=== PATIENT | female | born 1975 | race Caucasian/White ===

== ENCOUNTER 2024-02-11 11:56 | Outpatient (OUT) | payer BC, SELFPAY ==
[2024-02-11 12:14] LABS: Basophils Absolute Auto 0.1 10^3/uL (0.0-0.1); Basophils Percent Auto 0.4 % (0.2-2.0); Eosinophils Absolute Auto 0.3 10^3/uL (0.0-0.7); Eosinophils Percent Auto 1.5 % (0.9-7.0); Hematocrit 42.4 % (36.0-48.0); Hemoglobin 13.4 g/dL (12.0-16.0); Immature Granulocytes Abs Auto 0.19 10^3/uL (0.00-0.03); Lymphocytes Absolute Auto 1.8 10^3/uL (1.2-3.8); Lymphocytes Percent Auto 9.1 % (20.5-60.0); Mean Corpuscular HGB Conc 31.6 g/dL (29.9-35.2); Mean Corpuscular Volume 88.5 fL (81.0-99.0); Mean Platelet Volume 9.9 fL (9.5-13.5); Monocytes Absolute Auto 0.7 10^3/uL (0.3-0.8); Monocytes Percent Auto 3.6 % (1.7-12.0); Neutrophils Absolute Auto 16.3 10^3/uL (1.4-6.5); Neutrophils Percent Auto 84.4 % (43.0-75.0); Platelet Count 356 10^3/uL (150-450); Red Blood Count 4.79 10^6/uL (4.20-5.40); Red Cell Distribution Width 13.4 % (11.0-15.0); White Blood Count 19.3 10^3/uL (4.0-11.0)
[2024-02-11 12:17] LABS: Bilirubin Urine NEGATIVE (NEGATIVE); Blood Urine NEGATIVE (NEGATIVE); Clarity Urine SL CLOUDY (CLEAR); Color Urine YELLOW (YELLOW); Glucose Urine UA NEGATIVE (NEGATIVE); Ketones Urine TRACE mg/dL (NEGATIVE); Leukocyte Esterase Urine NEGATIVE (NEGATIVE); Nitrite Urine NEGATIVE (NEGATIVE); Protein Urine TRACE mg/dL (NEG/TRACE); Specific Gravity Urine >=1.030 (1.005-1.025); pH Urine 5.5 (5.0-9.0)
[2024-02-11 12:21] LABS: Urine Microscopic Indicated NO
[2024-02-11 12:30] LABS: Alanine Aminotransferase 45 U/L (14-59); Albumin Level 3.6 g/dL (3.4-5.0); Alkaline Phosphatase 109 U/L (46-116); Amylase 41 U/L (25-115); Anion Gap 15.3; Aspartate Amino Transferase 18 U/L (15-37); BUN Creatinine Ratio 15.1; Bilirubin Total 0.5 mg/dL (0.2-1.0); Calcium 9.1 mg/dL (8.5-10.1); Chloride 102 mmol/L (98-107); Estimated GFR (African America >60 (>=60); Estimated GFR (Non-African Ame 56 (>=60); Globulin 3.7 g/dL; Glucose 113 mg/dL (74-106); Potassium 4.3 mmol/L (3.5-5.1); Sodium 140 mmol/L (136-145); Total Protein 7.3 g/dL (6.4-8.2)
== END 2024-02-11 11:57 | disposition home or self-care (01) ==
LOC: LAB 12:01
PROVIDERS: PCP Nurse Practitioner; Visit Provider Nurse Practitioner
DX: R11.2 Nausea with vomiting, unspecified (principal)
CPT/HCPCS: 36415; 80053; 81003; 82150; 83690; 85025

== ENCOUNTER 2024-02-11 15:45 | Observation (INO) | payer BC, SELFPAY ==
[2024-02-11] VITALS (16 sets, daily range): BP systolic 93–127; BP diastolic 53–76; PULSE 85–101; TEMP 36.2–36.8; O2SAT 91–96; BMI 37.2; BMI 37.8
--- NOTE | 2024-02-11 15:58 | CT_ITS ---
The [address] [address] Patient Name: JEREMIAS HANLEY MRN: [id number] date: 1975 Sex: F Assigned Patient Location: ER Current Patient Location: ER Accession/Order Number: [id number] Exam Date: 02/11/2024 16:43 Report Date: 02/11/2024 18:05 At the request of: GERRY SULLIVAN Procedure: CT abdomen pelvis w con EXAM: CT abdomen pelvis w con HISTORY: abdominal pain, n/v/d. COMPARISON: None. TECHNIQUE: CT abdomen pelvis with IV contrast 100 mL Omnipaque 300. Axial scans with multiplanar reformatted images. Individualized dose reduction used for this exam. FINDINGS: Lower chest: No acute process. ABDOMEN: Normal-appearing liver, adrenal glands, pancreas spleen. Fluid-filled gallbladder is prominent without calcified stone or surrounding inflammation. No biliary dilatation. No ascites or free fluid. No adenopathy. Normal size aorta Distended cecum, ascending colon and mostly transverse colon with increased gas and fluid. Several areas of diminished caliber distal transverse colon. Colon beyond this is not distended contains moderate to large amount of stool. Question whether there is obstruction in the distal transverse colon. Stomach and duodenum are prominent with fluid. Remainder small bowel without significant distention to the terminal ileum. Pelvis: No mass or adenopathy or free fluid. Previous hysterectomy. Fluid-filled bladder. MUSCULOSKELETAL: No suspicious bone lesion. CT/CT abdomen pelvis w con IMPRESSION: 1. Distended air-filled cecum, ascending, transverse colon to distal portion where there appear to be transition to smaller caliber colon to the rectum. Moderate to areas of diminished caliber noted could be obstructing lesion or lesions. Consider colonoscopy. 2. Other incidental findings. No other significant pathology. Electronically authenticated by: JAIRO CUEVA Date: 02/11/2024 18:05
--- NOTE | 2024-02-11 15:59 | ECG_ITS ---
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
--- NOTE | 2024-02-11 16:01 | ED.GENADUL1 ---
HPI HPI - General Adult General Chief complaint: Abdominal Pain Stated complaint: NAUSEA Time Seen by Provider: 02/11/24 15:50 Source: patient Mode of arrival: walk-in Limitations: no limitations History of Present Illness HPI narrative: 48-year-old female presents to the ER with concerns of abdominal pain, nausea vomiting and diarrhea. Patient states she had an episode last week with similar symptoms that resolved within 24 to 48 hours, was feeling better. Today she awoke with again nausea vomiting and diarrhea. She reports multiple episodes of vomiting and diarrhea. She denies any chest pain or shortness of breath, no notable fever. She had outpatient labs done by her family doctor and was noted to have leukocytosis and symptoms of dehydration. Referred to the ER for further evaluation. Patient notes she has generalized abdominal pain that localizes in the mid to epigastric region, history of IBS with previous colonoscopy and remote diverticulosis. Patient appears uncomfortable with nausea and emesis basin. She denies any recent medication changes is a type II diabetic with metformin use. Mother is present at bedside and patient's PCP called advising of her coming to be seen. Has had previous appendectomy and hysterectomy but still has her gallbladder. Outpatient labs done today at noon at our facility. Location: Reports abdomen Radiation: Denies non-radiation Severity: moderate Quality: Reports aching Pain Consistency: Reports constant Relieving factors: Reports none Treatments prior to arrival: Reports none Related Data Home Medications ?Medication ?Instructions ?Recorded ?Confirmed amlodipine 2.5 mg tablet 2.5 mg PO BID 02/11/24 02/11/24 atorvastatin 80 mg tablet 80 mg PO BEDTIME 02/11/24 02/11/24 cyclobenzaprine 10 mg tablet 10 mg PO TID PRN muscle spasm 02/11/24 02/11/24 famotidine 40 mg tablet 40 mg PO BEDTIME 02/11/24 02/11/24 ferrous sulfate 325 mg (65 mg 325 mg PO BID 02/11/24 02/11/24 iron) tablet (FeroSul) gabapentin 100 mg capsule 100 mg PO BID 02/11/24 02/11/24 hydroxyzine pamoate 50 mg capsule 50 mg PO TID PRN anxiety 02/11/24 02/11/24 lisinopril 5 mg tablet 5 mg PO BID 02/11/24 02/11/24 metoprolol tartrate 25 mg tablet 25 mg PO BID 02/11/24 02/11/24 omeprazole 20 mg capsule,delayed 20 mg PO BID 02/11/24 02/11/24 release pramipexole 0.5 mg tablet 0.5 mg PO BEDTIME 02/11/24 02/11/24 venlafaxine 150 mg 150 mg PO DAILY 02/11/24 02/11/24 capsule,extended release 24 hr Allergies Allergy/AdvReac Type Severity Reaction Status Date / Time No Known Drug Allergies Allergy Verified 02/11/24 15:54 Opioid HPI Opioid Management Most Recent Opioid Data: Last Pain Scale 5 02/11/24 19:06 Last ED Pain Assessment 02/11/24 19:06 Last MAR Pain Assessment 02/11/24 17:15 Review of Systems ROS Constitutional Denies: fever or chills Eyes Denies: change in vision Ears, nose, mouth, and throat Denies: throat pain, neck pain or throat swelling Cardiovascular Denies: chest pain, palpitations or edema Respiratory Denies: shortness of breath, cough or wheezing Gastrointestinal Reports: abdominal pain, nausea and vomiting Genitourinary Denies: painful urination or urinary frequency Musculoskeletal Denies: back pain or neck pain Integumentary/Breast Denies: rash Neurological Denies: headache Psychiatric Denies: anxiety or mood swings Endocrine Denies: excessive urination Hematologic/Lymphatic Denies: easy bruising Allergic/Immunologic Denies: hives PFSH [facility] Medical History History of heart attack ?I25.2 - Old myocardial infarction (ICD-10) Surgical History History of heart artery stent ?Z95.5 - Presence of coronary angioplasty implant and graft (ICD-10) History of appendectomy ?Z90.49 - Acquired absence of other specified parts of digestive tract (ICD-10) History of hysterectomy ?Z90.710 - Acquired absence of both cervix and uterus (ICD-10) Exam Narrative Exam Narrative: Nurses notes and vital signs reviewed and patient is not hypoxic. General: The patient appears ill, but nontoxic. And in no apparent distress. Patient is resting comfortably on cart. Skin: Warm, dry, no pallor noted. Head: Normocephalic, atraumatic Neck: Supple, trachea mid-line, no tenderness, no lymphadenopathy Eye: Pupils are equal, round and reactive to light, EOMI Ears, Nose, Mouth, and Throat: External exam unremarkable. Cardiovascular: Regular Rate and Rhythm Respiratory: Patient is in no distress, no accessory muscle use, lungs are clear to auscultation, no wheezing, rales or rhonchi. Chest Wall: no tenderness Back: non-tender, no CVA tenderness Musculoskeletal: normal ROM, no tenderness, no swelling GI: Normal bowel sounds, tenderness to palpation epigastric, no masses appreciated. No rebound, guarding, or rigidity noted. Neurological: A&O x4 Psychiatric: Cooperative Constitutional Vital Signs, click to edit/add: Last Vital Signs Temp 98 F 02/11/24 19:05 Pulse 85 02/11/24 19:05 Resp 16 02/11/24 19:05 BP 93/53 02/11/24 19:05 Pulse Ox 95 02/11/24 19:05 O2 Del Method Room Air 02/11/24 17:22 Course Vital Signs Vital signs: Vital Signs Temperature 98.3 F 02/11/24 15:54 Pulse Rate 100 H 02/11/24 15:54 Respiratory Rate 20 02/11/24 15:54 Blood Pressure 127/76 02/11/24 15:54 Pulse Oximetry 96 02/11/24 15:54 Oxygen Delivery Method Room Air 02/11/24 15:54 Temperature 98 F 02/11/24 19:05 Pulse Rate 85 02/11/24 19:05 Respiratory Rate 16 02/11/24 19:05 Blood Pressure 93/53 02/11/24 19:05 Pulse Oximetry 95 02/11/24 19:05 Oxygen Delivery Method Room Air 02/11/24 17:22 Medical Decision Making MDM Narrative Medical decision making narrative: Patient presents with recurrent bouts of nausea vomiting diarrhea and abdominal pain. Tenderness noted on exam, no rebound or guarding. Patient appears uncomfortable, will be given IV Zofran, Toradol 15 mg and Levsin along with Pepcid. CT of the abdomen and pelvis will be performed with mutual discussion with patient at bedside regarding tenderness and symptoms. Elevated white blood cell count. She denies any known ill exposures products in the previous 2 months or bad foods. Patient reevaluated, still complaining of mild nausea, abdominal pain unchanged. Patient be given 4 mg IV morphine, 2 mg IV Valium. Repeat 4 mg IV Zofran. Patient reevaluated at 6:20 PM. She reports nausea is much improved, pain is better down to a 4 and very tolerable with recent medication. We discussed her CT findings. Patient reports prior colonoscopy the but that it has been over 5 years, Dr. Gorman in [place]. Patient reports doing Cologuard through her PCP with negative results. We discussed her symptoms last week and again recurring this week with potential ileus or bowel obstruction. Recommend period of observation to see if she can trial p.o. fluids. Pending general surgery consultation. Case discussed with Dr. Enrique, need for admission for Inpatient evaluation of , Nausea/ vomiting/ diarrhea, possible large bowel obstruction. Case discussed with Hospital ( [facility]) for admission- medical management. Patient had bedside consultation by Dr. Enrique, recommended NG tube placement, p.o. contrast via NG tube, rectal contrast for repeat CT of the abdomen and pelvis to help localize obstruction. Patient given Phenergan 25 mg IM for nausea after NG tube placement, confirmed with gastric contents and 1 view chest x-ray prior to administration of contrast. Patient had extended wait in the ER to accommodate CT before transport upstairs for admission for continuity of care, rather than bring the patient back down from the floor for imaging purposes. SHARED APC VISIT, PHYSICIAN ATTESTATION: [id number] I performed a substantive part of the MDM during the patient?s E/M visit. I personally evaluated and examined the patient. I personally made or approved the documented management plan and acknowledge its risk of complications. My (EKG/X-Ray/US/CT) interpretation . Management/test interpretation discussed with . Lab Data Lab results reviewed: Yes I reviewed the patient's lab results Lab results narrative: Urinalysis noted for trace ketones, patient's white blood cell count was elevated 19.3 with slight shift neut 84.4, plt 356, slight elevation of creatinine 1.06 bun 16, Liver enzymes wnl along with amylase/ lipase. labs are in hospital record for review. Imaging Data CT scan - abdomen: Radiologist's impression: ITS Impressions Abdomen/Pelvis CT 02/11/24 15:58 IMPRESSION: 1. Distended air-filled cecum, ascending, transverse colon to distal portion where there appear to be transition to smaller caliber colon to the rectum. Moderate to areas of diminished caliber noted could be obstructing lesion or lesions. Consider colonoscopy. 2. Other incidental findings. No other significant pathology. Electronically authenticated by: JAIRO CUEVA Date: 02/11/2024 18:05 ECG Data Attestation: I personally reviewed and interpreted this ECG as follows: Interpretation: EKG interpretation: Emergency Department physician interpretation, normal sinus rhythm 95, no ectopy, no ST segment elevation, normal axis. Discharge Plan Discharge Chief Complaint: Abdominal Pain Clinical Impression: Nausea vomiting and diarrhea, Bowel obstruction Patient Disposition: Admitted as Observation Time of Disposition Decision: 19:21 Condition: Good
[2024-02-11] MEDS: KETOROLAC TROMETHAMINE 30 MG/ML VIAL 15 MG IVP ×2 (16:30→23:05)
[2024-02-11] MEDS: HYOSCYAMINE SULFATE 0.125 MG TAB.SUBL SL (16:30)
[2024-02-11] MEDS: FAMOTIDINE/PF 20 MG/2 ML VIAL IV (16:30)
[2024-02-11] MEDS: ONDANSETRON PF 4 MG/2 ML VIAL IV ×3 (16:30→23:05)
[2024-02-11] MEDS: 0.9 % SODIUM CHLORIDE 1,000 ML 999 ML IV (16:31)
[2024-02-11] MEDS: DIAZEPAM 10 MG/2 ML SYRINGE 2 MG IV (17:15)
[2024-02-11] MEDS: MORPHINE SULFATE 4 MG/ML VIAL IV (17:15)
--- NOTE | 2024-02-11 19:46 | CT_ITS ---
The [address] [address] Patient Name: JEREMIAS HANLEY MRN: [id number] date: 1975 Sex: F Assigned Patient Location: Current Patient Location: Accession/Order Number: [id number] Exam Date: 02/11/2024 21:25 Report Date: 02/11/2024 23:00 At the request of: CHRISTINE ROBERSON Procedure: CT abdomen pelvis wo con EXAM: CT abdomen pelvis wo con HISTORY: r/o large bowel obstruction;please give oral contr COMPARISON: CT abdomen pelvis, 02/11/2024. TECHNIQUE: Oral and rectal contrast enhanced CT imaging the abdomen and pelvis was performed with sagittal and coronal reconstructions. Dose reduction techniques were achieved by using automated exposure control and/or adjustment of mA and/or kV according to patient size and/or use of iterative reconstruction technique. FINDINGS: CT ABDOMEN: There is dependent atelectasis in the posterior lower lobes with additional streaky bibasilar atelectasis. The imaged heart is unremarkable. The liver, gallbladder, pancreas, spleen, adrenal glands, kidneys, aorta, and IVC have a grossly unremarkable nonenhanced appearance. An NG tube is in good position with its tip in the distal gastric body. The stomach and small bowel appear unremarkable. CT PELVIS: There is no colonic obstruction. There is moderate stool in the proximal half of the colon. The colon is otherwise unremarkable. The appendix, uterus and ovaries are not seen and may have been removed.. The pelvic small bowel loops and urinary bladder are unremarkable. No inflammatory fat stranding, free fluid, loculated fluid or free air is seen in the abdomen or pelvis. No acute osseous abnormality or suspicious bony lesion is seen. CT/CT abdomen pelvis wo con IMPRESSION: 1. Moderate intrinsic stool limits evaluation of the colon. Potential underlying lesions could be better evaluated with colonoscopy. There is no colonic obstruction. The transition point described on the prior exam is not seen following rectal contrast administration. 2. No acute findings in the abdomen or pelvis. Electronically authenticated by: JAIRO HEWITT Date: 02/11/2024 23:00
--- NOTE | 2024-02-11 19:49 | PM.GSCN ---
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 Patient states she has been having pain in the abdomen for about 10 days that has been coming and going. Her last normal bowel movement was yesterday. She rates the pain as an 6 out of 10 currently but had medication about 3-1/2 hours ago. She has had 7-8 episodes of nausea and vomiting today. She has had leukocytosis on outpatient lab work which showed a white blood count of 19,000. She denies any melena or hematochezia or unusual weight loss. She denies any family history of colon cancer or inflammatory bowel disease. She has a history of endometriosis. She has had a prior bilateral oophorectomy and hysterectomy and appendectomy She had a CT scan of the abdomen and pelvis showing distended cecum and transverse colon with transition distal transverse colon. This was done without oral contrast. She has had intermittent constipation over the last year for which she gives herself enemas every 2 weeks. Her last colonoscopy was performed [address] Gormna in [place]. She has a history of having had an PR in 2019 and another 1. She has [address] Ekg Manager is in [facility]. She tells me that she takes a baby aspirin daily but it is not listed on her medication list. She is diabetic. Type II. Her daughter Fabi is at the bedside. The [address] [address] [address] Scan Report Signed Patient: JEREMIAS HANLEY MR#: [id number] : 1975 Acct:[id number] Age/Sex: 48 / F ADM Date: 02/11/24 Loc: ER Attending Dr: Ordering Physician: Gerry Vieyra Date of Service: 02/11/24 Procedure(s): CT abdomen pelvis w con Accession Number(s): [id number] cc: Lis Telles NP~ The [address] [address] Patient Name: JEREMIAS HANLEY MRN: [facility]:[id number] date: 1975 Sex: F Assigned Patient Location: ER Current Patient Location: ER Accession/Order Number: [id number] Exam Date: 02/11/2024 16:43 Report Date: 02/11/2024 18:05 At the request of: GERRY VIEYRA Procedure: CT abdomen pelvis w con EXAM: CT abdomen pelvis w con HISTORY: abdominal pain, n/v/d. COMPARISON: None. TECHNIQUE: CT abdomen pelvis with IV contrast 100 mL Omnipaque 300. Axial scans with multiplanar reformatted images. Individualized dose reduction used for this exam. FINDINGS: Lower chest: No acute process. ABDOMEN: Normal-appearing liver, adrenal glands, pancreas spleen. Fluid-filled gallbladder is prominent without calcified stone or surrounding inflammation. No biliary dilatation. No ascites or free fluid. No adenopathy. Normal size aorta Distended cecum, ascending colon and mostly transverse colon with increased gas and fluid. Several areas of diminished caliber distal transverse colon. Colon beyond this is not distended contains moderate to large amount of stool. Question whether there is obstruction in the distal transverse colon. Stomach and duodenum are prominent with fluid. Remainder small bowel without significant distention to the terminal ileum. Pelvis: No mass or adenopathy or free fluid. Previous hysterectomy. Fluid-filled bladder. MUSCULOSKELETAL: No suspicious bone lesion. CT/CT abdomen pelvis w con IMPRESSION: 1. Distended air-filled cecum, ascending, transverse colon to distal portion where there appear to be transition to smaller caliber colon to the rectum. Moderate to areas of diminished caliber noted could be obstructing lesion or lesions. Consider colonoscopy. 2. Other incidental findings. No other significant pathology. Electronically authenticated by: ROBERT PIKE Date: 02/11/2024 18:05 Dictated By: Robert Pike M.D. Signed By: 02/11/241806 DD/ 04 TD/TT: Machine Deicer Element Winder: Review of Systems ROS Gastrointestinal Reports: abdominal pain, nausea, vomiting and diarrhea PFSH PFS Medical History History of heart attack ?I25.2 - Old myocardial infarction (ICD-10) Surgical History History of heart artery stent ?Z95.5 - Presence of coronary angioplasty implant and graft (ICD-10) History of appendectomy ?Z90.49 - Acquired absence of other specified parts of digestive tract (ICD-10) History of hysterectomy ?Z90.710 - Acquired absence of both cervix and uterus (ICD-10) Meds Home Medications and Allergies Home Medications ?Medication ?Instructions ?Recorded ?Confirmed ?Type amlodipine 2.5 mg tablet 2.5 mg PO BID 02/11/24 02/11/24 History atorvastatin 80 mg tablet 80 mg PO BEDTIME 02/11/24 02/11/24 History cyclobenzaprine 10 mg tablet 10 mg PO TID PRN muscle spasm 02/11/24 02/11/24 History famotidine 40 mg tablet 40 mg PO BEDTIME 02/11/24 02/11/24 History ferrous sulfate 325 mg (65 mg 325 mg PO BID 02/11/24 02/11/24 History iron) tablet (FeroSul) gabapentin 100 mg capsule 100 mg PO BID 02/11/24 02/11/24 History hydroxyzine pamoate 50 mg capsule 50 mg PO TID PRN anxiety 02/11/24 02/11/24 History lisinopril 5 mg tablet 5 mg PO BID 02/11/24 02/11/24 History metoprolol tartrate 25 mg tablet 25 mg PO BID 02/11/24 02/11/24 History omeprazole 20 mg capsule,delayed 20 mg PO BID 02/11/24 02/11/24 History release pramipexole 0.5 mg tablet 0.5 mg PO BEDTIME 02/11/24 02/11/24 History venlafaxine 150 mg 150 mg PO DAILY 02/11/24 02/11/24 History capsule,extended release 24 hr Allergies Allergy/AdvReac Type Severity Reaction Status Date / Time No Known Drug Allergies Allergy Verified 02/11/24 15:54 Exam Constitutional Vital Signs, click to edit/add: Last Vital Signs Temp 98 F 02/11/24 19:05 Pulse 85 02/11/24 19:05 Resp 16 02/11/24 19:05 BP 93/53 02/11/24 19:05 Pulse Ox 95 02/11/24 19:05 O2 Del Method Room Air 02/11/24 17:22 Documenting provider has reviewed patient's vital signs: yes Common normals: oriented x3, healthy appearing, alert and well nourished General appearance: cooperative and well developed Nutritional appearance: obese Orientation/consciousness: Yes awake, Yes oriented to person, Yes oriented to place and Yes oriented to time HENMT Common normals: normocephalic Nose: external nose normal and nares normal Eye Common normals: PERRL, EOMs intact bilaterally, conjunctivae normal and no scleral icterus Respiratory Common normals: normal respiratory effort and clear to auscultation bilaterally Cardio Common normals: regular rate, regular rhythm, no gallops and no murmurs GI Auscultation: hypoactive bowel sounds Palpation: soft (Obese slightly distended) and tender Percussion: tympanic to percussion Extremity Common normals: normal to inspection and full ROM Neuro Common normals: oriented x3, CN's II-XII intact bilaterally, moves all extremities and no focal motor deficits Cranial nerves: CN normal except as noted Results Labs Labs: All other labs normal. Imaging Abdomen CT scan report/results: report reviewed and image reviewed Assessment and Plan Assessment and Plan (1) Abnormal CT scan, gastrointestinal tract: (2) Abdominal pain: Qualifiers: Abdominal location: generalized Qualified Code(s): R10.84 - Generalized abdominal pain (3) Diabetes mellitus type 2, noninsulin dependent: (4) History of heart artery stent: (5) History of appendectomy: (6) History of hysterectomy: (7) Bowel obstruction: Qualifiers: Intestinal obstruction extent: unspecified extent Intestinal obstruction type: other intestinal obstruction Qualified Code(s): K56.699 - Other intestinal obstruction unspecified as to partial versus complete obstruction (8) Nausea vomiting and diarrhea: Plan 1. Discussed with patient the possibility of a large bowel obstruction requiring temporary colostomy and major surgery 2. Would recommend placement of nasogastric tube to low intermittent suction 3. Would repeat CT scan with rectal contrast
--- NOTE | 2024-02-11 19:52 | XR_ITS ---
The [address] [address] Patient Name: JEREMIAS HANLEY MRN: [id number] date: 1975 Sex: F Assigned Patient Location: ER Current Patient Location: ED.[facility] Accession/Order Number: [id number] Exam Date: 02/11/2024 20:00 Report Date: 02/11/2024 20:44 At the request of: GERRY SULLIVAN Procedure: XR chest 1V EXAM: XR chest 1V at 1956 hours HISTORY: NG tube placement COMPARISON: 02/18/2023 TECHNIQUE: AP upright portable chest x-ray FINDINGS: There has been interval insertion of an NG tube which courses into the stomach and out of the [id number]. The sideholes are significantly distal to the gastroesophageal junction. The heart remains mildly enlarged without overt cardiac decompensation. No acute infiltrate, effusion or pneumothorax is identified. The osseous structures are grossly intact. XR/XR chest 1V IMPRESSION: Satisfactory placement of the NG tube. The heart remains enlarged without overt cardiac decompensation. A focal infiltrate is not identified. Electronically authenticated by: LEILA KEARNS Date: 02/11/2024 20:44
[2024-02-11] MEDS: PROMETHAZINE HCL 25 MG/ML VIAL IM (20:04)
[2024-02-11] MEDS: DEXTROSE 5 %-0.45 % SOD CHLORD 1,000 ML 100 ML IV (23:05)
[2024-02-12 04:00] VITALS: BP 90/56; TEMP 36.8; O2SAT 2
--- NOTE | 2024-02-12 05:38 | PM.GSPN ---
Progress Note: A&P Assessment and Plan (1) Abnormal CT scan, gastrointestinal tract: (2) Abdominal pain: Qualifiers: Abdominal location: generalized Qualified Code(s): R10.84 - Generalized abdominal pain (3) Diabetes mellitus type 2, noninsulin dependent: (4) History of heart artery stent: (5) History of appendectomy: (6) History of hysterectomy: (7) Bowel obstruction: Qualifiers: Intestinal obstruction type: other intestinal obstruction Intestinal obstruction extent: unspecified extent Qualified Code(s): K56.699 - Other intestinal obstruction unspecified as to partial versus complete obstruction (8) Nausea vomiting and diarrhea: Plan D/c ng tube and try clears Pt. will OP colonoscopy within next few weeks;pending labs No more nausea emesis since admission Subjective Subjective Patient reports: no new complaints, feels better, still having pain and no flatus Interval history: Repeat CT scan with oral and rectal contrast shows no signs of colonic obstruction. Minimal output per NG tube. Still having 5/10 pain but not medicated since prior to midnight.No flatus or bm. Exam Constitutional Vital Signs, click to edit/add: Last Vital Signs Temp 98.3 F 02/12/24 04:00 Pulse 91 H 02/11/24 22:45 Resp 18 02/12/24 04:00 BP 90/56 02/12/24 04:00 Pulse Ox 2 L 02/12/24 04:00 O2 Del Method Nasal Cannula 02/12/24 04:00 Documenting provider has reviewed patient's vital signs: yes Common normals: no apparent distress, oriented x3, alert and well nourished GI Common normals: Normal to inspection, nondistended, normoactive bowel sounds present, soft to palpation and non-tender Date and Time Date and Time of Service Date of service: 02/12/24 Time: 05:39
[2024-02-12] MEDS: DEXTROSE 5 %-0.45 % SOD CHLORD 1,000 ML 100 ML IV (06:23)
[2024-02-12 07:00] LABS: Basophils Percent Auto 0.1 % (0.2-2.0); Eosinophils Absolute Auto 0.4 10^3/uL (0.0-0.7); Eosinophils Percent Auto 3.6 % (0.9-7.0); Hematocrit 36.1 % (36.0-48.0); Hemoglobin 11.1 g/dL (12.0-16.0); Immature Granulocytes Abs Auto 0.03 10^3/uL (0.00-0.03); Immature Granulocytes Pct Auto 0.3 % (0.0-0.5); Lymphocytes Absolute Auto 1.2 10^3/uL (1.2-3.8); Lymphocytes Percent Auto 12.3 % (20.5-60.0); Mean Corpuscular HGB Conc 30.7 g/dL (29.9-35.2); Mean Corpuscular Hemoglobin 27.4 pg (26.7-34.0); Mean Corpuscular Volume 89.1 fL (81.0-99.0); Mean Platelet Volume 10.3 fL (9.5-13.5); Monocytes Absolute Auto 0.4 10^3/uL (0.3-0.8); Monocytes Percent Auto 3.7 % (1.7-12.0); Platelet Count 240 10^3/uL (150-450); Red Blood Count 4.05 10^6/uL (4.20-5.40); Red Cell Distribution Width 13.4 % (11.0-15.0)
[2024-02-12 07:11] LABS: Alanine Aminotransferase 27 U/L (14-59); Albumin Globulin Ratio 0.9; Albumin Level 2.6 g/dL (3.4-5.0); Alkaline Phosphatase 84 U/L (46-116); Anion Gap 12.8; Aspartate Amino Transferase 13 U/L (15-37); BUN Creatinine Ratio 15.9; Bilirubin Total 0.5 mg/dL (0.2-1.0); Calcium 7.8 mg/dL (8.5-10.1); Carbon Dioxide 26.8 mmol/L (21.0-32.0); Chloride 105 mmol/L (98-107); Estimated GFR (African America >60 (>=60); Estimated GFR (Non-African Ame >60 (>=60); Globulin 2.9 g/dL; Glucose 102 mg/dL (74-106); Potassium 3.6 mmol/L (3.5-5.1); Sodium 141 mmol/L (136-145); Total Protein 5.5 g/dL (6.4-8.2)
[2024-02-12 07:53] VITALS: BP 107/68; PULSE 86; TEMP 36.9; O2SAT 92
--- NOTE | 2024-02-12 08:48 | P.DS_ITS ---
DS: Providers Provider Date of admission: 02/11/24 21:59 Primary care physician: Lis Telles NP Consults: 02/11/24 19:24 Consult to General Surgeon Routine Consulting Provider: Souleymane Enrique Reason for consultation: possible large bowel obstruction/ ilieus/ Has provider been notified: Yes 02/12/24 07:00 Consult to General Surgeon Routine Consulting Provider: Souleymane Enrique Reason for consultation: Bowel obstruction Has provider been notified: Yes DS: Diagnosis Discharge Diagnosis (1) Abnormal CT scan, gastrointestinal tract: (2) Abdominal pain: Qualifiers: Abdominal location: generalized Qualified Code(s): R10.84 - Generalized abdominal pain (3) Diabetes mellitus type 2, noninsulin dependent: (4) History of heart artery stent: (5) History of appendectomy: (6) History of hysterectomy: (7) Bowel obstruction: Qualifiers: Intestinal obstruction extent: unspecified extent Intestinal ob struction type: other intestinal obstruction Qualified Code(s): K56.699 - Other intestinal obstruction unspecified as to partial versus complete obstruction (8) Nausea vomiting and diarrhea: DS: Summary Hospital Course Hospital Course: Patient was seen and evaluated in the emergency room with recurrent nausea vomiting and diarrhea, CT scan without contrast suggested possible large bowel obstruction, consultation with surgery recommended placing an NG tube, giving IV, oral, rectal contrast, NG tube was placed, CT scan not consistent with large bowel obstruction, NG tube overnight had minimal output, white blood cell count on admission was resolved to normal this morning. With minimal output patient was given clear liquids which she so far has tolerated. If she tolerates lunch she will be discharged home in improving condition. Medications see list. Follow-up with her PCP and general surgery within the next week. Status at Discharge Overall status at discharge: patient is back to baseline Time Spent with Patient Time attestation: Total time spent providing and/or coordinating discharge services: Time spent: greater than 30 minutes Exam Constitutional Vital Signs, click to edit/add: Last Vital Signs Temp 98.4 F 02/12/24 07:53 Pulse 86 02/12/24 07:53 Resp 18 02/12/24 07:53 BP 107/68 02/12/24 07:53 Pulse Ox 92 L 02/12/24 07:53 O2 Del Method Room Air 02/12/24 07:53 Documenting provider has reviewed patient's vital signs: yes Common normals: no apparent distress Chest Common normals: inspection of chest normal and palpation of chest normal Respiratory Common normals: normal respiratory effort and no retractions Cardio Common normals: regular rate, regular rhythm and no murmurs GI Common normals: Normal to inspection, nondistended, normoactive bowel sounds present, soft to palpation and non-tender DS: Data Data Completed and Pending Labs on day of discharge: Labs from last 24 hours 02/12/24 06:39 WBC 10.0 RBC 4.05 L Hgb 11.1 L Hct 36.1 MCV 89.1 MCH 27.4 MCHC 30.7 RDW 13.4 Plt Count 240 MPV 10.3 Neut % (Auto) 80.0 H Lymph % (Auto) 12.3 L [place] % (Auto) 3.7 Eos % (Auto) 3.6 Baso % (Auto) 0.1 L Neut # (Auto) 8.0 H Lymph # (Auto) 1.2 [place] # (Auto) 0.4 Eos # (Auto) 0.4 Baso # (Auto) 0.0 Abs Immat Gran (auto) 0.03 Imm/Tot Granulo (auto) 0.3 Sodium 141 Potassium 3.6 Chloride 105 Carbon Dioxide 26.8 Anion Gap 12.8 BUN 13.0 Creatinine 0.82 Est GFR ( Amer) >60 Est GFR (Non-Af Amer) >60 BUN/Creatinine Ratio 15.9 Glucose 102 Calcium 7.8 L Total Bilirubin 0.5 AST 13 L ALT 27 Alkaline Phosphatase 84 Total Protein 5.5 L Albumin 2.6 L Globulin 2.9 Albumin/Globulin Ratio 0.9 Discharge Plan Discharge Disposition: Home, Self-Care Condition: Good Discharge Medications: New ondansetron 4 mg tablet,disintegrating 4 mg PO Q6H PRN (Reason: nausea and vomiting) Qty: 20 0RF Continued amlodipine 2.5 mg tablet 2.5 mg PO BID atorvastatin 80 mg tablet 80 mg PO BEDTIME cyclobenzaprine 10 mg tablet 10 mg PO TID PRN (Reason: muscle spasm) famotidine 40 mg tablet 40 mg PO BEDTIME ferrous sulfate [FeroSul] 325 mg (65 mg iron) tablet 325 mg PO BID gabapentin 100 mg capsule 100 mg PO BID hydroxyzine pamoate 50 mg capsule 50 mg PO TID PRN (Reason: anxiety) lisinopril 5 mg tablet 5 mg PO BID metoprolol tartrate 25 mg tablet 25 mg PO BID omeprazole 20 mg capsule,delayed release(DR/EC) 20 mg PO BID pramipexole 0.5 mg tablet 0.5 mg PO BEDTIME venlafaxine 150 mg capsule,extended release 24hr 150 mg PO DAILY No Action metformin 500 mg tablet 500 mg PO BIDWM Print Language: [place] Forms: Portal Instructions
--- NOTE | 2024-02-12 08:48 | P.HP_ITS ---
HPI H&P: HPI History of Present Illness Chief complaint: NAUSEA Bowel Obstruction Narrative: Patient was seen and evaluated in the emergency room with a recurrence of acute nausea, vomiting, diarrhea, she had this 4 days prior that resolved, unable to resolve at home with home medications. Saw her PCP who recommended getting some blood work done blood work consistent with dehydration and was referred to the emergency room. In the emergency room, CT scan done showed possible large bowel obstruction. Consultation with general surgery, recommended NG tube being placed in giving patient IV, oral and rectal contrast and repeating the CT scan. Patient admitted to observation When I saw patient up on the medical surgical floor, she was resting comfortably in bed, denied any current nausea vomiting or abdominal pain. Reviewed notes from general surgery, minimal output from NG tube overnight, CT scan not consistent with bowel obstruction Opioid HPI Opioid Management Most Recent Pain and Opioid Data: Last Pain Scale 2 02/12/24 09:00 Last Pain Assessment 02/12/24 09:00 Last ED Pain Assessment 02/11/24 19:06 Last MAR Pain Assessment 02/12/24 00:45 Last ORT Total Score 0 02/11/24 22:10 Last ORT Risk Category Low Risk 02/11/24 22:10 Review of Systems ROS Status of ROS 10 or more systems reviewed and unremark able except as noted in history and below Constitutional Denies: fever or chills PFSH PFSH Medical History (Updated 02/11/24 @ 22:26 by Jeanie Baig RN) Fibromyalgia ?M79.7 - Fibromyalgia (ICD-10) History of heart attack ?I25.2 - Old myocardial infarction (ICD-10) Surgical History History of heart artery stent ?Z95.5 - Presence of coronary angioplasty implant and graft (ICD-10) History of appendectomy ?Z90.49 - Acquired absence of other specified parts of digestive tract (ICD- 10) History of hysterectomy ?Z90.710 - Acquired absence of both cervix and uterus (ICD-10) Family History (Updated 02/11/24 @ 22:27 by Jeanie Baig RN) Other CAD (coronary artery disease) Family history of myocardial infarction Social History (Updated 02/11/24 @ 22:32 by Jeanie Baig RN) Within the past year, how often did you have a drink containing alcohol: never Within the past year, how often did you have six or more drinks on one occasion: never Score interpretation: A score less than 3 is consistent with normal alcohol consumption. Smoking status: Former smoker Do you use any of these nicotine containing products: vaping products Nicotine containing products detail: Uses vape at night before going to bed. Nicotine Vape. Non-prescribed substance use: denies use Known occupational exposures/hazards: No Highest level of school completed/degree received: some college, no degree Are you now , , , , never or living with a partner: In a typical week, how many times do you talk on the telephone with family, friends, or neighbors: twice per week How often do you get together with friends or relatives: 3 or more times per week How often do you attend alevism or scientologist services: never Do you belong to any clubs or organizations such as alevism groups unions, [employer] or athletic groups, or school groups: no Total score: 1 Score interpretation: A score of less than or equal to 1 indicates the most socially isolated. Little interest or pleasure in doing things: not at all Feeling down, depressed, or hopeless: not at all Feel stressed/tense/nervous/anxious/difficulty sleeping: not at all Due to disability, difficulty making decisions: No Do you think of yourself as: straight/heterosexual Gender Identity: female Meds Home Medications and Allergies Home Medications ?Medication ?Instructions ?Recorded ?Confirmed ?Type amlodipine 2.5 mg tablet 2.5 mg PO BID 02/11/24 02/11/24 History atorvastatin 80 mg tablet 80 mg PO BEDTIME 02/11/24 02/11/24 History cyclobenzaprine 10 mg tablet 10 mg PO TID PRN muscle spasm 02/11/24 02/11/24 History famotidine 40 mg tablet 40 mg PO BEDTIME 02/11/24 02/11/24 History ferrous sulfate 325 mg (65 mg 325 mg PO BID 02/11/24 02/11/24 History iron) tablet (FeroSul) gabapentin 100 mg capsule 100 mg PO BID 02/11/24 02/11/24 History hydroxyzine pamoate 50 mg capsule 50 mg PO TID PRN anxiety 02/11/24 02/11/24 History lisinopril 5 mg tablet 5 mg PO BID 02/11/24 02/11/24 History metoprolol tartrate 25 mg tablet 25 mg PO BID 02/11/24 02/11/24 History omeprazole 20 mg capsule,delayed 20 mg PO BID 02/11/24 02/11/24 History release pramipexole 0.5 mg tablet 0.5 mg PO BEDTIME 02/11/24 02/11/24 History venlafaxine 150 mg 150 mg PO DAILY 02/11/24 02/11/24 History capsule,extended release 24 hr metformin 500 mg tablet 500 mg PO BIDWM 02/12/24 02/12/24 History ondansetron 4 mg disintegrating 4 mg PO Q6H PRN nausea and 02/12/24 Rx tablet vomiting #20 tabs Allergies Allergy/AdvReac Type Severity Reaction Status Date / Time No Known Drug Allergies Allergy Verified 02/11/24 15:54 Exam Constitutional Vital Signs, click to edit/add: Last Vital Signs Temp 98.4 F 02/12/24 07:53 Pulse 86 02/12/24 07:53 Resp 18 02/12/24 07:53 BP 107/68 02/12/24 07:53 Pulse Ox 92 L 02/12/24 07:53 O2 Del Method Room Air 02/12/24 07:53 Documenting provider has reviewed patient's vital signs: yes Common normals: no apparent distress Chest Common normals: inspection of chest normal and palpation of chest normal Respiratory Common normals: normal respiratory effort and no retractions Cardio Common normals: regular rate, regular rhythm and no murmurs GI Common normals: Normal to inspection, nondistended, normoactive bowel sounds present, soft to palpation and non-tender Results Labs Labs: Short CBC 02/12/24 Range/Units 06:39 WBC 10.0 (4.0-11.0) 10^3/uL Hgb 11.1 L (12.0-16.0) g/dL Hct 36.1 (36.0-48.0) % Plt Count 240 (150-450) 10^3/uL BMP 02/12/24 06:39 Sodium 141 Potassium 3.6 Chloride 105 Carbon Dioxide 26.8 BUN 13.0 Creatinine 0.82 Glucose 102 Calcium 7.8 L Liver Function 02/12/24 Range/Units 06:39 Total Bilirubin 0.5 (0.2-1.0) mg/dL AST 13 L (15-37) U/L ALT 27 (14-59) U/L Alkaline Phosphatase 84 (46-116) U/L Albumin 2.6 L (3.4-5.0) g/dL Assessment and Plan Assessment and Plan (1) Abnormal CT scan, gastrointestinal tract: (2) Abdominal pain: Qualifiers: Abdominal location: generalized Qualified Code(s): R10.84 - Generalized abdominal pain (3) Diabetes mellitus type 2, noninsulin dependent: (4) History of heart artery stent: (5) History of appendectomy: (6) History of hysterectomy: (7) Bowel obstruction: Qualifiers: Intestinal obstruction extent: unspecified extent Intestinal obstruction type: other intestinal obstruction Qualified Code(s): K56.699 - Other intestinal obstruction unspecified as to partial versus complete obstruction (8) Nausea vomiting and diarrhea: Plan Admission findings: Sinus tachycardia, leukocytosis urinalysis consistent with dehydration due to nausea vomiting and diarrhea, possible bowel obstruction that is resolved on repeat CT scan. Reviewed notes from general surgery. If she tolerates clear liquids can remove NG tube and advance diet. If she tolerates that she can be discharged home later today. Follow-up with general surgery for colonoscopy. Hypertension by history-maintain medication once able to take oral medications Hypercholesterolemia-Home medications will hold for now NIDDM with diabetic neuropathy-continue with medications once able to take orals Depression-continue with home medications Restless leg syndrome-continue with home medications Coronary artery disease status post stent placement-no active symptoms Admission status: Patient felt to have possible large bowel obstruction, repeat CT scan with contrast did not confirm, so far patient tolerating clear liquids, if diet can be advanced and she tolerates that she can be discharged home in improving condition. Medications see list. Follow-up with PCP within the next week. Follow-up with surgery within the next week. More than 50% chance to be discharged later today so maintain observation status
[2024-02-12 10:49] LABS: Glucometer 97 mg/dL (74-106)
[2024-02-12] MEDS: GABAPENTIN 100 MG CAPSULE PO (14:17)
[2024-02-12] MEDS: VENLAFAXINE HCL ER 150 MG CAPSULE PO (14:17)
[2024-02-12] MEDS: OMEPRAZOLE 20 MG CAPSULE.DR PO (14:17)
[2024-02-12 14:20] VITALS: BP 113/73; PULSE 93; TEMP 36.8; O2SAT 93
[2024-02-13 07:13] LABS: CEA 3.2 ng/mL (0.0-4.7)
--- NOTE | 2024-02-14 13:43 | CM.DCFOLLOWU ---
1st attempt 02/14/24
--- NOTE | 2024-02-15 13:32 | CM.DCFOLLOWU ---
Person spoke with:patient How are you feeling? well How is your pain? none Did you understand your discharge instructions? yes Do you have any questions about your discharge instructions? no Were you given any prescriptions at discharge? yes Were you able to get your prescriptions filled? yes Do you understand how to take your medications as ordered? yes Do you have any questions about your follow up appointment and do you plan to keep your follow up appointment? no questions, works in [facility] office so was able to get follow up completed Is there anything else that you would like to discuss? no Questions/Comments/Concerns/Other: none
== END 2024-02-12 15:11 | disposition home or self-care (01) ==
LOC: ER 20:30 → MS 22:48
PROVIDERS: Registered Nurse; Surgery; Admitting Provider Family Medicine; Emergency Provider Emergency Medicine; PCP Nurse Practitioner; Visit Provider Family Medicine
DX: R10.84 Generalized abdominal pain (principal); R11.2 Nausea with vomiting, unspecified; R19.7 Diarrhea, unspecified; F17.290 Nicotine dependence, other tobacco product, uncomplicated; R93.5 Abnormal findings on diagnostic imaging of other abdominal regions, including retroperitoneum; R00.0 Tachycardia, unspecified; E86.0 Dehydration; I10 Essential (primary) hypertension; E78.00 Pure hypercholesterolemia, unspecified; E11.40 Type 2 diabetes mellitus with diabetic neuropathy, unspecified; F32.A Depression, unspecified; G25.81 Restless legs syndrome; I25.10 Atherosclerotic heart disease of native coronary artery without angina pectoris; D72.829 Elevated white blood cell count, unspecified; E66.9 Obesity, unspecified; Z68.37 Body mass index [BMI] 37.0-37.9, adult; Z90.722 Acquired absence of ovaries, bilateral; Z90.710 Acquired absence of both cervix and uterus; Z90.49 Acquired absence of other specified parts of digestive tract; I25.2 Old myocardial infarction; Z95.5 Presence of coronary angioplasty implant and graft; Z79.82 Long term (current) use of aspirin
CPT/HCPCS: 36415; 71045; 74176; 74177; 80053; 81003; 82150; 82378; 82948; 83690; 85025; 93005; 96361; 96372; 96374; 96375; 96376; 99285; G0378; J1885; J2250; J2270; J2405; J3360; Q9963; Q9967

== ENCOUNTER 2024-02-21 11:14 | Outpatient (OUT) | payer BC, SELFPAY | END 2024-02-21 11:15 | disposition home or self-care (01) | LOC: PST 11:15 | PROVIDERS: PCP Nurse Practitioner; Visit Provider Surgery | DX: Z01.818 Encounter for other preprocedural examination (principal); R10.84 Generalized abdominal pain ==

== ENCOUNTER 2024-02-22 07:59 | Day surgery (SDC) | payer BC, SELFPAY ==
[2024-02-22 08:05] VITALS: BP 90/56; PULSE 80; TEMP 36.3; O2SAT 97; BMI 36.3
--- OUTSIDE RECORDS SUMMARY | 2024-02-22 08:07 | XMS_ITS | CCD ---
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 Name Role Phone GERRY GUERRA Referring Unavailable CLINGERRY HUITRON Primary Care Unavailable ClinGerry huitron Primary Care Provider ClinGerry huitron Primary Care Provider Clingman GRINDER CHIPPER - MARINE STEAM FITTER HELPERGerry Primary Care Prov ider Unavailable Primary Care Provider Unavailabl e System, Provider Not In Primary Care Provider Un available DELVIN MIRELES Attending Unavailable DELVIN MIRELES Admitting Unavailable SYSTEM, PROVIDER NOT IN Primary Care Unavaila ble GERRY GUERRA Primary Care Unavailable CAROL BRYAN Consulting Unavaila STEFFEN Cardona Attending Unavailable ELIESER BLACK Admitting Unavailable BARBARA MAGAÑA Consulting Unavailable ADONIS MENJIVAR Referring Unavailable GERRY GUERRA Primary Care Unavailable Vishal Ashraf DO Primary Care Provider Vishal Ashraf DO Primary Care Provider JEFFERY Bermudez Primary Care Provider DO [facility] Attending Provider Vishal Ashraf DO Primary Care Provider [phone] NONE, XXXX Primary Care Physician Unavailab Vishal Yeh DO Primary Care Provider [phone] Vishal Ashraf DO Primary Care Provider VISHAL ASHRAF Primary Care Unavailable MICHAEL YODER Attending Unavailable VISHAL ASHRAF Primary Care Unavailable LAURIE CADENA Attending Unavailable DENICE GRACE Attending Unavailab le VIGDENICE BAR Admitting Unavailab le SYSTEM, PROVIDER NOT IN Primary Care UnavailJIM Ortiz Primary Care Physician [phone] VISHAL ASHRAF Attending UnavailVISHAL Razo Admitting UnavailFozia Toussaint Attending Unavailable Florentin Clement Attending Unavailable Florentin Clement Attending Unavailable DENICE GRACE Admitting Unavailable VENTURAESDENICE LUGO Attending Unavailable Orzech, Dayanara X Attending Unavailable Orzech Dayanara X Admitting Unavailable AICHHOLJosie SADIQ Attending Unavailable AICHHOLJosie SADIQ Attending Unavailable BARBI GOOD Attending Unavailable SHAIKH GIORDANO Referring Unavailable Allergies Allergy Classification Reported Allergen(s) Allergy Type Date of Onset Reaction(s) Facility pregabalin (7 sources) pregabalin; Translations: [PREGABALIN] Drug Allergy 1 Other (See Comments) [facility] (20 sources) pregabalin; Translations: [pregabalin] Drug Allergy 1 Other (See Comments), Chest pain (finding) [place], [place] (1 source) pregabalin; Translations: [Lyrica] Drug Allergy [facility] Repository Medications Current Medications Medication Drug Class(es) Dates Sig (Normalized) Sig (Original) Acetaminophen (4 sources) Start: 06-27-2021 acetaminophen (TYLENOL) tablet 650 mg Start: 01-06-2021 acetaminophen (TYLENOL) tablet 650 mg Start: 06-24-2020 take 2 tablets by mo [facility] three times daily as needed for pain acetaminophen (TYLENOL) 500 MG tablet Take 2 tablets by mouth 3 times daily as needed for Pain 30 tablet 0 06/24/2020 Active amLODIPine 2.5 mg oral tablet (18 sources) Dihydropyridine Calcium Channel Juan Start: 05-25-2022 amLODIPine 2.5 mg Tab Refills(s) 0 Start Date: 08/28/22 Status: Ordered Start: 01-02-2022 take 1 tablet by allison twice daily amLODIPine (NORVASC) 2.5 MG tablet Take 1 tablet by mouth 2 times daily 30 tablet 3 01/02/2022 Active Start: 09-01-2021 take 1 tablet by allison th twice daily amLODIPine (NORVASC) 2.5 MG tablet Take 1 tablet by mouth 2 times daily 30 tablet 3 09/01/2021 Active Start: 07-03-2021 End: 07-04-2021 take 1 tablet by mouth twice daily amLODIPine (NORVASC) 2.5 MG tablet Take 1 tablet by mouth 2 times daily 30 tablet 3 07/04/2021 Active Start: 07-01-2021 amLODIPine (NO RVASC) tablet 2.5 mg amoxicillin 500 mg oral capsule (5 sources) Penicillin-class Antibacterial Start: 08-28-2022 take 1 capsule by mouth every twelve hours amoxicillin 500 mg Cap 500 mg = 1 cap(s), Oral, q12hr, # 20 cap(s), Refills(s) 0, Pharmacy: [id number], 160, cm, 08/28/22 11:54:00 EST, Height/Length Dosing, 98, kg, 08/28/22 11:54:00 EST, Weight Dosing Start Date: 08/28/22 Status: Ordered amoxicillin 875 mg / clavulanate 125 mg oral tablet (2 sources) Penicillin-class Antibacterial Start: 02-18-2023 End: 02-25-2023 take 1 tablet by mouth twice daily amoxicillin-clavul anate (AUGMENTIN) 875-125 MG per tablet Take 1 tablet by mouth 2 times daily for 7 days 14 tablet 0 02/18/2023 02/25/2023 Active Start: 01-07-2021 End: 01-14-2021 take 1 tablet by mouth twice daily amoxicillin-clavulanate (AUGMENTIN) 875-125 MG per tablet Take 1 tablet by mouth 2 times daily for 7 days 14 tablet 0 01/07/2021 01/14/2021 Active aspirin 81 mg chewable tablet (15 sources) Platelet Aggregation Inhibitor, Nonsteroidal Anti-inflammatory Drug Start: 10-02-2022 aspirin chewable tablet 324 mg Start: 06-28-2021 take 1 tablet by allison th once daily aspirin 81 MG EC tablet Take 1 tablet by mouth daily 30 tablet 3 07/03/2021 Active Start: 06-26-2021 aspirin chewab le tablet 324 mg atorvastatin 80 mg oral tablet (19 sources) HMG-CoA Reductase Inhibitor Start: 06-03-2022 atorvastatin 80 mg T ab Refills(s) 0 Start Date: 08/28/22 Status: Ordered Start: 10-28-2021 take 1 tablet by allison th once daily atorvastatin (LIPITOR) 80 MG tablet Take 1 tablet by mouth nightly 30 tablet 3 10/28/2021 Active Start: 06-27-2021 End: 07-04-2021 take 1 tablet by mouth once daily atorvastatin (LIPITOR) 80 MG tablet Take 1 tablet by mouth nightly 30 tablet 3 07/04/2021 Active benzonatate 100 mg oral capsule (1 source) Non-narcotic Antitussive Start: 10-05-2019 End: 10-12-2019 take 1 capsule by mouth three times daily as needed for cough, then take 3 capsules by mouth every twenty-four hours as needed for cough benzonatate (TESSALON PERLES) 100 MG capsule Indications: Influenza A Take 1 capsule by mouth 3 times daily as needed for Cough (Swallow whole. No more than 3 doses in 24 hrs.) 21 capsule 0 10/05/2019 10/12/2019 Active busPIRone hydrochloride 15 mg oral tablet (4 sources) Start: 03-27-2020 take 1 tablet by mouth four times daily as needed for anxiety busPIRone (BUSPAR) 15 MG tablet Take 15 mg by mouth 4 times daily as needed (anxiety) 360 tablet 1 03/27/2020 Active Start: 10-02-2019 busPIRone (BUS PAR) 15 MG tablet TAKE 1 TABLET 4 TIMES DAILY 360 tablet 0 10/02/2019 Active Start: 02-09-2019 busPIRone (BUS PAR) 15 MG tablet TAKE 1 TABLET FOUR TIMES A DAY 360 tablet 1 02/09/2019 Active clopidogrel 75 mg oral tablet (7 sources) [id number] Platelet Inhibitor Start: 08-19-2021 take 1 tablet by mouth once daily clopidogrel (PLAVIX) 75 MG tablet Take 1 tablet by mouth daily 30 tablet 11 08/19/2021 Active Compression Stockings MISC (1 source) Start: 03-10-2019 Compression Stockings MISC Indications: Venous insufficiency of both lower extremities , Bilateral leg edema by Does not apply route Knee high compression stockings B/L with 30 mm compression. Please measure for accurate fit. 1 each 0 03/10/2019 Active cyclobenzaprine hydrochloride 10 mg oral tablet (20 sources) Muscle Relaxant Start: 12-28-2022 cyclobenzaprine (FLEXERIL) 10 MG tablet Indications: Low back pain, unspecified back pain laterality, unspecified chronicity, unspecified whether sciatica present TAKE 1 TABLET TWICE A DAY NEEDED FOR MUSCLE SPASM 60 tablet 5 12/28/2022 Active Start: 08-28-2022 take 1 tablet by allison three times daily as needed for muscle spasms cyclobenzaprine 10 mg Tab 10 mg = 1 tab(s), Oral, TID, PRN for spasm, # 30 tab(s), Refills(s) 0 Start Date: 08/28/22 Status: Ordered Start: 06-03-2022 cyclobenzaprin e (FLEXERIL) 10 MG tablet Indications: Low back pain, unspecified back pain laterality, unspecified chronicity, unspecified whether sciatica present TAKE 1 TABLET TWICE A DAY NEEDED FOR MUSCLE SPASM 60 tablet 5 06/03/2022 Active Start: 12-19-2021 cyclobenzaprin e (FLEXERIL) 10 mg tablet TAKE 1 TABLET TWICE A DAY NEEDED FOR MUSCLE SPASM 60 tablet 5 12/19/2021 Active Start: 06-27-2021 cyclobenzaprin e (FLEXERIL) tablet 10 mg Start: 05-08-2021 cyclobenzaprin e (FLEXERIL) 10 MG tablet TAKE 1 TABLET TWICE A DAY NEEDED FOR MUSCLE SPASM 60 tablet 5 05/08/2021 Active Start: 10-24-2020 cyclobenzaprin e (FLEXERIL) 10 MG tablet TAKE 1 TABLET TWICE A DAY NEEDED FOR MUSCLE SPASM 60 tablet 5 10/24/2020 Active Start: 03-27-2020 cyclobenzaprin e (FLEXERIL) 10 MG tablet TAKE 1 TABLET TWICE A DAY NEEDED FOR MUSCLE SPASM 180 tablet 1 03/27/2020 Active Start: 10-02-2019 cyclobenzaprin e (FLEXERIL) 10 MG tablet TAKE 1 TABLET TWICE A DAY NEEDED FOR MUSCLE SPASM 180 tablet 0 10/02/2019 Active Start: 02-09-2019 take 1 tablet by allison twice daily as needed for muscle spasms cyclobenzaprine (FLEXERIL) 10 MG tablet Take 1 tablet by mouth 2 times daily as needed for Muscle spasms 180 tablet 1 02/09/2019 Active take 1 tablet by allison three times daily as needed for muscle spasms cyclobenzaprine (FLEXERIL) 10 MG tablet Take 10 mg by mouth 3 (three) times a day as needed for muscle spasms . 0 Active 1 ml dexamethasone phosphate 4 mg/ml injection (3 sources) Corticosteroid Start: 01-05-2021 End: 01-05-2021 4 mg, Intravenous, EVERY 6 HOURS, First dose on Wed01/06/21 at 0245 Start: 01-05-2021 End: 01-05-2021 dexamethasone (PF) (DECADRON ) injection 6 mg Elastic Bandages & Supports (MEDICAL COMPRESSION STOCKINGS) MISC (1 source) Start: 03-09-2019 End: 04-08-2019 Elastic Bandages & Supports (MEDICAL COMPRESSION STOCKINGS) MISC 1 each by Does not apply route daily as needed (Bilateral leg edema) 1 each 0 03/09/2019 04/08/2019 Active famotidine 40 mg oral tablet (14 sources) Histamine-2 Receptor Antagonist Start: 06-03-2022 famotidine 40 mg Tab Refills(s) 0 Start Date: 08/28/22 Status: Ordered Start: 09-19-2021 take 1 tablet by allison th at bedtime famotidine (PEPCID) 40 MG tablet TAKE 1 TABLET BY MOUTH AT BEDTIME 0 09/19/2021 Active Start: 02-21-2021 take 1 tablet by allison th once daily at bedtime famotidine (PEPCID) 40 MG tablet One po qhs . 30 tablet 11 02/21/2021 Active Start: 01-05-2021 End: 01-05-2021 20 mg, Intravenous, 2 TIMES DAILY, First dose on Wed01/06/21 at 0245 Administer over 2 minutes. FeroSul 325 mg oral tablet (5 sources) Start: 08-28-2022 FeroSul 325 mg oral tablet Refills(s) 0 Start Date: 08/28/22 Status: Ordered ferrous sulfate 325 mg oral tablet (14 sources) Start: 12-28-2022 take 1 tablet by mouth twice daily at mealtime ferrous sulfate (IRON 325) 325 (65 Fe) MG tablet Indications: Coronary artery disease involving [place] coronary artery of [place] heart without angina pectoris Take 1 tablet by mouth 2 times daily (with meals) 180 tablet 1 12/28/2022 Active Start: 06-03-2022 take 1 tablet by allison th twice daily at mealtime ferrous sulfate (IRON 325) 325 (65 Fe) MG tablet Indications: Coronary artery disease involving [place] coronary artery of [place] heart without angina pectoris Take 1 tablet by mouth 2 times daily (with meals) 180 tablet 1 06/03/2022 Active Start: 10-28-2021 take 1 tablet by allison th twice daily at mealtime ferrous sulfate (IRON 325) 325 (65 Fe) MG tablet Take 1 tablet by mouth 2 times daily (with meals) 60 tablet 3 10/28/2021 Active Start: 07-04-2021 ferrous sulfat e (IRON 325) tablet 325 mg Start: 07-03-2021 End: 07-04-2021 take 1 tablet by mouth twice daily at mealtime ferrous sulfate (IRON 325) 325 (65 Fe) MG tablet Take 1 tablet by mouth 2 times daily (with meals) 60 tablet 3 07/04/2021 Active Start: 06-29-2021 ferrous sulfat e (IRON 325) tablet 325 mg gabapentin 100 mg oral capsule (20 sources) Anti-epileptic Agent Start: 06-03-2022 End: 07-03-2023 gabapentin 100 mg Cap Refills(s) 0 Start Date: 08/28/22 Status: Ordered Start: 10-16-2021 End: 01-14-2022 gabapentin (NEURONTIN) 100 M G capsule Take 1 capsule by mouth 3 times daily for 90 days. Intended supply: 30 days 90 capsule 2 10/16/2021 Active Start: 04-28-2021 End: 07-27-2021 gabapentin (NEURONTIN) 100 M G capsule Take 1 capsule by mouth 3 times daily for 90 days. Intended supply: 30 days 90 capsule 2 04/28/2021 Active Start: 10-24-2020 End: 01-22-2021 gabapentin (NEURONTIN) 100 M G capsule Take 1 capsule by mouth 3 times daily for 90 days. Intended supply: 30 days 90 capsule 2 10/24/2020 01/22/2021 Active take 1 capsule by [facility] every eight hours gabapentin (NEURONTIN) 300 MG capsule Take 300 mg by mouth every 8 (eight) hours . 0 Active glucagon (rdna) 1 mg injection (1 source) Antihypoglycemic Agent Start: 06-27-2021 glucago n (rDNA) injection 1 mg 150 ml glucose 50 mg/ml injection (3 sources) Start: 06-27-2021 dextrose 50 % IV solution Start: 06-27-2021 dextrose 5 % s olution Start: 06-27-2021 glucose (GLUTO SE) 40 % oral gel 15 g 250 ml heparin sodium, porcine 100 unt/ml injection (4 sources) Unfractionated Heparin, Anti-coagulant Start: 06-27-2021 heparin 25,000 units in dextrose 5% 250 mL (premix) infusion Start: 06-27-2021 heparin (porci ne) injection 2,000 Units Start: 06-27-2021 End: 06-27-2021 heparin (porcine) injection 4,000 Units hydrOXYzine pamoate 50 mg oral capsule (19 sources) Antihistamine Start: 07-15-2022 hydrOXYzine pa moate 50 mg Cap Refills(s) 0 Start Date: 08/28/22 Status: Ordered Start: 12-19-2021 take 1 capsule by mo uth three times daily as needed for anxiety hydrOXYzine (VISTARIL) 50 MG capsule Take 1 capsule by mouth 3 times daily as needed for Anxiety 90 capsule 1 12/19/2021 Active Start: 09-19-2021 take 1 capsule by mo uth three times daily as needed for anxiety hydrOXYzine (VISTARIL) 50 MG capsule Take 1 capsule by mouth 3 times daily as needed for Anxiety 90 capsule 1 09/19/2021 Active Start: 08-09-2021 take 1 capsule by mo uth three times daily as needed for anxiety hydrOXYzine (VISTARIL) 50 MG capsule Take 1 capsule by mouth 3 times daily as needed for Anxiety 0 08/09/2021 Active Start: 07-03-2021 hydrOXYzine (V ISTARIL) injection 25 mg Start: 06-29-2021 hydrOXYzine (V ISTARIL) capsule 25 mg Start: 01-06-2021 take 50 mg by mouth three times daily as needed for anxiety 50 mg, Oral, 3 TIMES DAILY PRN, Anxiety, Starting on 01/06/21 at 0216 Start: 10-24-2020 End: 01-22-2021 take 1 capsule by mouth three times daily as needed for anxiety hydrOXYzine (VISTARIL) 50 MG capsule Take 1 capsule by mouth 3 times daily as needed for Anxiety 90 capsule 2 10/24/2020 01/22/2021 Active hypromellose 0.003 mg/mg ophthalmic gel (2 sources) artificial tears,hypromellose, 0.3 % Gel Apply to eye . 0 Active insulin lispro 100 unt/ml injectable solution (2 sources) Insulin Analog Start: 06-27-2021 insulin lispro (HUMALOG) injection vial 0-3 Units lisinopril 5 mg oral tablet (20 sources) Angiotensin Converting Enzyme Inhibitor Start: 06-03-2022 lisinopril 5 mg Tab Refills(s) 0 Start Date: 08/28/22 Status: Ordered Start: 10-28-2021 take 1 tablet by allison th twice daily lisinopril (PRINIVIL;ZESTRIL) 5 MG tablet Take 1 tablet by mouth 2 times daily 60 tablet 3 10/28/2021 Active Start: 07-03-2021 End: 07-04-2021 take 1 tablet by mouth twice daily lisinopril (PRINIVIL;ZESTRIL) 5 MG tablet Take 1 tablet by mouth 2 times daily 60 tablet 3 07/04/2021 Active Start: 06-27-2021 End: 06-30-2021 lisinopril (PRINIVIL;ZESTRIL ) tablet 5 mg 100 ml magnesium sulfate 10 mg/ml injection (1 source) Start: 01-06-2021 take 1000 mg intravenously every hour as needed 1,000 mg, Intravenous, at 100 mL/hr, Adm inister over 1 Hours, PRN, Other, Per IV Magnesium Replacement Protocol, Starting on Wed01/06/21 at 0216 Mg Lab Replacement Action 1.4- 1.6 1 gram IVPB x 2 doses &nb sp; (2 gram Total) 1.0-1.3 1 gram IVPB x 4 doses &nb sp; (4 gram Total) <1.0 CALL PHYSICIAN and &n bsp; 1 gram IVPB x 4 doses (4 gram Total) Infuse at 1 gram/hr Repeat Mag level next AM Protocol not for use in Patients with CrCl<30ml/min metFORMIN hydrochlor arturo 500 mg oral tablet (15 sources) B i g u a n i d e Start: 06-03-2022 metformin 500 mg Tab Refills (s) 0 Start Date: 08/28/22 Status: Ordered Start: 12-26-2021 take 1 tablet by allison th twice daily at mealtime metFORMIN (GLUCOPHAGE) 500 MG tablet Take 1 tablet by mouth 2 times daily (with meals) 60 tablet 5 12/26/2021 Active Start: 07-04-2021 take 1 tablet by allison th twice daily at mealtime metFORMIN (GLUCOPHAGE) 500 MG tablet Take 1 tablet by mouth 2 times daily (with meals) 60 tablet 5 07/04/2021 Active metoprolol tartrate 25 mg oral tablet (19 sources) beta-Adrenergic Juan Start: 06-03-2022 Lopres sor 25 mg oral tablet Refills(s) 0 Start Date: 08/28/22 Status: Ordered Start: 10-28-2021 take 1 tablet by [facility] twice daily metoprolol tartrate (LOPRESSOR) 25 MG tablet Take 1 tablet by mouth 2 times daily 60 tablet 3 10/28/2021 Active Start: 06-27-2021 End: 07-04-2021 take 1 tablet by mouth twice daily metoprolol tartrate (LOPRESSOR) 25 MG tablet Take 1 tablet by mouth 2 times daily 60 tablet 3 07/04/2021 Active 1 ml morphine sulfate 2 mg/ml cartridge (2 sources) Opioid Agonist Start: 07-02-2021 morphine (PF) injection 2 mg Start: 06-26-2021 End: 06-26-2021 morphine sulfate (PF) inject ion 2 mg nitroglycerin 0.4 mg sublingual tablet (16 sources) Nitrate Vasodilator Start: 07-04-2021 nitroGLYCE RIN (NITROSTAT) 0.4 MG SL tablet up to max of 3 total doses. If no relief after 1 dose, call 911. 25 tablet 3 07/04/2021 Active Start: 07-02-2021 nitroGLYCERIN 50 mg in dextrose 5% 250 mL infusion Start: 07-01-2021 nitroglycerin (NITRO-BID) 2 % ointment 1 inch Start: 06-27-2021 End: 06-30-2021 nitroGLYCERIN 50 mg in dextr ose 5% 250 mL infusion Start: 06-27-2021 End: 06-27-2021 0.5 inch, Topical, EVERY 6 H OURS SCHEDULED (4 times per day), First dose on Wed06/27/21 at 0645 Start: 06-26-2021 nitroGLYCERIN (NITROSTAT) SL tablet 0.4 mg omeprazole 20 mg delayed release oral capsule (20 sources) Proton Pump Inhibitor Start: 06-03-2022 omeprazo le 20 mg Cap-DR Refills(s) 0 Start Date: 08/28/22 Status: Ordered Start: 12-10-2021 take 1 capsule by [facility] twice daily omeprazole (PRILOSEC) 20 MG delayed release capsule Take 1 capsule by mouth 2 times daily 60 capsule 5 12/10/2021 Active Start: 05-08-2021 take 1 capsule by [facility] twice daily omeprazole (PRILOSEC) 20 MG delayed release capsule Take 1 capsule by mouth 2 times daily 60 capsule 5 05/08/2021 Active Start: 10-24-2020 take 1 capsule by [facility] twice daily omeprazole (PRILOSEC) 20 MG delayed release capsule Take 1 capsule by mouth 2 times daily 60 capsule 5 10/24/2020 Active Start: 03-27-2020 take 1 capsule by mo [facility] twice daily omeprazole (PRILOSEC) 20 MG delayed release capsule Take 1 capsule by mouth 2 times daily 180 capsule 1 03/27/2020 Active Start: 10-02-2019 omeprazole (MT ILOSEC) 20 MG delayed release capsule TAKE 1 CAPSULE TWICE DAILY 60 capsule 0 10/02/2019 Active Start: 02-09-2019 omeprazole (MT ILOSEC) 20 MG delayed release capsule TAKE 1 CAPSULE TWICE A DAY 180 capsule 1 02/09/2019 Active ondansetron (ZOFRAN-ODT) disintegrating tablet 4 mg (2 sources) Start: 06-27-2021 ondansetron (Z OFRAN-ODT) disintegrating tablet 4 mg Start: 01-06-2021 ondansetron (Z OFRAN-ODT) disintegrating tablet 4 mg oseltamivir 75 mg oral capsule (1 source) Neuraminidase Inhibitor Start: 10-05-2019 End: 10-10-2019 take 1 capsule by mouth twice daily oseltamivir (TAMIFLU) 75 MG capsule Indications: Influenza A Take 1 capsule by mouth 2 times daily for 5 days 10 capsule 0 10/05/2019 10/10/2019 Active pantoprazole 40 mg delayed release oral tablet (3 sources) Proton Pump Inhibitor Start: 07-04-2021 pantoprazole (PROTONIX) tablet 40 mg Start: 06-27-2021 take 40 mg by mouth twice daily before mealtime 40 mg, Oral, 2 TIMES DAILY BEFORE MEALS, First dose on Wed06/27/21 at 0700 Do not crush or break. Substituted for Omeprazole (PRILOSEC). Start: 01-06-2021 take 40 mg by mouth twice daily before mealtime 40 mg, Oral, 2 TIMES DAILY BEFORE MEALS, First dose on Wed01/06/21 at 0700 Do not crush or break. Substituted for Omeprazole (PRILOSEC). polyethylene glycol 3350 [id number] mg powder for oral solution (2 sources) Osmotic Laxative Start: 06-27-2021 17 g, Oral, D AILY PRN, Constipation, Starting on 06/27/21 at 0628 First line therapy for constipation Start: 01-06-2021 17 g, Oral, DA CHINO PRN, Constipation, Starting on Wed01/06/21 at 0216 First line therapy for constipation pramipexole dihydrochloride 0.125 mg oral tablet (7 sources) Nonergot Dopamine Agonist Start: 07-28-2022 pramipexole 0.125 mg Tab Refills(s) 0 Start Date: 08/28/22 Status: Ordered predniSONE 20 mg oral tablet (3 sources) Start: 01-07-2021 End: 01-12-2021 take 2 tablets by mouth once daily predniSONE (DELTASONE) 20 MG tablet Take 2 tablets by mouth daily for 5 days 10 tablet 0 01/07/2021 01/12/2021 Active Start: 06-24-2020 End: 06-29-2020 take 2 tablets by mouth once daily predniSONE (DELTASONE) 20 MG tablet Take 2 tablets by mouth daily for 5 days 10 tablet 0 06/24/2020 06/29/2020 Active rOPINIRole 4 mg oral tablet (20 sources) Nonergot Dopamine Agonist Start: 08-28-2022 ropinirole 4 mg oral tablet Refills(s) 0 Start Date: 08/28/22 Status: Ordered Start: 11-17-2021 take 1 tablet by allison th once daily, then take 1 tablet by mouth once daily rOPINIRole (REQUIP) 4 MG tablet Take 1 tablet by mouth nightly TAKE 1 TABLET NIGHTLY. NEEDAPPOINTMENT BEFORE CAN GET ADDITIONAL REFILLS 30 tablet 5 11/17/2021 Active Start: 06-27-2021 rOPINIRole (RE QUIP) tablet 4 mg Start: 05-08-2021 take 1 tablet by allison th once daily, then take 1 tablet by mouth once daily rOPINIRole (REQUIP) 4 MG tablet Take 1 tablet by mouth nightly TAKE 1 TABLET NIGHTLY. NEEDAPPOINTMENT BEFORE CAN GET ADDITIONAL REFILLS 30 tablet 5 05/08/2021 Active Start: 01-06-2021 take 4 mg by mouth once daily 4 mg, Oral, NIGHTLY, First dose on Wed01/06/21 at 2100 Start: 10-24-2020 take 1 tablet by allison th once daily, then take 1 tablet by mouth once daily rOPINIRole (REQUIP) 4 MG tablet Take 1 tablet by mouth nightly TAKE 1 TABLET NIGHTLY. NEEDAPPOINTMENT BEFORE CAN GET ADDITIONAL REFILLS 30 tablet 5 10/24/2020 Active Start: 03-27-2020 rOPINIRole (RE QUIP) 4 MG tablet TAKE 1 TABLET NIGHTLY. NEEDAPPOINTMENT BEFORE CAN GET ADDITIONAL REFILLS 90 tablet 1 03/27/2020 Active Start: 10-02-2019 rOPINIRole (RE QUIP) 4 MG tablet TAKE 1 TABLET NIGHTLY. NEEDAPPOINTMENT BEFORE CAN GET ADDITIONAL REFILLS 30 tablet 0 10/02/2019 Active Start: 02-09-2019 rOPINIRole (RE QUIP) 4 MG tablet TAKE 1 TABLET NIGHTLY 90 tablet 1 02/09/2019 Active take 1 tablet by allison th once daily rOPINIRole (REQUIP) 0.25 MG tablet Take 0.25 mg by mouth nightly . 0 Active Semaglutide, 1 MG/DOSE, 4 MG/3ML SOPN (1 source) Start: 02-17-2023 Semaglutide, 1 MG/DOSE, 4 MG/3ML SOPN Inject 1 mg into the skin once a week 9 mL 1 02/17/2023 Active Semaglutide,0.25 or 0.5MG/DOS, 2 MG/3ML SOPN (1 source) Start: 02-12-2023 End: 08-11-2023 Semaglutide,0.25 or 0.5MG/DOS, 2 MG/3ML SOPN Inject 2 mg into the skin once a week 12 mL 1 02/12/2023 08/11/2023 Active Simethicone (2 sources) Simethicone (GAS -X PO) Take by mouth as needed 0 Active ticagrelor 90 mg oral tablet (9 sources) Start: 07-02-2021 End: 07-04-2021 take 1 tablet by mouth twice daily ticagrelor (BRILINTA) 90 MG TABS tablet Take 1 tablet by mouth 2 times daily 60 tablet 2 07/04/2021 Active traMADol hydrochloride 50 mg oral tablet (2 sources) Opioid Agonist Start: 06-29-2021 traMADol (ULTRAM) tablet 50 mg 24 hr venlafaxine 150 mg extended release oral capsule (20 sources) Serotonin and Norepinephrine Reuptake Inhibitor Start: 05-18-2022 venlafaxine 150 mg Cap-ER Refills(s) 0 Start Date: 08/28/22 Status: Ordered Start: 11-10-2021 take 1 capsule by [facility] once daily, then take 1 capsule by mouth once daily venlafaxine (EFFEXOR XR) 150 MG extended release capsule Take 1 capsule by mouth daily TAKE 1 CAPSULE DAILY 30 capsule 5 11/10/2021 Active Start: 07-04-2021 venlafaxine (E FFEXOR XR) extended release capsule 150 mg Start: 06-27-2021 take 150 mg by mouth once clemencia y 150 mg, Oral, DAILY, First dose on Wed06/27/21 at 0900 Do not crush or break. Start: 05-08-2021 take 1 capsule by [facility] once daily, then take 1 capsule by mouth once daily venlafaxine (EFFEXOR XR) 150 MG extended release capsule Take 1 capsule by mouth daily TAKE 1 CAPSULE DAILY 30 capsule 5 05/08/2021 Active Start: 02-09-2019 take 1 capsule by [facility] once daily, then take 1 capsule by mouth once daily venlafaxine (EFFEXOR XR) 150 MG extended release capsule Take 1 capsule by mouth daily TAKE 1 CAPSULE DAILY 30 capsule 5 10/24/2020 Active Completed/Discontinued Medications Medication Drug Class(es) Dates Sig (Normalized) Sig (Original) acetaminophen 325 mg / HYDROcodone bitartrate 5 mg oral tablet (1 source) Opioid Agonist Start: 06-26-2021 End: 06-26-2021 HYDROcodone-acetam inophen (NORCO) 5-325 MG per tablet 1 tablet Start: 06-26-2021 End: 06-26-2021 HYDROcodone-acetaminophen (N ORCO) 5-325 MG per tablet 1 tablet ampicillin-sulbactam (UNASYN) 1500 mg IVPB minibag (1 source) Start: 01-06-2021 1,500 mg, Intravenous, EVERY 6 HOURS, First dose on Wed01/06/21 at 0245, Until Discontinued ampicillin-sulbactam (UNASYN) 3,000 mg in sodium chloride 0.9 % 100 mL IVPB (mini-bag) (1 source) Start: 02-18-2023 End: 02-18-2023 ampicillin-sulbact am (UNASYN) 3,000 mg in sodium chloride 0.9 % 100 mL IVPB (mini-bag) ampicillin-sulbactam (UNASYN) 3000 mg ivpb minibag (1 source) Start: 01-05-2021 End: 01-05-2021 ampicillin-sulbact am (UNASYN) 3000 mg ivpb minibag 1 ml diphenhydrAMINE hydrochloride 50 mg/ml cartridge (1 source) Histamine-1 Receptor Antagonist Start: 01-05-2021 End: 01-05-2021 diphenhydrAMINE (BENADRYL) injection 50 mg 0.4 ml enoxaparin sodium 100 mg/ml prefilled syringe (2 sources) Low Molecular Weight Heparin Start: 06-27-2021 End: 06-27-2021 inject 40 mg by subcutaneous injection once daily 40 mg, SubCUTAneous, DAILY, First dose on Wed06/27/21 at 0900 Start: 01-06-2021 enoxaparin (LO VENOX) injection 30 mg 1 ml EPINEPHrine 1 mg/ml injection (1 source) alpha-Adrenergic Agonist, beta-Adrenergic Agonist, Catecholamine Start: 01-05-2021 End: 01-05-2021 EPINEPHrine 1 MG/ML injection 0.3 mg Start: 01-05-2021 End: 01-05-2021 EPINEPHrine 1 MG/ML injectio n 0.3 mg famotidine (PEPCID) 20 mg in sodium chloride (PF) 0.9 % 10 mL injection (1 source) Start: 02-18-2023 End: 02-18-2023 famotidine (PEPCID) 20 mg in sodium chloride (PF) 0.9 % 10 mL injection furosemide 20 mg oral tablet (5 sources) Loop Diuretic Start: 06-30-2021 End: 06-30-2021 furosemide (LASIX) tablet 20 mg Start: 12-17-2016 take 1 tablet by allison th once daily furosemide (LASIX) 40 MG tablet Take 1 tablet by mouth daily 30 tablet 2 12/17/2016 Active iopamidol (ISOVUE-370) 76 % injection 75 mL (1 source) Start: 01-05-2021 End: 01-05-2021 iopamidol (ISOVUE-370) 76 % injection 75 mL 24 hr isosorbide mononitrate 30 mg extended release oral tablet (1 source) Nitrate Vasodilator Start: 06-30-2021 End: 07-01-2021 isosorbide mononitrate (IMDUR) extended release tablet 30 mg 1 ml ketorolac tromethamine 15 mg/ml cartridge (2 sources) Nonsteroidal Anti-inflammatory Drug, Cyclooxygenase Inhibitor Start: 02-18-2023 End: 02-18-2023 ketorolac (TORADOL) injection 15 mg Start: 06-27-2021 End: 06-27-2021 ketorolac (TORADOL) injectio n 30 mg lidocaine hydrochloride 20 mg/ml mucous membrane topical solution (2 sources) Antiarrhythmic, Amide Local Anesthetic Start: 01-05-2021 End: 01-05-2021 lidocaine viscous hcl (XYLOCAINE) 2 % solution 15 mL Start: 01-05-2021 End: 01-05-2021 lidocaine viscous hcl (XYLOC ALEXANDER) 2 % solution potassium chloride 10 meq extended release oral tablet (2 sources) Start: 06-27-2021 End: 06-27-2021 potassium chloride (KLOR-CON ) extended release tablet 20 mEq Start: 01-06-2021 potassium chlo ride (KLOR-CON M) extended release tablet 40 mEq racepinephrine 22.5 mg/ml inhalation solution (1 source) Start: 01-05-2021 End: 01-05-2021 racepinephrine HCl (VAPONEFPRIN) 2.25 % nebulizer solution NEBU 11.25 mg 50 ml sodium chloride 9 mg/m l injection (11 sources) Start: 02-18-2023 End: 02-18-2023 sodium chloride 0.9 % bolus 1,000 mL Start: 07-03-2021 sodium chlorid e flush 0.9 % injection 5-40 mL Start: 06-27-2021 0.9 % sodium c hloride infusion Start: 06-27-2021 take 1 dose intraven ously twice daily 5-40 mL, IntraVENous, EVERY 12 HOURS SCHEDULED (2 times per day), First dose on Wed06/27/21 at 0900 For Line Patency: Peripheral IV = 5 mL; Midline or Central Line = 10 mL/lumen. If following IV push medication, administer flush at same rate as the IV push. Flush volume is determined by type of infusion therapy being given. For non-viscous solutions use: Peripheral IV = 5 mL Midline or Central Line = 10 mL/lumen For viscous solutions (i.e. blood components, parenteral nutrition, contrast media, or after obtaining blood sample) use: Peripheral IV = 10 mL Midline or Central Line = 20 mL/lumen Start: 06-27-2021 take 5-40 mL intrave nously once as needed 5-40 mL, IntraVENous, PRN, Line Care, After every IV line use, Starting on Wed06/27/21 at 0628 For Line Patency: Peripheral IV = 5 mL; Midline or Central Line = 10 mL/lumen. If following IV push medication, administer flush at same rate as the IV push. Flush volume is determined by type of infusion therapy being given. For non-viscous solutions use: Peripheral IV = 5 mL Midline or Central Line = 10 mL/lumen For viscous solutions (i.e. blood components, parenteral nutrition, contrast media, or after obtaining blood sample) use: Peripheral IV = 10 mL Midline or Central Line = 20 mL/lumen Start: 06-27-2021 take 25 mL intraveno usly every hour as needed 25 mL, IntraVENous, at 100 mL/hr, PRN, If patient receiving piggyback infusions without ordered maintenance IV fluids or with frequent/long duration piggyback infusions, Starting on Wed06/27/21 at 0628 Administer at the same rate as the piggyback being infused. Start: 01-06-2021 take 1 dose intraven ously twice daily 5-40 mL, Intravenous, EVERY 12 HOURS SCHEDULED (2 times per day), First dose on Wed01/06/21 at 0900 For Line Patency: Peripheral IV = 5 mL; Midline or Central Line = 10 mL/lumen. If following IV push medication, administer flush at same rate as the IV push. Flush volume is determined by type of infusion therapy being given. For non-viscous solutions use: Peripheral IV = 5 mL Midline or Central Line = 10 mL/lumen For viscous solutions (i.e. blood components, parenteral nutrition, contrast media, or after obtaining blood sample) use: Peripheral IV = 10 mL Midline or Central Line = 20 mL/lumen Start: 01-06-2021 Intravenous, a t 75 mL/hr, CONTINUOUS, Starting on Wed01/06/21 at 0245 Start: 01-06-2021 take 10 mL intraveno usly once as needed 10 mL, Intravenous, PRN, Line Care, After every IV line use, Starting on Wed01/06/21 at 0216 Start: 01-06-2021 take 25 mL intraveno usly every hour as needed 25 mL, Intravenous, at 100 mL/hr, PRN, If patient receiving piggyback infusions without ordered maintenance IV fluids or with frequent/long duration piggyback infusions, Starting on Wed01/06/21 at 0216 Administer at the same rate as the piggyback being infused. 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 Cardiac dysrhythmias (2 sources) Tachycardia; Translations: [Tachycardia, unspecified] Onset: 3 Episodic Coronary atherosclerosis and other heart disease (20 sources) Acute coronary syndrome; Translations: [Acute ischemic heart disease, unspecified] Onset: 1 06-27-2021 Chronic Coronary atherosclerosis and other heart disease (2 sources) Patient post percutaneous transluminal coronary angioplasty; Translations: [Coronary angioplasty status] Episodic Deficiency and other anemia (2 sources) Anemia; Translations: [Anemia, unspecified] Episodic Esophageal disorders (20 sources) Gastroesophageal reflux disease without esophagitis; Translations: [Gastro-esophageal reflux disease without esophagitis] Onset: 1 02-09-2019 Chronic Headache; including migraine (20 sources) Migraine; Translations: [Migraine, unspecified, not intractable, without status migrainosus] Onset: 3 02-17-2013 Chronic Malaise and fatigue (1 source) Fatigue; Translations: [Other fatigue] Episodic Mood disorders (20 sources) Depressive disorder; Translations: [Major depressive disorder, single episode, unspecified] Onset: 3 02-17-2013 Chronic Nonspecific chest pain (16 sources) Chest pain; Translations: [Chest pain, unspecified] Onset: 1 Episodic Nutritional deficiencies (2 sources) Vitamin D deficiency; Translations: [Vitamin D deficiency, unspecified] Chronic Other circulatory disease (3 sources) Feeling of lump in throat; Translations: [Other specified symptoms and signs involving the circulatory and respiratory systems] Episodic Other connective tissue disease (20 sources) Fibromyalgia; Translations: [Fibromyalgia] Onset: 1 05-21-2011 Episodic Other gastrointestinal disorders (20 sources) Irritable bowel syndrome; Translations: [Irritable bowel syndrome without diarrhea] Onset: 7 08-19-2016 Chronic Other hereditary and degenerative nervous system conditions (20 sources) Restless legs; Translations: [Restless legs syndrome] Onset: 1 05-21-2011 Chronic Other infections; including parasitic (5 sources) Lyme disease 08-28-2022 Episodic Other injuries and conditions due to external causes (1 source) Angioedema; Translations: [Angioneurotic edema, initial encounter] Episodic Other lower respiratory disease (2 sources) Snoring; Translations: [Snoring] Episodic Other lower respiratory disease (2 sources) Dyspnea; Translations: [Shortness of breath] Episodic Other nutritional; endocrine; and metabolic disorders (5 sources) Obesity; Translations: [Obesity, unspecified] Onset: 4 07-18-2014 Chronic Other nutritional; endocrine; and metabolic disorders (4 sources) Morbid obesity; Translations: [Morbid (severe) obesity due to excess calories] Onset: 4 Chronic Other nutritional; endocrine; and metabolic disorders (11 sources) Body mass index 40+ - severely obese; Translations: [Morbid (severe) obesity due to excess calories] Onset: 4 01-07-2021 Chronic Other nutritional; endocrine; and metabolic disorders (1 source) Obese class II; Translations: [Body mass index (BMI) 38.0-38.9, adult] Onset: 3 Chronic Other upper respiratory disease (2 sources) Chronic laryngitis; Translations: [Chronic laryngitis] Chronic Other upper respiratory disease (1 source) Pharyngeal swelling; Translations: [Other diseases of pharynx] Episodic Other upper respiratory infections (4 sources) Sore throat symptom; Translations: [Streptococcal sore throat] Onset: 3 Episodic Residual codes; unclassified (20 sources) Insomnia; Translations: [Insomnia, unspecified] Onset: 3 02-17-2013 Episodic Residual codes; unclassified (15 sources) Tobacco use and exposure - finding; Translations: [Tobacco use] Episodic Residual codes; unclassified (1 source) Intolerant of heat; Translations: [Other general symptoms and signs] Episodic Residual codes; unclassified (2 sources) Tobacco user; Translations: [Tobacco use] Episodic Residual codes; unclassified (1 source) Problem situation; Translations: [Other problems related to lifestyle] Onset: 3 Episodic Residual codes; unclassified (1 source) Pain, unspecified; Translations: [Pain, unspecified] Onset: 4 Episodic Past or Other Problems Problem Classification Problem Date Documented Date Episodic/Chronic Diseases of mouth; excluding dental (20 sources) Edema of uvula; Translations: [Other lesions of oral mucosa] Onset: 01-06-2021 Resolved: 01-07-2021 Episodic Intestinal obstruction without hernia (19 sources) Partial obstruction of small bowel; Translations: [Partial intestinal obstruction, unspecified as to cause] Onset: 08-08-2013 Resolved: 06-24-2020 06-24-2020 Episodic Osteoarthritis (19 sources) Arthritis; Translations: [Unspecified osteoarthritis, unspecified site] Onset: 08-19-2016 Resolved: 06-24-2020 08-19-2016 Chronic Other diseases of veins and lymphatics (1 source) Peripheral venous insufficiency; Translations: [Venous (peripheral) insufficiency] Episodic Residual codes; unclassified (19 sources) Amnesia; Translations: [Other amnesia] Onset: 08-05-2015 08-05-2015 Episodic Residual codes; unclassified (20 sources) Edema of lower extremity; Translations: [Localized edema] Onset: 02-09-2019 Resolved: 06-24-2020 02-09-2019 Episodic Residual codes; unclassified (11 sources) History of cardiac catheterization; Translations: [Other specified postprocedural states] Onset: 07-03-2021 Episodic Spondylosis; intervertebral disc disorders; other back problems (20 sources) Backache; Translations: [Chronic low back pain] Onset: 09-05-2010 08-19-2016 Episodic Results Test Name Value Interpretation Reference Range Facility BUNOrdered By: SYSTEM SYSTEM on 05-25-2023 Urea nitrogen [Mass/Vol] 14 mg/dL Normal 5-21 [facility] Comment on above: Performed By: #### 1 [id number], [id number], [id number] #### [facility] [address] [place] [address] CreatinineOrdered By: SYSTEM SYSTEM on 05-25-2023 Creatinine [Mass/Vol] 0.8 mg/dL Normal 0.5-1.3 [facility] Comment on above: Performed By: #### 1 [id number], [id number], [id number] #### [facility] [address] [place] [address] Nurse Consultation Noteon Nurse Consultation Note Reason for Visit Lab draw Assessment/Plan Abnormal kidney function (N28.9: Disorder of kidney and ureter, unspecified) Medications amLODIPine 2.5 mg Tab amoxicillin 500 mg Cap, 500 mg= 1 cap(s), Oral, q12hr atorvastatin 80 mg Tab cyclobenzaprine 10 mg Tab, 10 mg= 1 tab(s), Oral, TID, PRN famotidine 40 mg Tab FeroSul 325 mg oral tablet gabapentin 100 mg Cap hydrOXYzine pamoate 50 mg Cap lisinopril 5 mg Tab Lopressor 25 mg oral tablet metformin 500 mg Tab omeprazole 20 mg Cap-DR pramipexole 0.125 mg Tab ropinirole 4 mg oral tablet venlafaxine 150 mg Cap-ER Allergies Lyrica (Chest pain) Immunizations Vaccine Date Status SARSCoV2 mRNA(tozinamer-zachery -sucros) vac 02/19/2022 Recorded SARSCoV2 mRNA(tozinamer-zachery -sucros) vac 01/29/2022 Recorded diphtheria/pertussi s, acel/tetanus adult 08/25/2013 Recorded hepatitis B adult vaccine 08/05/2010 Recorded hepatitis B adult vaccine 03/04/2010 Recorded hepatitis B adult vaccine 01/28/2010 Recorded Normal [facility] Physician Orderon 05-25-2023 Physician Order [id number] [id number] Normal [facility] eGFROrdered By: SYSTEM SYSTE M on 05-25-2023 GFR/1.73 sq M.predicted among non-blacks MDRD (S/P/Bld) [Vol rate/Area] 92 mL/min/1.73 m2 Normal >=59 [facility] [place] [facility] Comment on above: Interpretive Data: C hronic kidney disease could be indicated at eGFR's of less than 60 mL/min/1.73m2. Kidney failure is indicated at less than 15 mL/min/1.73m2. Order Comment: Order added by Discern Expert. Result Comment: Senior Treasury Analyst cony kidney disease could be indicated at eGFR's of less than 60 mL/min/1.73m2. Kidney failure is indicated at less than 15 mL/min/1.73m2. Performed By: #### 1 [id number], [id number], [id number] #### [facility] [address] [place] [address] LEFT HEART CATHon 05-21-2023 LEFT HEART CATH This is a summary report. The complete report is available in the patient's medical record. If you cannot access the medical record, please contact the sending organization for a detailed fax or copy. Impression: LAD: Patent stent with 40% disease beyond the stent. Cx: Mild plaque disease in the OM RCA: Large and dominant with mild plaque disease. LV: Normal LV function with EF 60% Recommendations: Medical therapy with cardiac rehab. Coronary Findings Diagnostic Dominance: Right Left Main: The vessel is large and is angiographically normal. Left Anterior Descending: The LAD is a large vessel with a patent stent in mid portion. Just beyond the stent there is a 40% lesion. The LAD wraps around the apex. Previously placed Prox LAD to Mid LAD stent of unknown type is widely patent. Mid LAD lesion is 40% stenosed. Left Circumflex: The Cx has a large OM branch. There is mild plaque disease in the Cx. Right Coronary Artery: The RCA is very large and dominant with a PDA and PVB. There is mild plaque disease in the RCA. Intervention No interventions have been documented. Left Ventricle Ejection Fraction: 60%%. Normal Auto Diffon 05-10-2023 Basophils/100 WBC (Bld) 0.7 % Normal 0.0-2.0 [facility] Comment on above: Order Comment: Order Added by Discern Expert. Performed By: #### 2 [id number], [id number], [id number], 6998600, 4291903, 2559582, 46984764, 2312786 #### [facility] [address] [place] [address] Basophils/Leukocytes Auto (Bld) [Pure # fraction] 0.1 E9/L Normal 0.0-0.2 [facility] Comment on above: Order Comment: Order Added by Discern Expert. Performed By: #### 2 289319, 30003160, [id number], 7439465, 9468862, 6442691, 20159447, 2104964 #### [facility] [address] [place] [address] Eosinophils/100 WBC (Bld) 5.2 % Normal 0.0-8.0 [facility] Comment on above: Order Comment: Order Added by Discern Expert. Performed By: #### 2 015367, 82728548, [id number], 2840466, 0918195, 2946984, 63800707, 1424233 #### [facility] [address] [place] [address] Eosinophils/Leukocytes Auto (Bld) [Pure # fraction] 0.5 E9/L Normal 0.0-0.5 [facility] Comment on above: Order Comment: Order Added by Discern Expert. Performed By: #### 2 404297, 52496775, 237781661, 3612086, 6318316, 3652707, 08353971, 3721712 #### [facility] [address] [place] [address] Lymphocytes/100 WBC (Bld) 34.5 % Normal 14.0-50.0 [facility] Comment on above: Order Comment: Order Added by Discern Expert. Performed By: #### 2 519695, 09899227, 289329080, 1990903, 9486506, 0546908, 93355132, 4725115 #### [facility] [address] [place] [address] Lymphocytes/Leukocytes Auto (Bld) [Pure # fraction] 3.3 E9/L Normal 1.0-4.0 [facility] Comment on above: Order Comment: Order Added by Discern Expert. Performed By: #### 2 244456, 82130805, 190811895, 0565050, 7718226, 9387145, 60262264, 9664406 #### [facility] [address] [place] [address] Monocytes/100 WBC (Bld) 4.6 % Normal 4.0-14.0 [facility] Comment on above: Order Comment: Order Added by Discern Expert. Performed By: #### 2 035007, 15970920, 481641652, 1513970, 9315635, 3016650, 69085201, 8530862 #### [facility] [address] [place] [address] Monocytes/Leukocytes Auto (Bld) [Pure # fraction] 0.4 E9/L Normal 0.2-1.0 [facility] Comment on above: Order Comment: Order Added by Discern Expert. Performed By: #### 2 239308, 88715131, 275482673, 7460041, 8503191, 9637410, 03407315, 1048166 #### [facility] [address] [place] [address] Neutrophils/100 WBC (Bld) 55.0 % Normal 36.0-75.0 [facility] Comment on above: Order Comment: Order Added by Discern Expert. Performed By: #### 2 890024, 98359952, 937411974, 4618165, 2268491, 8727990, 21598532, 4932747 #### [facility] [address] [place] [address] Neutrophils/Leukocytes Auto (Bld) [Pure # fraction] 5.2 E9/L Normal 2.0-7.5 [facility] Comment on above: Order Comment: Order Added by Discern Expert. Performed By: #### 2 696599, 44590367, 056977231, 0930127, 9548329, 4462215, 94857617, 1109965 #### [facility] [address] [place] [address] CBC w/ Auto Diffon 3 Erythrocyte distribution width (RBC) [Ratio] 16.1 % High 10.9-14.2 [facility] Comment on above: Performed By: #### 2 996924, 81003311, 157893370, 4545476, 4942208, 4893149, 66064478, 0141177 #### [facility] [address] [place] [address] Hematocrit (Bld) [Volume fraction] 39.4 % Normal 34.0-46.0 [facility] Comment on above: Performed By: #### 2 970097, 63534299, 161059296, 9091972, 8170195, 2146248, 11662129, 5087120 #### [facility] [address] [place] [address] Hemoglobin (Bld) [Mass/Vol] 12.5 g/dL Normal 12.0-16.0 [facility] Comment on above: Performed By: #### 2 714713, 93768044, 146167428, 8190913, 9804817, 0045465, 02151882, 7624028 #### [facility] [address] [place] [address] MCH (RBC) [Entitic mass] 26.4 pg Low 27.0-34.0 [facility] Comment on above: Performed By: #### 2 525812, 04155972, 632394723, 8404347, 6425927, 0969989, 54514670, 2309685 #### [facility] [address] [place] [address] MCHC (RBC) [Mass/Vol] 31.8 g/dL Normal 31.4-36.0 [facility] Comment on above: Performed By: #### 2 946172, 60745050, 788385440, 0044614, 4420604, 6239628, 04934614, 7983946 #### [facility] [address] [place] [address] MCV (RBC) [Entitic vol] 83.1 fL Normal 80.0-100.0 [facility] Comment on above: Performed By: #### 2 642920, 08213009, 055205848, 7819359, 5061880, 2844587, 87513077, 2314178 #### [facility] [address] [place] [address] Platelet mean volume (Bld) [Entitic vol] 9.8 fL Normal 6.4-10.8 [facility] Comment on above: Performed By: #### 2 435221, 97984331, 311987296, 1488204, 2444952, 9508472, 24847931, 1387541 #### [facility] [address] [place] [address] Platelets (Bld) [#/Vol] 328.0 E9/L Normal 150.0-500.0 [facility] Comment on above: Performed By: #### 2 784958, 36219733, 557943043, 9674552, 6116865, 7939480, 02542664, 2390311 #### [facility] [address] [place] [address] RBC (Bld) [#/Vol] 4.8 E12/L Normal 4.3-5.9 [facility] Comment on above: Performed By: #### 2 649112, 26540387, 452303874, 5778761, 6900153, 2763169, 99660089, 2055191 #### [facility] [address] [place] [address] WBC corrected for nucl RBC Auto (Bld) [#/Vol] 9.5 E9/L Normal 4.0-11.0 [facility] Comment on above: Performed By: #### 2 540890, 80941447, 227381117, 2362461, 5040208, 1611031, 31971995, 0587636 #### [facility] [address] [place] [address] CHEMISTRYOrdered By: SYSTEM SYSTEM on 05-10-2023 25-hydroxyvitamin D3 [Mass/Vol] 28.8 ng/mL Low 30.0 - 100.0 ng/mL [facility] Comment on above: Interpretive Data: Vitamin D deficiency has been defined as a level of serum 25-OH vitamin D less than 20 ng/mL (1,2) by the [place] [employer] and an Endocrine Society practice guideline. The Endocrine Society further defined vitamin D insufficiency as a level between 21 and 29 ng/mL (2). 1. IOM ([place] of [employer]). 2010. Dietary reference intakes for calcium and D. [place]: The National Academies Press. 2. Mike MF, Veronica NC, Xin ALVES, et al. Evaluation, treatment, and prevention of vitamin D deficiency: an Endocrine Society clinical practice guideline. JCEM. 2010; 96 (7):1911-30. Albumin [Mass/Vol] 3.8 g/dL Normal 3.3 - 5.0 gm/dL [facility] Albumin/Globulin [Mass ratio] 1.2 {ratio} Normal 1.1 - 2.2 [facility] ALP [Catalytic activity/Vol] 100 [iU]/d High 21 - 98 Int._Unit/L [facility] ALT No additional P-5'-P [Catalytic activity/Vol] 30 [iU]/d Normal 6 - 46 Int._Unit/L [facility] Anion gap [Moles/Vol] 7 mmol/L Normal 6 - 16 mEq/L [facility] AST [Catalytic activity/Vol] 20 [iU]/d Normal 5 - 43 Int._Unit/L [facility] Bilirubin [Mass/Vol] 0.5 mg/dL Normal 0.0 - 1 .1 mg/dL [facility] Calcium [Mass/Vol] 9.4 mg/dL Normal 8.9 - 11. 1 mg/dL [facility] Chloride [Moles/Vol] 109 mmol/L Normal 101 - 1 11 mmol/L [facility] Cholesterol [Mass/Vol] 78 mg/dL Low 120 - 200 mg/dL [facility] Cholesterol in HDL [Mass/Vol] 34 mg/dL Invalid Interpretation Code [facility] Comment on above: Interpretive Data: H DL > or equal to 60 mg/dL: Low cardiovascular risk HDL < 40 mg/dL : High cardiovascular risk Cholesterol in LDL [Mass/Vol] 35 mg/dL Normal <=129mg/dL [facility] Cholesterol in VLDL [Mass/Vol] 14 mg/dL Normal 7 - 40 mg/dL [facility] CO2 [Moles/Vol] 25 mmol/L Normal 21 - 31 mmol/L [facility] Creatinine [Mass/Vol] 0.9 mg/dL Normal 0.5 - 1.3 mg/dL [facility] GFR/1.73 sq M.predicted among non-blacks MDRD (S/P/Bld) [Vol rate/Area] 80 mL/min/1.73 m2 Normal >=59mL/min/1. 73 m2 [facility] [place] [facility] Comment on above: Interpretive Data: C hronic kidney disease could be indicated at eGFR's of less than 60 mL/min/1.73m2. Kidney failure is indicated at less than 15 mL/min/1.73m2. Globulin (S) [Mass/Vol] 3.3 g/dL Normal 1.4 - 4.0 gm/dL [facility] Glucose [Mass/Vol] 73 mg/dL Normal 55 - 199 mg/dL [facility] Comment on above: Interpretive Data: I f this glucose result represents a fasting glucose, interpretation should refer to the following reference range: 55-99 mg/dL Magnesium [Mass/Vol] 1.8 mg/dL Normal 1.3 - 2 .4 mg/dL [facility] Potassium [Moles/Vol] 4.2 mmol/L Normal 3.5 - 5.3 mmol/L [facility] Protein [Mass/Vol] 7.1 g/dL Normal 6.0 - 7.8 gm/dL [facility] Sodium [Moles/Vol] 137 mmol/L Normal 135 - 145 mmol/L [facility] Triglyceride [Mass/Vol] 72 mg/dL Normal <=149mg/dL [facility] TSH Qn 1.32 m[IU]/L Normal 0.34 - 5.60 mcIU/mL [facility] Urea nitrogen [Mass/Vol] 11 mg/dL Normal 5 - 21 mg/dL [facility] Urea nitrogen/Creatinine [Mass ratio] 12 mg/mg Normal 10 - [facility] CMPon 05-10-2023 Albumin [Mass/Vol] 3.8 g/dL Normal 3.3-5.0 [facility] Comment on above: Performed By: #### 2 883765, 35259375, 318954176, 6928942, 9933362, 9606551, 98414022, 5457202 #### [facility] [address] [place] [address] Albumin/Globulin (S) [Mass conc ratio] 1.2 Normal 1.1-2.2 [facility] Comment on above: Performed By: #### 2 524292, 11810423, 057830617, 9021448, 0567946, 5269321, 40033696, 5975636 #### [facility] [address] [place] [address] ALP [Catalytic activity/Vol] 100 Int._Unit/L High 21-98 [facility] Comment on above: Performed By: #### 2 916432, 17671059, 772637694, 1401660, 0170175, 1113482, 70077547, 6934049 #### [facility] [address] [place] [address] ALT No additional P-5'-P [Catalytic activity/Vol] 30 Int._Unit/L Normal 6-46 [facility] Comment on above: Performed By: #### 2 140173, 90670363, 208402685, 4830573, 5175510, 5518056, 26394013, 8299819 #### [facility] [address] [place] [address] Anion gap [Moles/Vol] 7 mmol/L Normal 6-16 [facility] Comment on above: Performed By: #### 2 543568, 30867179, 237275144, 7034524, 4139177, 6910293, 89291309, 1471300 #### [facility] [address] [place] [address] AST [Catalytic activity/Vol] 20 Int._Unit/L Normal 5-43 [facility] Comment on above: Performed By: #### 2 543863, 72652884, 845151158, 2273117, 4082499, 2556382, 16470251, 1668070 #### [facility] [address] [place] [address] Bilirubin [Mass/Vol] 0.5 mg/dL Normal 0.0-1.1 [facility] Comment on above: Performed By: #### 2 803095, 81358915, 591805790, 8748630, 3191003, 7769747, 83293029, 9357846 #### [facility] [address] [place] [address] Calcium [Mass/Vol] 9.4 mg/dL Normal 8.9-11.1 [facility] Comment on above: Performed By: #### 2 734409, 74548240, 343320740, 4703617, 8732811, 0999912, 36324273, 1906314 #### [facility] [address] [place] [address] Chloride [Moles/Vol] 109 mmol/L Normal 101-111 [facility] Comment on above: Performed By: #### 2 762041, 73552744, 763187712, 8049991, 1596011, 1281203, 70466299, 6320043 #### [facility] [address] [place] [address] CO2 [Moles/Vol] 25 mmol/L Normal 21-31 [facility] Comment on above: Performed By: #### 2 731174, 74174643, 849417773, 0677849, 5670764, 4908968, 30848396, 5823075 #### [facility] [address] [place] [address] Creatinine [Mass/Vol] 0.9 mg/dL Normal 0.5-1.3 [facility] Comment on above: Performed By: #### 2 513292, 13591679, 338807335, 2558381, 8072618, 1971061, 23843247, 8956208 #### [facility] [address] [place] [address] Globulin (S) [Mass/Vol] 3.3 g/dL Normal 1.4-4.0 [facility] Comment on above: Performed By: #### 2 943313, 85139043, 825484607, 9330570, 4465348, 8980658, 87178333, 7944049 #### [facility] [address] [place] [address] Glucose [Mass/Vol] 73 mg/dL Normal 55-199 [facility] Comment on above: Result Comment: If t his glucose result represents a fasting glucose, interpretation should refer to the following reference range: 55-99 mg/dL Performed By: #### 2 156117, 20993672, 012050272, 2372687, 9035318, 4645502, 97758170, 5521316 #### [facility] [address] [place] [address] Potassium [Moles/Vol] 4.2 mmol/L Normal 3.5-5.3 [facility] Comment on above: Performed By: #### 2 980998, 15547123, 469486338, 4255868, 0285398, 5877217, 10893750, 2457541 #### [facility] [address] [place] [address] Protein [Mass/Vol] 7.1 g/dL Normal 6.0-7.8 [facility] Comment on above: Performed By: #### 2 639371, 25105773, 320594055, 3833014, 8992527, 9769193, 06509136, 5240870 #### [facility] [address] [place] [address] Sodium [Moles/Vol] 137 mmol/L Normal 135-145 [facility] Comment on above: Performed By: #### 2 959847, 21570781, 713392564, 2777073, 7618890, 2708192, 12116966, 9473843 #### [facility] [address] [place] [address] Urea nitrogen [Mass/Vol] 11 mg/dL Normal 5-21 [facility] Comment on above: Performed By: #### 2 434892, 94556931, 806122268, 0363835, 0598474, 5035015, 69619866, 1829920 #### [facility] [address] [place] [address] Urea nitrogen/Creatinine [Mass ratio] 12 No Units Normal 10-20 [facility] Comment on above: Performed By: #### 2 073879, 56210860, 942222155, 6459044, 7374571, 1986013, 14873392, 9824798 #### [facility] [address] [place] [address] HEMATOLOGYOrdered By: SYSTEM SYSTEM on 05-10-2023 Basophils/100 WBC (Bld) 0.7 % Normal 0.0 - 2.0 % [facility]eAutoSS Basophils/Leukocytes Auto (Bld) [Pure # fraction] 0.1 E9/L Normal 0.0 - 0.2 E9/L [facility] Eosinophils/100 WBC (Bld) 5.2 % Normal 0.0 - 8.0 % [facility]Auto[facility] Eosinophils/Leukocytes Auto (Bld) [Pure # fraction] 0.5 E9/L Normal 0.0 - 0.5 E9/L [facility] Lymphocytes/100 WBC (Bld) 34.5 % Normal 14.0 - 50.0 % [facility] Lymphocytes/Leukocytes Auto (Bld) [Pure # fraction] 3.3 E9/L Normal 1.0 - 4.0 E9/L [facility] Monocytes/100 WBC (Bld) 4.6 % Normal 4.0 - 14.0 % [facility]eAuto[facility] Monocytes/Leukocytes Auto (Bld) [Pure # fraction] 0.4 E9/L Normal 0.2 - 1.0 E9/L [facility] Neutrophils/100 WBC (Bld) 55.0 % Normal 36.0 - 75.0 % [facility] Neutrophils/Leukocytes Auto (Bld) [Pure # fraction] 5.2 E9/L Normal 2.0 - 7.5 E9/L [facility] HEMATOLOGYOrdered By: Nini Martínez on 05-10-2023 Erythrocyte distribution width (RBC) [Ratio] 16.1 % High 10.9 - 14.2 % [facility] Hematocrit (Bld) [Volume fraction] 39.4 % Normal 34.0 - 46.0 % [facility] Hemoglobin (Bld) [Mass/Vol] 12.5 g/dL Normal 12.0 - 16.0 gm/dL [facility] MCH (RBC) [Entitic mass] 26.4 pg Low 27.0 - 34.0 pg [facility] MCHC (RBC) [Mass/Vol] 31.8 g/dL Normal 31.4 - 36.0 gm/dL [facility] MCV (RBC) [Entitic vol] 83.1 fL Normal 80.0 - 100.0 fL [facility] Platelet mean volume (Bld) [Entitic vol] 9.8 fL Normal 6.4 - 10.8 fL [facility] Platelets (Bld) [#/Vol] 328.0 E9/L Normal 150. 0 - 500.0 E9/L [facility] RBC (Bld) [#/Vol] 4.8 E12/L Normal 4.3 - 5.9 E12/L [facility] WBC corrected for nucl RBC Auto (Bld) [#/Vol] 9.5 E9/L Normal 4.0 - 11.0 E9/L [facility] Lipid Panelon 05-10-2023 Cholesterol [Mass/Vol] 78 mg/dL Low 120-200 [facility] Comment on above: Performed By: #### 2 357869, 73734592, 994611369, 3573807, 2432577, 5100445, 13938966, 0178007 #### [facility] [address] [place] [address] Cholesterol in HDL [Mass/Vol] 34 mg/dL Invalid Interpretation Code [facility] Comment on above: Result Comment: HDL > or equal to 60 mg/dL: Low cardiovascular risk HDL < 40 mg/dL : High cardiovascular risk Performed By: #### 2 552886, 79492522, 681721895, 5239580, 1119039, 1852130, 62613944, 4702655 #### [facility] [address] [place] [address] Cholesterol in LDL [Mass/Vol] 35 mg/dL Normal <=129 [facility] Comment on above: Performed By: #### 2 168909, 40362321, 957269664, 6342609, 4242654, 6191522, 84543129, 6604337 #### [facility] [address] [place] [address] Cholesterol in VLDL [Mass/Vol] 14 mg/dL Normal 7-40 [facility] Comment on above: Performed By: #### 2 063367, 27728101, 700083156, 7334347, 8105548, 0674583, 55989973, 7572907 #### [facility] [address] [place] [address] Triglyceride [Mass/Vol] 72 mg/dL Normal <=149 [facility] Comment on above: Performed By: #### 2 898219, 17653760, 960316657, 9683542, 4391905, 4031127, 86014435, 9146066 #### [facility] [address] [place] [address] Magnesiumon 05-10-2023 Magnesium [Mass/Vol] 1.8 mg/dL Normal 1.3-2.4 [facility] Comment on above: Performed By: #### 2 788741, 59135649, 821231745, 9317099, 8134550, 0801208, 57094972, 0777159 #### [facility] [address] [place] [address] Physician Orderon 05-10-2023 Physician Order [id number] Normal [facility] TSH With T4fr Reflexon 05-10 TSH Qn 1.32 m[IU]/L Normal 0.34-5.60 [facility] Comment on above: Performed By: #### 2 228351, 67564862, 868117094, 4376624, 7067398, 9737544, 36925754, 3709001 #### [facility] [address] [place] [address] Vitamin D 25 Hydroxyon 05-10 25-hydroxyvitamin D3 [Mass/Vol] 28.8 ng/mL Low 30.0-100.0 [facility] Comment on above: Result Comment: Vit gentile D deficiency has been defined as a level of serum 25-OH vitamin D less than 20 ng/mL (1,2) by the [place] of [employer] and an Endocrine Society practice guideline. The Endocrine Society further defined vitamin D insufficiency as a level between 21 and 29 ng/mL (2). 1. IOM ([place] of Medicine). 2010. Dietary reference intakes for calcium and D. [place]: The National Academies Press. 2. Mike MF, Veronica NC, Xin ALVES, et al. Evaluation, treatment, and prevention of vitamin D deficiency: an Endocrine Society clinical practice guideline. JCEM. 2010; 96 (7):1911-30. Performed By: #### 2 624894, 30661748, 498991848, 9937425, 1514792, 4540913, 84326156, 8548865 ####[facility] [id number] [place] [address] eGFRon 05-10-2023 GFR/1.73 sq M.predicted among non-blacks MDRD (S/P/Bld) [Vol rate/Area] 80 mL/min/1.73 m2 Normal >=59 [facility] Comment on above: Order Comment: Order added by Discern Expert. Result Comment: Senior Treasury Analyst cony kidney disease could be indicated at eGFR's of less than 60 mL/min/1.73m2. Kidney failure is indicated at less than 15 mL/min/1.73m2. Performed By: #### 2 298730, 27160180, 267087850, 8503335, 3911605, 1444034, 56579431, 8645247 #### [facility] [address] [place] [address] CBC with Auto Differentialon 02-18-2023 Basophils (Bld) [#/Vol] 0.00 10*3/uL [facility] Basophils/100 WBC (Bld) 0 % 0 - 2 % [facility] Differential Type YES [facility] Eosinophils (Bld) [#/Vol] 0.10 10*3/uL [facility] Eosinophils/100 WBC (Bld) 1 % 0 - 5 % [facility] Erythrocyte distribution width (RBC) [Ratio] 15.6 % High 12.1 - 15.2 % [facility] Hematocrit (Bld) [Volume fraction] 39.9 % 36 - 46 % [facility] Hemoglobin (Bld) [Mass/Vol] 13.1 g/dL 12.0 - 16.0 g/dL [facility] Interpretation and review of laboratory results Abnormal [facility] Lymphocytes/100 WBC (Bld) 9 % Low 15 - 40 % [facility] Lymphocytes/100 WBC (Bld) 1.40 % [facility] MCH (RBC) [Entitic mass] 27.3 pg 26 - 34 pg [facility] M[facility]C (RBC) [Mass/Vol] 32.9 g/dL 31 - 37 g/dL B [facility] MCV (RBC) [Entitic vol] 82.9 fL 80 - 100 fL [facility] Monocytes/100 WBC (Bld) 4 % 4 - 8 % B ON [facility] Monocytes/100 WBC (Bld) 0.60 % B ON [facility] Neutrophils/100 WBC (Bld) 86 % High 47 - 75 % [facility] Platelets (Bld) [#/Vol] 335 10*3/uL [facility] RBC (Bld) [#/Vol] 4.82 10*6/uL 4.0 - 5.2 m/uL [facility] Segmented neutrophils/100 WBC (Bld) 12.90 % High [facility] WBC other (Bld) [#/Vol] 15.0 High B ON [facility] CBC with Diffon 02-18-2023 Abs. Basophil 0.00 k/uL Normal 0.0-0.2 [facility] Comment on above: Performed By: #### D JADEN, PT, CDP, CP, DIFE, TROPI, HCG #### [facility] [address] [place] [address] Concrete Hopper Operator: John Paul Pantoja MD Abs.Neutrophil (Seg) 12.90 k/uL High 2.5-7.0 [facility] Comment on above: Performed By: #### D JADEN, PT, CDP, CP, DIFE, TROPI, HCG #### [facility] [address] [place] [address] Concrete Hopper Operator: John Paul Pantoja MD Auto Diff Performed YES Normal [facility] Comment on above: Performed By: #### D JADEN, PT, CDP, CP, DIFE, TROPI, HCG #### [facility] [address] [place] [address] Concrete Hopper Operator: John Paul Pantoja MD Basophils/100 WBC (Bld) 0 % Normal 0-2 [facility] Comment on above: Performed By: #### D JADEN, PT, CDP, CP, DIFE, TROPI, HCG #### [facility] [address] [place] [address] Concrete Hopper Operator: John Paul Pantoja MD Eosinophils (Bld) [#/Vol] 0.10 10*3/uL Normal 0.0-0.4 [facility] Comment on above: Performed By: #### D JADEN, PT, CDP, CP, DIFE, TROPI, HCG #### [facility] [address] [place] [address] Concrete Hopper Operator: John Paul Pantoja MD Eosinophils/100 WBC (Bld) 1 % Normal 0-5 [facility] Comment on above: Performed By: #### D JADEN, PT, CDP, CP, DIFE, TROPI, HCG #### [facility] [address] [place] [address] Concrete Hopper Operator: John Paul Pantoja MD Erythrocyte distribution width (RBC) [Ratio] 15.6 % High 12.1-15.2 [facility] Comment on above: Performed By: #### D JADEN, PT, CDP, CP, DIFE, TROPI, HCG #### [facility] [address] [place] [address] Concrete Hopper Operator: John Paul Pantoja MD Hematocrit (Bld) [Volume fraction] 39.9 % Normal 36-46 [facility] Comment on above: Performed By: #### D JADEN, PT, CDP, CP, DIFE, TROPI, HCG #### [facility] [address] [place] [id number] Concrete Hopper Operator: John Paul Pantoja MD Hemoglobin (Bld) [Mass/Vol] 13.1 g/dL Normal 12.0-16.0 [facility] Comment on above: Performed By: #### D JADEN, PT, CDP, CP, DIFE, TROPI, HCG #### [facility] [address] [place] [address] Concrete Hopper Operator: John Paul Pantoja MD Lymphocytes (Bld) [#/Vol] 1.40 10*3/uL Normal 1.0-4.8 [facility] Comment on above: Performed By: #### D JADEN, PT, CDP, CP, DIFE, TROPI, HCG #### [facility] [address] [place] [address] Concrete Hopper Operator: John Paul Pantoja MD Lymphocytes/100 WBC (Bld) 9 % Low 15-40 [facility] Comment on above: Performed By: #### D JADEN, PT, CDP, CP, DIFE, TROPI, HCG #### [facility] [address] [place] [address] Concrete Hopper Operator: John Paul Pantoja MD MCH (RBC) [Entitic mass] 27.3 pg Normal 26-34 [facility] Comment on above: Performed By: #### D JADEN, PT, CDP, CP, DIFE, TROPI, HCG #### [facility] [address] [place] [address] Concrete Hopper Operator: John Paul Pantoja MD MCHC (RBC) [Mass/Vol] 32.9 g/dL Normal 31-37 [facility] Comment on above: Performed By: #### D JADEN, PT, CDP, CP, DIFE, TROPI, HCG #### [facility] [address] [place] [address] Concrete Hopper Operator: John Paul Pantoja MD MCV (RBC) [Entitic vol] 82.9 fL Normal 80-100 [facility] Comment on above: Performed By: #### D JADEN, PT, CDP, CP, DIFE, TROPI, HCG #### [facility] [address] [place] [address] Concrete Hopper Operator: John Paul Pantoja MD Monocytes (Bld) [#/Vol] 0.60 10*3/uL Normal 0.0-1.0 [facility] Comment on above: Performed By: #### D JADEN, PT, CDP, CP, DIFE, TROPI, HCG #### [facility] [address] [place] [address] (328) Concrete Hopper Operator: John Paul Pantoja MD Monocytes/100 WBC (Bld) 4 % Normal 4-8 [facility] Comment on above: Performed By: #### D JADEN, PT, CDP, CP, DIFE, TROPI, HCG #### [facility] [address] [place] [address] (170) Concrete Hopper Operator: John Paul Pantoja MD Neutrophil (Seg) 86 % High 47-75 [facility] Comment on above: Performed By: #### D JADEN, PT, CDP, CP, DIFE, TROPI, HCG #### [facility] [address] [place] [address] ([phone]) Concrete Hopper Operator: John Paul Pantoja MD Platelets (Bld) [#/Vol] 335 10*3/uL Normal 140-450 [facility] Comment on above: Performed By: #### D JADEN, PT, CDP, CP, DIFE, TROPI, HCG #### [facility] [address] [place] [address] (463) Concrete Hopper Operator: John Paul Pantoja MD RBC (Bld) [#/Vol] 4.82 10*6/uL Normal 4.0-5.2 [facility] Comment on above: Performed By: #### D JADEN, PT, CDP, CP, DIFE, TROPI, HCG #### [facility] [address] [place] [address] (222) Concrete Hopper Operator: John Paul Pantoja MD WBC (Bld) [#/Vol] 15.0 10*3/uL High 3.5-11.0 [facility] Comment on above: Performed By: #### D JADEN, PT, CDP, CP, DIFE, TROPI, HCG #### [facility] [address] [place] [address] (587) Concrete Hopper Operator: John Paul Pantoja MD CMPon 02-18-2023 Albumin [Mass/Vol] 4.2 g/dL 3.5 - 5.2 g/dL [facility] ALP [Catalytic activity/Vol] 125 U/L High 35 - 104 U/L [facility] ALT [Catalytic activity/Vol] 25 U/L 5 - 33 U/L [facility] Anion gap [Moles/Vol] 14 mmol/L 9 - 17 mmol/L [facility] AST [Catalytic activity/Vol] 13 U/L NINF - 32 U/L [facility] Bilirubin [Mass/Vol] 0.3 mg/dL 0.3 - 1 .2 mg/dL [facility] Calcium [Mass/Vol] 10.0 mg/dL 8.6 - 10. 4 mg/dL [facility] Chloride [Moles/Vol] 98 mmol/L 98 - 10 7 mmol/L [facility] CO2 [Moles/Vol] 25 mmol/L 20 - 31 mmol/L [facility] Creatinine [Mass/Vol] 0.8 mg/dL 0.5 - 0.9 mg/dL [facility] GFR/1.73 sq M.predicted MDRD (S/P/Bld) [Vol rate/Area] - PINF [facility] Comment on above: These results are not intended for use in patients <18 years of age. eGFR results are calculated without a race factor using the 2020 CKD-EPI equation. Careful clinical correlation is recommended, particularly when comparing to results calculated using previous equations. The CKD-EPI equation is less accurate in patients with extremes of muscle mass, extra-renal metabolism of creatine, excessive creatine ingestion, or following therapy that affects renal tubular secretion. Glucose [Mass/Vol] 127 mg/dL High 70 - 99 mg/dL [facility] Interpretation and review of laboratory results Abnormal [facility] Potassium [Moles/Vol] 4.2 mmol/L 3.7 - 5.3 mmol/L [facility] Protein [Mass/Vol] 7.6 g/dL 6.4 - 8.3 g/dL [facility] Sodium [Moles/Vol] 137 mmol/L 135 - 144 mmol/L [facility] Urea nitrogen [Mass/Vol] 15 mg/dL 6 - 20 mg/dL [facility] Urea nitrogen/Creatinine [Mass ratio] 19 mg/mg 9 - 20 [facility] COVID-19, Rapidon 02-18-2023 SARS-CoV-2 (COVID-19) RdRp gene LACHELLE+probe Ql (Resp) Not detected Not Detected [facility] Comment on above: Rapid NAAT: The specimen is NEGATIVE for SARS-CoV-2, the novel coronavirus associated with COVID-19. The ID NOW COVID-19 assay is designed to detect the virus that causes COVID-19 in patients with signs and symptoms of infection who are suspected of COVID-19. An individual without symptoms of COVID-19 and who is not shedding SARS-CoV-2 virus would expect to have a negative (not detected) result in this assay. Negative results should be treated as presumptive and, if inconsistent with clinical signs and symptoms or necessary for patient management, should be tested with an alternative molecular assay. Negative results do not preclude SARS-CoV-2 infection and should not be used as the sole basis for patient management decisions. Fact sheet for Healthcare Providers: https://www.fda.gov/media/450372/download Fact sheet for Patients: https://www.fda.gov/media/681892/download Methodology: Isothermal Nucleic Acid Amplification Specimen Description .NASOPHARYNGEAL SWAB [facility] Comp Metabolic Profon 2022 Albumin [Mass/Vol] 4.2 g/dL Normal 3.5-5.2 [facility] Comment on above: Performed By: #### D JADEN, PT, CDP, CP, DIFE, TROPI, HCG #### [facility] [address] [place] [address] Concrete Hopper Operator: John Paul Pantoja MD Alkaline Phos 125 U/L High 35-104 [facility] Comment on above: Performed By: #### D JADEN, PT, CDP, CP, DIFE, TROPI, HCG #### [facility] [address] [place] [address] Concrete Hopper Operator: John Paul Pantoja MD ALT [Catalytic activity/Vol] 25 U/L Normal 5-33 [facility] Comment on above: Performed By: #### D JADEN, PT, CDP, CP, DIFE, TROPI, HCG #### [facility] [address] [place], [place] [id number] Concrete Hopper Operator: John Paul Pantoja MD Anion gap [Moles/Vol] 14 mmol/L Normal 9-17 [facility] Comment on above: Performed By: #### D JADEN, PT, CDP, CP, DIFE, TROPI, HCG #### [facility] [address] [place], [place] [id number] Concrete Hopper Operator: John Paul Pantoja MD AST [Catalytic activity/Vol] 13 U/L Normal <32 [facility] Comment on above: Performed By: #### D JADEN, PT, CDP, CP, DIFE, TROPI, HCG #### [facility] [address] [place] [address] Concrete Hopper Operator: John Paul Pantoja MD Bilirubin [Mass/Vol] 0.3 mg/dL Normal 0.3-1.2 [facility] Comment on above: Performed By: #### D JADEN, PT, CDP, CP, DIFE, TROPI, HCG #### [facility] [address] [place] [id number] Concrete Hopper Operator: John Paul Pantoja MD BUN/CRE Ratio 19 Normal 9-20 [facility] Comment on above: Performed By: #### D JADEN, PT, CDP, CP, DIFE, TROPI, HCG #### [facility] [address] [place], [place] [id number] Concrete Hopper Operator: John Paul Pantoja MD Calcium [Mass/Vol] 10.0 mg/dL Normal 8.6-10.4 [facility] Comment on above: Performed By: #### D JADEN, PT, CDP, CP, DIFE, TROPI, HCG #### [facility] [address] [place] [address] Concrete Hopper Operator: John Paul Pantoja MD Chloride [Moles/Vol] 98 mmol/L Normal 98-107 [facility] Comment on above: Performed By: #### D JADEN, PT, CDP, CP, DIFE, TROPI, HCG #### [facility] [address] [place] [address] Concrete Hopper Operator: John Paul Pantoja MD CO2 [Moles/Vol] 25 mmol/L Normal 20-31 [facility] Comment on above: Performed By: #### D JADEN, PT, CDP, CP, DIFE, TROPI, HCG #### [facility] [address] [place] [address] Concrete Hopper Operator: John Paul Pantoja MD Creatinine [Mass/Vol] 0.8 mg/dL Normal 0.5-0.9 [facility] Comment on above: Performed By: #### D JADEN, PT, CDP, CP, DIFE, TROPI, HCG #### [facility] [address] [place] [address] Concrete Hopper Operator: John Paul Pantoja MD GFR/1.73 sq M.predicted among non-blacks MDRD (S/P/Bld) [Vol rate/Area] mL/min/{1.73_m2} Normal >60 [facility] Comment on above: Result Comment: These results are not intended for use in patients <18 years of age. eGFR results are calculated without a race factor using the 2020 CKD-EPI equation. Careful clinical correlation is recommended, particularly when comparing to results calculated using previous equations. The CKD-EPI equation is less accurate in patients with extremes of muscle mass, extra-renal metabolism of creatine, excessive creatine ingestion, or following therapy that affects renal tubular secretion. Performed By: #### D JADEN, PT, CDP, CP, DIFE, TROPI, HCG #### [facility] [address] [place] [address] Concrete Hopper Operator: John Paul Pantoja MD Glucose [Mass/Vol] 127 mg/dL High 70-99 [facility] Comment on above: Performed By: #### D JADEN, PT, CDP, CP, DIFE, TROPI, HCG #### [facility] [address] [place] [phone] Concrete Hopper Operator: John Paul Pantoja MD Potassium [Moles/Vol] 4.2 mmol/L Normal 3.7-5.3 [facility] Comment on above: Performed By: #### D JADEN, PT, CDP, CP, DIFE, TROPI, HCG #### [facility] [address] [place] [phone] Concrete Hopper Operator: John Paul Pantoja MD Protein [Mass/Vol] 7.6 g/dL Normal 6.4-8.3 [facility] Comment on above: Performed By: #### D JADEN, PT, CDP, CP, DIFE, TROPI, HCG #### [facility] [address] [place] [address] Concrete Hopper Operator: John Paul Pantoja MD Sodium [Moles/Vol] 137 mmol/L Normal 135-144 [facility] Comment on above: Performed By: #### D JADEN, PT, CDP, CP, DIFE, TROPI, HCG #### [facility] [address] [place] [phone] Concrete Hopper Operator: John Paul Pantoja MD Urea nitrogen [Mass/Vol] 15 mg/dL Normal 6-20 [facility] Comment on above: Performed By: #### D JADEN, PT, CDP, CP, DIFE, TROPI, HCG #### [facility] [address] [place] [phone] Concrete Hopper Operator: John Paul Pantoja MD D-Dimer Teston 02-18-2023 D-Dimer Test 0.40 ug/mL FEU Normal 0.00-0.59 [facility] Comment on above: Result Comment: When combined with a low clinical probability, a D dimer value of <0.50 ug/mL FEU is considered negative for DVT and PE (negative predictive value of 98%, sensitivity of 97%). If this test is not being used to help rule out DVT and PE, then the following reference range should be utilized: 0.00 - 0.59 ug/mL FEU. The D-Dimer assay is intended for use as an aid in the diagnosis of venous thromboembolism (DVT and PE) and the results should be interpreted in conjunction with the patient's medical history, clinical presentation, and other findings. Elevated levels of D-dimer activity can be seen in any state of coagulation activation and is not recommended in patients with therapeutic dose anticoagulant therapy for >24 hours, fibrinolytic therapy within the previous 7 days, trauma or surgery within the previous 4 weeks, disseminated malignancies, aortic aneurysm, sepsis, severe infections, pneumonia, severe skin infections, liver cirrhosis, advanced age, coronary disease, diabetes, and . A very low percentage of patients with DVT may yield D-dimer results below the cutoff of 0.5 ug/mL FEU. This is known to be more prevalent in patients with distal DVT. Performed By: #### D JADEN, PT, CDP, CP, DIFE, TROPI, HCG #### [facility] [address] [place] [address] Concrete Hopper Operator: John Paul Pantoja MD D-Dimer, Quantitativeon Fibrin D-dimer FEU (PPP) [Mass/Vol] 0.40 [facility] Comment on above: When combined with a low clinical probability, a D dimer value of <0.50 ug/mL FEU is considered negative for DVT and PE (negative predictive value of 98%, sensitivity of 97%). If this test is not being used to help rule out DVT and PE, then the following reference range should be utilized: 0.00 - 0.59 ug/mL FEU. The D-Dimer assay is intended for use as an aid in the diagnosis of venous thromboembolism (DVT and PE) and the results should be interpreted in conjunction with the patient's medical history, clinical presentation, and other findings. Elevated levels of D-dimer activity can be seen in any state of coagulation activation and is not recommended in patients with therapeutic dose anticoagulant therapy for >24 hours, fibrinolytic therapy within the previous 7 days, trauma or surgery within the previous 4 weeks, disseminated malignancies, aortic aneurysm, sepsis, severe infections, pneumonia, severe skin infections, liver cirrhosis, advanced age, coronary disease, diabetes, and . A very low percentage of patients with DVT may yield D-dimer results below the cutoff of 0.5 ug/mL FEU. This is known to be more prevalent in patients with distal DVT. [facility] Diff Methodon 02-18-[address] Normal [facility] Comment on above: Performed By: #### D JADEN, PT, CDP, CP, DIFE, TROPI, HCG #### [facility] [address] [place] [address] Concrete Hopper Operator: John Paul Pantoja MD HCG Qualitative, Serumon HCG ( test) Ql Negative NEGATIVE B ON [facility] Comment on above: Specimens with hCG l evels near the threshold of the test (25 mIU/mL) may give a negative or indeterminate result. In such cases, another test should be performed with a new specimen in 48-72 hours. If early is suspected clinically in this setting, correlation with quantitative serum b-hCG level is suggested. [employer] has confirmed the use of plasma for this test. This has not been cleared or approved by the U.S. Food and Drug Administration. The FDA has determined that such clearance is not necessary. [facility] HCG Screen, Bloodon 02-19-20 23 HCG Screen, Blood Negative Normal NEG [facility] Comment on above: Result Comment: Spec imens with hCG levels near the threshold of the test (25 mIU/mL) may give a negative or indeterminate result. In such cases, another test should be performed with a new specimen in 48-72 hours. If early is suspected clinically in this setting, correlation with quantitative serum b-hCG level is suggested. [employer] has confirmed the use of plasma for this test. This has not been cleared or approved by the U.S. Food and Drug Administration. The FDA has determined that such clearance is not necessary. Performed By: #### D JADEN, PT, CDP, CP, DIFE, TROPI, HCG #### [facility] [address] [place] [address] Concrete Hopper Operator: John Paul Pantoja MD PTon 02-18-2023 INR Coag (PPP) [Relative time] 1.0 {INR} Normal [facility] Comment on above: Result Comment: Therapeutic Range: Moderate Anticoagulant Intensity: INR = 2.0-3.0 High Anticoagulant Intensity: INR = 2.5-3.5 Performed By: #### D JADEN, PT, CDP, CP, DIFE, TROPI, HCG #### [facility] [address] [place] [phone] Concrete Hopper Operator: John Paul Pantoja MD PT Coag (PPP) [Time] 13.7 s Normal 11.5-14.2 [facility] Comment on above: Performed By: #### D JADEN, PT, CDP, CP, DIFE, TROPI, HCG #### [facility] [address] [place] [phone] Concrete Hopper Operator: John Paul Pantoja MD Protime-INRon 02-18-2023 INR Coag (PPP) [Relative time] 1.0 {INR} [facility] Comment on above: Therapeutic Range: Moderate Anticoagulant Intensity: INR = 2.0-3.0 High Anticoagulant Intensity: INR = 2.5-3.5 PT Coag (PPP) [Time] 13.7 s [facility] Rapid Strep Screenon 023 Interpretation and review of laboratory results Abnormal [facility] S. pyogenes Ag Ql (Throat) Positive Abnormal NEGATIVE [facility] Comment on above: for Group A Streptoc occi Specimen source Nom (Unsp spec) .THROAT SWAB [facility] [id number] 02-18-2023 SARS-CoV-2 (COVID-19) RNA LACHELLE+probe Ql (Unsp spec) Not detected Normal [facility] Comment on above: Result Comment: Rapid NAAT: The specimen is NEGATIVE for SARS-CoV-2, the novel coronavirus associated with COVID-19. The ID NOW COVID-19 assay is designed to detect the virus that causes COVID-19 in patients with signs and symptoms of infection who are suspected of COVID-19. An individual without symptoms of COVID-19 and who is not shedding SARS-CoV-2 virus would expect to have a negative (not detected) result in this assay. Negative results should be treated as presumptive and, if inconsistent with clinical signs and symptoms or necessary for patient management, should be tested with an alternative molecular assay. Negative results do not preclude SARS-CoV-2 infection and should not be used as the sole basis for patient management decisions. Fact sheet for Healthcare Providers: https://www.fda.gov/media/086150/download Fact sheet for Patients: https://www.fda.gov/media/583726/download Methodology: Isothermal Nucleic Acid Amplification Performed By: #### D JADEN, PT, CDP, CP, DIFE, TROPI, HCG #### [facility] [address] [place], [place] [phone] Concrete Hopper Operator: John Paul Pantoja MD Strep Group A, Rapidon 02-18 Strep Gr A Direct Ag Positive Abnormal NEG [facility] Comment on above: Result Comment: for Group A Streptococci Performed By: #### D JADEN, PT, CDP, CP, DIFE, TROPI, HCG #### [facility] [address] [place], [place] [phone] Concrete Hopper Operator: John Paul Pantoja MD Source .THROAT SWAB Normal [facility] Comment on above: Performed By: #### D JADEN, PT, CDP, CP, DIFE, TROPI, HCG #### [facility] [address] [place], [place] [phone] Concrete Hopper Operator: John Paul Pantoja MD Troponinon 02-18-2023 Troponin, High Sens <6 Normal 0-14 [facility] Comment on above: Result Comment: High Sensitivity Troponin values cannot be compared with other Troponin methodologies. Performed By: #### D JADEN, PT, CDP, CP, DIFE, TROPI, HCG #### [facility] [address] [place], [place] [phone] Concrete Hopper Operator: John Paul Pantoja MD Troponin, High Sens <6 Normal 0-14 [facility] Comment on above: Result Comment: High Sensitivity Troponin values cannot be compared with other Troponin methodologies. Performed By: #### D JADEN, PT, CDP, CP, DIFE, TROPI, HCG #### [facility] [address] [place] [address] Concrete Hopper Operator: John Paul Pantoja MD Troponin I.cardiac High sensitivity method [Mass/Vol] ng/L 0 - 14 ng/L [facility] Comment on above: High Sensitivity Tro ponin values cannot be compared with other Troponin methodologies. [facility] Troponin I.cardiac High sensitivity method [Mass/Vol] ng/L 0 - 14 ng/L [facility] Comment on above: High Sensitivity Tro ponin values cannot be compared with other Troponin methodologies. [facility] XR CHEST PORTABLEon 02-19-20 XR CHEST PORTABLE EXAM: XR CHEST PORTABLE HISTORY: cp COMPARISON: 10/02/2022 chest IMPRESSION: FINDINGS/IMPRESSION : 1. Minimal plate atelectasis at the right lung base, insignificant. 2. Mild cardiomegaly, stable. Interpreted by: Juancho Everett Jr., MD Signed by: Juancho Everett Jr., MD 02/18/[address] [facility] FINDINGS/IMPRESSION : 1. Minimal plate atelectasis at the right lung base, insignificant. 2. Mild cardiomegaly, stable. [facility] RIS CONSOLIDATED EXAM: XR CHEST PORTABLE HISTORY: cp COMPARISON: 10/02/2022 chest [facility] RIS CONSOLIDATED Juancho Everett Jr., MD - 02/18/2023 EXAM: XR CHEST PORTABLE HISTORY: cp COMPARISON: 10/02/2022 chest IMPRESSION: FINDINGS/IMPRESSION : 1. Minimal plate atelectasis at the right lung base, insignificant. 2. Mild cardiomegaly, stable. [facility] Radiology Study observation (narrative) [facility] XR CHEST PORTABLEOrdered By: Juancho Everett on 02-18-2023 [facility] Work Phone: Coding Summary.on 11-13-2022 Coding Summary. CD:[id number] bWw+PGhlYWQ+GR8UAUN kL33xtXCphP7aV1ALFH lOSywgQVBQTElOSyIgb aUxWF5hlKOuAAPo IC8+WH5vABIxFhxohRI cs1S3oNL6Z97ldh9sPP roeAD5WKKhDgVpkurep 6wamTv8BIjhCrdlKwCb KBYhoO18UTF4cN97Yb6 6zIEglWIfv1zdyId0Qj KiRPLcXVT2fAdjGVjgk 0RdAPFpJ38vyGMqv7T1 IGNvbGxhcHNlOyBlbXB 1sN3qCAjyjeydb9sfpj lrBdr8ks10oOOip8I5c YB8W7IgvdA5FFSanZDy ArjtwRWBoX4hjkunb5m gufzhZrLkBUTpXNu4KF e5OSLwiPmkFjPhXK92K PH9LOAfemXwU9WuSJQe eOcaPqU0e9B0Rb3GS1I HMghwG4RLCEFLGHhktB Q+IB65pt78Z2GjEbvyO sg3DRNaJUQ5wWZ4cW0h UGTpIBvzy0Z0uGD4U9O wujBhpa9ib9abYVCzNO ooM57hrYZgp0G3YJOmu PD8LCTnoOzeRySueV69 Oyc+KPTurDpcc2LpDbr te7mmk7ggyWz7QejvRL WeomSnoApfOFD0t6OlO n9tEZJpcJZ2eIP9jU8h NtSrQcO4CRqgM290GnT boYBpWphxM55uZ4TauU A+KEItUao5DNNhxGutE V4eD3UoZJGfzufatNNc mEczGQ2gPDBhsldtENY cmW2sZMWbQ6l8JbIoQd X7GZduA9GyYIEjnwbpA a08yB6lAfOvCqD0DRww B0ZivfM5JDKwrLPzTMf nRMU2P12ln7Z6LCQcHA PyBLI1tAS1xX1tfOgsz jogbGVmdDsgdmVydGlj KFxySPhbL259UZGzwDp nPkNvZGluZyBEYXRlOi AgMDQvMjgvMjAyMzwvd GQ+WZSrWOD5wUdvJUAk jSFrYCeuJh6pxTbhkQk cIL5cDSMxyoeaZSBzaV 9vLIQpjHVfkNxoIW5dD NShxzcwx272UqNjNJT1 IACbzGZmO5TneO7cHbP fOZRkINUcO2CrqCXhNS byE140JRkvFtV6FENpg pLcY7UcWSKosFvuXqS0 y4O7Ba2En0BdufwcM5L oeQGbDqUxNufnFEj9I6 RkPjwvdHI+ZS13PESoU U95NCk2LPC7bGdvZAvy XIIwE3JzoI4cFcAmUCX kZGRkOyc+PHRhYmxlIH dpZHRoPScxMDAlJyBzd NuuLK7cDf9nQGTgJCCo pSepzJLmFuYer9ysYTS hHVjcTA2gxJceC9WelG J9YLLkl1i7Yd12M30rX 3JvdXA+GRGkvPW4iWI3 vH2uBjMmAxL9YBjyC60 1YcZgyUKcKuenq1osl8 gdmWp2FhW4ORWsfzWqx GxsGCM6c8UoFd90W03n IHdpZHRoPSIxNSUiIHZ fcFyegg2yoQ5iWl8+PG NswVL2sQR5lW1oVxGuK vP9FYtsY286CjXitORb Hgzfs9njh4uqcUs9ZwY aWKEvmnPklHgbPVR3p6 FxPj59J1GteEvtb1KxH ad5jw89bKLab0T9kDK8 D4AwQJZcuzrjuUWpjYn mAA0qLVDyybolFESfvZ 5zVFWyD9p2YjKpPeC2O XrzP3HcvaB4VKWguCKo OHNfpNQThV1sgnuzy0o kyckzRnSrNAVeVAg0FZ u8DQTetIekCvCnVHB4R nR3RMZ3nTYgzN5ecDaj pzcizU3vVdh+MAG6tOH hnEKWQY2rLatiwEZ+PH WfWGD0cBpeRPcjGXYbm Q2aNGOtP5s5ByOwVtE9 ERbgN1RjuyO8VEKvrOD vXZDuoGVYmB0xltsqr0 ftbnreSzSbSRFbLPy7K Zr7OFGosKxsMpFaUET9 BfV6OCE7cSQerH6kvWv xwhxffT0sSli+QmlydG pwQCZ0CAe3G7RxSfz4K QEdcTivDP6wkBYjVDrn Jh4cqKpjwOnnVS7nAYY ixzebm556GvOuq4joWB AwrKDqYKgoDIC8A35jz 7B9BPGhFEOiZDP2sBC6 jH3czSpsykijyJPksEw gdmVydGljYWwtYWxpZ2 63HZQpiEqnDwWtCRb5L 9CsBwl6ENOidUndKI5u sASjYXzxWo6xmOxezYt mHX2dXKWjjjpll557Ul Fzg9sjUZFchUFmYDlhI XE5S30hi9W5CLHuDWNa WSK7cTG6sR9ayOfrahw gbGVmdDsgdmVydGljYW jcQQxcY648BGSiwMlbM yRzkEg2H0DgXwl3XPOw wBgjQQ8ruMItGVvpGi0 feBwxyLqpIJ3xOZJebz rbn219SqLcy5wmHZUoe DSjGEqgRDR9X25qe7O9 HWAyARVmTBX5rLB9cI4 hbGlnbjogbGVmdDsgdm FsuYnqSXjkYFebV870F HRvcDsnPlBhdGllbnQg UAumBSf7K1NcNxgmvXI +KU72BKRcVQ47rEMtqZ Mqm0ecbAt2JgOcRTFwT FJ2oKiyELqze6DbMBEf T59kqWPxd2Q4ZPYoyXh whADbBnYcsLB6gI9jNU lsyoush9cenaklIwrph 5qobe65cV04X64eJTni ZHRoPSIzMCUiIHZhbGl cui4keM1dZh5+PGNvbC Z3tNO6wY4lAVCjEkV4M GqhN549RmSglXMrEank g0vzr3pkmCr8YuF0KQN pwsCsqYtaPWE4o6HyOb 43R11bKFjlQAQdOABkT MOhPJIboCjvuk6swW6w Ii8+TMPpwCQ5vMB9wJ6 yUjFtAfD5NIfoP005Nl HakCUyGsodF74nS8Xpf XA+UOYfUlm5BJTzvSao EC9tgVIxPUshCb4wUUL 8YhDfIlNhNKbgF0HpQI DlugltgnrzfPQ8ICSdK XXdyF31Hd5orCucBZHo xNXIjB0gskjgy4ihvwj nJvLyGASpQFr8XDo7GY DqcUxrPaPhMTT6TxH6S XD6tNZvzR6tiHfifrix mR6nY1DlHYIzcuiyTd3 4eT6xYpKiOiP4JDsaYh c+KYpSIR9QKKULPbbQI CwEHH01TX70bGVjz6Y5 vHA5X5CyBJMoznrprjm aqAP0GUBeBVHysB45hS BkNIqlRe4cs2N9t676L DBwEIAnhF83Tt4lsSfp WRVcgCBPbA7doxkeu2e zduerWhOfPBLxHFo1OZ b9XJMtaBpkIzBnLDO5O nF4VHC1aUKarR5wsRem farpoL4kYcp+MDIvMDU dPXt2QnuiuCO+PHRkIH V4iNhzMQicMQFlyJ8qM NDoI4f3JdZvLhX7IUya P6GoRZAsmgzcIp31tQ1 gEfDeRmK7MJukN1Ondj O8SXHulEQlMYdqMYP8B 87ea2Q1IWUnPLWfGKN1 wTS3tQ2gwVwiwgurdRZ mdDsgdmVydGljYWwtYW bmT759BWKyvJtdDzB6X NoeFLUuTD57LX77oQVw c7V4rOP5D3EwZZZbwqh bfrptmYJ7OVTxMMZxbU 44qQMbIMlpDq3yn2I0a 822NZTuMJVolK29Zl1w eGehZSCvzAKLgM0bgpq kk0ghomzsNkEsQAHsNX l1JFn1VQXezJkfSrPmN BO7IsL1WWP3fGSieO5v nEqbebqcdL4oMiv+RmV oGRvaTA56MA94bGFos4 T9hBW0I0EmGZJcubknv ixoaOA2NLHuUSAsbR65 zLWqYElzKf7ir6X3g87 6DCDoSIYgxU62Fm9sqZ wlYONjjDHJyN1coxego 8ocfoiqDzEhRUTnGGf8 JCu4CTRjmZqgWvDnJHA 3BcB0LYL1kNAqoO1lsJ nexlmyeZ6wThp+TGFiI GVbm1Fln7RhCL43XL10 F5VyIziveQKkhXV+PHR hYmxlIHdpZHRoPScxMD NiMgMlpZcvCM3lSb0bI GVyLWNvbGxhcHNlOiBj u1aeDDMnVEukOY6taIo cE5MqbNI3QSAac1z7Tm 54E44iT7BllLT+PGNvb JW5dYS3hI5iHgDsVuF7 UBikR617GfXuwPGrEnr st0fmd1ykcRz7DpSsJG OywyZiiJdtAQO9a6UjF f62E91sDXfzAMAbUIOj BWAgZTCokKgaah2jyH2 wIi8+PWSpzHJ4dXK0iR 6hFgPhRkA3WGxhA680G zPoyBShSoloG50aA2Iw dXA+OHQgRgl4DOZgwOg kRT0ufRIjPIqiWl2xMC X7EmZjHdRpFJzmO4YmQ YLnxqtsfkjbtEO2FLNz YFPqgZ82Gn1osWdlLw7 fEPGrMQL1XIOibHYzM5 MpgM6cGgSaZIXsCSEoY 1CjyWGxNLoyE823YOjs KpM8AOBvrnCwY7PpKQM afWygEhV7z2Z1Kw9TkN jkzXYiAE1rXyRcCPc7Z 8ZeJbp0THMrvPugQS4z aYZwIDpjFg5cmSudpOp nXG7qFHBfyqrov681Rc Jey6vaTMTukEQrCBtrP JS2H52ps3W2SCCsWZAl UYN6vCJ5jN5gnJcgukc gbGVmdDsgdmVydGljYW vqYAwsK761NYOqyDllB oIUUbh7Z7HzSpo6JFDb oNkgEE3jiVItTWswYg9 dbZgwrQncZZ6cIHTuze ehp562TxZln8ifDCZgr JCaLEhbJUN1M95ub3V0 VPSfOOBwONQ1sNY8gZ6 hbGlnbjogbGVmdDsgdm YsiViiGNkqORlhY776O IFezYmxZb6OZkg0X6Qx Jqt1UKXevLldFT9ekVR wOKtaWx6stSemmOnvDH 4eZCSyyhnnk844LfNts 6thJJLmyIKjFBftDJK0 V63gn4P3DANaKGEmDPU 5jDT0mL3nbOltftosiK VmdDsgdmVydGljYWwtY RorK020QYJymEmuCeYv eWVyOjwvdGQ+MB11yq9 6F1FlZrkzLxh7VCRvMV A2wZY9gM0vRNZbKHuub 2I9fLS9C0MdnlKgiw2m f2uzWDQu (more content not included)... Normal [facility] C Urineon 11-12-2022 Bacteria identified Cx Nom (U) Microbiology PROCEDURE: Urine Culture [R1] SOURCE: U CleanCatch BODY SITE: COLLECTED DATE/TIME: 11/10/2022 09:07 EDT RECEIVED DATE/TIME: 11/10/2022 13:54 EDT START DATE/TIME: 11/10/2022 13:54 EDT FREE TEXT SOURCE: [employer] GRINDER CHIPPER, PRODUCT EXPERT-C, [employer]zech GRINDER CHIPPER, PRODUCT EXPERT-C, [employer] X [employer] X FINAL REPORTS Final Report [] Verified Date/Time: 11/12/2022 08:38 EDT 1,000 cfu/ml Mixed skin contaminants Performing Locations R1: This test was performed at: [facility], [address] [place] [address], [id number] , , Normal [facility] Comment on above: Performed By: #### [id number] ####[facility] [address] [place] [address] Chlam/GC/Trich,NAAon 023 C. trachomatis rRNA LACHELLE+probe Ql (Unsp spec) Negative Invalid Interpretation Code Negative [facility] Comment on above: Performed By: #### 1 [id number] #### [facility] [address] [place] [address] N. gonorrhoeae rRNA LACHELLE+probe Ql (Unsp spec) Negative Invalid Interpretation Code Negative [facility] Comment on above: Performed By: #### 1 [id number] #### [facility] [address] [place] [address] T. vaginalis rRNA LACHELLE+probe Ql (Unsp spec) Negative Invalid Interpretation Code Negative [facility] Comment on above: Result Comment: Perf ormed at: =G [facility] [address] AARON Trejo [id number] MD Areli Kline Performed By: #### 1 [id number] #### [facility] [address] [place] [address] Basic Metab w/rfx MGon 10-02 Anion gap [Moles/Vol] 14 mmol/L Normal -17 [facility] Comment on above: Performed By: #### D JADEN, PT, CDP, CP, DIFE, TROPI, HCG #### [facility] [address] [place] [address] Concrete Hopper Operator: John Paul Pantoja MD BUN/CRE Ratio 10 Normal 9-20 [facility] Comment on above: Performed By: #### D JADEN, PT, CDP, CP, DIFE, TROPI, HCG #### [facility] [address] [place], [place] [id number] Concrete Hopper Operator: John Paul Pantoja MD Calcium [Mass/Vol] 9.2 mg/dL Normal 8.6-10.4 [facility] Comment on above: Performed By: #### D JADEN, PT, CDP, CP, DIFE, TROPI, HCG #### [facility] [address] [place] [address] Concrete Hopper Operator: John Paul Pantoja MD Chloride [Moles/Vol] 102 mmol/L Normal 98-107 [facility] Comment on above: Performed By: #### D JADEN, PT, CDP, CP, DIFE, TROPI, HCG #### [facility] [address] [place] [address] Concrete Hopper Operator: John Paul Pantoja MD CO2 [Moles/Vol] 24 mmol/L Normal 20-31 [facility] Comment on above: Performed By: #### D JADEN, PT, CDP, CP, DIFE, TROPI, HCG #### [facility] [address] [place] [address] [employer] Operator: John Paul Pantoja MD Creatinine [Mass/Vol] 0.96 mg/dL High 0.50-0.90 [facility] Comment on above: Performed By: #### D JADEN, PT, CDP, CP, DIFE, TROPI, HCG #### [facility] [address] [place] [address] [employer] Operator: John Paul Pantoja MD GFR/1.73 sq M.predicted among non-blacks MDRD (S/P/Bld) [Vol rate/Area] mL/min/{1.73_m2} Normal >60 [facility] Comment on above: Result Comment: These results are not intended for use in patients <18 years of age. eGFR results are calculated without a race factor using the 2020 CKD-EPI equation. Careful clinical correlation is recommended, particularly when comparing to results calculated using previous equations. The CKD-EPI equation is less accurate in patients with extremes of muscle mass, extra-renal metabolism of creatine, excessive creatine ingestion, or following therapy that affects renal tubular secretion. Performed By: #### D JADEN, PT, CDP, CP, DIFE, TROPI, HCG #### [facility] [address] [place] [address] [employer] Operator: John Paul Pantoja MD Glucose [Mass/Vol] 143 mg/dL High 70-99 [facility] Comment on above: Performed By: #### D JADEN, PT, CDP, CP, DIFE, TROPI, HCG #### [facility] [address] [place] [address] [employer] Operator: John Paul Pantoja MD Potassium [Moles/Vol] 3.9 mmol/L Normal 3.7-5.3 [facility] Comment on above: Performed By: #### D JADEN, PT, CDP, CP, DIFE, TROPI, HCG #### [facility] [address] [place] [address] [employer] Operator: John Paul Pantoja MD Sodium [Moles/Vol] 140 mmol/L Normal 135-144 [facility] Comment on above: Performed By: #### D JADEN, PT, CDP, CP, DIFE, TROPI, HCG #### [facility] [address] [place] [address] Con[employer] Hopper Operator: John Paul Pantoja MD Urea nitrogen [Mass/Vol] 10 mg/dL Normal 6-20 [facility] Comment on above: Performed By: #### D JADEN, PT, CDP, CP, DIFE, TROPI, HCG #### [facility] [address] [place] [address] [employer] Operator: John Paul Pantoja MD Basic Metabolic Panel w/ Ref lauren to [facility] 10-02-2022 Anion gap [Moles/Vol] 14 mmol/L 9 - 17 mmol/L [facility] Calcium [Mass/Vol] 9.2 mg/dL 8.6 - 10. 4 mg/dL [facility] Chloride [Moles/Vol] 102 mmol/L 98 - 10 7 mmol/L [facility] CO2 [Moles/Vol] 24 mmol/L 20 - 31 mmol/L [facility] Creatinine [Mass/Vol] 0.96 mg/dL High 0.50 - 0.90 mg/dL [facility] GFR/1.73 sq M.predicted MDRD (S/P/Bld) [Vol rate/Area] - PINF [facility] Comment on above: These results are not intended for use in patients <18 years of age. eGFR results are calculated without a race factor using the 2020 CKD-EPI equation. Careful clinical correlation is recommended, particularly when comparing to results calculated using previous equations. The CKD-EPI equation is less accurate in patients with extremes of muscle mass, extra-renal metabolism of creatine, excessive creatine ingestion, or following therapy that affects renal tubular secretion. Glucose [Mass/Vol] 143 mg/dL High 70 - 99 mg/dL [facility] Interpretation and review of laboratory results Abnormal [facility] Potassium [Moles/Vol] 3.9 mmol/L 3.7 - 5.3 mmol/L [facility] Sodium [Moles/Vol] 140 mmol/L 135 - 144 mmol/L [facility] Urea nitrogen [Mass/Vol] 10 mg/dL 6 - 20 mg/dL [facility] Urea nitrogen/Creatinine (Bld) [Mass ratio] 10 9 - 20 [facility] CBC with Auto Differentialon 10-02-2022 Absolute [facility] # 0.20 [facility] Absolute Lymph # 3.20 [facility] Absolute [place] # 0.50 [facility] Basophils (Bld) [#/Vol] 0.00 10*3/uL [facility] Basophils/100 WBC (Bld) 0 % 0 - 2 % B ON [facility] Differential Type YES [facility] Eosinophils/100 WBC (Bld) 2 % 0 - 5 % [facility] Hematocrit (Bld) [Volume fraction] 39.7 % 36 - 46 % [facility] Hemoglobin (Bld) [Mass/Vol] 13.1 g/dL 12.0 - 16.0 g/dL [facility] Interpretation and review of laboratory results Abnormal [facility] Lymphocytes/100 WBC (Bld) 31 % 15 - 40 % [facility] MCH (RBC) [Entitic mass] 26.9 pg 26 - 34 pg [facility] MCHC (RBC) [Mass/Vol] 33.0 g/dL 31 - 37 g/dL B ON [facility] MCV (RBC) [Entitic vol] 81.4 fL 80 - 100 fL [facility] Monocytes/100 WBC (Bld) 5 % 4 - 8 % B ON [facility] Platelet distribution width (Bld) [Ratio] 15.7 % High 12.1 - 15.2 % [facility] Platelets (Bld) [#/Vol] 339 10*3/uL [facility] RBC (Bld) [#/Vol] 4.87 10*6/uL 4.0 - 5.2 m/uL [facility] Segmented neutrophils/100 WBC (Bld) 62 % 47 - 75 % [facility] Segs Absolute 6.30 [facility] WBC (Bld) [#/Vol] 10.2 10*3/uL [facility] CBC with Diffon 10-02-2022 Abs. Basophil 0.00 k/uL Normal 0.0-0.2 [facility] Comment on above: Performed By: #### C DP, DIME, BMPX, TROPI #### [facility] [address] [place] [address] Concrete Hopper Operator: John Paul Pantoja MD Abs.Neutrophil (Seg) 6.30 k/uL Normal 2.5-7.0 [facility] Comment on above: Performed By: #### C DP, DIME, BMPX, TROPI #### [facility] [address] [place] [address] Concrete Hopper Operator: John Paul Pantoja MD Auto Diff Performed YES Normal [facility] Comment on above: Performed By: #### C DP, DIME, BMPX, TROPI #### [facility] [address] [place] [address] Concrete Hopper Operator: John Palu Pantoja MD Basophils/100 WBC (Bld) 0 % Normal 0-2 [facility] Comment on above: Performed By: #### C DP, DIME, BMPX, TROPI #### [facility] [address] [place] [address] Concrete Hopper Operator: John Paul Pantoja MD Eosinophils (Bld) [#/Vol] 0.20 10*3/uL Normal 0.0-0.4 [facility] Comment on above: Performed By: #### C DP, DIME, BMPX, TROPI #### [facility] [address] [place] [address] Concrete Hopper Operator: John Paul Pantoja MD Eosinophils/100 WBC (Bld) 2 % Normal 0-5 [facility] Comment on above: Performed By: #### C DP, DIME, BMPX, TROPI #### [facility] [address] [place] [address] Concrete Hopper Operator: John Paul Pantoja MD Erythrocyte distribution width (RBC) [Ratio] 15.7 % High 12.1-15.2 [facility] Comment on above: Performed By: #### C DP, DIME, BMPX, TROPI #### [facility] [address] [place] [phone] Concrete Hopper Operator: John Paul Pantoja MD Hematocrit (Bld) [Volume fraction] 39.7 % Normal 36-46 [facility] Comment on above: Performed By: #### C DP, DIME, BMPX, TROPI #### [facility] [address] [place] [phone] Concrete Hopper Operator: John Paul Pantoja MD Hemoglobin (Bld) [Mass/Vol] 13.1 g/dL Normal 12.0-16.0 [facility] Comment on above: Performed By: #### C DP, DIME, BMPX, TROPI #### [facility] [address] [place] [address] Concrete Hopper Operator: John Paul Pantoja MD Lymphocytes (Bld) [#/Vol] 3.20 10*3/uL Normal 1.0-4.8 [facility] Comment on above: Performed By: #### C DP, DIME, BMPX, TROPI #### [facility] [address] [place] [phone] Concrete Hopper Operator: John Paul Pantoja MD Lymphocytes/100 WBC (Bld) 31 % Normal 15-40 [facility] Comment on above: Performed By: #### C DP, DIME, BMPX, TROPI #### [facility] [address] [place] [address] Concrete Hopper Operator: John Paul Pantoja MD MCH (RBC) [Entitic mass] 26.9 pg Normal 26-34 [facility] Comment on above: Performed By: #### C DP, DIME, BMPX, TROPI #### [facility] [address] [place] [address] Concrete Hopper Operator: John Paul Pantoja MD MCHC (RBC) [Mass/Vol] 33.0 g/dL Normal 31-37 [facility] Comment on above: Performed By: #### C DP, DIME, BMPX, TROPI #### [facility] [address] [place] [phone] Concrete Hopper Operator: John Paul Pantoja MD MCV (RBC) [Entitic vol] 81.4 fL Normal 80-100 [facility] Comment on above: Performed By: #### C DP, DIME, BMPX, TROPI #### [facility] [address] [place] [address] Concrete Hopper Operator: John Paul Pantoja MD Monocytes (Bld) [#/Vol] 0.50 10*3/uL Normal 0.0-1.0 [facility] Comment on above: Performed By: #### C DP, DIME, BMPX, TROPI #### [facility] [address] [place] [address] Concrete Hopper Operator: John Paul Pantoja MD Monocytes/100 WBC (Bld) 5 % Normal 4-8 [facility] Comment on above: Performed By: #### C DP, DIME, BMPX, TROPI #### [facility] [address] [place] [address] Concrete Hopper Operator: John Paul Pantoja MD Neutrophil (Seg) 62 % Normal 47-75 [facility] Comment on above: Performed By: #### C DP, DIME, BMPX, TROPI #### [facility] [address] [place] [address] Concrete Hopper Operator: John Paul Pantoja MD Platelets (Bld) [#/Vol] 339 10*3/uL Normal 140-450 [facility] Comment on above: Performed By: #### C DP, DIME, BMPX, TROPI #### [facility] [address] [place] [address] Concrete Hopper Operator: John Paul Pantoja MD RBC (Bld) [#/Vol] 4.87 10*6/uL Normal 4.0-5.2 [facility] Comment on above: Performed By: #### C DP, DIME, BMPX, TROPI #### [facility] [address] [place] [address] [phone] Concrete Hopper Operator: John Paul Pantoja MD WBC (Bld) [#/Vol] 10.2 10*3/uL Normal 3.5-11.0 [facility] Comment on above: Performed By: #### C DP, DIME, BMPX, TROPI #### [facility] [address] [place] [address] Concrete Hopper Operator: John Paul Pantoja MD D-Dimer Teston 10-02-2022 D-Dimer Test <0.27 Normal 0.00-0.59 [facility] Comment on above: Result Comment: When combined with a low clinical probability, a D dimer value of <0.50 mg/L FEU is considered negative for DVT and PE (negative predictive value of 98%, sensitivity of 97%). If this test is not being used to help rule out DVT and PE, then the following reference range should be utilized: 0.00 - 0.59 mg/L FEU. The D-Dimer assay is intended for use as an aid in the diagnosis of venous thromboembolism (DVT and PE) and the results should be interpreted in conjunction with the patient's medical history, clinical presentation, and other findings. Elevated levels of D-dimer activity can be seen in any state of coagulation activation and is not recommended in patients with therapeutic dose anticoagulant therapy for >24 hours, fibrinolytic therapy within the previous 7 days, trauma or surgery within the previous 4 weeks, disseminated malignancies, aortic aneurysm, sepsis, severe infections, pneumonia, severe skin infections, liver cirrhosis, advanced age, coronary disease, diabetes, and . A very low percentage of patients with DVT may yield D-dimer results below the cutoff of 0.5 mg/L FEU. This is known to be more prevalent in patients with distal DVT. Performed By: #### D JADEN, PT, CDP, CP, DIFE, TROPI, HCG #### [facility] [address] [place] [address] Concrete Hopper Operator: John Paul Pantoja MD D-Dimer, Quantitativeon 09-16 Fibrin D-dimer FEU IA (Bld) [Mass/Vol] [facility] Comment on above: When combined with a low clinical probability, a D dimer value of <0.50 mg/L FEU is considered negative for DVT and PE (negative predictive value of 98%, sensitivity of 97%). If this test is not being used to help rule out DVT and PE, then the following reference range should be utilized: 0.00 - 0.59 mg/L FEU. The D-Dimer assay is intended for use as an aid in the diagnosis of venous thromboembolism (DVT and PE) and the results should be interpreted in conjunction with the patient's medical history, clinical presentation, and other findings. Elevated levels of D-dimer activity can be seen in any state of coagulation activation and is not recommended in patients with therapeutic dose anticoagulant therapy for >24 hours, fibrinolytic therapy within the previous 7 days, trauma or surgery within the previous 4 weeks, disseminated malignancies, aortic aneurysm, sepsis, severe infections, pneumonia, severe skin infections, liver cirrhosis, advanced age, coronary disease, diabetes, and . A very low percentage of patients with DVT may yield D-dimer results below the cutoff of 0.5 mg/L FEU. This is known to be more prevalent in patients with distal DVT. [facility] Troponinon 10-02-2022 Troponin, High Sens <6 Normal 0-14 [facility] Comment on above: Result Comment: High Sensitivity Troponin values cannot be compared with other Troponin methodologies. Performed By: #### D JADEN, PT, CDP, CP, DIFE, TROPI, HCG #### [facility] [address] [place] [address] Concrete Hopper Operator: John Paul Pantoja MD Troponin, High Sens <6 Normal 0-14 [facility] Comment on above: Result Comment: High Sensitivity Troponin values cannot be compared with other Troponin methodologies. Performed By: #### D JADEN, PT, CDP, CP, DIFE, TROPI, HCG #### [facility] [address] [place] [address] Concrete Hopper Operator: John Paul Pantoja MD Troponin I.cardiac DL <= 0.01 ng/mL [Mass/Vol] ng/L 0 - 14 ng/L [facility] Comment on above: High Sensitivity Tro ponin values cannot be compared with other Troponin methodologies. [facility] Troponin I.cardiac DL <= 0.01 ng/mL [Mass/Vol] ng/L 0 - 14 ng/L [facility] Comment on above: High Sensitivity Tro ponin values cannot be compared with other Troponin methodologies. [facility] XR CHEST PORTABLEon 10-03-19 XR CHEST PORTABLE EXAM: XR CHEST PORTABLE HISTORY: Reason for exam:->Chest pain COMPARISON: 07/02/2021 chest IMPRESSION: FINDINGS/IMPRESSION : 1. Slight cardiomegaly unchanged. 2. Lungs are clear. Interpreted by: Juancho Everett Jr., MD Signed by: Juancho Everett Jr., MD 10/02/[address] [facility] FINDINGS/IMPRESSION : 1. Slight cardiomegaly unchanged. 2. Lungs are clear. [facility] RIS CONSOLIDATED EXAM: XR CHEST PORTABLE HISTORY: Reason for exam:->Chest pain COMPARISON: 07/02/2021 chest [facility] RIS CONSOLIDATED Juancho Everett Jr., MD - 10/02/2022 EXAM: XR CHEST PORTABLE HISTORY: Reason for exam:->Chest pain COMPARISON: 07/02/2021 chest IMPRESSION: FINDINGS/IMPRESSION : 1. Slight cardiomegaly unchanged. 2. Lungs are clear. [facility] Work Phone: Radiology Study observation (narrative) [facility] Work Phone: XR CHEST PORTABLEOrdered By: Juancho Everett on 10-02-2022 [facility] Work Phone: Family Medicine Office/Clini c Noteon 08-28-2022 Family Medicine Office/Clinic Note Chief Complaint [employer] sore throat HPI Staff Pt 47 yo female presents with strep patient present for sore throat, onset sinus congestion- yes cough- no ear pain- echoey fever/chills-no body aches- yes nausea/ vomiting- nausea-stomach pain allergies- yes medication taken- no History of Present Illness I have reviewed and verified the staff HPI to be accurate for this encounter. Patient presents in office for concern of sore throat 2 days. Also has had nasal congestion, rhinorrhea, soreness in neck. Denies cough. Has had nausea. Denies vomiting, or diarrhea. Denies fever. + Chills. Denies ear pain. Complains of body aches. Has been using dayquil, last dose yesterday. Review of Systems PHQ Score Initial Depression Screen Score: 0 Physical Exam Vitals & Measurements T: 36.7 ?C(Oral) HR: 80(Peripheral) BP: 126/78 SpO2: 95% HT: 63 in HT: 160 cm WT: 98 kg WT: 215.6 lb BMI: 38.28 General: Obese, pleasant adult female in no acute distress Ears: No deformity or lesion of external ear. Canals and TM appear normal bilaterally. TM?s intact, not inflamed, with normal light reflex. Hearing grossly normal to conversational speech Nose: moderate nasal mucosa inflammation and edema, no active drainage Mouth: Moderate pharyngeal erythema, 1+ tonsils. Small amount or exudate to right tonsil Neck: Palpable anterior cervical nodes bilaterally Lungs: clear to auscultation throughout, no wheezing, no rales. No respiratory distress Cardio: regular rate and rhythm, no murmur Mental Status: Alert and oriented x3. Normal mood and affect Assessment/Plan 1. Strep pharyngitis (J02.0: Streptococcal pharyngitis) Rapid strep +. Will treat with amoxil. Finish course. Fluids/rest, PRN tylenol/ibuprofen for pain and/or fever. May use salt water gargles, otc throat sprays and lozenges for pain. Change toothbrush and pillowcases after 48 hours on ATB. Advised significantly less contagious after 24 hours on ATB. Follow up with PCP if not improving over next 4-5 days with antibiotic or fevers continuing. Patient and/or parent verbalized understanding of treatment plan 2. BMI 38.0-38.9,adult (Z68.38: Body mass index [BMI] 38.0-38.9, adult) The standard range for ages 18 and older is >=18.5 and < 25 kg/m2. Your BMI today was above this range, this falls in the overweight to obese category and there are medical benefits to weight loss. We can offer counselling, referral, and/or medical support in addressing this problem. Your BMI and weight management will be followed at subsequent visits. Ordered: Body Mass Index (BMI) documented 3008F 3. Engages in vaping (Z72.89: Other problems related to lifestyle) The group home effects of vaping are not completely known yet. However it increased you risk for pulmonary complications. Nicotine use increases risk for cardiovascular and pulmonary disease. If you are interested in quitting we can provide information on some of our local [facility] PCP's for tx. Ordered: Current smokeless tobacco user 1035F Sore throat (J02.9: Acute pharyngitis, unspecified) Ordered: Rapid Strep POC [id number] Orders: amoxicillin, 500 mg = 1 cap(s), Oral, q12hr, # 20 cap(s), Refills(s) 0, Pharmacy: [id number], 160, cm, 08/28/22 11:54:00 EST, Height/Length Dosing, 98, kg, 08/28/22 11:54:00 EST, Weight Dosing Follow-up No qualifying data available Patient Education Electronic Cigarette Information Strep Throat, Adult, [id number] BMI for Adults Problem List/Past Medical History Ongoing Anxiety Bartonellosis Coronary artery disease Depression Fibromyalgia GERD (gastroesophageal reflux disease) IBS (irritable bowel syndrome) Insomnia Lyme disease Migraines Restless leg syndrome Historical No qualifying data Procedure/Surgical History Appendectomy, Colonoscopy, Coronary stent patent, Dilation and esophageal intubation, EGD (esophagogastroduod enoscopy) gastric outlet reduction, Hysterectomy. Medications amLODIPine 2.5 mg Tab amoxicillin 500 mg Cap, 500 mg= 1 cap(s), Oral, q12hr atorvastatin 80 mg Tab cyclobenzaprine 10 mg Tab, 10 mg= 1 tab(s), Oral, TID, PRN famotidine 40 mg Tab FeroSul 325 mg oral tablet gabapentin 100 mg Cap hydrOXYzine pamoate 50 mg Cap lisinopril 5 mg Tab Lopressor 25 mg oral tablet metformin 500 mg Tab omeprazole 20 mg Cap-DR pramipexole 0.125 mg Tab ropinirole 4 mg oral tablet venlafaxine 150 mg Cap-ER Allergies Lyrica (Chest pain) Social History Tobacco Current vaping or e-cigarette use Smokeless Tobacco Use:. Vaping, Yes, 08/28/2022 Immunizations Vaccine Date Status SARSCoV2 mRNA(tozinamer-zachery -sucros) vac 02/19/2022 Recorded SARSCoV2 mRNA(tozinamer-zachery -sucros) vac 01/29/2022 Recorded diphtheria/pertussi s, acel/tetanus adult 08/25/2013 Recorded hepatitis B adult vaccine 08/05/2010 Recorded hepatitis B adult vaccine 03/04/2010 Recorded hepatitis B adult vaccine 01/28/2010 Recorded Lab Results Ambulatory Point (more content not included)... Normal [facility] Comment on above: Result Comment: Elec tronically Signed By: Fozia BOOGIE CNP\.freda\Date and Time Signed: 08/28/22 15:19 EST Patient Educationon 08-28-19 23 Patient Education Infectious Disease Strep Throat, Adult Strep throat is an infection of the throat. It is caused by germs (bacteria). Strep throat is common during the cold months of the year. It mostly affects children who are 5?15 years old. However, people of all ages can get it at any time of the year. When strep throat affects the tonsils, it is called tonsillitis. When it affects the back of the throat, it is called pharyngitis. This infection spreads from person to person through coughing, sneezing, or having close contact. What are the causes? This condition is caused by the Streptococcus pyogenes germ. What increases the risk? You are more likely to develop this condition if: ? You care for young children. Children are more likely to get strep throat and may spread it to others. ? You go to crowded places. Germs can spread easily in such places. ? You kiss or touch someone who has strep throat. What are the signs or symptoms? Symptoms of this condition include: ? Fever or chills. ? Redness, swelling, or pain in the tonsils or throat. ? Pain or trouble when swallowing. ? White or yellow spots on the tonsils or throat. ? Tender glands in the neck and under the jaw. ? Bad breath. ? Red rash all over the body. This is rare. How is this treated? This condition may be treated with: ? Medicines that kill germs (antibiotics). ? Medicines that treat pain or fever. These include: ? Ibuprofen or acetaminophen. ? Aspirin, only for patients who are over the age of 18. ? Throat lozenges. ? Throat sprays. Follow these instructions at home: Medicines ? Take ctnv-jiq-fmjremm and prescription medicines only as told by your doctor. ? Take your antibiotic medicine as told by your doctor. Do not stop taking the antibiotic even if you start to feel better. Eating and drinking ? If you have trouble swallowing, eat soft foods until your throat feels better. ? Drink enough fluid to keep your pee (urine) pale yellow. ? To help with pain, you may have: ? Warm fluids, such as soup and tea. ? Cold fluids, such as frozen desserts or popsicles. General instructions ? Rinse your mouth (gargle) with a salt-water mixture 3?4 times a day or as needed. To make a salt-water mixture, dissolve ??1 tsp (3?6 g) of salt in 1 cup (237 mL) of warm water. ? Rest as much as you can. ? Stay home from work or school until you have been taking antibiotics for 24 hours. ? Avoid smoking or being around people who smoke. ? Keep all follow-up visits as told by your doctor. This is important. How is this prevented? ? Do not share food, drinking cups, or personal items. They can cause the germs to spread. ? Wash your hands well with soap and water. Make sure that all people in your house wash their hands well. ? Have family members tested if they have a fever or a sore throat. They may need an antibiotic if they have strep throat. Contact a doctor if: ? You have swelling in your neck that keeps getting bigger. ? You get a rash, cough, or earache. ? You cough up a thick fluid that is green, yellow-brown, or bloody. ? You have pain that does not get better with medicine. ? Your symptoms get worse instead of getting better. ? You have a fever. Get help right away if: ? You vomit. ? You have a very bad headache. ? Your neck hurts or feels stiff. ? You have chest pain or are short of breath. ? You have drooling, very bad throat pain, or changes in your voice. ? Your neck is swollen, or the skin gets red and tender. ? Your mouth is dry, or you are peeing less than normal. ? You keep feeling more tired or have trouble waking up. ? Your joints are red or painful. Summary ? Strep throat is an infection of the throat. It is caused by germs (bacteria). ? This infection can spread from person to person through coughing, sneezing, or having close contact. ? Take your medicines, including antibiotics, as told by your doctor. Do not stop taking the antibiotic even if you start to feel better. ? To prevent the spread of germs, wash your hands well with soap and water. Have others do the same. Do not share food, drinking cups, or personal items. ? Get help right away if you have a bad headache, chest pain, shortness of breath, a stiff or painful neck, or you vomit. This information is not intended to replace advice given to you by your health care provider. Make sure you discuss any questions you have with your health care provider. Document Released: 12/21/2008 Document Revised: 09/22/2019 Document Reviewed: 09/22/2019 [employer] Patient Education ? 2019 [employer]. Nutrition BMI for Adults Body mass index (BMI) is a number that is calculated from a person's weight and height. BMI may help to estimate how much of a person's weight is composed of fat. BMI can help identify those who may be (more content not included)... Normal [facility] CBC Auto Differentialon 08-0 Absolute Eos # 0.30 [facility] Absolute Lymph # 3.20 [facility] Absolute [place] # 0.70 [facility] Basophils (Bld) [#/Vol] 0.10 10*3/uL [facility] Basophils/100 WBC (Bld) 1 % 0 - 2 % B ON [facility] Differential Type YES [facility] Eosinophils/100 WBC (Bld) 2 % 0 - 5 % [facility] Hematocrit (Bld) [Volume fraction] 41.1 % 36 - 46 % [facility] Hemoglobin (Bld) [Mass/Vol] 13.3 g/dL 12 - 16 g/dL [facility] Interpretation and review of laboratory results Abnormal [facility] Lymphocytes/100 WBC (Bld) 22 % 15 - 40 % [facility] MCH (RBC) [Entitic mass] 25.4 pg Low 26 - 34 pg [facility] MCHC (RBC) [Mass/Vol] 32.3 g/dL 31 - 37 g/dL [facility] MCV (RBC) [Entitic vol] 78.6 fL Low 80 - 100 fL [facility] Monocytes/100 WBC (Bld) 5 % 4 - 8 % [facility] Platelet distribution width (Bld) [Ratio] 17.8 % High 12.1 - 15.2 % [facility] [facility]ITAL Platelets (Bld) [#/Vol] 351 10*3/uL [facility] RBC (Bld) [#/Vol] 5.23 10*6/uL High 4 - 5.2 m/uL [facility] Segmented neutrophils/100 WBC (Bld) 70 % 47 - 75 % [facility] Segs Absolute 10.30 High [facility] WBC (Bld) [#/Vol] 14.4 10*3/uL High [facility] Comprehensive Metabolic Pane angelo 02-16-2022 Albumin [Mass/Vol] 4.1 g/dL 3.5 - 5.2 g/dL [facility] ALP (Bld) [Catalytic activity/Vol] 124 U/L High 35 - 104 U/L [facility] ALT [Catalytic activity/Vol] 29 U/L 5 - 33 U/L [facility] Anion gap [Moles/Vol] 15 mmol/L 9 - 17 mmol/L [facility] AST [Catalytic activity/Vol] 15 U/L NINF - 32 U/L [facility] Bilirubin [Mass/Vol] 0.30 mg/dL 0.3 - 1 .2 mg/dL [facility] Calcium [Mass/Vol] 9.8 mg/dL 8.6 - 10. 4 mg/dL [facility] Chloride [Moles/Vol] 103 mmol/L 98 - 10 7 mmol/L [facility] CO2 [Moles/Vol] 21 mmol/L 20 - 31 mmol/L [facility] Creatinine [Mass/Vol] 0.87 mg/dL 0.5 - 0.9 mg/dL [facility] Free PSA/Total PSA [Mass fraction] 7.0 g/dL 6.4 - 8.3 g/dL [facility] GFR >60 60 - PI NF mL/min [facility] GFR Non- >60 60 - PINF mL/min [facility] GFR/1.73 sq M.predicted MDRD (S/P/Bld) [Vol rate/Area] [facility] Comment on above: Average GFR for 40-4 9 years old: 99 mL/min/1.73sq m Chronic Kidney Disease: <60 mL/min/1.73sq m Kidney failure: <15 mL/min/1.73sq m eGFR calculated using average adult body mass. Additional eGFR calculator available at: http://www.Blue Box/multiple_crcl_2012.htm Glucose [Mass/Vol] 142 mg/dL High 70 - 99 mg/dL [facility] Interpretation and review of laboratory results Abnormal [facility] Potassium [Moles/Vol] 4.4 mmol/L 3.7 - 5.3 mmol/L [facility] Sodium [Moles/Vol] 139 mmol/L 135 - 144 mmol/L [facility] Urea nitrogen (BldV) [Mass/Vol] 14 mg/dL 6 - 20 mg/dL [facility] Urea nitrogen/Creatinine (Bld) [Mass ratio] 16 9 - 20 [facility] Lipid Panelon 02-16-2022 Cholesterol [Mass/Vol] 91 mg/dL NINF - 200 mg/dL [facility] Comment on above: Cholesterol Guidelines: <200 Desirable 200-240 Borderline >240 Undesirable Cholesterol in HDL [Mass/Vol] 28 mg/dL Low 40 - PINF mg/dL [facility] [employer] Comment on above: HDL Guidelines: <40 Undesirable 40-59 Borderline >59 Desirable Cholesterol in LDL [Mass/Vol] 41 mg/dL 0 - 130 mg/dL [facility] [employer] Comment on above: LDL Guidelines: <100 Desirable 100-129 Near to/above Desirable 130-159 Borderline >159 Undesirable Direct (measured) LDL and calculated LDL are not interchangeable tests. Cholesterol.total/Kyra sterol in HDL [Mass ratio] 3.3 {ratio} NINF - 5 [facility] [employer] Interpretation and review of laboratory results Abnormal [facility] Triglyceride [Mass/Vol] 110 mg/dL NINF - 150 mg/dL [facility] [employer] Comment on above: Triglyceride Guidelines: <150 Desirable 150-199 Borderline 200-499 High >499 Very high Based on AHA Guidelines for fasting triglyceride, April 2012. [facility] Magnesiumon 02-16-2022 Magnesium [Mass/Vol] 1.8 mg/dL 1.6 - 2 .6 mg/dL [facility] No Panel Informationon 02-16 [facility] Patient Fasting?on 2 Patient Fasting? YES [facility] TSH with Reflexon 02-16-2022 TSH Qn 1.73 m[IU]/L [facility] Vitamin D 25 Hydroxyon 02-16 Vit D, 25-Hydroxy 33.1 ng/mL 29.9 - PIN F ng/mL [facility] Comment on above: Reference Range: Vitamin D status Range Deficiency <20 ng/mL Mild Deficiency 20-30 ng/mL Sufficiency 30-100 ng/mL Toxicity >100 ng/mL [facility] Body fluid albumin measureme nt (mass/volume)Ordered By: Bc Otero on 01-27-2022 Albumin (Body fld) [Mass/Vol] 3.6 g/dL 3.2-5.5 [facility] Cholesterol [Mass/volume] in Serum or PlasmaOrdered By: Bc Otero on 07-12-2022 Cholesterol [Mass/Vol] 91 mg/dL 140-200 [facility] Comment on above: Chol less than 200 m g/dl low risk Chol 201-239 mg/dl borderline risk Chol 240 mg/dl and greater high risk Cholesterol in LDL Calc [Mas s/Vol]Ordered By: Bc Otero on 01-27-2022 Cholesterol in LDL [Mass/Vol] 43 mg/dL 0-100 [facility] Comment on above: LDL ATP III CLASSIFI CATION LDL less than 100 mg/dL Optimal LDL 100-129 mg/dL Near or above optimal LDL 130-159 mg/dL Borderline high LDL 160-189 mg/dL High LDL greater than 189 mg/dL Very high Cholesterol in VLDL Calc [Ma ss/Vol]Ordered By: Bc Otero on 01-27-2022 Cholesterol in VLDL [Mass/Vol] 17 mg/dL [facility] Comprehensive Metabolic Empo n 01-27-2022 Albumin [Mass/Vol] 3.6 g/dL Normal 3.2-5.5 [facility] Comment on above: Performed By: #### E BS CMP, EBS LIPID #### [facility] [address] [place] [address] [place] Albumin/Globulin [Mass ratio] 1.2 {ratio} Normal [facility] Comment on above: Performed By: #### E BS CMP, EBS LIPID #### [facility] [address] [place] [id number] [place] ALP [Catalytic activity/Vol] 95 U/L High 32-92 [facility] Comment on above: Performed By: #### E BS CMP, EBS LIPID #### [facility] [address] [place] [address] [place] ALT [Catalytic activity/Vol] 26 U/L Normal 10-60 [facility] Comment on above: Performed By: #### E BS CMP, EBS LIPID #### [facility] [address] [place] [id number] [place] AST [Catalytic activity/Vol] 17 U/L Normal 10-42 [facility] Comment on above: Performed By: #### E BS CMP, EBS LIPID #### [facility] [address] [place] [id number] [place] Bilirubin [Mass/Vol] 0.2 mg/dL Low 0.3-1.[address] [facility] Comment on above: Performed By: #### E BS CMP, EBS LIPID #### [facility] [address] Calcium [Mass/Vol] 10.3 mg/dL High 8.2-10.2 [facility] Comment on above: Performed By: #### E BS CMP, EBS LIPID #### [facility] [address] Chloride [Moles/Vol] 100 mmol/L Normal 95-[address] [facility] Comment on above: Performed By: #### E BS CMP, EBS LIPID #### [facility] [address] [place] [address] CO2 [Moles/Vol] 26.1 mmol/L Normal 22.0-30.0 [facility] Comment on above: Performed By: #### E BS CMP, EBS LIPID #### [address] Creatinine [Mass/Vol] 0.82 mg/dL Normal 0.44-1.03 [facility] Comment on above: Performed By: #### E BS CMP, EBS LIPID #### [address] Estimated GFR ( Nicole > 60 [facility] Comment on above: Result Comment: GFR estimated reference range: According to KDOQI guidelines, <60 ml/min/1.73m2 is sufficient to diagnose a patient with chronic kidney disease. Performed By: #### E BS CMP, EBS LIPID #### [facility] [address] [place] [address] Estimated GFR (Non- Am > 60 Normal [facility] Comment on above: Performed By: #### E BS CMP, EBS LIPID #### [address] Globulin (S) [Mass/Vol] 2.9 g/dL Normal [facility] Comment on above: Performed By: #### E BS CMP, EBS LIPID #### [facility] [address] [place] [phone] [place] Glucose [Mass/Vol] 96 mg/dL Normal 70-100 [facility] Comment on above: Performed By: #### E BS CMP, EBS LIPID #### [facility] [address] [place] [phone] [place] Potassium [Moles/Vol] 4.5 mmol/L Normal 3.5-5.1 [facility] Comment on above: Performed By: #### E BS CMP, EBS LIPID #### [facility] [address] [place] [phone] [place] Protein [Mass/Vol] 6.5 g/dL Normal 6.1-7.9 [facility] Comment on above: Performed By: #### E BS CMP, EBS LIPID #### [facility] [address] [place] [address] [place] Sodium [Moles/Vol] 138 mmol/L Normal 136-146 [facility] Comment on above: Performed By: #### E BS CMP, EBS LIPID #### [facility] [address] [place] [phone] [place] Urea nitrogen [Mass/Vol] 12 mg/dL Normal 9-23 [facility] Comment on above: Performed By: #### E BS CMP, EBS LIPID #### [facility] [address] [place] [phone] [place] Creatinine and Glomerular fi ltration rate.predicted panel (S/P/Bld)Ordered By: Bc Otero on 01-27-2022 Creatinine [Mass/Vol] 0.82 mg/dL 0.44-1.03 [facility] Estimated glomerular filtrat ion rate (GFR) non- AmericanOrdered By: Bc Otero on 01-27-2022 GFR/1.73 sq M.predicted among non-blacks MDRD (S/P/Bld) [Vol rate/Area] > 60 mL/Min [facility] Globulin Calc (S) [Mass/Vol] Ordered By: Bc Otero on 01-27-2022 Globulin (S) [Mass/Vol] 2.9 g/dL F [facility] - Chemistry and C hemistry - challengeOrdered By: Bc Otero on 01-27-2022 Glucose [Mass/Vol] 96 mg/dL 70-100 [facility] Lipid Profileon 01-27-2022 Cholesterol [Mass/Vol] 91 mg/dL Low 140-200 [facility] Comment on above: Result Comment: Chol less than 200 mg/dl low risk Chol 201-239 mg/dl borderline risk Chol 240 mg/dl and greater high risk Performed By: #### E BS CMP, EBS LIPID #### [facility] [address] Cholesterol in HDL [Mass/Vol] 31 mg/dL Low 35-85 [facility] Comment on above: Result Comment: HDL CHOL ATP-III CLASSIFICATION Cardiovascular Risk HDL > or equal to 60 mg/dL LOW HDL < 40 mg/dL HIGH Performed By: #### E BS CMP, EBS LIPID #### [facility] [address] Cholesterol.total/Kyra sterol in HDL [Mass ratio] 2.9 {ratio} Normal <5.0 [facility] Comment on above: Result Comment: PERF ORMED BY: [place] [address] PATHOLOGIST PRINT DESIGNER ANDREW WHITE M.D. Performed By: #### E BS CMP, EBS LIPID #### [facility] [address] LDL Cholesterol,Calculated 43 mg/dL Normal 0-100 [facility] Comment on above: Result Comment: LDL ATP III CLASSIFICATION LDL less than 100 mg/dL Optimal LDL 100-129 mg/dL Near or above optimal LDL 130-159 mg/dL Borderline high LDL 160-189 mg/dL High LDL greater than 189 mg/dL Very high Performed By: #### E BS CMP, EBS LIPID #### [facility] [address] [place] [address] [place] Triglyceride w/Reflex 87 mg/dL Normal 35-149 [facility] Comment on above: Result Comment: TRIG ATP III CLASSIFICATION TRIG less than 150 mg/dL Normal TRIG 150-199 mg/dL Borderline high TRIG 200-500 mg/dL High TRIG greater than 500 mg/dL Very high Standard traceable to the Center for Disease Conrtrol and Prevention (CDC) test method. Performed By: #### E BS CMP, EBS LIPID #### [facility] [address] [place] [phone] [place] VLDL CHOLESTEROL 17 mg/dL Normal [facility] Comment on above: Performed By: #### E BS CMP, EBS LIPID #### [facility] [address] [place] [phone] [place] No Panel InformationOrdered By: Bc Otero on 01-27-2022 Estimated GFR () > 60 mL/Min [facility] Comment on above: GFR estimated refere nce range: According to KDOQI guidelines, <60 ml/min/1.73m2 is sufficient to diagnose a patient with chronic kidney disease. Pharmacy Creatinine Clearance (Chem N/A [facility] Triglycerides Reflex 87 mg/dL 35-[address] [facility] Comment on above: TRIG ATP III CLASSIF ICATION TRIG less than 150 mg/dL Normal TRIG 150-199 mg/dL Borderline high TRIG 200-500 mg/dL High TRIG greater than 500 mg/dL Very high Standard traceable to the Center for Disease Conrtrol and Prevention (CDC) test method. Protein [Mass/volume] in Ser um or PlasmaOrdered By: Bc Otero on 01-27-2022 Protein [Mass/Vol] 6.5 g/dL 6.1-7.9 [facility] Serum or plasma alanine gentile otransferase measurement without P-5'-P (enzymatic activiOrdered By: Bc Otero on 01-27-2022 ALT No additional P-5'-P [Catalytic activity/Vol] 26 U/L 10-60 [facility] Serum or plasma albumin/glob ulin mass ratioOrdered By: Bc Otero on 01-27-2022 Albumin/Globulin [Mass ratio] 1.2 {ratio} [facility] Serum or plasma alkaline fantasma sphatase measurement (enzymatic activity/volume)Ordered By: Bc Otero on 01-27-2022 ALP [Catalytic activity/Vol] 95 U/L 32-92 [facility] Serum or plasma aspartate am inotransferase measurement (enzymatic activity/volume)Ordered By: Bc Otero on 01-27-2022 AST [Catalytic activity/Vol] 17 U/L 10-42 [facility] Serum or plasma calcium niels urement (mass/volume)Ordered By: Bc Otero on 01-27-2022 Calcium [Mass/Vol] 10.3 mg/dL 8.2-10.2 [facility] Serum or plasma chloride thaddeus surement (moles/volume)Ordered By: Bc Otero on 01-27-2022 Chloride [Moles/Vol] 100 mmol/L 95-[address] [facility] Serum or plasma high density lipoprotein (HDL) cholesterol measurementOrdered By: Bc Otero on 01-27-2022 Cholesterol in HDL [Mass/Vol] 31 mg/dL 35-85 [facility] Comment on above: HDL CHOL ATP-III CLA SSIFICATION Cardiovascular Risk HDL > or equal to 60 mg/dL LOW HDL < 40 mg/dL HIGH Serum or plasma potassium me asurement (moles/volume)Ordered By: Bc Otero on 01-27-2022 Potassium [Moles/Vol] 4.5 mmol/L 3.5-5.1 [facility] Serum or plasma sodium measu rement (moles/volume)Ordered By: Bc Otero on 01-27-2022 Sodium [Moles/Vol] 138 mmol/L 136-146 [facility] Serum or plasma total biliru bin measurement (mass/volume)Ordered By: Bc Otero on 01-27-2022 Bilirubin [Mass/Vol] 0.2 mg/dL 0.3-1.[address] [facility] Serum or plasma total carbon dioxide measurement (moles/volume)Ordered By: Bc Otero on 01-27-2022 CO2 [Moles/Vol] 26.1 mmol/L 22.0-30.0 [facility] Serum or plasma total choles terol/high density lipoprotein (HDL) cholesterol mass ratOrdered By: Bc Otero on 01-27-2022 Cholesterol.total/Kyra sterol in HDL [Mass ratio] 2.9 {ratio} [facility] Serum or plasma urea nitroge n measurement (mass/volume)Ordered By: Bc Otero on 01-27-2022 Urea nitrogen [Mass/Vol] 12 mg/dL 9- [facility] CBC auto differentialon 06-18 Absolute Eos # 0.40 [facility] Absolute Immature Granulocyte NOT REPORTED [facility] Absolute Lymph # 2.10 [facility] He alth Absolute [place] [facility] Basophils (Bld) [#/Vol] 0.00 10*3/uL [facility] Basophils/100 WBC (Bld) 0 % 0 - 2 % [facility] Yi De Differential Type NOT REPORTED [facility] Eosinophils/100 WBC (Bld) 3 % 0 - 5 % [facility] Hematocrit (Bld) [Volume fraction] 30.3 % Low 36 - 46 % [facility] Hemoglobin.gastrointest inal spec 1 Ql (Stl) 9.3 g/dL Low 12.0 - 16.0 g/dL [facility] Immature Granulocytes NOT REPORTED 0 % [facility] Interpretation and review of laboratory results Abnormal [facility] Lymphocytes/100 WBC (Bld) 18 % 15 - 40 % [facility] MCH (RBC) [Entitic mass] 21.2 pg Low 26 - 34 pg [facility] MCHC (RBC) [Mass/Vol] 30.8 g/dL Low 31 - 37 g/dL [facility] MCV (RBC) [Entitic vol] 68.8 fL Low 80 - 100 fL [facility] Monocytes/100 WBC (Bld) 4 % 4 - 8 % [facility] Yi De Morphology Venkat (Bld) [Interp] MODERATE MICROCYTOSIS [facility] Morphology Venkat (Bld) [Interp] MODERATE ANISOCYTOSIS [facility] NRBC Automated NOT REPORTED per 100 WBC [facility] Platelet distribution width (Bld) [Ratio] 19.8 % High 12.1 - 15.2 % [facility] Plate[facility] Estimate NOT REPORTED [facility] Platelet mean volume (Bld) [Entitic vol] NOT REPORTED 6.0 - 12.0 fL [facility] Platelets (Bld) [#/Vol] 374 10*3/uL [facility] RBC (Bld) [#/Vol] 4.40 10*6/uL 4.0 - 5.2 m/uL [facility] RBC (Bld) [#/Vol] NOT REPORTED [facility] Segmented neutrophils/100 WBC (Bld) 75 % 47 - 75 % [facility] Yi De Segs Absolute 8.80 [facility] WBC (Bld) [#/Vol] 11.9 10*3/uL High [facility] WBC (Bld) [#/Vol] NOT REPORTED [facility] Comprehensive Metabolic Pane l w/ Reflex to MGon 07-04-2021 Albumin [Mass/Vol] 3.6 g/dL 3.5 - 5.2 g/dL [facility] Albumin/Globulin Ratio NOT REPORTED [facility] ALP (Bld) [Catalytic activity/Vol] 93 U/L 35 - 104 U/L [facility] ALT [Catalytic activity/Vol] 23 U/L 5 - 33 U/L [facility] Anion gap [Moles/Vol] 11 mmol/L 9 - 17 mmol/L [facility] AST [Catalytic activity/Vol] 16 U/L <32 [facility] Bilirubin [Mass/Vol] 0.20 mg/dL Low 0.30 - 1.20 mg/dL [facility] Calcium [Mass/Vol] 9.2 mg/dL 8.6 - 10. 4 mg/dL [facility] Chloride [Moles/Vol] 105 mmol/L 98 - 10 7 mmol/L [facility] CO2 [Moles/Vol] 27 mmol/L 20 - 31 mmol/L [facility] Creatinine [Mass/Vol] 0.89 mg/dL 0.50 - 0.90 mg/dL [facility] Free PSA/Total PSA [Mass fraction] 6.5 g/dL 6.4 - 8.3 g/dL [facility] GFR >60 >60 mL/min [facility] GFR Non- >60 >60 mL/min [facility] GFR/1.73 sq M.predicted MDRD (S/P/Bld) [Vol rate/Area] [facility] Comment on above: Average GFR for 40-4 9 years old: 99 mL/min/1.73sq m Chronic Kidney Disease: <60 mL/min/1.73sq m Kidney failure: <15 mL/min/1.73sq m eGFR calculated using average adult body mass. Additional eGFR calculator available at: http://www.Terarecon.DanceOn/multiple_crcl_2012.htm GFR/1.73 sq M.predicted MDRD (S/P/Bld) [Vol rate/Area] NOT REPORTED [facility] Glucose [Mass/Vol] 131 mg/dL High 70 - 99 mg/dL [facility] Interpretation and review of laboratory results Abnormal [facility] Potassium [Moles/Vol] 3.7 mmol/L 3.7 - 5.3 mmol/L [facility] Sodium [Moles/Vol] 143 mmol/L 135 - 144 mmol/L [facility] Urea nitrogen (BldV) [Mass/Vol] 16 mg/dL 6 - 20 mg/dL [facility] Urea nitrogen/Creatinine (Bld) [Mass ratio] 18 [facility] Glucose, Whole Bloodon 07-04 Glucose [Mass/Vol] 107 mg/dL High 65 - 99 mg/dL [facility] Interpretation and review of laboratory results Abnormal [facility] APTTon 07-03-2021 aPTT Coag (Bld) [Time] 82.1 s High [facility] Comment on above: IV Heparin Therapy Range: 62.0-94.0 Interpretation and review of laboratory results Abnormal [facility] Basic Metabolic Panelon 06-18 Anion gap [Moles/Vol] 9 mmol/L 9 - 17 mmol/L [facility] Calcium [Mass/Vol] 8.8 mg/dL 8.6 - 10. 4 mg/dL [facility] Chloride [Moles/Vol] 105 mmol/L 98 - 10 7 mmol/L [facility] CO2 [Moles/Vol] 26 mmol/L 20 - 31 mmol/L [facility] Creatinine [Mass/Vol] 0.89 mg/dL 0.50 - 0.90 mg/dL [facility] GFR >60 >60 mL/min [facility] GFR Non- >60 >60 mL/min [facility] GFR/1.73 sq M.predicted MDRD (S/P/Bld) [Vol rate/Area] [facility] Comment on above: Average GFR for 40-4 9 years old: 99 mL/min/1.73sq m Chronic Kidney Disease: <60 mL/min/1.73sq m Kidney failure: <15 mL/min/1.73sq m eGFR calculated using average adult body mass. Additional eGFR calculator available at: http://www.Terarecon.DanceOn/multiple_crcl_2012.htm GFR/1.73 sq M.predicted MDRD (S/P/Bld) [Vol rate/Area] NOT REPORTED [facility] Glucose [Mass/Vol] 147 mg/dL High 70 - 99 mg/dL [facility] Interpretation and review of laboratory results Abnormal [facility] Potassium [Moles/Vol] 3.8 mmol/L 3.7 - 5.3 mmol/L [facility] Sodium [Moles/Vol] 140 mmol/L 135 - 144 mmol/L [facility] Urea nitrogen (BldV) [Mass/Vol] 14 mg/dL 6 - 20 mg/dL [facility] Urea nitrogen/Creatinine (Bld) [Mass ratio] 16 [facility] CBCon 07-03-2021 Hematocrit (Bld) [Volume fraction] 30.6 % Low 36 - 46 % [facility] Hemoglobin.gastrointest inal spec 1 Ql (Stl) 9.5 g/dL Low 12.0 - 16.0 g/dL [facility] Interpretation and review of laboratory results Abnormal [facility] MCH (RBC) [Entitic mass] 21.3 pg Low 26 - 34 pg [facility] MCHC (RBC) [Mass/Vol] 31.0 g/dL 31 - 37 g/dL [facility] MCV (RBC) [Entitic vol] 68.7 fL Low 80 - 100 fL [facility] NRBC Automated NOT REPORTED per 100 WBC [facility] Platelet distribution width (Bld) [Ratio] 19.7 % High 12.1 - 15.2 % [facility] Platelet mean volume (Bld) [Entitic vol] NOT REPORTED 6.0 - 12.0 fL [facility] Platelets (Bld) [#/Vol] 369 10*3/uL [facility] RBC (Bld) [#/Vol] 4.46 10*6/uL 4.0 - 5.2 m/uL [facility] WBC (Bld) [#/Vol] 11.4 10*3/uL High [facility] EKG Rhythm Stripon [facility] APTTon 07-02-2021 aPTT Coag (Bld) [Time] 73.1 s High [facility] Comment on above: IV Heparin Therapy Range: 62.0-94.0 Interpretation and review of laboratory results Abnormal [facility] CBC auto differentialon 12- Absolute Eos # 0.60 High [facility] Absolute Immature Granulocyte NOT REPORTED [facility] Absolute Lymph # 2.90 [facility] He alth Absolute [place] # 0.40 [facility] Basophils (Bld[facility] [#/Vol] 0.10 10*3/uL [facility] Basophils/100 WBC (Bld) 1 % 0 - 2 % [facility] Differential Type NOT REPORTED [facility] Eosinophils/100 WBC (Bld) 5 % 0 - 5 % [facility] Hematocrit (Bld) [Volume fraction] 31.4 % Low 36 - 46 % [facility] Hemoglobin.gastrointest inal spec 1 Ql (Stl) 9.6 g/dL Low 12.0 - 16.0 g/dL [facility] Immature Granulocytes NOT REPORTED 0 % [facility] Interpretation and review of laboratory results Abnormal [facility] Lymphocytes/100 WBC (Bld) 25 % 15 - 40 % [facility] MCH (RBC) [Entitic mass] 21.1 pg Low 26 - 34 pg [facility] MCHC (RBC) [Mass/Vol] 30.8 g/dL Low 31 - 37 g/dL [facility] MCV (RBC) [Entitic vol] 68.7 fL Low 80 - 100 fL [facility] Monocytes/100 WBC (Bld) 4 % 4 - 8 % [facility] Morphology Venkat (Bld) [Interp] SLIGHT ANISOCYTOSIS [facility] Morphology Venkat (Bld) [Interp] MODERATE MICROCYTOSIS [facility] NRBC Automated NOT REPORTED per 100 WBC [facility] Platelet distribution width (Bld) [Ratio] 19.0 % High 12.1 - 15.2 % [facility] Platelet Estimate NOT REPORTED [facility] Platelet mean volume (Bld) [Entitic vol] NOT REPORTED 6.0 - 12.0 fL [facility] Platelets (Bld) [#/Vol] 380 10*3/uL [facility] RBC (Bld) [#/Vol] 4.57 10*6/uL 4.0 - 5.2 m/uL [facility] RBC (Bld) [#/Vol] NOT REPORTED [facility] Segmented neutrophils/100 WBC (Bld) 65 % 47 - 75 % [facility] Segs Absolute 7.70 High [facility] WBC (Bld) [#/Vol] 11.6 10*3/uL High [facility] WBC (Bld) [#/Vol] NOT REPORTED [facility] Comprehensive metabolic pane angelo 07-02-2021 Albumin [Mass/Vol] 3.8 g/dL 3.5 - 5.2 g/dL [facility] Albumin/Globulin Ratio NOT REPORTED [facility] ALP (Bld) [Catalytic activity/Vol] 103 U/L 35 - 104 U/L [facility] ALT [Catalytic activity/Vol] 25 U/L 5 - 33 U/L [facility] Anion gap [Moles/Vol] 12 mmol/L 9 - 17 mmol/L [facility] AST [Catalytic activity/Vol] 23 U/L <32 [facility] Bilirubin [Mass/Vol] 0.26 mg/dL Low 0.30 - 1.20 mg/dL [facility] Calcium [Mass/Vol] 9.0 mg/dL 8.6 - 10. 4 mg/dL [facility] Chloride [Moles/Vol] 100 mmol/L 98 - 10 7 mmol/L [facility] CO2 [Moles/Vol] 23 mmol/L 20 - 31 mmol/L [facility] Creatinine [Mass/Vol] 0.8 mg/dL 0.50 - 0.90 mg/dL [facility] Free PSA/Total PSA [Mass fraction] 6.7 g/dL 6.4 - 8.3 g/dL [facility] GFR >60 >60 mL/min [facility] GFR Non- >60 >60 mL/min [facility] GFR/1.73 sq M.predicted MDRD (S/P/Bld) [Vol rate/Area] [facility] Comment on above: Average GFR for 40-4 9 years old: 99 mL/min/1.73sq m Chronic Kidney Disease: <60 mL/min/1.73sq m Kidney failure: <15 mL/min/1.73sq m eGFR calculated using average adult body mass. Additional eGFR calculator available at: http://www.Terarecon.DanceOn/multiple_crcl_2012.htm GFR/1.73 sq M.predicted MDRD (S/P/Bld) [Vol rate/Area] NOT REPORTED [facility] Glucose [Mass/Vol] 152 mg/dL High 70 - 99 mg/dL [facility] Interpretation and review of laboratory results Abnormal [employer] Potassium [Moles/Vol] 3.9 mmol/L 3.7 - 5.3 mmol/L [facility] Sodium [Moles/Vol] 135 mmol/L 135 - 144 mmol/L [facility] Urea nitrogen (BldV) [Mass/Vol] 15 mg/dL 6 - 20 mg/dL [facility] Urea nitrogen/Creatinine (Bld) [Mass ratio] NOT REPORTED [facility] EKG 12 Leadon 07-02-2021 Atrial Rate 80 BPM [employer] Work Phone: P [place] 23 degrees [employer] Work Phone: P-R Interval 154 ms [employer] Work Phone: Q-T Interval 346 ms [employer] Work Phone: QRS Duration 80 ms [employer] Work Phone: QTc Calculation (Bazett) 399 ms [employer] Work Phone: R [place] 39 degrees [employer] Work Phone: T [place] 46 degrees [employer] Work Phone: Ventricular Rate 80 BPM [facility] Work Phone: Normal sinus rhythm Inferior-posterior infarct , age undetermined Abnormal ECG When compared with ECG of 29-JUN-2021 15:51, No significant change was found [facility] Jason Grace MD - 07/02/2021 Normal sinus rhythm Inferior-posterior infarct , age undetermined Abnormal ECG When compared with ECG of 29-JUN-2021 15:51, No significant change was found [employer] Work Phone: [employer] Work Phone: Atrial Rate 70 BPM [employer] Work Phone: P [place] 28 degrees [employer] Work Phone: P-R Interval 156 ms [employer] Work Phone: Q-T Interval 364 ms [facility] Work Phone: QRS Duration 80 ms [facility] Work Phone: QTc Calculation (Bazett) 393 ms [facility] Work Phone: R [place] 50 degrees [facility] Work Phone: T [place] 57 degrees [facility] Work Phone: Ventricular Rate 70 BPM [facility] Work Phone: Normal sinus rhythm Nonspecific T wave abnormality Abnormal ECG When compared with ECG of 02-JUL-2021 09:30, (unconfirmed) No significant change was found [facility] Jason Grace MD - 07/02/2021 Normal sinus rhythm Nonspecific T wave abnormality Abnormal ECG When compared with ECG of 02-JUL-2021 09:30, (unconfirmed) No significant change was found [facility] Work Phone: [facility] Work Phone: EKG Rhythm Stripon [facility] [place] [place] Glucose, Whole Bloodon 07-02 Glucose [Mass/Vol] 177 mg/dL High 65 - 99 mg/dL [facility] Interpretation and review of laboratory results Abnormal [facility] Glucose [Mass/Vol] 117 mg/dL High 65 - 99 mg/dL [facility] Interpretation and review of laboratory results Abnormal [facility] Glucose [Mass/Vol] 131 mg/dL High 65 - 99 mg/dL [facility] Interpretation and review of laboratory results Abnormal [facility] Glucose [Mass/Vol] 123 mg/dL High 65 - 99 mg/dL [facility] Interpretation and review of laboratory results Abnormal [facility] Troponinon 07-02-2021 Interpretation and review of laboratory results Abnormal [facility] Troponin Interp NOT REPORTED [facility] Troponin T NOT REPORTED <0.03 ng/mL [facility] Troponin, High Sensitivity 43 ng/L High 0 - 14 ng/L [facility] Comment on above: High Sensitivity Troponin values cannot be compared with other Troponin methodologies. Patients with high levels of Biotin oral intake (i.e >5mg/day) may have falsely decreased Troponin levels. Samples collected within 8 hours of biotin intake may require additional information for diagnosis. [facility] Interpretation and review of laboratory results Abnormal [facility] Troponin Interp NOT REPORTED [facility] Troponin T NOT REPORTED <0.03 ng/mL [facility] Troponin, High Sensitivity 45 ng/L High 0 - 14 ng/L [facility] Comment on above: High Sensitivity Troponin values cannot be compared with other Troponin methodologies. Patients with high levels of Biotin oral intake (i.e >5mg/day) may have falsely decreased Troponin levels. Samples collected within 8 hours of biotin intake may require additional information for diagnosis. [facility] XR CHEST PORTABLEon 07-02-20 No acute cardiopulmonary process. No appreciable interval change. [facility] EXAM: Portable chest REASON FOR EXAM: Hypoxia requiring nasal oxygen. TECHNIQUE: A portable frontal view of the chest was obtained. COMPARISON: 06/26/2021. FINDINGS: The lungs are well-inflated and clear. The heart and mediastinum are stable in appearance. There is no mass or pathologic adenopathy. Osseous structures are normal. [facility] Souleymane Dang MD - 07/02/2021 EXAM: Portable chest REASON FOR EXAM: Hypoxia requiring nasal oxygen. TECHNIQUE: A portable frontal view of the chest was obtained. COMPARISON: 06/26/2021. FINDINGS: The lungs are well-inflated and clear. The heart and mediastinum are stable in appearance. There is no mass or pathologic adenopathy. Osseous structures are normal. IMPRESSION: No acute cardiopulmonary process. No appreciable interval change. [employer] Work Phone: Radiology Study observation (narrative) [place] [facility] Work Phone: XR CHEST PORTABLEOrdered By: Souleymane Dang on 07-02-2021 [employer] APTTon 07-01-2021 aPTT Coag (Bld) [Time] 76.3 s High [facility] Comment on above: IV Heparin Therapy Range: 62.0-94.0 Interpretation and review of laboratory results Abnormal [facility] Basic Metabolic Panelon 06-18 Anion gap [Moles/Vol] 12 mmol/L 9 - 17 mmol/L [facility] Calcium [Mass/Vol] 8.9 mg/dL 8.6 - 10. 4 mg/dL [facility] Chloride [Moles/Vol] 103 mmol/L 98 - 10 7 mmol/L [facility] CO2 [Moles/Vol] 25 mmol/L 20 - 31 mmol/L [facility] Creatinine [Mass/Vol] 0.81 mg/dL 0.50 - 0.90 mg/dL [facility] GFR >60 >60 mL/min [facility] GFR Non- >60 >60 mL/min [facility] GFR/1.73 sq M.predicted MDRD (S/P/Bld) [Vol rate/Area] [facility] Comment on above: Average GFR for 40-4 9 years old: 99 mL/min/1.73sq m Chronic Kidney Disease: <60 mL/min/1.73sq m Kidney failure: <15 mL/min/1.73sq m eGFR calculated using average adult body mass. Additional eGFR calculator available at: http://www.Blue Box/multiple_crcl_2012.htm GFR/1.73 sq M.predicted MDRD (S/P/Bld) [Vol rate/Area] NOT REPORTED [facility] Glucose [Mass/Vol] 129 mg/dL High 70 - 99 mg/dL [facility] Interpretation and review of laboratory results Abnormal [facility] Potassium [Moles/Vol] 3.8 mmol/L 3.7 - 5.3 mmol/L [facility] Sodium [Moles/Vol] 140 mmol/L 135 - 144 mmol/L [facility] Urea nitrogen (BldV) [Mass/Vol] 11 mg/dL 6 - 20 mg/dL [facility] Urea nitrogen/Creatinine (Bld) [Mass ratio] 14 [facility] CBCon 07-01-2021 Hematocrit (Bld) [Volume fraction] 29.7 % Low 36 - 46 % [facility] Hemoglobin.gastrointest inal spec 1 Ql (Stl) 9.3 g/dL Low 12.0 - 16.0 g/dL [facility] Interpretation and review of laboratory results Abnormal [facility] MCH (RBC) [Entitic mass] 21.2 pg Low 26 - 34 pg [facility] MCHC (RBC) [Mass/Vol] 31.4 g/dL 31 - 37 g/dL [facility] MCV (RBC) [Entitic vol] 67.6 fL Low 80 - 100 fL [facility] NRBC Automated NOT REPORTED per 100 WBC [facility] Platelet distribution width (Bld) [Ratio] 19.3 % High 12.1 - 15.2 % [facility] Platelet mean volume (Bld) [Entitic vol] NOT REPORTED 6.0 - 12.0 fL [facility] Platelets (Bld) [#/Vol] 315 10*3/uL [facility] RBC (Bld) [#/Vol] 4.39 10*6/uL 4.0 - 5.2 m/uL [facility] WBC (Bld) [#/Vol] 10.8 10*3/uL [facility] EKG Rhythm Stripon [facility] PNRN [facility] [place] Glucose, Whole Bloodon 07-01 Glucose [Mass/Vol] 114 mg/dL High 65 - 99 mg/dL [facility] Interpretation and review of laboratory results Abnormal [facility] Glucose [Mass/Vol] 149 mg/dL High 65 - 99 mg/dL [facility] Interpretation and review of laboratory results Abnormal [facility] Glucose [Mass/Vol] 135 mg/dL High 65 - 99 mg/dL [facility] Interpretation and review of laboratory results Abnormal [facility] Glucose [Mass/Vol] 122 mg/dL High 65 - 99 mg/dL [facility] Interpretation and review of laboratory results Abnormal [facility] Troponinon 07-01-2021 Interpretation and review of laboratory results Abnormal [facility] Troponin Interp NOT REPORTED [facility] Troponin T NOT REPORTED <0.03 ng/mL [facility] Troponin, High Sensitivity 107 ng/L Critically high 0 - 14 ng/L [facility] Comment on above: High Sensitivity Troponin values cannot be compared with other Troponin methodologies. Patients with high levels of Biotin oral intake (i.e >5mg/day) may have falsely decreased Troponin levels. Samples collected within 8 hours of biotin intake may require additional information for diagnosis. [facility] APTTon 06-30-2021 aPTT Coag (Bld) [Time] 74.3 s High [facility] Comment on above: IV Heparin Therapy Range: 62.0-94.0 Interpretation and review of laboratory results Abnormal [facility] aPTT Coag (Bld) [Time] 71.6 s High [facility] Comment on above: IV Heparin Therapy Range: 62.0-94.0 Interpretation and review of laboratory results Abnormal [facility] aPTT Coag (Bld) [Time] 74.9 s High [facility] Comment on above: IV Heparin Therapy Range: 62.0-94.0 Interpretation and review of laboratory results Abnormal [facility] aPTT Coag (Bld) [Time] 57.3 s High [facility] Comment on above: IV Heparin Therapy Range: 62.0-94.0 Interpretation and review of laboratory results Abnormal [facility] Basic Metabolic Panelon - Anion gap [Moles/Vol] 8 mmol/L Low 9 - 17 mmol/L [facility] Calcium [Mass/Vol] 9.1 mg/dL 8.6 - 10. 4 mg/dL [facility] Chloride [Moles/Vol] 103 mmol/L 98 - 10 7 mmol/L [facility] CO2 [Moles/Vol] 26 mmol/L 20 - 31 mmol/L [facility] Creatinine [Mass/Vol] 0.76 mg/dL 0.50 - 0.90 mg/dL [facility] GFR >60 >60 mL/min [facility] GFR Non- >60 >60 mL/min [facility] GFR/1.73 sq M.predicted MDRD (S/P/Bld) [Vol rate/Area] [facility] Comment on above: Average GFR for 40-4 9 years old: 99 mL/min/1.73sq m Chronic Kidney Disease: <60 mL/min/1.73sq m Kidney failure: <15 mL/min/1.73sq m eGFR calculated using average adult body mass. Additional eGFR calculator available at: http://www.Terarecon.DanceOn/multiple_crcl_2012.htm GFR/1.73 sq M.predicted MDRD (S/P/Bld) [Vol rate/Area] NOT REPORTED [facility] Glucose [Mass/Vol] 128 mg/dL High 70 - 99 mg/dL [facility] Interpretation and review of laboratory results Abnormal [facility] Potassium [Moles/Vol] 4.1 mmol/L 3.7 - 5.3 mmol/L [facility] Sodium [Moles/Vol] 137 mmol/L 135 - 144 mmol/L [facility] Urea nitrogen (BldV) [Mass/Vol] 11 mg/dL 6 - 20 mg/dL [facility] Urea nitrogen/Creatinine (Bld) [Mass ratio] 14 [facility] CBC auto differentialon 06-18 Absolute Eos # 0.30 [facility] th Absolute Immature Granulocyte NOT REPORTED [facility] Absolute Lymph # 3.20 [facility] alth Absolute [place] # 0.60 [facility]th Basophils (Bld) [#/Vol] 0.10 10*3/uL [facility] Basophils/100 WBC (Bld) 1 % 0 - 2 % [facility] Differential Type NOT REPORTED [facility] Eosinophils/100 WBC (Bld) 3 % 0 - 5 % [facility] Hematocrit (Bld) [Volume fraction] 28.0 % Low 36 - 46 % [facility] Hemoglobin.gastrointest inal spec 1 Ql (Stl) 8.6 g/dL Low 12.0 - 16.0 g/dL [facility] Immature Granulocytes NOT REPORTED 0 % [facility] Interpretation and review of laboratory results Abnormal [facility] Lymphocytes/100 WBC (Bld) 29 % 15 - 40 % [facility] MCH (RBC) [Entitic mass] 21.0 pg Low 26 - 34 pg [facility] MCHC (RBC) [Mass/Vol] 30.8 g/dL Low 31 - 37 g/dL [facility] MCV (RBC) [Entitic vol] 67.9 fL Low 80 - 100 fL [facility] Monocytes/100 WBC (Bld) 5 % 4 - 8 % [facility] Morphology Venkat (Bld) [Interp] MODERATE MICROCYTOSIS [facility] NRBC Automated NOT REPORTED per 100 WBC [facility] Platelet distribution width (Bld) [Ratio] 19.0 % High 12.1 - 15.2 % [facility] Platelet Estimate NOT REPORTED [facility] Platelet mean volume (Bld) [Entitic vol] NOT REPORTED 6.0 - 12.0 fL [facility] Platelets (Bld) [#/Vol] 330 10*3/uL [facility] RBC (Bld) [#/Vol] 4.12 10*6/uL 4.0 - 5.2 m/uL [facility] RBC (Bld) [#/Vol] NOT REPORTED [facility] Segmented neutrophils/100 WBC (Bld) 62 % 47 - 75 % [facility] Segs Absolute 7.10 High [facility] WBC (Bld) [#/Vol] 11.2 10*3/uL High [facility] WBC (Bld) [#/Vol] NOT REPORTED [facility] ECHO Complete 2D W Doppler W Coloron 06-30-2021 [facility] Transthoracic Echocardiography Report (TTE) Patient Name MARY Date of Study 06/30/2021 JEREMIAS Rasheed Date of 1975 Gender Female Age 45 year(s) Race Room Number 0263 Height: 63 inch, 160.02 cm Corporate ID [id number] Weight: 240 pounds, 108.9 kg # Patient Acct [id number] BSA: 2.09 m^2 BMI: 42.51 # kg/m^2 MR # [id number] [employer] Stephanie Brown, RT Interpreting Physician Andrew Rodríguez Fellow Referring Nurse Maria Esther Guerra CNP Practitioner Interpreting Referring Physician Brian Han Type of Study TTE procedure:2D Echocardiogram, M-Mode, Doppler, Color Doppler. Procedure Date Date: 06/30/2021 Start: 09:55 AM Study Location: [facility] Technical Quality: Limited visualization due to poor acoustical window. Indications:Chest pain. Patient Status: Inpatient Height: 63 inches Weight: 240 pounds BSA: 2.09 m^2 BMI: 42.51 kg/m^2 CONCLUSIONS Summary Left ventricle is normal in size. Global left ventricular systolic function is normal with an estimated ejection fraction of 60 % . Left atrium is at upper limits of normal. Right atrium is mildly dilated . Mildly dilated right ventricular cavity. Aortic valve structure and function normal. Normal mitral valve structure. Trivial mitral regurgitation. In summary, she appears to have normal LV function with EF 60%. Cannot appreciate wall motion abnormalities Right sided chambers appeared to be mildly enlarged and suspect sleep apnea No significant valvular abnormalities Signature Electronically signed by MARY Sanchez)(Suzette)(CT)([facility])( [employer]) on 06/30/2021 10:01 AM FINDINGS Left Atrium Left atrium is at upper limits of normal. Left Ventricle Left ventricle is normal in size. Global left ventricular systolic function is normal with an estimated ejection fraction of 60 % . Right Atrium Right atrium is mildly dilated . Right Ventricle Mildly dilated right ventricular cavity. Mitral Valve Normal mitral valve structure. Trivial mitral regurgitation. Aortic Valve Aortic valve structure and function normal. Tricuspid Valve Normal tricuspid valve leaflets. Tricuspid valve was not well visualized. Mild tricuspid regurgitation. Pulmonic Valve Technically difficult visualization of the pulmonic valve, no abnormality seen. Pericardial Effusion No significant pericardial effusion is seen. Pleural Effusion No pleural effusion seen. Miscellaneous Normal aortic root dimension. M-mode / 2D Measurements & Calculations: LVIDd:2.77 cm(3.7 - 5.6 cm) Diastolic Volume:28.9 ml LVIDs:1.83 cm(2.2 - 4.0 cm) Aortic Root:3.22 cm(2.0 - 3.7 cm) IVSd:1.19 cm(0.6 - 1.1 cm) LA Dimension: 4.36 cm(1.9 - 4.0 cm) LVPWd:1.3 cm(0.6 - 1.1 cm) AV Cusp Separation: 2.38 cm Fractional Shortenin.94 % LVOT:2.08 cm RVDd:3.06 cm Mitral: Aortic Valve Area (P1/2-Time): 4.62 cm^2 Peak Velocity: 1.19 m/s Peak E-Wave: 0.94 m/s Peak Gradient: 5.68 mmHg Peak A-Wave: 0.79 m/s E/A Ratio: 1.19 Peak Gradient: 3.55 mmHg Deceleration Time: 164.17 msec P1/2t: 47.61 msec Tricuspid: Pulmonic: Estimated RVSP: 22.71 mmHg Peak Velocity: 0.74 m/s Peak TR Velocity: 2.10 m/s Peak Gradient: 2.19 mmHg Peak TR Gradient: 17.5561 mmHg Estimated RA Pressure: 5 mmHg Estimated PASP: 22.56 mmHg Diastology / Tissue Doppler Septal Wall E' velocity:0.09 m/s Lateral Wall E' velocity:0.10 m/s Lateral Wall E/E':8.72 [facility] Jason Grace MD - 06/30/2021 [facility] Transthoracic Echocardiography Report (TTE) Patient Name MARY Date of Study 06/30/2021 JEREMIAS Rasheed Date of 1975 Gender Female Age 45 year(s) Race Room Number 0263 Height: 63 inch, 160.02 cm Corporate ID [id number] Weight: 240 pounds, 108.9 kg # Patient Acct [id number] BSA: 2.09 m^2 BMI: 42.51 # kg/m^2 MR # [id number] [employer] Stephanie Kevin, RT Interpreting Physician Andrew Rodríguez Fellow Referring Nurse Maria Esther Guerra, [employer] HELPER Practitioner Interpreting Referring Physician Brian Han Type of Study TTE procedure:2D Echocardiogram, M-Mode, Doppler, Color Doppler. Procedure Date Date: 06/30/2021 Start: 09:55 AM Study Location: [facility] Technical Quality: Limited visualization due to poor acoustical window. Indications:Chest pain. Patient Status: Inpatient Height: 63 inches Weight: 240 pounds BSA: 2.09 m^2 BMI: 42.51 kg/m^2 CONCLUSIONS Summary Left ventricle is normal in size. Global left ventricular systolic function is normal with an estimated ejection fraction of 60 % . Left atrium is at upper limits of normal. Right atrium is mildly dilated . Mildly dilated right ventricular cavity. Aortic valve structure and function normal. Normal mitral valve structure. Trivial mitral regurgitation. In summary, she appears to have normal LV function with EF 60%. Cannot appreciate wall motion abnormalities Right sided chambers appeared to be mildly enlarged and suspect sleep apnea No significant valvular abnormalities Signature - - - Electronically signed by SUZETTE Sanchez (R))DOMINIC)([facility])( [employer]) on 06/30/2021 10:01 AM - FINDINGS Left Atrium Left atrium is at upper limits of normal. Left Ventricle Left ventricle is normal in size. Global left ventricular systolic function is normal with an estimated ejection fraction of 60 % . Right Atrium Right atrium is mildly dilated . Right Ventricle Mildly dilated right ventricular cavity. Mitral Valve Normal mitral valve structure. Trivial mitral regurgitation. Aortic Valve Aortic valve structure and function normal. Tricuspid Valve Normal tricuspid valve leaflets. Tricuspid valve was not well visualized. Mild tricuspid regurgitation. Pulmonic Valve Technically difficult visualization of the pulmonic valve, no abnormality seen. Pericardial Effusion No significant pericardial effusion is seen. Pleural Effusion No pleural effusion seen. Miscellaneous Normal aortic root dimension. M-mode / 2D Measurements & Calculations: LVIDd:2.77 cm(3.7 - 5.6 cm) Diastolic Volume:28.9 ml LVIDs:1.83 cm(2.2 - 4.0 cm) Aortic Root:3.22 cm(2.0 - 3.7 cm) IVSd:1.19 cm(0.6 - 1.1 cm) LA Dimension: 4.36 cm(1.9 - 4.0 cm) LVPWd:1.3 cm(0.6 - 1.1 cm) AV Cusp Separation: 2.38 cm Fractional Shortenin.94 % LVOT:2.08 cm RVDd:3.06 cm Mitral: Aortic Valve Area (P1/2-Time): 4.62 cm^2 Peak Velocity: 1.19 m/s Peak E-Wave: 0.94 m/s Peak Gradient: 5.68 mmHg Peak A-Wave: 0.79 m/s E/A Ratio: 1.19 Peak Gradient: 3.55 mmHg Deceleration Time: 164.17 msec P1/2t: 47.61 msec Tricuspid: Pulmonic: Estimated RVSP: 22.71 mmHg Peak Velocity: 0.74 m/s Peak TR Velocity: 2.10 m/s Peak Gradient: 2.19 mmHg Peak TR Gradient: 17.5561 mmHg Estimated RA Pressure: 5 mmHg Estimated PASP: 22.56 mmHg Diastology / Tissue Doppler Septal Wall E' velocity:0.09 m/s Lateral Wall E' velocity:0.10 m/s Lateral Wall E/E':8.72 [employer] Work Phone: [employer] Work Phone: EKG 12 Leadon 06-30-2021 Atrial Rate 78 BPM [employer] Work Phone: P [place] 14 degrees [employer] Phone: P-R Interval 154 ms [employer] Phone: Q-T Interval 360 ms [employer] Work Phone: QRS Duration 80 ms [employer] Work Phone: QTc Calculation (Bazett) 410 ms [employer] Phone: R [place] 34 degrees [employer] Work Phone: T [place] 31 degrees [employer] Phone: Ventricular Rate 78 BPM Trellie Work Phone: Normal sinus rhythm Nonspecific T wave abnormality Abnormal [facility] Brian Han MD - 06/30/2021 Normal sinus rhythm Nonspecific T wave abnormality Abnormal ECG [employer] Phone: [employer] Phone: EKG Rhythm Stripon LM RN [facility] [employer] [facility] [employer]am [facility] [place] [employer] [facility] [employer] [facility] zLense PlaceIQ [facility] Glucose, Whole Bloodon 06-30 Glucose [Mass/Vol] 121 mg/dL High 65 - 99 mg/dL [facility] Yi De Interpretation and review of laboratory results Abnormal [facility] Glucose [Mass/Vol] 108 mg/dL High 65 - 99 mg/dL [facility] Interpretation and review of laboratory results Abnormal [facility] Glucose [Mass/Vol] 154 mg/dL High 65 - 99 mg/dL [facility] Yi De Interpretation and review of laboratory results Abnormal [facility] Glucose [Mass/Vol] 118 mg/dL High 65 - 99 mg/dL [facility] Interpretation and review of laboratory results Abnormal [facility] Glucose [Mass/Vol] 120 mg/dL High 65 - 99 mg/dL [facility] Yi De Interpretation and review of laboratory results Abnormal [facility] Hemoglobin and hematocrit, b [facility] 06-30-2021 Hematocrit (Bld) [Volume fraction] 28.4 % Low 36 - 46 % [facility] Hemoglobin.gastrointest inal spec 1 Ql (Stl) 8.9 g/dL Low 12.0 - 16.0 g/dL [facility] Interpretation and review of laboratory results Abnormal [facility] APTTon 06-29-2021 aPTT Coag (Bld) [Time] 69.3 s High [facility] Comment on above: IV Heparin Therapy Range: 62.0-94.0 Interpretation and review of laboratory results Abnormal [facility] aPTT Coag (Bld) [Time] 71.7 s High [facility] Comment on above: IV Heparin Therapy Range: 62.0-94.0 Interpretation and review of laboratory results Abnormal [facility] aPTT Coag (Bld) [Time] 96.9 s Critically high [facility] Comment on above: IV Heparin Therapy Range: 62.0-94.0 Interpretation and review of laboratory results Abnormal [facility] aPTT Coag (Bld) [Time] 83.4 s High [facility] Comment on above: IV Heparin Therapy Range: 62.0-94.0 Interpretation and review of laboratory results Abnormal [facility] CBCon 06-29-2021 Hematocrit (Bld) [Volume fraction] 27.7 % Low 36 - 46 % [facility] Hemoglobin.gastrointest inal spec 1 Ql (Stl) 8.5 g/dL Low 12.0 - 16.0 g/dL [facility] Interpretation and review of laboratory results Abnormal [facility] MCH (RBC) [Entitic mass] 20.8 pg Low 26 - 34 pg [facility] MCHC (RBC) [Mass/Vol] 30.6 g/dL Low 31 - 37 g/dL [facility] MCV (RBC) [Entitic vol] 68.0 fL Low 80 - 100 fL [facility] NRBC Automated NOT REPORTED per 100 WBC [facility] ealt Platelet distribution width (Bld) [Ratio] 19.6 % High 12.1 - 15.2 % [facility] Platelet mean volume (Bld) [Entitic vol] NOT REPORTED 6.0 - 12.0 fL [facility] Yi De Platelets (Bld) [#/Vol] 333 10*3/uL [facility] RBC (Bld) [#/Vol] 4.07 10*6/uL 4.0 - 5.2 m/uL [facility] WBC (Bld) [#/Vol] 11.0 10*3/uL [facility] Yi De EKG 12 Leadon 06-29-2021 Atrial Rate 89 BPM [facility] Yi De Work Phone: P [place] 22 degrees [employer] Work Phone: P-R Interval 144 ms [employer] Work Phone: Q-T Interval 368 ms [facility] [employer] Work Phone: QRS Duration 82 ms [facility] [employer] Work Phone: QTc Calculation (Bazett) 447 ms [facility] [employer] Work Phone: R [place] 42 degrees [place] [employer] Work Phone: T [place] 47 degrees [facility] Y[employer] Work Phone: Ventricular Rate 89 BPM [facility] Work Phone: Normal sinus rhythm Nonspecific T wave abnormality Abnormal ECG When compared with ECG of 26-JUN-2021 22:00, Minimal criteria for Inferior infarct are no longer Present Nonspecific T wave abnormality, worse in Anterior leads [facility] Jason Grace MD - 06/29/2021 Normal sinus rhythm Nonspecific T wave abnormality Abnormal ECG When compared with ECG of 26-JUN-2021 22:00, Minimal criteria for Inferior infarct are no longer Present Nonspecific T wave abnormality, worse in Anterior leads [employer] Work Phone: [employer] Work Phone: Atrial Rate 68 BPM [employer] Work Phone: P [place] 25 degrees [employer] Work Phone: P-R Interval 146 ms [employer] Work Phone: Q-T Interval 392 ms [employer] Work Phone: QRS Duration 76 ms [employer] Work Phone: QTc Calculation (Bazett) 416 ms [employer] Work Phone: R [place] 51 degrees [employer] Work Phone: T [place] 67 degrees [employer] Work Phone: Ventricular Rate 68 BPM Trellie Work Phone: Normal sinus rhythm with sinus arrhythmia Nonspecific T wave abnormality Abnormal ECG When compared with ECG of 27-JUN-2021 10:47, (unconfirmed) No significant change was found [facility] Jason Grace MD - 06/29/2021 Normal sinus rhythm with sinus arrhythmia Nonspecific T wave abnormality Abnormal ECG When compared with ECG of 27-JUN-2021 10:47, (unconfirmed) No significant change was found [employer] Work Phone: [employer] Work Phone: EKG Rhythm Stripon JBRN [employer] [facility] to [facility] HEALTH [facility] JBRN [employer] [facility] JBRN [employer] [facility] JBRN [employer] [facility] RUCHI RN JamK[employer] [facility] [employer] Glucose, Whole Bloodon 06-29 Glucose [Mass/Vol] 173 mg/dL High 65 - 99 mg/dL [facility] [employer] Interpretation and review of laboratory results Abnormal [facility] Glucose [Mass/Vol] 141 mg/dL High 65 - 99 mg/dL [facility] Interpretation and review of laboratory results Abnormal [facility] Hemoglobin and hematocrit, b loodon 06-29-2021 Hematocrit (Bld) [Volume fraction] 28.6 % Low 36 - 46 % [facility] Hemoglobin.gastrointest inal spec 1 Ql (Stl) 8.8 g/dL Low 12.0 - 16.0 g/dL [facility] Interpretation and review of laboratory results Abnormal [facility] Troponinon 06-29-2021 Interpretation and review of laboratory results Abnormal [facility] Troponin Interp NOT REPORTED [facility] Troponin T NOT REPORTED <0.03 ng/mL [facility] Troponin, High Sensitivity 124 ng/L Critically high 0 - 14 ng/L [facility] Yi De Comment on above: High Sensitivity Troponin values cannot be compared with other Troponin methodologies. Patients with high levels of Biotin oral intake (i.e >5mg/day) may have falsely decreased Troponin levels. Samples collected within 8 hours of biotin intake may require additional information for diagnosis. [facility] Yi De Interpretation and review of laboratory results Abnormal [facility] Troponin Interp NOT REPORTED [facility] Troponin T NOT REPORTED <0.03 ng/mL [facility] Troponin, High Sensitivity 119 ng/L Critically high 0 - 14 ng/L [facility] Comment on above: High Sensitivity Troponin values cannot be compared with other Troponin methodologies. Patients with high levels of Biotin oral intake (i.e >5mg/day) may have falsely decreased Troponin levels. Samples collected within 8 hours of biotin intake may require additional information for diagnosis. [facility] APTTon 06-28-2021 aPTT Coag (Bld) [Time] 86.2 s High [facility] Yi De Comment on above: IV Heparin Therapy Range: 62.0-94.0 Interpretation and review of laboratory results Abnormal [facility] aPTT Coag (Bld) [Time] 61.8 s High [facility] Comment on above: IV Heparin Therapy Range: 62.0-94.0 Interpretation and review of laboratory results Abnormal [facility] aPTT Coag (Bld) [Time] 67.0 s High [facility] Comment on above: IV Heparin Therapy Range: 62.0-94.0 Interpretation and review of laboratory results Abnormal [facility] aPTT Coag (Bld) [Time] 82.7 s High [facility] Comment on above: IV Heparin Therapy Range: 62.0-94.0 Interpretation and review of laboratory results Abnormal [facility] EKG Rhythm Stripon LM RN [facility] JBRN [facility] JBRN [facility] JBRN [facility] JBRN [facility] lm rn [facility] LM RN [facility] LM RN [facility] Ferritinon 06-28-2021 Ferritin 16 ug/L 13 - 150 ug/L [facility] h Glucose, Whole Bloodon 06-28 Glucose [Mass/Vol] 134 mg/dL High 65 - 99 mg/dL [facility] Yi De Interpretation and review of laboratory results Abnormal [facility] Glucose [Mass/Vol] 135 mg/dL High 65 - 99 mg/dL [facility] Interpretation and review of laboratory results Abnormal [facility] Glucose [Mass/Vol] 158 mg/dL High 65 - 99 mg/dL [facility] Interpretation and review of laboratory results Abnormal [facility] Glucose [Mass/Vol] 126 mg/dL High 65 - 99 mg/dL [facility] [facility] Interpretation and review of laboratory results Abnormal [facility] Glucose [Mass/Vol] 116 mg/dL High 65 - 99 mg/dL [facility] [employer] Interpretation and review of laboratory results Abnormal [facility] Iron and TIBCon 06-28-2021 Interpretation and review of laboratory results Abnormal [facility] Iron [Mass/Vol] 27 ug/dL Low 37 - 145 ug/dL [facility] Iron Saturation 8 % Low 20 - 55 % [facility] TIBC 342 ug/dL 250 - 450 ug/dL [facility] UIBC 315 ug/dL 112 - 347 ug/dL [facility] No Panel Informationon 06-28 [facility] Troponinon 06-28-2021 Interpretation and review of laboratory results Abnormal [facility] Troponin Interp NOT REPORTED [facility] Troponin T NOT REPORTED <0.03 ng/mL [facility] Troponin, High Sensitivity 121 ng/L Critically high 0 - 14 ng/L [facility] Comment on above: High Sensitivity Troponin values cannot be compared with other Troponin methodologies. Patients with high levels of Biotin oral intake (i.e >5mg/day) may have falsely decreased Troponin levels. Samples collected within 8 hours of biotin intake may require additional information for diagnosis. [facility] Interpretation and review of laboratory results Abnormal [facility] Troponin Interp NOT REPORTED [facility] Troponin T NOT REPORTED <0.03 ng/mL [facility] Troponin, High Sensitivity 125 ng/L Critically high 0 - 14 ng/L [facility] Comment on above: High Sensitivity Troponin values cannot be compared with other Troponin methodologies. Patients with high levels of Biotin oral intake (i.e >5mg/day) may have falsely decreased Troponin levels. Samples collected within 8 hours of biotin intake may require additional information for diagnosis. [facility] APTTon 06-27-2021 aPTT Coag (Bld) [Time] 41.5 s High [facility] Comment on above: IV Heparin Therapy Range: 62.0-94.0 Interpretation and review of laboratory results Abnormal [facility] aPTT Coag (Bld) [Time] 30.8 s [facility] Comment on above: IV Heparin Therapy Range: 62.0-94.0 [facility] Basic Metabolic Panel w/ Ref laruen to MGon 06-27-2021 Anion gap [Moles/Vol] 14 mmol/L 9 - 17 mmol/L [facility] Yi De Calcium [Mass/Vol] 8.9 mg/dL 8.6 - 10. 4 mg/dL [facility] Chloride [Moles/Vol] 101 mmol/L 98 - 10 7 mmol/L [facility] Yi De CO2 [Moles/Vol] 23 mmol/L 20 - 31 mmol/L [facility] Creatinine [Mass/Vol] 0.71 mg/dL 0.50 - 0.90 mg/dL [facility] Yi De GFR >60 >60 mL/min [facility] GFR Non- >60 >60 mL/min [facility] GFR/1.73 sq M.predicted MDRD (S/P/Bld) [Vol rate/Area] [facility] Comment on above: Average GFR for 40-4 9 years old: 99 mL/min/1.73sq m Chronic Kidney Disease: <60 mL/min/1.73sq m Kidney failure: <15 mL/min/1.73sq m eGFR calculated using average adult body mass. Additional eGFR calculator available at: http://www.Blue Box/multiple_crcl_2012.htm GFR/1.73 sq M.predicted MDRD (S/P/Bld) [Vol rate/Area] NOT REPORTED [facility] Glucose [Mass/Vol] 253 mg/dL High 70 - 99 mg/dL [facility] Interpretation and review of laboratory results Abnormal [facility] Potassium [Moles/Vol] 3.9 mmol/L 3.7 - 5.3 mmol/L [facility] Sodium [Moles/Vol] 138 mmol/L 135 - 144 mmol/L [facility] Urea nitrogen (BldV) [Mass/Vol] 17 mg/dL 6 - 20 mg/dL [facility] Urea nitrogen/Creatinine (Bld) [Mass ratio] 24 High [facility] CBC auto differentialon 12- Absolute Eos # 0.30 [facility] th Absolute Immature Granulocyte NOT REPORTED [facility] Absolute Lymph # 3.10 [facility] alth Absolute [place] # [facility].70 [facility] Basophils (Bld) [#/Vol] 0.00 10*3/uL [facility] Basophils/100 WBC (Bld) 0 % 0 - 2 % [facility] Differential Type NOT REPORTED [facility] Eosinophils/100 WBC (Bld) 2 % 0 - 5 % [facility] Hematocrit (Bld) [Volume fraction] 33.9 % Low 36 - 46 % [facility] Hemoglobin.gastrointest inal spec 1 Ql (Stl) 10.6 g/dL Low 12.0 - 16.0 g/dL [facility] Immature Granulocytes NOT REPORTED 0 % [facility] Interpretation and review of laboratory results Abnormal [facility] Lymphocytes/100 WBC (Bld) 22 % 15 - 40 % [facility] MCH (RBC) [Entitic mass] 21.3 pg Low 26 - 34 pg [facility] MCHC (RBC) [Mass/Vol] 31.3 g/dL 31 - 37 g/dL [facility] MCV (RBC) [Entitic vol] 67.9 fL Low 80 - 100 fL [facility] Monocytes/100 WBC (Bld) 5 % 4 - 8 % [facility] Morphology Venkat (Bld) [Interp] SLIGHT MICROCYTOSIS [facility] NRBC Automated NOT REPORTED per 100 WBC [facility] ealt Platelet distribution width (Bld) [Ratio] 19.0 % High 12.1 - 15.2 % [facility] Platelet Estimate NOT REPORTED [facility] Platelet mean volume (Bld) [Entitic vol] NOT REPORTED 6.0 - 12.0 fL [facility] Platelets (Bld) [#/Vol] 430 10*3/uL [facility] RBC (Bld) [#/Vol] 4.98 10*6/uL 4.0 - 5.2 m/uL [facility] RBC (Bld) [#/Vol] NOT REPORTED [facility] Segmented neutrophils/100 WBC (Bld) 71 % 47 - 75 % [facility] Segs Absolute 10.30 High [facility] WBC (Bld) [#/Vol] 14.5 10*3/uL High [facility] WBC (Bld) [#/Vol] NOT REPORTED [facility] Absolute Eos # 0.50 High [facility] th Absolute Immature Granulocyte NOT REPORTED [facility] Absolute Lymph # 4.20 [facility] He alth Absolute [place] # 0.90 [facility] Basophils (Bld) [#/Vol] 0.00 10*3/uL [facility] Basophils/100 WBC (Bld) 0 % 0 - 2 % [facility] Differential Type NOT REPORTED [facility] Eosinophils/100 WBC (Bld) 3 % 0 - 5 % [facility] Hematocrit (Bld) [Volume fraction] 35.8 % Low 36 - 46 % [facility] Hemoglobin.gastrointest inal spec 1 Ql (Stl) 11.4 g/dL Low 12.0 - 16.0 g/dL [facility] Immature Granulocytes NOT REPORTED 0 % [facility] Interpretation and review of laboratory results Abnormal [facility] Lymphocytes/100 WBC (Bld) 23 % 15 - 40 % [facility] MCH (RBC) [Entitic mass] 21.4 pg Low 26 - 34 pg [facility] MCHC (RBC) [Mass/Vol] 31.8 g/dL 31 - 37 g/dL [facility] MCV (RBC) [Entitic vol] 67.2 fL Low 80 - 100 fL [facility] Monocytes/100 WBC (Bld) 5 % 4 - 8 % [facility] Morphology Venkat (Bld) [Interp] MODERATE MICROCYTOSIS [facility] Morphology Venkat (Bld) [Interp] MODERATE ANISOCYTOSIS [facility] NRBC Automated NOT REPORTED per 100 WBC [facility] ealt Platelet distribution width (Bld) [Ratio] 19.1 % High 12.1 - 15.2 % [facility] Platelet Estimate NOT REPORTED [facility] Platelet mean volume (Bld) [Entitic vol] NOT REPORTED 6.0 - 12.0 fL [facility] Platelets (Bld) [#/Vol] 495 10*3/uL High [facility] RBC (Bld) [#/Vol] 5.33 10*6/uL High 4.0 - 5.2 m/uL [facility] RBC (Bld) [#/Vol] NOT REPORTED [facility] Segmented neutrophils/100 WBC (Bld) 69 % 47 - 75 % [facility] Segs Absolute 12.80 High [facility] WBC (Bld) [#/Vol] 18.4 10*3/uL High [facility] WBC (Bld) [#/Vol] NOT REPORTED [facility] COVID-19, Rapidon 06-27-2021 SARS-CoV-2 (COVID-19) RNA LACHELLE+probe Ql (Unsp spec) Not detected Not Detected [facility] Comment on above: Rapid NAAT: The specimen is NEGATIVE for SARS-CoV-2, the novel coronavirus associated with COVID-19. The ID NOW COVID-19 assay is designed to detect the virus that causes COVID-19 in patients with signs and symptoms of infection who are suspected of COVID-19. An individual without symptoms of COVID-19 and who is not shedding SARS-CoV-2 virus would expect to have a negative (not detected) result in this assay. Negative results should be treated as presumptive and, if inconsistent with clinical signs and symptoms or necessary for patient management, should be tested with an alternative molecular assay. Negative results do not preclude SARS-CoV-2 infection and should not be used as the sole basis for patient management decisions. Fact sheet for Healthcare Providers: https://www.fda.gov/media/844136/download Fact sheet for Patients: https://www.fda.gov/media/203159/download Methodology: Isothermal Nucleic Acid Amplification Specimen Description .NASOPHARYNGEAL SWAB Verteego ([employer]) D-Dimer, Quantitativeon 06-18 D-Dimer, Quant 0.32 [facility] Comment on above: When combined with a low clinical probability, a D dimer value of <0.50 mg/L FEU is considered negative for DVT and PE (negative predictive value of 98%, sensitivity of 97%). If this test is not being used to help rule out DVT and PE, then the following reference range should be utilized: 0.00 - 0.59 mg/L FEU. The D-Dimer assay is intended for use as an aid in the diagnosis of venous thromboembolism (DVT and PE) and the results should be interpreted in conjunction with the patient's medical history, clinical presentation, and other findings. Elevated levels of D-dimer activity can be seen in any state of coagulation activation and is not recommended in patients with therapeutic dose anticoagulant therapy for >24 hours, fibrinolytic therapy within the previous 7 days, trauma or surgery within the previous 4 weeks, disseminated malignancies, aortic aneurysm, sepsis, severe infections, pneumonia, severe skin infections, liver cirrhosis, advanced age, coronary disease, diabetes, and . A very low percentage of patients with DVT may yield D-dimer results below the cutoff of 0.5 mg/L FEU. This is known to be more prevalent in patients with distal DVT. [employer] EKG 12 Leadon 06-27-2021 Atrial Rate 109 BPM [employer] Phone: P [place] 8 degrees [employer] Phone: P-R Interval 146 ms [employer] Phone: Q-T Interval 312 ms [employer] Phone: QRS Duration 82 ms [employer] Phone: QTc Calculation (Bazett) 420 ms [employer] Phone: R [place] 36 degrees [employer] Phone: T [place] 40 degrees [facility] Work Phone: Ventricular Rate 109 BPM [facility] Work Phone: Sinus tachycardia Otherwise normal ECG [facility] Brian Paul MD - 06/27/2021 Sinus tachycardia Otherwise normal ECG [facility] Work Phone: [facility] Work Phone: Atrial Rate 108 BPM [facility] Work Phone: P [place] 13 degrees [facility] Work Phone: P-R Interval 148 ms [facility] Work Phone: Q-T Interval 332 ms [facility] Work Phone: QRS Duration 80 ms [facility] Work Phone: QTc Calculation (Bazett) 444 ms [facility] Work Phone: R [place] 44 degrees [facility] Work Phone: T [place] 47 degrees [facility] Work Phone: Ventricular Rate 108 BPM [employer] [facility] Work Phone: Sinus tachycardia Nonspecific ST abnormality Abnormal ECG [facility] Brian Paul MD - 06/27/[address] abnormality Abnormal ECG [facility] Work Phone: [facility] Work Phone: EKG 12 leadon 06-27-2021 Atrial Rate 106 BPM [facility] Work Phone: P [place] 11 degrees [facility] Work Phone: P-R Interval 142 ms [facility] Work Phone: Q-T Interval 310 ms [facility] Work Phone: QRS Duration 82 ms [facility] Work Phone: QTc Calculation (Bazett) 411 ms [facility] Work Phone: R [place] 37 degrees [facility] Yi De Work Phone: T [place] 43 degrees [facility] Yi De Work Phone: Ventricular Rate 106 BPM [facility] Work Phone: Sinus tachycardia Nonspecific ST & T wave changes Abnormal ECG [facility] Brian Paul MD - 06/27/[address] & T wave changes Abnormal ECG [facility] Work Phone: [facility] Work Phone: EKG Rhythm Stripon [employer] [facility] [facility] Yi De [facility] [employer] [place] [facility] [facility] [place] [facility] Glucose, Whole Bloodon 06-27 Glucose [Mass/Vol] 141 mg/dL High 65 - 99 mg/dL [facility] [employer] Interpretation and review of laboratory results Abnormal [facility] Glucose [Mass/Vol] 323 mg/dL High 65 - 99 mg/dL [facility] [employer] Interpretation and review of laboratory results Abnormal [facility] Hemoglobin A1con 06-27-2021 Glucose [Mass/Vol] 186 mg/dL [facility] Comment on above: The ADA and AACC rec ommend providing the estimated average glucose result to permit better patient understanding of their HBA1c result. HbA1c (Bld) [Mass fraction] 8.1 % High 4.0 - 6.0 % [facility] Interpretation and review of laboratory results Abnormal [facility] Microscopic Urinalysison - [facility] [place] [place] Amorphous, UA NOT REPORTED [facility] B[facility], UA 2+ Abnormal None [facility] Casts UA NOT REPORTED /LPF [facility] Crystals, UA NOT REPORTED None /HPF [facility] Epithelial Cells UA 10 TO 20 /HPF [facility] Interpretation and review of laboratory results Abnormal [facility] Mucus, UA 2+ Abnormal None [facility] Other Observations UA NOT REPORTED NOT REQ. [facility] RBC, UA 0 TO 2 [facility] Renal Epithelial, UA 0 TO 2 0 /HPF [facility] Trichomonas, UA NOT REPORTED None [facility] WBC, UA 5 TO 10 0 /HPF [facility] Yeast, UA NOT REPORTED None [facility] Sedimentation Rateon 021 Interpretation and review of laboratory results Abnormal [facility] Sed Rate 67 mm High 0 - 20 mm [facility] Troponinon 06-27-2021 Interpretation and review of laboratory results Abnormal [facility] Troponin Interp NOT REPORTED [facility] Troponin T NOT REPORTED <0.03 ng/mL [facility] Troponin, High Sensitivity 134 ng/L Critically high 0 - 14 ng/L [facility] Comment on above: High Sensitivity Troponin values cannot be compared with other Troponin methodologies. Patients with high levels of Biotin oral intake (i.e >5mg/day) may have falsely decreased Troponin levels. Samples collected within 8 hours of biotin intake may require additional information for diagnosis. [facility] Interpretation and review of laboratory results Abnormal [facility] Troponin Interp NOT REPORTED [facility] Troponin T NOT REPORTED <0.03 ng/mL [facility] Troponin, High Sensitivity 141 ng/L Critically high 0 - 14 ng/L [facility] Comment on above: High Sensitivity Troponin values cannot be compared with other Troponin methodologies. Patients with high levels of Biotin oral intake (i.e >5mg/day) may have falsely decreased Troponin levels. Samples collected within 8 hours of biotin intake may require additional information for diagnosis. [facility] Interpretation and review of laboratory results Abnormal [facility] Troponin Interp NOT REPORTED [facility] Troponin T NOT REPORTED <0.03 ng/mL [facility] Troponin, High Sensitivity 103 ng/L Critically high 0 - 14 ng/L [facility] Comment on above: High Sensitivity Troponin values cannot be compared with other Troponin methodologies. Patients with high levels of Biotin oral intake (i.e >5mg/day) may have falsely decreased Troponin levels. Samples collected within 8 hours of biotin intake may require additional information for diagnosis. [facility] Interpretation and review of laboratory results Abnormal [facility] Troponin Interp NOT REPORTED [facility] Troponin T NOT REPORTED <0.03 ng/mL [facility] Troponin, High Sensitivity 26 ng/L High 0 - 14 ng/L [facility] Comment on above: High Sensitivity Troponin values cannot be compared with other Troponin methodologies. Patients with high levels of Biotin oral intake (i.e >5mg/day) may have falsely decreased Troponin levels. Samples collected within 8 hours of biotin intake may require additional information for diagnosis. [facility] Interpretation and review of laboratory results Abnormal [facility] Troponin Interp NOT REPORTED [facility] Troponin T NOT REPORTED <0.03 ng/mL [facility] Troponin, High Sensitivity 25 ng/L High 0 - 14 ng/L [facility] Comment on above: High Sensitivity Troponin values cannot be compared with other Troponin methodologies. Patients with high levels of Biotin oral intake (i.e >5mg/day) may have falsely decreased Troponin levels. Samples collected within 8 hours of biotin intake may require additional information for diagnosis. [facility] Urinalysis Reflex to Culture on 06-27-2021 Bilirubin Urine Negative NEGATIVE [facility] Color, UA Yellow Yellow [facility] Glucose, Ur 1000 mg/dL Abnormal NEGATIVE [facility] Interpretation and review of laboratory results Abnormal [facility] Ketones Ql (U) Negative NEGATIVE [facility] Leukocyte esterase Test strip Ql (U) Negative NEGATIVE [facility] Nitrite, Urine Negative NEGATIVE [facility] pH, UA 5.0 [facility] Protein, UA TRACE Abnormal NEGATIVE [facility] Specific [place], UA 1.025 [facility] Turbidity UA Hazy Abnormal Clear [facility] Urinalysis Comments [facility] Urine Hgb TRACE Abnormal NEGATIVE [facility] Urobilinogen, Urine Normal Normal [facility] APTTon 06-26-2021 aPTT Coag (Bld) [Time] 27.7 s [facility] Comment on above: IV Heparin Therapy Range: 62.0-94.0 Comprehensive metabolic pane angelo 06-26-2021 Albumin [Mass/Vol] 4 g/dL 3.5 - 5.2 g/dL [facility] Albumin/Globulin Ratio NOT REPORTED [facility] ALP (Bld) [Catalytic activity/Vol] 112 U/L High 35 - 104 U/L [facility] ALT [Catalytic activity/Vol] 15 U/L 5 - 33 U/L [facility] Anion gap [Moles/Vol] 14 mmol/L 9 - 17 mmol/L [facility] AST [Catalytic activity/Vol] 13 U/L <32 [facility] Bilirubin [Mass/Vol] 0.12 mg/dL Low 0.30 - 1.20 mg/dL [facility] Calcium [Mass/Vol] 9.2 mg/dL 8.6 - 10. 4 mg/dL [facility] [place] Chloride [Moles/Vol] 99 mmol/L 98 - 10 7 mmol/L [facility] CO2 [Moles/Vol] 21 mmol/L 20 - 31 mmol/L [facility] Creatinine [Mass/Vol] 0.83 mg/dL 0.50 - 0.90 mg/dL [facility] Free PSA/Total PSA [Mass fraction] 7.5 g/dL 6.4 - 8.3 g/dL [facility] GFR >60 >60 mL/min [facility] GFR Non- >60 >60 mL/min [facility] [place] GFR/1.73 sq M.predicted MDRD (S/P/Bld) [Vol rate/Area] [facility] Comment on above: Average GFR for 40-4 9 years old: 99 mL/min/1.73sq m Chronic Kidney Disease: <60 mL/min/1.73sq m Kidney failure: <15 mL/min/1.73sq m eGFR calculated using average adult body mass. Additional eGFR calculator available at: http://www.Blue Box/multiple_crcl_2012.htm GFR/1.73 sq M.predicted MDRD (S/P/Bld) [Vol rate/Area] NOT REPORTED [facility] Glucose [Mass/Vol] 244 mg/dL High 70 - 99 mg/dL [facility] Interpretation and review of laboratory results Abnormal [facility] Potassium [Moles/Vol] 3.6 mmol/L Low 3.7 - 5.3 mmol/L [facility] Sodium [Moles/Vol] 134 mmol/L Low 135 - 144 mmol/L [facility] Urea nitrogen (BldV) [Mass/Vol] 16 mg/dL 6 - 20 mg/dL [facility] Urea nitrogen/Creatinine (Bld) [Mass ratio] 19 [facility] No Panel Informationon 06-26 [facility] Protime-INRon 06-26-2021 INR Coag (Bld) [Relative time] 1.0 {INR} [facility] Comment on above: Non-therapeutic Range: INR = 0.9-1.2 Therapeutic Range: Moderate Anticoagulant Intensity: INR = 2.0-3.0 High Anticoagulant Intensity: INR = 2.5-3.5 PT Coag (PPP) [Time] 13.1 s [facility] Troponinon 06-26-2021 Interpretation and review of laboratory results Abnormal [employer] Troponin Interp NOT REPORTED [facility] Troponin T NOT REPORTED <0.03 ng/mL [facility] Troponin, High Sensitivity 21 ng/L High 0 - 14 ng/L [facility] Comment on above: High Sensitivity Troponin values cannot be compared with other Troponin methodologies. Patients with high levels of Biotin oral intake (i.e >5mg/day) may have falsely decreased Troponin levels. Samples collected within 8 hours of biotin intake may require additional information for diagnosis. [employer] Interpretation and review of laboratory results Abnormal [facility] [place] Troponin Interp NOT REPORTED [facility] Troponin T NOT REPORTED <0.03 ng/mL [facility] Troponin, High Sensitivity 24 ng/L High 0 - 14 ng/L [facility] Comment on above: High Sensitivity Troponin values cannot be compared with other Troponin methodologies. Patients with high levels of Biotin oral intake (i.e >5mg/day) may have falsely decreased Troponin levels. Samples collected within 8 hours of biotin intake may require additional information for diagnosis. [employer] XR CHEST PORTABLEon 06-26-20 No acute findings. [facility] EXAM: XR CHEST PORTABLE HISTORY: Chest pain for 2 days with dyspnea for one day. COMPARISON: Chest, 01/05/2021. TECHNIQUE: Frontal upright chest radiograph. FINDINGS: The heart, mediastinum and pulmonary vascularity are within normal limits. The lungs and pleural spaces appear clear. The bony thorax appears intact. [facility] Robert Silverman MD - 06/26/2021 EXAM: XR CHEST PORTABLE HISTORY: Chest pain for 2 days with dyspnea for one day. COMPARISON: Chest, 01/05/2021. TECHNIQUE: Frontal upright chest radiograph. FINDINGS: The heart, mediastinum and pulmonary vascularity are within normal limits. The lungs and pleural spaces appear clear. The bony thorax appears intact. IMPRESSION: No acute findings. [employer] Work Phone: Radiology Study observation (narrative) [employer] [facility] Work Phone: XR CHEST PORTABLEOrdered By: Robert Silverman on 06-26-2021 [employer] Phone: FerritinOrdered By: Vishal flaherty on 01-17-2021 Ferritin 30 ug/L 13 - 150 ug/L [place] [facility] Work Phone: Iron And TIBCOrdered By: Bernardo Ashraf on 01-17-2021 Iron [Mass/Vol] 37 ug/dL 37 - 145 ug/dL [employer] Work Phone: Iron Saturation 10 % Low 20 - 55 % [place] [facility] Work Phone: TIBC 366 ug/dL 250 - 450 ug/dL [employer] Phone: UIBC 329 ug/dL 112 - 347 ug/dL [employer] Phone: No Panel InformationOrdered By: Vishal Ashraf on 01-17-2021 Interpretation and review of laboratory results Abnormal [employer] Work Phone: [employer] Phone: TransferrinOrdered By: Bonita Ashraf on 01-17-2021 Transferrin [Mass/Vol] 305 mg/dL 200 - 360 mg/dL [employer] Phone: [employer] Phone: Vitamin B12 & FolateOrdered By: Vishal Ashraf on 01-17-2021 Cobalamin (Vitamin B12) [Mass/Vol] 400 pg/mL 232 - 1245 pg/mL [employer] Phone: Folate 9.7 ng/mL >4.8 [employer] Phone: [employer] Phone: Vitamin D 25 HydroxyOrdered By: Vishal Ashraf on 01-17-2021 Vit D, 25-Hydroxy 12.3 ng/mL Low 30.0 - 100 .0 ng/mL [employer] Phone: Comment on above: Reference Range: Vitamin D status Range Deficiency <20 ng/mL Mild Deficiency 20-30 ng/mL Sufficiency 30-100 ng/mL Toxicity >100 ng/mL CBC Auto DifferentialOrdered By: Vishal Ashraf on 01-15-2021 [employer] [facility]os # 0.[address] [place] [facility] Work Phone: Absolute Immature Granulocyte NOT REPORTED [employer] Phone: Absolute Lymph # 3.60 [place] [facility] Work Phone: Absolute [place] # 0.70 [place] [facility] Work Phone: Basophils (Bld) [#/Vol] 0.10 10*3/uL [employer] Work Phone: Basophils/100 WBC (Bld) 0 % 0 - 2 % [employer] Work Phone: Differential Type YES [place] [facility] Work Phone: Eosinophils/100 WBC (Bld) 2 % 0 - 5 % [employer] Work Phone: Hematocrit (Bld) [Volume fraction] 37.5 % 36 - 46 % [employer] Phone: Hemoglobin.gastrointest inal spec 1 Ql (Stl) 12.2 g/dL 12.0 - 16.0 g/dL [employer] Phone: Immature Granulocytes NOT REPORTED 0 % [employer] Phone: Interpretation and review of laboratory results Abnormal [employer] Phone: Lymphocytes/100 WBC (Bld) 21 % 15 - 40 % [employer] Phone: MCH (RBC) [Entitic mass] 24.0 pg Low 26 - 34 pg [employer] Phone: MCHC (RBC) [Mass/Vol] 32.6 g/dL 31 - 37 g/dL [employer] Phone: MCV (RBC) [Entitic vol] 73.8 fL Low 80 - 100 fL [employer] Phone: Monocytes/100 WBC (Bld) 4 % 4 - 8 % [facility] Work Phone: NRBC Automated NOT REPORTED per 100 WBC [employer] Work Phone: Platelet distribution width (Bld) [Ratio] 17.7 % High 12.1 - 15.2 % [employer] Phone: Platelet Estimate NOT REPORTED [employer] Phone: Platelet mean volume (Bld) [Entitic vol] NOT REPORTED 6.0 - 12.0 fL [employer] Phone: Platelets (Bld) [#/Vol] 439 10*3/uL [employer] Phone: RBC (Bld) [#/Vol] 5.08 10*6/uL 4.0 - 5.2 m/uL [employer] Phone: RBC (Bld) [#/Vol] NOT REPORTED [employer] Phone: Segmented neutrophils/100 WBC (Bld) 73 % 47 - 75 % [employer] Phone: Segs [employer] 12.20 High [place] [facility] [employer] Work Phone: WBC (Bld) [#/Vol] 16.8 10*3/uL High [employer] Work Phone: WBC (Bld) [#/Vol] NOT REPORTED [employer] Phone: [employer] Work Phone: TSH With Reflex [id number] y: Vishal Andriy on 01-15-2021 TSH Qn 1.77 m[IU]/L [employer] Phone: [employer] Phone: Pneumococcal Ab, IgGon 01-10 S.pneum Interp See Note Normal [facility] Comment on above: Result Comment: (NOT E) INTERPRETIVE INFORMATION: Streptococcus pneumoniae Antibodies, IgG A pre- and post-vaccination comparison is required to adequately assess the humoral immune response to Prevnar 7 (P7), Prevnar 13 (P13), and/or Pneumovax 23 (PNX) Streptococcus pneumoniae vaccines. Pre-vaccination samples should be collected prior to vaccine administration. Post-vaccination samples should be obtained at least 4 weeks after immunization. Testing of post-vaccination samples alone will provide only general immune status of the individual to various pneumococcal serotypes. In the case of pure polysaccharide vaccine, indication of immune system competence is further delineated as an adequate response to at least 50 percent of the serotypes in the vaccine challenge for those 2-5 years of age and to at least 70 percent of the serotypes in the vaccine challenge for those 6-65 years of age. Individual immune response may vary based on age, past exposure, immunocompetence, and pneumococcal serotype. Responder Status Antibody Ratio Non-Responder . . . . . . . . . . . . . . Less than 2-fold Weak Responder . . . . . . . . . . . . . 2-fold to 4-fold Good Responder . . . . . . . . . . . . . Greater than 4-fold A response to 50-70 percent or more of the serotypes in the vaccine challenge is considered a normal humoral response(1). Antibody concentration greater than 1.0 - 1.3 ug/mL is generally considered long-term protection(2). References: 1. Re VALERIO, Philippe JW, Jaden X, HE, Jesús HR. Multilaboratory assessment of threshold versus fold-change algorithms for minimizing analytical variability in multiplexed pneumococcal IgG measurements. Clin Vaccine Immunol. 2014;21(7):982-8. 2. Re VALERIO, Jesús HERNADNEZ. Use and Clinical Interpretation of Pneumococcal Antibody Measurements in the Evaluation of Humoral Immune Function. Clin Vaccine Immunol. 2015;22(2):148-152. This test was developed and its performance characteristics determined by [employer]. It has not been cleared or approved by the [place] Food and Drug Administration. This test was performed in a CLIA certified laboratory and is intended for clinical purposes. Performed By: [employer] [address] [place] [address] Sewing Machine Adjuster: Nikky Rothman MD Performed By: #### T REP, PRCAL, HSVPR, EBVM #### [facility] [employer] [address] [place] [address] [phone] Con[employer] Hopper Operator: Reianldo Dangelo MD #### APNAB1 #### [facility] [address], [place] [id number] Concrete Hopper Operator: Mayur Corbin MD S.pneum type 1,IgG 12.92 ug/mL Normal [facility] Comment on above: Performed By: #### T REP, PRCAL, HSVPR, EBVM #### [facility] [employer] [address] [place] [address] [phone] [employer] Operator: Reinaldo Dangelo MD #### APNAB1 #### [facility] [address], [place] [id number] Concrete Hopper Operator: Mayur Corbin MD S.pneum type 12F,IgG 0.59 ug/mL [facility] Comment on above: Performed By: #### T REP, PRCAL, HSVPR, EBVM #### [address] [phone] Con[employer] Hopper Operator: Reinaldo Dangelo MD #### APNAB1 #### [facility] [address], [place] [id number] Concrete Hopper Operator: Mayur Corbin MD S.pneum type 14,IgG 0.25 ug/mL [facility] Comment on above: Performed By: #### T REP, PRCAL, HSVPR, EBVM #### [facility] [address] [place] [address] [phone] Concrete Hopper Operator: Reinaldo Dangelo MD #### [id number] #### [facility] [address], [place] [id number] Concrete Hopper Operator: Mayur Corbin MD S.pneum type 18C,IgG 1.75 ug/mL Normal [facility] Comment on above: Performed By: #### T REP, PRCAL, HSVPR, EBVM #### [facility] [place] [address] Concrete Hopper Operator: Reinaldo Dangelo MD #### [id number] #### [facility] [address], [place] [id number] Concrete Hopper Operator: Mayur Corbin MD S.pneum type 19F,IgG 3.34 ug/mL Normal [facility] Comment on above: Performed By: #### T REP, PRCAL, HSVPR, EBVM #### [facility] [address] [place] [address] Concrete Hopper Operator: Reinaldo Dangelo MD #### [id number] #### [facility] [address], [place] [id number] Concrete Hopper Operator: Mayur Corbin MD S.pneum type 23F,IgG 8.66 ug/mL Normal [facility] Comment on above: Performed By: #### T REP, PRCAL, HSVPR, EBVM #### [facility] [employer] [address] [place] [phone] Concrete Hopper Operator: Reinaldo Dangelo MD #### [id number] #### [facility] [address], [place] [id number] Concrete Hopper Operator: Mayur Corbin MD S.pneum type 3,IgG 0.43 ug/mL Normal [facility] Comment on above: Performed By: #### T REP, PRCAL, HSVPR, EBVM #### [facility] [address] [place] [address] [employer] Operator: Reinaldo Dangelo MD #### [id number] #### [facility] [address], [place] [id number] Concrete Hopper Operator: Mayur Corbin MD S.pneum type 4,IgG 0.51 ug/mL Normal [facility] Comment on above: Performed By: #### T REP, PRCAL, HSVPR, EBVM #### [facility] [place] [address] Concrete Hopper Operator: Reinaldo Dangelo MD #### APNAB1 #### [facility] [address], [place] [id number] Concrete Hopper Operator: Mayur Corbin MD S.pneum type 5,IgG 5.07 ug/mL Normal [facility] Comment on above: Performed By: #### T REP, PRCAL, HSVPR, EBVM #### [facility] [address] [place] [phone] Concrete Hopper Operator: Reinaldo Dangelo MD #### APNAB1 #### [facility] [address], [place] [id number] Concrete Hopper Operator: Mayur Corbin MD S.pneum type 6B,IgG 0.51 ug/mL Normal [facility] Comment on above: Performed By: #### T REP, PRCAL, HSVPR, EBVM #### [facility] [address] [place] [phone] Concrete Hopper Operator: Reinaldo Dangelo MD #### APNAB1 #### [facility] [address], [place] [id number] Concrete Hopper Operator: Mayur Corbin MD S.pneum type 7F,IgG 3.26 ug/mL Normal [facility] Comment on above: Performed By: #### T REP, PRCAL, HSVPR, EBVM #### [facility] [address] [place] [address] Concrete Hopper Operator: Reinaldo Dangelo MD #### APNAB1 #### [facility] [address] [place] [address] Concrete Hopper Operator: Mayur Corbin MD S.pneum type 8,IgG 0.13 ug/mL Normal [facility] Comment on above: Performed By: #### T REP, PRCAL, HSVPR, EBVM #### [facility] [address] [place] [address] Concrete Hopper Operator: Reinaldo Dangelo MD #### APNAB1 #### [facility] [address], [place] [id number] Concrete Hopper Operator: Mayur Corbin MD S.pneum type 9N,IgG 0.42 ug/mL Normal [facility] Comment on above: Performed By: #### T REP, PRCAL, HSVPR, EBVM #### [address] [address] Concrete Hopper Operator: Reinaldo Dangelo MD #### [email or web address] #### [facility] [address] [place] [address] Concrete Hopper Operator: Mayur Corbin MD S.pneum type 9V,IgG 0.47 ug/mL Normal [facility] Comment on above: Performed By: #### T REP, PRCAL, HSVPR, EBVM #### [address] [id number] Concrete Hopper Operator: Reinaldo Dangelo MD #### [email or web address] #### [facility]ending [facility] [address] [place] [address] Concrete Hopper Operator: Mayur Corbin MD Basic Metab w/rfx MGon 01-07 (cont.) [facility] Comment on above: Result Comment: Aver age GFR for 40-49 years old: 99 mL/min/1.73sq m Chronic Kidney Disease: <60 mL/min/1.73sq m Kidney failure: <15 mL/min/1.73sq m eGFR calculated using average adult body mass. Additional eGFR calculator available at: http://www.Terarecon.com/multiple_crcl_2011.htm Performed By: #### C BC, BMPX #### [address] [id number] Concrete Hopper Operator: Reinaldo Dangelo MD Anion gap [Moles/Vol] 14 mmol/L Normal 9-17 [facility] Comment on above: Performed By: #### C BC, BMPX #### [facility] [employer] [address] [place] [phone] Concrete Hopper Operator: Reinaldo Dangelo MD Calcium [Mass/Vol] 8.9 mg/dL Normal 8.6-10.4 [facility] Comment on above: Performed By: #### C BC, BMPX #### [facility] [address] [place] [address] Concrete Hopper Operator: Reinaldo Dangelo MD Chloride [Moles/Vol] 106 mmol/L Normal 98-107 [facility] Comment on above: Performed By: #### C BC, BMPX #### [facility] [employer] [address] [place] [phone] Concrete Hopper Operator: Reinaldo Dangelo MD CO2 [Moles/Vol] 22 mmol/L Normal 20-31 [facility] Comment on above: Performed By: #### C BC, BMPX #### [facility] [employer] [address] [place] [address] Concrete Hopper Operator: Reinaldo Dangelo MD Creatinine [Mass/Vol] 0.62 mg/dL Normal 0.50-0.90 [facility] Comment on above: Performed By: #### C BC, BMPX #### [facility] [employer] [address] [place] [address] Concrete Hopper Operator: Reinaldo Dangelo MD GFR, Amer >60 Normal >60 [facility] Comment on above: Performed By: #### C BC, BMPX #### [facility] [employer] [address] [place] [address] Concrete Hopper Operator: Reinaldo Dagnelo MD GFR,non Amer >60 Normal >60 [facility] Comment on above: Performed By: #### C BC, BMPX #### [facility] [employer] [address] [place] [address] Concrete Hopper Operator: Reinaldo Dangelo MD Glucose [Mass/Vol] 134 mg/dL High 70-99 [facility] Comment on above: Performed By: #### C BC, BMPX #### [facility] [place] [address] Concrete Hopper Operator: Reinaldo Dangelo MD Potassium [Moles/Vol] 4.2 mmol/L Normal 3.7-5.3 [facility] Comment on above: Performed By: #### C BC, BMPX #### [facility] [address] [place] [address] Concrete Hopper Operator: Reinaldo Dangelo MD Sodium [Moles/Vol] 142 mmol/L Normal 135-144 [facility] Comment on above: Performed By: #### C BC, BMPX #### [facility] [employer] [address] [place] [address] Concrete Hopper Operator: Reinaldo Dangelo MD Urea nitrogen [Mass/Vol] 14 mg/dL Normal 6-20 [facility] Comment on above: Performed By: #### C BC, BMPX #### [facility] [employer] [address] [place] [address] Concrete Hopper Operator: Reinaldo Dangelo MD BUN/CRE Ratio NOT REPORTED Normal 9-20 [facility] Comment on above: Performed By: #### C BC, BMPX #### [facility] [address] [place] [address] Concrete Hopper Operator: Reinaldo Dangelo MD Staging: NOT REPORTED Normal [facility] Comment on above: Performed By: #### C BC, BMPX #### [facility] [address] [place] [address] Concrete Hopper Operator: Reinaldo Dangelo MD Basic Metabolic Panel w/ Ref lauren to MGOrdered By: Carol Bryan on 01-07-2021 Anion gap [Moles/Vol] 14 mmol/L 9 - 17 mmol/L [employer] Phone: Calcium [Mass/Vol] 8.9 mg/dL 8.6 - 10. 4 mg/dL [employer] Phone: Chloride [Moles/Vol] 106 mmol/L 98 - 10 7 mmol/L [employer] Phone: CO2 [Moles/Vol] 22 mmol/L 20 - 31 mmol/L [employer] Phone: Creatinine [Mass/Vol] 0.62 mg/dL 0.50 - 0.90 mg/dL [employer] Phone: GFR >60 >60 mL/min [employer] Phone: GFR Non- >60 >60 mL/min [employer] Phone: GFR/1.73 sq M.predicted MDRD (S/P/Bld) [Vol rate/Area] [employer] Phone: Comment on above: Average GFR for 40-4 9 years old: 99 mL/min/1.73sq m Chronic Kidney Disease: <60 mL/min/1.73sq m Kidney failure: <15 mL/min/1.73sq m eGFR calculated using average adult body mass. Additional eGFR calculator available at: http://www.Terarecon.DanceOn/multiple_crcl_2012.htm GFR/1.73 sq M.predicted MDRD (S/P/Bld) [Vol rate/Area] NOT REPORTED [employer] Phone: Glucose [Mass/Vol] 134 mg/dL High 70 - 99 mg/dL [employer] Phone: Interpretation and review of laboratory results Abnormal [employer] Phone: Potassium [Moles/Vol] 4.2 mmol/L 3.7 - 5.3 mmol/L [employer] Phone: Sodium [Moles/Vol] 142 mmol/L 135 - 144 mmol/L [employer] Phone: Urea nitrogen (BldV) [Mass/Vol] 14 mg/dL 6 - 20 mg/dL [employer] Phone: Urea nitrogen/Creatinine (Bld) [Mass ratio] NOT REPORTED [employer] Phone: [employer] Phone: CBCon 01-07-2021 Erythrocyte distribution width (RBC) [Ratio] 17.8 % High 11.8-14.4 [facility] Comment on above: Performed By: #### C BC, BMPX #### [facility] [employer] [address] [place] [address] Concrete Hopper Operator: Reinaldo Dangelo MD Hematocrit (Bld) [Volume fraction] 37.0 % Normal 36.3-47.1 [facility] Comment on above: Performed By: #### C BC, BMPX #### [facility] [employer] [address] [place] [address] Concrete Hopper Operator: Reinaldo Dangelo MD Hemoglobin (Bld) [Mass/Vol] 10.8 g/dL Low 11.9-15.1 [facility] Comment on above: Performed By: #### C BC, BMPX #### [facility] [employer] [address] [place] [address] Concrete Hopper Operator: Reinaldo Dangelo MD MCH (RBC) [Entitic mass] 23.2 pg Low 25.2-33.5 [facility] Comment on above: Performed By: #### C BC, BMPX #### [facility] [employer] [address] [place] [address] Concrete Hopper Operator: Reinaldo Dangelo MD MCHC (RBC) [Mass/Vol] 29.2 g/dL Normal 28.4-34.8 [facility] Comment on above: Performed By: #### C BC, BMPX #### [facility] [employer] [address] [place] [address] Concrete Hopper Operator: Reinaldo Dangelo MD MCV (RBC) [Entitic vol] 79.4 fL Low 82.6-102.9 [facility] Comment on above: Performed By: #### C BC, BMPX #### [address] [address] Concrete Hopper Operator: Reinaldo Dangelo MD NRBC Automated 0.0 per 100 WBC Normal 0.0 [facility] Comment on above: Performed By: #### C BC, BMPX #### [address] [address] Concrete Hopper Operator: Reinaldo Dangelo MD Platelet mean volume (Bld) [Entitic vol] 10.5 fL Normal 8.1-13.5 [facility] Comment on above: Performed By: #### C BC, BMPX #### [address] [address] Concrete Hopper Operator: Reinaldo Dangelo MD Platelets (Bld) [#/Vol] 411 10*3/uL Normal 138-453 [facility] Comment on above: Performed By: #### C BC, BMPX #### [address] [address] Concrete Hopper Operator: Reinaldo Dangelo MD RBC (Bld) [#/Vol] 4.66 10*6/uL Normal 3.95-5.11 [facility] Comment on above: Performed By: #### C BC, BMPX #### [address] [address] Concrete Hopper Operator: Reinaldo Dangelo MD WBC (Bld) [#/Vol] 15.3 10*3/uL High 3.5-11.3 [facility] Comment on above: Performed By: #### C BC, BMPX #### [address] [address] Concrete Hopper Operator: Reinaldo Dangelo MD CBCOrdered By: Carol Fischer bessemer on 01-07-2021 Hematocrit (Bld) [Volume fraction] 37.0 % 36.3 - 47.1 % [employer] Phone: Hemoglobin.gastrointest inal spec 1 Ql (Stl) 10.8 g/dL Low 11.9 - 15.1 g/dL [employer] Phone: Interpretation and review of laboratory results Abnormal [employer] Phone: MCH (RBC) [Entitic mass] 23.2 pg Low 25.2 - 33.5 pg [employer] Phone: MCHC (RBC) [Mass/Vol] 29.2 g/dL 28.4 - 34.8 g/dL [employer] Phone: MCV (RBC) [Entitic vol] 79.4 fL Low 82.6 - 102.9 fL [employer] Phone: NRBC Automated 0.0 0.0 per 100 WBC [employer] Phone: Platelet distribution width (Bld) [Ratio] 17.8 % High 11.8 - 14.4 % [employer] Phone: Platelet mean volume (Bld) [Entitic vol] 10.5 fL 8.1 - 13.5 fL [employer] Phone: Platelets (Bld) [#/Vol] 411 10*3/uL [employer] Phone: RBC (Bld) [#/Vol] 4.66 10*6/uL 3.95 - 5.1 1 m/uL [employer] Phone: WBC (Bld) [#/Vol] 15.3 10*3/uL High [employer] Phone: [employer] Phone: EBV (VCA) Ab, IgMon 01-08-20 EBV (VCA) Ab, IgM 72 U/mL Normal <100 [facility] Comment on above: Result Comment: REFERENCE RANGE: Negative <100 U/mL Positive >120 U/mL Equivocal 100-120 U/mL Performed By: #### T REP, PRCAL, HSVPR, EBVM #### [employer] [address] [place], [place] [id number] Concrete Hopper Operator: Reinaldo Dangelo MD #### APNAB1 #### [facility] [address] [place] [address] Concrete Hopper Operator: Mayur Corbin MD HERPES PROFILEOrdered By: Colt Aguilar on 01-07-2021 Herpes Type 1/2 IgM Combined 0.55 <0.91 [employer] Phone: Comment on above: Reference Range: <=0.90 Negative 0.91-1.09 Equivocal >=1.10 Positive If positive, an IgM result indicates a current or recent infection. This test does not differentiate type I from type II. No current reference test is available for this. If IgG tests are ordered and are negative, consider retesting in 2 to 3 weeks. HSV I IgG 0.63 <0.91 [employer] Phone: Comment on above: Reference Range: <=0.90 Negative 0.91-1.09 Equivocal >=1.10 Positive HSV II IgG 0.21 <0.91 [employer] Phone: Comment on above: Reference Range: <=0.90 Negative 0.91-1.09 Equivocal >=1.10 Positive [employer] Phone: Herpes Profileon 01-07-2021 Herpes Type I, IgG 0.63 Normal <0.91 [facility] Comment on above: Result Comment: Reference Range: <=0.90 Negative 0.91-1.09 Equivocal >=1.10 Positive Performed By: #### T REP, PRCAL, HSVPR, EBVM #### [employer] [address] [place], [place] [id number] Concrete Hopper Operator: Reinaldo Dangelo MD #### APNAB1 #### [facility] [address] [place] [address] Concrete Hopper Operator: Mayur Corbin MD Herpes Type I/II,IgM 0.55 Normal <0.91 [facility] Comment on above: Result Comment: Reference Range: <=0.90 Negative 0.91-1.09 Equivocal >=1.10 Positive If positive, an IgM result indicates a current or recent infection. This test does not differentiate type I from type II. No current reference test is available for this. If IgG tests are ordered and are negative, consider retesting in 2 to 3 weeks. Performed By: #### T REP, PRCAL, HSVPR, EBVM #### [address] [id number] Concrete Hopper Operator: Reinaldo Dangelo MD #### APNAB1 #### [address] [address] Concrete Hopper Operator: Mayur Corbin MD Herpes Type II, IgG 0.21 Normal <0.91 [facility] Comment on above: Result Comment: Reference Range: <=0.90 Negative 0.91-1.09 Equivocal >=1.10 Positive Performed By: #### T REP, PRCAL, HSVPR, EBVM #### [address] [id number] Concrete Hopper Operator: Reinaldo Dangelo MD #### APNAB1 #### [facility] [address] [place] [address] Concrete Hopper Operator: Mayur Corbin MD CT SOFT TISSUE NECK W CONTRA Shira 01-06-2021 CT SOFT TISSUE NECK W CONTRAST EXAMINATION: CT OF THE NECK SOFT TISSUE WITH CONTRAST 01/05/2021 TECHNIQUE: CT of the neck was performed with the administration of intravenous contrast. Multiplanar reformatted images are provided for review. Dose modulation, iterative reconstruction, and/or weight based adjustment of the mA/kV was utilized to reduce the radiation dose to as low as reasonably achievable. COMPARISON: None. HISTORY: ORDERING SYSTEM PROVIDED HISTORY: uvulitis TECHNOLOGIST PROVIDED HISTORY: uvulitis Decision Support Exception - unselect if not a suspected or confirmed emergency medical condition->Emergenc y Medical Condition ([place]) Reason for Exam: uvulitis FINDINGS: PHARYNX/LARYNX: The palatine tonsils are normal in appearance. The tongue is normal in appearance. The soft palate is mildly prominent compatible with the provided history. The valleculae, epiglottis, aryepiglottic folds and pyriform sinuses appear unremarkable. The true and false vocal cords are normal in appearance. No mass or abscess is seen. SALIVARY GLANDS/THYROID: The parotid and submandibular glands appear unremarkable. The thyroid gland appears unremarkable. LYMPH NODES: No cervical or supraclavicular lymphadenopathy is seen. SOFT TISSUES: No appreciable soft tissue swelling or mass is seen. BRAIN/ORBITS/SINUSE S: The visualized portion of the intracranial contents appear unremarkable. The visualized portion of the orbits, paranasal sinuses and mastoid air cells demonstrate no acute abnormality. LUNG APICES/SUPERIOR MEDIASTINUM: No focal consolidation is seen within the visualized lung apices. No superior mediastinal lymphadenopathy or mass. The visualized portion of the trachea appears unremarkable. BONES: No aggressive appearing lytic or blastic bony lesion. IMPRESSION: The soft palate is mildly prominent compatible with the provided history. There is no suggestion of abscess or phlegmonous change. The exam appears otherwise normal. Interpreted by: Adam Hester Signed by: Adam Hester 01/05/21 Final result Normal [facility] Procalcitoninon 01-06-2021 Procalcitonin 0.04 ng/mL Normal <0.09 [facility] Comment on above: Result Comment: Suspected Sepsis: <0.50 ng/mL Low likelihood of sepsis. 0.50-2.00 ng/mL Increased likelihood of sepsis. Antibiotics encouraged. >2.00 ng/mL High risk of sepsis/shock. Antibiotics strongly encouraged. Suspected Lower Resp Tract Infections: <0.24 ng/mL Low likelihood of bacterial infection. >0.24 ng/mL Increased likelihood of bacterial infection. Antibiotics encouraged. With successful antibiotic therapy, PCT levels should decrease rapidly. (Half-life of 24 to 36 hours.) Procalcitonin values from samples collected within the first 6 hours of systemic infection may still be low. Retesting may be indicated. Values from day 1 and day 4 can be entered into the Change in Procalcitonin Calculator (www.mlntlq-pcj-muwnyopzro.DanceOn) to determine the patient's Mortality Risk Prognosis In healthy neonates, plasma Procalcitonin (PCT) concentrations increase gradually after , reaching peak values at about 24 hours of age then decrease to normal values below 0.5 ng/mL by 48-72 hours of age. Performed By: #### T REP, PRCAL, HSVPR, EBVM #### [employer] [facility] [address] [place] [address] Concrete Hopper Operator: Reinaldo Dangelo MD #### APNAB1 #### [email or web address] [address] [place] [address] Concrete Hopper Operator: Mayur Corbin MD ProcalcitoninOrdered By: Fadi Aguilar on 01-06-2021 Procalcitonin 0.04 ng/mL <0.09 [employer] Phone: Comment on above: Suspected Sepsis: <0.50 ng/mL Low likelihood of sepsis. 0.50-2.00 ng/mL Increased likelihood of sepsis. Antibiotics encouraged. >2.00 ng/mL High risk of sepsis/shock. Antibiotics strongly encouraged. Suspected Lower Resp Tract Infections: <0.24 ng/mL Low likelihood of bacterial infection. >0.24 ng/mL Increased likelihood of bacterial infection. Antibiotics encouraged. With successful antibiotic therapy, PCT levels should decrease rapidly. (Half-life of 24 to 36 hours.) Procalcitonin values from samples collected within the first 6 hours of systemic infection may still be low. Retesting may be indicated. Values from day 1 and day 4 can be entered into the Change in Procalcitonin Calculator (www.wjosgh-wly-mltufkghya.DanceOn) to determine the patient's Mortality Risk Prognosis In healthy neonates, plasma Procalcitonin (PCT) concentrations increase gradually after , reaching peak values at about 24 hours of age then decrease to normal values below 0.5 ng/mL by 48-72 hours of age. [employer] Work Phone: T. pallidum AbOrdered By: Colt Agiular on 01-06-2021 T. pallidum, IgG Non-Reactive NONREACTIVE [employer] Work Phone: Comment on above: T. pallidum antibodies are not detected. There is no serological evidence of infection with T. pallidum (early primary syphilis cannot be excluded). Retest in 2-4 weeks if syphilis is clinically suspect. [employer] Work Phone: T.pallidum Ab Screenon 01-06 T.pallidum Ab Screen Non-Reactive Normal NR [facility] Comment on above: Result Comment: T. pallidum antibodies are not detected. There is no serological evidence of infection with T. pallidum (early primary syphilis cannot be excluded). Retest in 2-4 weeks if syphilis is clinically suspect. Performed By: #### T REP, PRCAL, HSVPR, EBVM #### [employer] [address] [place] [address] Concrete Hopper Operator: Reinaldo Dangelo MD #### APNAB1 #### [facility] [address] [place] [address] Concrete Hopper Operator: Mayur Corbin MD CBC Auto DifferentialOrdered By: Gaye Lopez on 01-05-2021 Absolute Eos # 0.[address] [facility] Work Phone: Absolute Immature Granulocyte NOT REPORTED [employer] Work Phone: Absolute Lymph # 3.70 [employer] Work Phone: Absolute [place] # 0.60 [employer] Work Phone: Basophils (Bld) [#/Vol] 0.10 10*3/uL [employer] Work Phone: Basophils/100 WBC (Bld) 1 % 0 - 2 % [facility] Phone: Differential Type YES [facility] Work Phone: Eosinophils/100 WBC (Bld) 2 % 0 - 5 % [employer] Phone: Hematocrit (Bld) [Volume fraction] 36.7 % 36 - 46 % [employer] Phone: Hemoglobin.gastrointest inal spec 1 Ql (Stl) 11.9 g/dL Low 12.0 - 16.0 g/dL [employer] Phone: Immature Granulocytes NOT REPORTED 0 % M [employer] Phone: Interpretation and review of laboratory results Abnormal [employer] Phone: Lymphocytes/100 WBC (Bld) 29 % 15 - 40 % [employer] Phone: MCH (RBC) [Entitic mass] 23.9 pg Low 26 - 34 pg [employer] Phone: MCHC (RBC) [Mass/Vol] 32.3 g/dL 31 - 37 g/dL [employer] Phone: MCV (RBC) [Entitic vol] 74.0 fL Low 80 - 100 fL [employer] Phone: Monocytes/100 WBC (Bld) 5 % 4 - 8 % [employer] Phone: NRBC Automated NOT REPORTED per 100 WBC [employer] [facility] Work Phone: Platelet distribution width (Bld) [Ratio] 17.9 % High 12.1 - 15.2 % [employer] Phone: Platelet Estimate NOT REPORTED [employer] Phone: Platelet mean volume (Bld) [Entitic vol] NOT REPORTED 6.0 - 12.0 fL [employer] Phone: Platelets (Bld) [#/Vol] 486 10*3/uL High [employer] Phone: RBC (Bld) [#/Vol] 4.96 10*6/uL 4.0 - 5.2 m/uL [employer] Phone: RBC (Bld) [#/Vol] NOT REPORTED [employer] Phone: Segmented neutrophils/100 WBC (Bld) 63 % 47 - 75 % [employer] Phone: Segs [employer] 8.20 High [employer] Work Phone: WBC (Bld) [#/Vol] 13.0 10*3/uL High [employer] Phone: WBC (Bld) [#/Vol] NOT REPORTED [employer] Phone: [employer] Phone: COVID-19, RapidOrdered By: Zain Dias on 01-05-2021 SARS-CoV-2 (COVID-19) RNA LACHELLE+probe Ql (Unsp spec) Not detected Not Detected [employer] Phone: Comment on above: Rapid NAAT: The specimen is NEGATIVE for SARS-CoV-2, the novel coronavirus associated with COVID-19. The ID NOW COVID-19 assay is designed to detect the virus that causes COVID-19 in patients with signs and symptoms of infection who are suspected of COVID-19. An individual without symptoms of COVID-19 and who is not shedding SARS-CoV-2 virus would expect to have a negative (not detected) result in this assay. Negative results should be treated as presumptive and, if inconsistent with clinical signs and symptoms or necessary for patient management, should be tested with an alternative molecular assay. Negative results do not preclude SARS-CoV-2 infection and should not be used as the sole basis for patient management decisions. Fact sheet for Healthcare Providers: https://www.fda.gov/media/048715/download Fact sheet for Patients: https://www.fda.gov/media/539514/download Methodology: Isothermal Nucleic Acid Amplification Specimen Description .NASOPHARYNGEAL SWAB [employer] Phone: [employer] Phone: CT SOFT TISSUE NECK W CONTRA STOrdered By: Christin Dias on 01-05-2021 The soft palate is mildly prominent compatible with the provided history. There is no suggestion of abscess or phlegmonous change. The exam appears otherwise normal. [employer] Phone: EXAMINATION: CT OF THE NECK SOFT TISSUE WITH CONTRAST 01/05/2021 TECHNIQUE: CT of the neck was performed with the administration of intravenous contrast. Multiplanar reformatted images are provided for review. Dose modulation, iterative reconstruction, and/or weight based adjustment of the mA/kV was utilized to reduce the radiation dose to as low as reasonably achievable. COMPARISON: None. HISTORY: ORDERING SYSTEM PROVIDED HISTORY: uvulitis TECHNOLOGIST PROVIDED HISTORY: uvulitis Decision Support Exception - unselect if not a suspected or confirmed emergency medical condition->Emergenc y Medical Condition ([place]) Reason for Exam: uvulitis FINDINGS: PHARYNX/LARYNX: The palatine tonsils are normal in appearance. The tongue is normal in appearance. The soft palate is mildly prominent compatible with the provided history. The valleculae, epiglottis, aryepiglottic folds and pyriform sinuses appear unremarkable. The true and false vocal cords are normal in appearance. No mass or abscess is seen. SALIVARY GLANDS/THYROID: The parotid and submandibular glands appear unremarkable. The thyroid gland appears unremarkable. LYMPH NODES: No cervical or supraclavicular lymphadenopathy is seen. SOFT TISSUES: No appreciable soft tissue swelling or mass is seen. BRAIN/ORBITS/SINUSE S: The visualized portion of the intracranial contents appear unremarkable. The visualized portion of the orbits, paranasal sinuses and mastoid air cells demonstrate no acute abnormality. LUNG APICES/SUPERIOR MEDIASTINUM: No focal consolidation is seen within the visualized lung apices. No superior mediastinal lymphadenopathy or mass. The visualized portion of the trachea appears unremarkable. BONES: No aggressive appearing lytic or blastic bony lesion. [employer] Phone: Jeff, pn Incoming Radiant Results From [employer] - 01/05/2021 11:50 PM EDT EXAMINATION: CT OF THE NECK SOFT TISSUE WITH CONTRAST 01/05/2021 TECHNIQUE: CT of the neck was performed with the administration of intravenous contrast. Multiplanar reformatted images are provided for review. Dose modulation, iterative reconstruction, and/or weight based adjustment of the mA/kV was utilized to reduce the radiation dose to as low as reasonably achievable. COMPARISON: None. HISTORY: ORDERING SYSTEM PROVIDED HISTORY: uvulitis TECHNOLOGIST PROVIDED HISTORY: uvulitis Decision Support Exception - unselect if not a suspected or confirmed emergency medical condition->Emergenc y Medical Condition (MA) Reason for Exam: uvulitis FINDINGS: PHARYNX/LARYNX: The palatine tonsils are normal in appearance. The tongue is normal in appearance. The soft palate is mildly prominent compatible with the provided history. The valleculae, epiglottis, aryepiglottic folds and pyriform sinuses appear unremarkable. The true and false vocal cords are normal in appearance. No mass or abscess is seen. SALIVARY GLANDS/THYROID: The parotid and submandibular glands appear unremarkable. The thyroid gland appears unremarkable. LYMPH NODES: No cervical or supraclavicular lymphadenopathy is seen. SOFT TISSUES: No appreciable soft tissue swelling or mass is seen. BRAIN/ORBITS/SINUSE S: The visualized portion of the intracranial contents appear unremarkable. The visualized portion of the orbits, paranasal sinuses and mastoid air cells demonstrate no acute abnormality. LUNG APICES/SUPERIOR MEDIASTINUM: No focal consolidation is seen within the visualized lung apices. No superior mediastinal lymphadenopathy or mass. The visualized portion of the trachea appears unremarkable. BONES: No aggressive appearing lytic or blastic bony lesion. IMPRESSION: The soft palate is mildly prominent compatible with the provided history. There is no suggestion of abscess or phlegmonous change. The exam appears otherwise normal. [employer] Work Phone: [employer] Phone: CT SOFT TISSUE NECK WO CONTR ASTOrdered By: LuzBeijing Sanji [employer] Jessica on 01-05-2021 EXAM: CT SOFT TISSUE NECK WO CONTRAST CLINICAL INDICATION: 45-year-old female with swollen uvula, difficulty swallowing. COMPARISON: None TECHNIQUE: Standard enhanced CT of the neck without contrast. Axial sections with coronal and sagittal reformats were obtained. Dose reduction techniques were achieved by using automated exposure control and/or adjustment of mA and/or kV according to patient size and/or use of iterative reconstruction technique. FINDINGS: Evaluation is limited due to absent intravenous contrast. Lymph Nodes/Soft Tissues: No pathologically enlarged or morphologically abnormal lymph nodes. Few nonspecific slightly prominent left-sided cervical lymph nodes. Nasopharynx: Normal. Suprahyoid Neck: Oropharynx, oral cavity, parapharyngeal, and retropharyngeal spaces are clear and symmetric. Nonspecific prominent uvula. Infrahyoid Neck: Larynx, hypopharynx, and supraglottic area are clear and symmetric. Vocal cords are symmetric. Parotid Glands: Normal. Submandibular Glands: Normal. Thyroid: Normal. Orbits: Grossly normal as visualized. Paranasal Sinuses: Mild scattered paranasal sinus mucosal thickening. Mastoid Air Cells: Well-aerated as visualized. Skull Base: Normal. Thoracic Inlet: Visualized lung apices are clear. Vascular Structures: Normal in size. Musculoskeletal: No acute osseous abnormality. [employer] Phone: Jeff, [facility] Incoming Radiant Results From [employer] - 01/05/2021 2:34 PM EDT EXAM: CT SOFT TISSUE NECK WO CONTRAST CLINICAL INDICATION: 45-year-old female with swollen uvula, difficulty swallowing. COMPARISON: None TECHNIQUE: Standard enhanced CT of the neck without contrast. Axial sections with coronal and sagittal reformats were obtained. Dose reduction techniques were achieved by using automated exposure control and/or adjustment of mA and/or kV according to patient size and/or use of iterative reconstruction technique. FINDINGS: Evaluation is limited due to absent intravenous contrast. Lymph Nodes/Soft Tissues: No pathologically enlarged or morphologically abnormal lymph nodes. Few nonspecific slightly prominent left-sided cervical lymph nodes. Nasopharynx: Normal. Suprahyoid Neck: Oropharynx, oral cavity, parapharyngeal, and retropharyngeal spaces are clear and symmetric. Nonspecific prominent uvula. Infrahyoid Neck: Larynx, hypopharynx, and supraglottic area are clear and symmetric. Vocal cords are symmetric. Parotid Glands: Normal. Submandibular Glands: Normal. Thyroid: Normal. Orbits: Grossly normal as visualized. Paranasal Sinuses: Mild scattered paranasal sinus mucosal thickening. Mastoid Air Cells: Well-aerated as visualized. Skull Base: Normal. Thoracic Inlet: Visualized lung apices are clear. Vascular Structures: Normal in size. Musculoskeletal: No acute osseous abnormality. IMPRESSION: 1. Limited evaluation due to lack of intravenous contrast. No acute soft tissue changes or discrete extranodal soft tissue mass. 2. Few nonspecific slight prominent left-sided cervical lymph nodes are likely reactive. [employer] Phone: [employer] Phone: Comprehensive Metabolic Pane lOrdered By: Gaye Lopez on 01-05-2021 Albumin [Mass/Vol] 4 g/dL 3.5 - 5.2 g/dL [employer] Phone: Albumin/Globulin Ratio NOT REPORTED [employer] Phone: ALP (Bld) [Catalytic activity/Vol] 102 U/L 35 - 104 U/L [employer] Phone: ALT [Catalytic activity/Vol] 16 U/L 5 - 33 U/L [employer] Phone: Anion gap [Moles/Vol] 12 mmol/L 9 - 17 mmol/L [employer] Phone: AST [Catalytic activity/Vol] 18 U/L <32 [employer] Phone: Bilirubin [Mass/Vol] mg/dL Low 0.30 - 1.20 mg/dL [employer] Phone: Calcium [Mass/Vol] 9.5 mg/dL 8.6 - 10. 4 mg/dL [employer] Phone: Chloride [Moles/Vol] 104 mmol/L 98 - 10 7 mmol/L [employer] Phone: CO2 [Moles/Vol] 23 mmol/L 20 - 31 mmol/L [employer] Phone: Creatinine [Mass/Vol] 0.81 mg/dL 0.50 - 0.90 mg/dL [employer] Phone: Free PSA/Total PSA [Mass fraction] 7.3 g/dL 6.4 - 8.3 g/dL [employer] Phone: GFR >60 >60 mL/min [employer] Phone: GFR Non- >60 >60 mL/min [employer] Phone: GFR/1.73 sq M.predicted MDRD (S/P/Bld) [Vol rate/Area] [employer] Phone: Comment on above: Average GFR for 40-4 9 years old: 99 mL/min/1.73sq m Chronic Kidney Disease: <60 mL/min/1.73sq m Kidney failure: <15 mL/min/1.73sq m eGFR calculated using average adult body mass. Additional eGFR calculator available at: http://www.[employer]_crcl_2012.htm GFR/1.73 sq M.predicted MDRD (S/P/Bld) [Vol rate/Area] NOT REPORTED [employer] Phone: Glucose [Mass/Vol] 121 mg/dL High 70 - 99 mg/dL [facility] [employer] Phone: Interpretation and review of laboratory results Abnormal [employer] Phone: Potassium [Moles/Vol] 3.8 mmol/L 3.7 - 5.3 mmol/L [employer] Phone: Sodium [Moles/Vol] 139 mmol/L 135 - 144 mmol/L [employer] Phone: Urea nitrogen (BldV) [Mass/Vol] 12 mg/dL 6 - 20 mg/dL [employer] Phone: Urea nitrogen/Creatinine (Bld) [Mass ratio] 15 [facility]: [employer] Phone: HCG Qualitative, SerumOrdere d By: Christin Dias on 01-05-2021 hCG Qual Negative NEGATIVE [employer] Phone: Comment on above: Specimens with hCG l evels near the threshold of the test (25 mIU/mL) may give a negative or indeterminate result. In such cases, another test should be performed with a new specimen in 48-72 hours. If early is suspected clinically in this setting, correlation with quantitative serum b-hCG level is suggested. [employer] has confirmed the use of plasma for this test. This has not been cleared or approved by the U.S. Food and Drug Administration. The FDA has determined that such clearance is not necessary. [employer] Work Phone: HCG Screen, Bloodon 01-06-20 21 HCG Screen, Blood Negative Normal NEG [facility] Comment on above: Result Comment: Spec imens with hCG levels near the threshold of the test (25 mIU/mL) may give a negative or indeterminate result. In such cases, another test should be performed with a new specimen in 48-72 hours. If early is suspected clinically in this setting, correlation with quantitative serum b-hCG level is suggested. [employer] has confirmed the use of plasma for this test. This has not been cleared or approved by the U.S. Food and Drug Administration. The FDA has determined that such clearance is not necessary. Performed By: #### H #### [employer] [address] [place] [address] Concrete Hopper Operator: Reinaldo Dangelo MD [id number] 01-05-2021 SARS-CoV-2 (COVID-19) RNA LACHELLE+probe Ql (Unsp spec) Not detected Normal NOTDET [facility] Comment on above: Result Comment: Rapid NAAT: The specimen is NEGATIVE for SARS-CoV-2, the novel coronavirus associated with COVID-19. The ID NOW COVID-19 assay is designed to detect the virus that causes COVID-19 in patients with signs and symptoms of infection who are suspected of COVID-19. An individual without symptoms of COVID-19 and who is not shedding SARS-CoV-2 virus would expect to have a negative (not detected) result in this assay. Negative results should be treated as presumptive and, if inconsistent with clinical signs and symptoms or necessary for patient management, should be tested with an alternative molecular assay. Negative results do not preclude SARS-CoV-2 infection and should not be used as the sole basis for patient management decisions. Fact sheet for Healthcare Providers: https://www.fda.gov/media/086549/download Fact sheet for Patients: https://www.fda.gov/media/157326/download Methodology: Isothermal Nucleic Acid Amplification Performed By: #### C OVRB #### [employer] [facility] [address] [place] [address] Concrete Hopper Operator: Reinaldo Dangelo MD XR CHEST PORTABLEOrdered By: Webydo.rip Lopez on 01-05-2021 Impression: 1. Cardiac enlargement. 2. No focal infiltrates. [employer] Phone: EXAM: XR CHEST PORTABLE HISTORY: Reason for exam:->Shortness of breath . COMPARISON: 12/14/2016 TECHNIQUE: Single view of the chest. FINDINGS: Heart is upper limits of normal in size with a left ventricular contour. Vascularity is unremarkable. Lungs are free of focal infiltrates. EKG leads overlie the chest. [employer] Phone: Jeff, pn Incoming Radiant Results From [employer] - 01/05/2021 2:07 PM EDT EXAM: XR CHEST PORTABLE HISTORY: Reason for exam:->Shortness of breath . COMPARISON: 12/14/2016 TECHNIQUE: Single view of the chest. FINDINGS: Heart is upper limits of normal in size with a left ventricular contour. Vascularity is unremarkable. Lungs are free of focal infiltrates. EKG leads overlie the chest. IMPRESSION: Impression: 1. Cardiac enlargement. 2. No focal infiltrates. [employer] Phone: [employer] Phone: XR THORACIC SPINE (3 VIEWS)o n 06-24-2020 1. Mild degenerative changes lower thoracic disc spaces. No acute process. 2. Mild degenerative spondylosis lumbosacral spine. No acute process. [facility] [place] H[facility]: Pain in the thoracic and lumbar spine. TECHNIQUE: 3 views thoracic spine, 5 views lumbar spine were obtained. COMPARISON: None. FINDINGS: THORACIC SPINE: The alignment is normal. There are mild degenerative changes lower thoracic disc spaces. No fracture, compression deformity, or subluxation is seen. LUMBAR SPINE: There is mild degenerative spondylosis. The alignment is normal. No fracture, compression deformity, or subluxation is seen. No pars defects identified. Sacroiliac joints unremarkable. [facility] [place] Jeff, [facility] Incoming Radiant Results From [employer] - 06/24/2020 2:33 PM EST HISTORY: Pain in the thoracic and lumbar spine. TECHNIQUE: 3 views thoracic spine, 5 views lumbar spine were obtained. COMPARISON: None. FINDINGS: THORACIC SPINE: The alignment is normal. There are mild degenerative changes lower thoracic disc spaces. No fracture, compression deformity, or subluxation is seen. LUMBAR SPINE: There is mild degenerative spondylosis. The alignment is normal. No fracture, compression deformity, or subluxation is seen. No pars defects identified. Sacroiliac joints unremarkable. IMPRESSION: 1. Mild degenerative changes lower thoracic disc spaces. No acute process. 2. Mild degenerative spondylosis lumbosacral spine. No acute process. [facility] LOWER EXTREMITY VENOU S BILATERALon 03-09-2019 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 Indications for Study:Edema. Patient Status:STAT. Comments:Peripheral insufficiency Lower extremity edema Conclusions Summary Negative for DVT in the lower extremities. Signature ------- Electronically signed by RT Daniel(Gucci)(M)(CT)([facility])( [employer]) on 03/09/2019 01:02 PM ------- ------- ------- Findings: Right Impression: Left Impression: The common femoral, superficial The common femoral, superficial femoral, popliteal, tibials, and femoral, popliteal, tibials, and greater saphenous veins, profunda greater saphenous veins, profunda are are patent, compressible with normal patent, compressible with normal doppler responses. doppler responses. Ankle edema noted. Minimal ankle edema noted. Negative for DVT. Negative for DVT. Duplex scan using B-mode, Monroy scale Duplex scan using B-mode, Monroy scale imaging. Spectral doppler analysis imaging. Spectral doppler analysis and color flow throughout the exam. and color flow throughout the exam. Velocities are measured in cm/s ; Diameters are measured in cm Right Lower Extremities DVT Study Measurements Right 2D Measurements + + +-------- -------+ + !Location !Visualized!Ned sibility!Thrombosis ! + + +-------- -------+ + !Common Femoral !Yes !Yes !None ! + + +-------- -------+ + !Prox Femoral !Yes !Yes !None ! + + +-------- -------+ + !Mid Femoral !Yes !Yes !None ! + + +-------- -------+ + !Dist Femoral !Yes !Yes !None ! + + +-------- -------+ + !Deep Femoral !Yes !Yes !None ! + + +-------- -------+ + !Popliteal !Yes !Yes !None ! + + +-------- -------+ + !Sapheno Femoral Junction !Yes !Yes !None ! + + +-------- -------+ + !PTV !Yes !Yes !None ! + + +-------- -------+ + !Gastroc !Yes !Yes !None ! + + +-------- -------+ + !GSV Thigh !Yes !Yes !None ! + + +-------- -------+ + !GSV Knee !Yes !Yes !None ! + + +-------- -------+ + !GSV Ankle !Yes !Yes !None ! + + +-------- -------+ + !SSV !Yes !Yes !None ! + + +-------- -------+ + Right Doppler Measurements + ---------+------+-- ----+ + !Location !Signal!Reflux!Refl ux (msec) ! + ---------+------+-- ----+ + !Common Femoral !Phasic!No ! ! + ---------+------+-- ----+ + !Prox Femoral !Phasic!No ! ! + ---------+------+-- ----+ + !Popliteal !Phasic!No ! ! + ---------+------+-- ----+ + Left Lower Extremities DVT Study Measurements Left 2D Measurements + + +-------- -------+ + !Location !Visualized!Ned sibility!Thrombosis ! + + +-------- -------+ + !Common Femoral !Yes !Yes !None ! + + +-------- -------+ + !Prox Femoral !Yes !Yes !None ! + + +-------- -------+ + !Mid Femoral !Yes !Yes !None ! + + +-------- -------+ + !Dist Femoral !Yes !Yes !None ! + + +-------- -------+ + !Deep Femoral !Yes !Yes !None ! + + +-------- -------+ + !Popliteal !Yes !Yes !None ! + + +-------- -------+ + !Sapheno Femoral Junction !Yes !Yes !None ! + + +-------- -------+ + !PTV !Yes !Yes !None ! + + +-------- -------+ + !Peroneal !Yes !Yes !None ! + + +-------- -------+ + !Gastroc !Yes !Yes !None ! + + +-------- -------+ + !GSV Thigh !Yes !Yes !None ! + + +-------- -------+ + !GSV Knee !Yes !Yes !None ! + + +-------- -------+ + !GSV Ankle !Yes !Yes !None ! + + +-------- -------+ + !SSV !Yes !Yes !None ! + + +-------- -------+ + [facility]- [place], [place] Jeff, Elio Incoming Cardio Results From [employer] - 03/09/2019 1:[address] 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 Indications for Study:Edema. Patient Status:STAT. Comments:Peripheral insufficiency Lower extremity edema Conclusions Summary Negative for DVT in the lower extremities. Signature ------- Electronically signed by RT Daniel(Gucci)(Suzette)(CT)([facility])( [employer]) on 03/09/2019 01:02 PM ------- ------- ------- Findings: Right Impression: Left Impression: The common femoral, superficial The common femoral, superficial femoral, popliteal, tibials, and femoral, popliteal, tibials, and greater saphenous veins, profunda greater saphenous veins, profunda are are patent, compressible with normal patent, compressible with normal doppler responses. doppler responses. Ankle edema noted. Minimal ankle edema noted. Negative for DVT. Negative for DVT. Duplex scan using B-mode, Monroy scale Duplex scan using B-mode, Monroy scale imaging. Spectral doppler analysis imaging. Spectral doppler analysis and color flow throughout the exam. and color flow throughout the exam. Velocities are measured in cm/s ; Diameters are measured in cm Right Lower Extremities DVT Study Measurements Right 2D Measurements + + +-------- -------+ + !Location !Visualized!Ned sibility!Thrombosis ! + + +-------- -------+ + !Common Femoral !Yes !Yes !None ! + + +-------- -------+ + !Prox Femoral !Yes !Yes !None ! + + +-------- -------+ + !Mid Femoral !Yes !Yes !None ! + + +-------- -------+ + !Dist Femoral !Yes !Yes !None ! + + +-------- -------+ + !Deep Femoral !Yes !Yes !None ! + + +-------- -------+ + !Popliteal !Yes !Yes !None ! + + +-------- -------+ + !Sapheno Femoral Junction !Yes !Yes !None ! + + +-------- -------+ + !PTV !Yes !Yes !None ! + + +-------- -------+ + !Gastroc !Yes !Yes !None ! + + +-------- -------+ + !GSV Thigh !Yes !Yes !None ! + + +-------- -------+ + !GSV Knee !Yes !Yes !None ! + + +-------- -------+ + !GSV Ankle !Yes !Yes !None ! + + +-------- -------+ + !SSV !Yes !Yes !None ! + + +-------- -------+ + Right Doppler Measurements + ---------+------+-- ----+ + !Location !Signal!Reflux!Refl ux (msec) ! + ---------+------+-- ----+ + !Common Femoral !Phasic!No ! ! + ---------+------+-- ----+ + !Prox Femoral !Phasic!No ! ! + ---------+------+-- ----+ + !Popliteal !Phasic!No ! ! + ---------+------+-- ----+ + Left Lower Extremities DVT Study Measurements Left 2D Measurements + + +-------- -------+ + !Location !Visualized!Ned sibility!Thrombosis ! + + +-------- -------+ + !Common Femoral !Yes !Yes !None ! + + +-------- -------+ + !Prox Femoral !Yes !Yes !None ! + + +-------- -------+ + !Mid Femoral !Yes !Yes !None ! + + +-------- -------+ + !Dist Femoral !Yes !Yes !None ! + + +-------- -------+ + !Deep Femoral !Yes !Yes !None ! + + +-------- -------+ + !Popliteal !Yes !Yes !None ! + + +-------- -------+ + !Sapheno Femoral Junction !Yes !Yes !None ! + + +-------- -------+ + !PTV !Yes !Yes !None ! + + +-------- -------+ + !Peroneal !Yes !Yes !None ! + + +-------- -------+ + !Gastroc !Yes !Yes !None ! + + +-------- -------+ + !GSV Thigh !Yes !Yes !None ! + + +-------- -------+ + !GSV Knee !Yes !Yes !None ! + + +-------- -------+ + !GSV Ankle !Yes !Yes !None ! + + +-------- -------+ + !SSV !Yes !Yes !None ! + + +-------- -------+ + [facility]- [place], [place] Brain Natri. Peptideon 02-10 Natriuretic peptide B (Bld) [Mass/Vol] 22 pg/mL Normal <300 [facility] Comment on above: Result Comment: Pro- BNP results cannot be compared to BNP results. Performed By: #### L IPR, CP, BNP, CDP #### [address] [place] [address] Concrete Hopper Operator: Nolberto Pollock MD Natriuretic peptide B (Bld) [Mass/Vol] Pro-BNP Reference Range: Normal [facility] Comment on above: Result Comment: Rule Out: <300 [place] Zone: Age <50 300-450 Age 50-75 300-900 Age >75 300-1800 Usually represents mild to moderate HF but other cardiopulmonary causes cannot be ruled out. Rule In: Age <50 >450 Age 50-75 >900 Age >75 >1800 Performed By: #### L IPR, CP, BNP, CDP #### [facility] [address] [place] [address] Concrete Hopper Operator: Nolberto Pollock MD CBC with Diffon 02-10-2019 Abs. Basophil 0.07 k/uL Normal 0.00-0.20 [facility] Comment on above: Performed By: #### L IPR, CP, BNP, CDP #### [facility] [address] [place] [address] Concrete Hopper Operator: Nolberto Pollock MD Abs.Imm.Granulocyte 0.07 k/uL Normal 0.00-0.30 [facility] Comment on above: Performed By: #### L IPR, CP, BNP, CDP #### [facility] [address] [place] [address] Concrete Hopper Operator: Nolberto Pollock MD Abs.Neutrophil (Seg) 6.71 k/uL Normal 1.50-8.10 [facility] Comment on above: Performed By: #### L IPR, CP, BNP, CDP #### [facility] [address] [place], [place] [address] Concrete Hopper Operator: Nolberto Pollock MD Basophils/100 WBC (Bld) 1 % Normal 0-2 [facility] Comment on above: Performed By: #### L IPR, CP, BNP, CDP #### [address] [place], [place] [address] Concrete Hopper Operator: Nolberto Pollock MD Eosinophils (Bld) [#/Vol] 0.20 10*3/uL Normal 0.00-0.44 [facility] Comment on above: Performed By: #### L IPR, CP, BNP, CDP #### [facility] [address] [place], [facility] Concrete Hopper Operator: Nolberto Pollock MD Eosinophils/100 WBC (Bld) 2 % Normal 1-4 [facility] Comment on above: Performed By: #### L IPR, CP, BNP, CDP #### [facility] [address] [place], [facility] Concrete Hopper Operator: Nolberto Pollock MD Erythrocyte distribution width (RBC) [Ratio] 16.3 % High 11.8-14.4 [facility] Comment on above: Performed By: #### L IPR, CP, BNP, CDP #### [facility] [address] [place], [place] [id number] Concrete Hopper Operator: Nolberto Pollock MD Hematocrit (Bld) [Volume fraction] 40.1 % Normal 36.3-47.1 [facility] Comment on above: Performed By: #### L IPR, CP, BNP, CDP #### [facility] [address] [place], [facility] Concrete Hopper Operator: Nolberto Pollock MD Hemoglobin (Bld) [Mass/Vol] 11.7 g/dL Low 11.9-15.1 [facility] Comment on above: Performed By: #### L IPR, CP, BNP, CDP #### [facility] [address] [place], [place] [address] Concrete Hopper Operator: Nolberto Pollock MD Immature granulocytes (Bld) [#/Vol] 1 % High 0 [facility] Comment on above: Performed By: #### L IPR, CP, BNP, CDP #### [facility] [address] [place], [facility] Concrete Hopper Operator: Nolberto Pollock MD Lymphocytes (Bld) [#/Vol] 3.68 10*3/uL Normal 1.10-3.70 [facility] Comment on above: Performed By: #### L IPR, CP, BNP, CDP #### [facility] [address] [place], [facility] Concrete Hopper Operator: Nolberto Pollock MD Lymphocytes/100 WBC (Bld) 33 % Normal 24-43 [facility] Comment on above: Performed By: #### L IPR, CP, BNP, CDP #### [facility] [address] [place], [facility] Concrete Hopper Operator: Nolberto Pollock MD MCH (RBC) [Entitic mass] 24.7 pg Low 25.2-33.5 [facility] Comment on above: Performed By: #### L IPR, CP, BNP, CDP #### [address] [place] [facility] Concrete Hopper Operator: Nolberto Pollock MD MCHC (RBC) [Mass/Vol] 29.2 g/dL Normal 28.4-34.8 [facility] Comment on above: Performed By: #### L IPR, CP, BNP, CDP #### [address] [place] [address] Concrete Hopper Operator: Nolberto Pollock MD MCV (RBC) [Entitic vol] 84.6 fL Normal 82.6-102.9 [facility] Comment on above: Performed By: #### L IPR, CP, BNP, CDP #### [address] [place], [place] [address] Concrete Hopper Operator: Nolberto Pollock MD Monocytes (Bld) [#/Vol] 0.61 10*3/uL Normal 0.10-1.20 [facility] Comment on above: Performed By: #### L IPR, CP, BNP, CDP #### [address] [place], [facility] Concrete Hopper Operator: Nolberto Pollock MD Monocytes/100 WBC (Bld) 5 % Normal 3-12 [facility] Comment on above: Performed By: #### L IPR, CP, BNP, CDP #### [address] [place], [facility] Concrete Hopper Operator: Nolberto Pollock MD Neutrophil (Seg) 58 % Normal 36-65 [facility] Comment on above: Performed By: #### L IPR, CP, BNP, CDP #### [facility] [address] [place], [place] [id number] Concrete Hopper Operator: Nolberto Pollock MD NRBC Automated 0.0 per 100 WBC Normal 0.0 [facility] Comment on above: Performed By: #### L IPR, CP, BNP, CDP #### [facility] [address] [place], [place] [address] Concrete Hopper Operator: Nolberto Pollock MD Platelet mean volume (Bld) [Entitic vol] 10.8 fL Normal 8.1-13.5 [facility] Comment on above: Performed By: #### L IPR, CP, BNP, CDP #### [facility] [address] [place], [facility] Concrete Hopper Operator: Nolberto Pollock MD Platelets (Bld) [#/Vol] 370 10*3/uL Normal 138-453 [facility] Comment on above: Performed By: #### L IPR, CP, BNP, CDP #### [address] [place], [facility] Concrete Ho[employer] Operator: Nolberto Pollock MD RBC (Bld) [#/Vol] 4.74 10*6/uL Normal 3.95-5.11 [facility] Comment on above: Performed By: #### L IPR, CP, BNP, CDP #### [address] [place], [place] [address] Concrete Hopper Operator: Nolberto Pollock MD WBC (Bld) [#/Vol] 11.3 10*3/uL Normal 3.5-11.3 [facility] Comment on above: Performed By: #### L IPR, CP, BNP, CDP #### [address] [place], [facility] Concrete Hopper Operator: Nolberto Pollock MD Auto Diff Performed NOT REPORTED Normal [facility] Comment on above: Performed By: #### L IPR, CP, BNP, CDP #### [address] [place], [facility] Concrete Hopper Operator: Nolberto Pollock MD Platelets (Bld) [#/Vol] NOT REPORTED Normal [facility] Comment on above: Performed By: #### L IPR, CP, BNP, CDP #### [facility] [address] [place] [address] Concrete Hopper Operator: Nolberto Pollock MD RBC morphology finding Nom (Bld) NOT REPORTED Normal [facility] Comment on above: Performed By: #### L IPR, CP, BNP, CDP #### [facility] [address] [place] [address] Concrete Hopper Operator: Nolberto Pollock MD WBC Morphology NOT REPORTED Normal [facility] Comment on above: Performed By: #### L IPR, CP, BNP, CDP #### [facility] [address] [place] [address] Concrete Hopper Operator: Nolberto Pollock MD Comp Metabolic Profon 2018 (cont.) Normal [facility] Comment on above: Result Comment: Aver age GFR for 40-49 years old: 99 mL/min/1.73sq m Chronic Kidney Disease: <60 mL/min/1.73sq m Kidney failure: <15 mL/min/1.73sq m eGFR calculated using average adult body mass. Additional eGFR calculator available at: http://[email or web address].DanceOn/multiple_crcl_2012.htm Performed By: #### L IPR, CP, BNP, CDP #### [address] [place] [address] Concrete Hopper Operator: Nolberto Pollock MD Albumin [Mass/Vol] 4.4 g/dL Normal 3.5-5.2 [facility] Comment on above: Performed By: #### L IPR, CP, BNP, CDP #### [facility] [address] [place] [address] Concrete Hopper Operator: Nolberto Pollock MD Albumin/Globulin [Mass ratio] 1.3 {ratio} Normal 1.0-2.5 [facility] Comment on above: Performed By: #### L IPR, CP, BNP, CDP #### [facility] [address] [place], [place] [id number] Concrete Hopper Operator: Nolbetro Pollock MD Alkaline Phos 94 U/L Normal 35-104 [facility] Comment on above: Performed By: #### L IPR, CP, BNP, CDP #### [facility] [address] [place] [id number] Concrete Hopper Operator: Nolberto Pollock MD ALT [Catalytic activity/Vol] 19 U/L Normal 5-33 [facility] Comment on above: Performed By: #### L IPR, CP, BNP, CDP #### [facility] [address] [place], [place] [id number] Concrete Hopper Operator: Nolberto Pollock MD Anion gap [Moles/Vol] 10 mmol/L Normal 9-17 [facility] Comment on above: Performed By: #### L IPR, CP, BNP, CDP #### [facility] [address] [place], [place] [id number] Concrete Hopper Operator: Nolberto Pollock MD AST [Catalytic activity/Vol] 19 U/L Normal <32 [facility] Comment on above: Performed By: #### L IPR, CP, BNP, CDP #### [facility] [address] [place], [place] [id number] Concrete Hopper Operator: Nolberto Pollock MD Bilirubin Ql (U) 0.15 mg/dL Low 0.3-1.2 [facility] Comment on above: Performed By: #### L IPR, CP, BNP, CDP #### [facility] [address] [place], [place] [id number] Concrete Hopper Operator: Nolberto Pollock MD BUN/CRE Ratio 15 Normal 9-20 [facility] Comment on above: Performed By: #### L IPR, CP, BNP, CDP #### [facility] [address] [place], [place] [id number] Concrete Hopper Operator: Nolberto Pollock MD Calcium [Mass/Vol] 9.3 mg/dL Normal 8.6-10.4 [facility] Comment on above: Performed By: #### L IPR, CP, BNP, CDP #### [facility] [address] [place], [facility] Concrete Hopper Operator: Nolberto Pollock MD Chloride [Moles/Vol] 106 mmol/L Normal 98-107 [facility] Comment on above: Performed By: #### L IPR, CP, BNP, CDP #### [facility] [address] [place], [facility] Concrete Hopper Operator: Nolberto Pollock MD CO2 [Moles/Vol] 27 mmol/L Normal 20-31 [facility] Comment on above: Performed By: #### L IPR, CP, BNP, CDP #### [facility] [address] [place], [facility] Concrete Hopper Operator: Nolberto Pollock MD Creatinine [Mass/Vol] 0.81 mg/dL Normal 0.50-0.90 [facility] Comment on above: Performed By: #### L IPR, CP, BNP, CDP #### [facility] [address] [place], [facility] Concrete Hopper Operator: Nolberto Pollock MD GFR, Amer >60 Normal >60 [facility] Comment on above: Performed By: #### L IPR, CP, BNP, CDP #### [facility] [address] [place], [facility] Concrete Hopper Operator: Nolberto Pollock MD GFR,non Amer >60 Normal >60 [facility] Comment on above: Performed By: #### L IPR, CP, BNP, CDP #### [facility] [address] [place], [facility] Concrete Hopper Operator: Nolberto Pollock MD Glucose [Mass/Vol] 106 mg/dL High 70-99 [facility] Comment on above: Performed By: #### L IPR, CP, BNP, CDP #### [facility] [address] [place] [facility] Concrete Hopper Operator: Nolberto Pollock MD Potassium [Moles/Vol] 4.1 mmol/L Normal 3.7-5.3 [facility] Comment on above: Performed By: #### L IPR, CP, BNP, CDP #### [facility] [address] [place] [address] Concrete Hopper Operator: Nolberto Pollock MD Protein [Mass/Vol] 7.7 g/dL Normal 6.4-8.3 [facility] Comment on above: Performed By: #### L IPR, CP, BNP, CDP #### [facility] [address] [place], [facility] Concrete Hopper Operator: Nolberto Pollock MD Sodium [Moles/Vol] 143 mmol/L Normal 135-144 [facility] Comment on above: Performed By: #### L IPR, CP, BNP, CDP #### [address] [place], [facility] Concrete Hopper Operator: Nolberto Pollock MD Staging: Normal [facility] Comment on above: Result Comment: Stag e 1: Some kidney damage normal GFR Stage 2: Mild kidney damage GFR 60-89 Stage 3: Moderate kidney damage GFR 30-59 Stage 4: Severe kidney damage GFR 15-29 Stage 5: Severe kidney damage GFR <15 ESRD - chronic treatment by dialysis or transplant Performed By: #### L IPR, CP, BNP, CDP #### [address] [place], [facility] Concrete Hopper Operator: Nolberto Pollock MD Urea nitrogen [Mass/Vol] 12 mg/dL Normal 6-20 [facility] Comment on above: Performed By: #### L IPR, CP, BNP, CDP #### [facility] [address] [place] [address] Concrete Hopper Operator: Nolberto Pollock MD Lipid Profileon 02-10-2019 Cholesterol [Mass/Vol] 184 mg/dL Normal <200 [facility] Comment on above: Result Comment: Cholesterol Guidelines: <200 Desirable 200-240 Borderline >240 Undesirable Performed By: #### L IPR, CP, BNP, CDP #### [facility] [address] [place] [address] Concrete Hopper Operator: Nolberto Pollock MD Cholesterol in HDL [Mass/Vol] 46 mg/dL Normal >40 [facility] Comment on above: Result Comment: HDL Guidelines: <40 Undesirable 40-59 Borderline >59 Desirable Performed By: #### L IPR, CP, BNP, CDP #### [facility] [address] [place] [address] Concrete Hopper Operator: Nolberto Pollock MD Cholesterol in LDL [Mass/Vol] 113 mg/dL Normal 0-130 [facility] Comment on above: Result Comment: LDL Guidelines: <100 Desirable 100-129 Near to/above Desirable 130-159 Borderline >159 Undesirable Direct (measured) LDL and calculated LDL are not interchangeable tests. Performed By: #### L IPR, CP, BNP, CDP #### [facility] [address] [place] [address] Concrete Hopper Operator: Nolberto Pollock MD Cholesterol.total/Kyra sterol in HDL [Mass ratio] 4.0 {ratio} Normal <5 [facility] Comment on above: Performed By: #### L IPR, CP, BNP, CDP #### [facility] [address] [place] [address] Concrete Hopper Operator: Nolberto Pollock MD Triglyceride [Mass/Vol] 123 mg/dL Normal <150 [facility] Comment on above: Result Comment: Triglyceride Guidelines: <150 Desirable 150-199 Borderline 200-499 High >499 Very high Based on AHA Guidelines for fasting triglyceride, April 2012. Performed By: #### L IPR, CP, BNP, CDP #### [facility] [address] [place] [address] Concrete Hopper Operator: Nolberto Pollock MD Cholesterol in VLDL [Mass/Vol] NOT REPORTED Normal 1-30 [facility] Comment on above: Performed By: #### L IPR, CP, BNP, CDP #### [facility] [address] [place] [address] Concrete Hopper Operator: Nolberto Pollock MD Vital Signs Date Time Vital Sign Value Performing Clinician Leighann hayes 02-18-2023 13:30-0400 Diastolic blood pressure 75 mm[Hg] Laurie Cadena MD Work Phone: [employer] 02-18-2023 13:30-0400 Heart rate 114 /min Laurie Cadena MD Work Phone: [employer] 02-18-2023 13:30-0400 Respiratory rate 19 /min Laurie Cadena MD Work Phone: [employer] 02-18-2023 13:30-0400 SaO2% (BldA) [Mass fraction] 92 % Laurie Cadena MD Work Phone: [employer] 02-18-2023 13:30-0400 Systolic blood pressure 117 mm[Hg] Laurie Cadena MD Work Phone: [employer] 02-18-2023 11:03-0400 Body height 160 cm Laurie Cadena MD Work Phone: [employer] 02-18-2023 11:03-0400 Body mass index (BMI) [Ratio] 40.9 kg/m2 Laurie Cadena MD Work Phone: [employer] 02-18-2023 11:03-0400 Body temperature 99.1 [degF] Laurie Cadena MD Work Phone: [employer] 02-18-2023 11:03-0400 Body weight 104.74 kg Laurie Cadena MD Work Phone: [employer] 10-02-2022 11:43-0400 Heart rate 102 /min Michael Yoder MD Work Phone: [employer] 10-02-2022 11:43-0400 Respiratory rate 21 /min Michael Yoder MD Work Phone: [employer] 10-02-2022 11:43-0400 SaO2% (BldA) [Mass fraction] 94 % Michael Yoder MD Work Phone: [facility] 10-02-2022 11:28-0400 Diastolic blood pressure 85 mm[Hg] Michael Yoder MD Work Phone: [facility] 10-02-2022 11:28-0400 Systolic blood pressure 123 mm[Hg] Michael Yoder MD Work Phone: [facility] 10-02-2022 10:24-0400 Body mass index (BMI) [Ratio] 41.77 kg/m2 Michael Yoder MD Work Phone: [facility] 10-02-2022 10:24-0400 Body temperature 97.9 [degF] Michael Yoder MD Work Phone: [facility] 10-02-2022 10:24-0400 Body weight 106.96 kg Michael Yoder MD Work Phone: [facility] 08-28-2022 11:46-0500 Blood Pressure Location Fozia BOOGIE [facility] 08-28-2022 11:46-0500 Body temperature 98.06 [degF] [facility] BOOGIE [facility] 08-28-2022 11:46-0500 Diastolic blood pressure 78 mm[Hg] [facility] BOOGIE [facility] 08-28-2022 11:46-0500 Heart rate 80 /min [facility] BOO[facility]IE [facility] 08-28-2022 11:46-0500 SaO2% (BldA) [Mass fraction] 95 % [facility] B[facility] 08-28-2022 11:46-0500 Systolic blood pressure 126 mm[Hg] Fozia BOOGIE [facility] 07-04-2021 07:30-0500 Body temperature 98.29 [degF] Brian Han MD Work Phone: [employer] 07-04-2021 07:30-0500 Diastolic blood pressure 64 mm[Hg] Brian Han MD Work Phone: [employer] 07-04-2021 07:30-0500 SaO2% (BldA) [Mass fraction] 94 % Brian Han MD Work Phone: [employer] 07-04-2021 07:30-0500 Systolic blood pressure 112 mm[Hg] Brian Han MD Work Phone: [employer] 07-04-2021 02:32-0500 Body mass index (BMI) [Ratio] 44.87 kg/m2 Brian Han MD Work Phone: [employer] 07-04-2021 02:32-0500 Body weight 114.9 kg Brian Han MD Work Phone: [employer] 07-04-2021 02:32-0500 Heart rate 105 /min Brian Han MD Work Phone: [employer] 07-04-2021 02:32-0500 Respiratory rate 20 /min Brian Han MD Work Phone: [employer] 07-03-2021 22:00-0500 Body height 160 cm Brian Han MD Work Phone: [employer] 07-03-2021 05:00-0500 Diastolic blood pressure 58 mm[Hg] Adam Martinez MD Work Phone: [employer] 07-03-2021 05:00-0500 Heart rate 83 /min Adam Martinez MD Work Phone: [employer] 07-03-2021 05:00-0500 Respiratory rate 26 /min Adam Martinez MD Work Phone: [employer] 07-03-2021 05:00-0500 SaO2% (BldA) [Mass fraction] 95 % Adam Martinez MD Work Phone: [employer] 07-03-2021 05:00-0500 Systolic blood pressure 110 mm[Hg] Adam Martinez MD Work Phone: [employer] 07-03-2021 01:00-0500 Body mass index (BMI) [Ratio] 44.21 kg/m2 Adam Martinez MD Work Phone: [employer] 07-03-2021 01:00-0500 Body temperature 98.1 [degF] Adam Martinez MD Work Phone: [employer] 07-03-2021 01:00-0500 Body weight 113.22 kg Adam Martinez MD Work Phone: [employer] 06-27-2021 11:39-0500 Body height 160 cm Adam Martinez MD Work Phone: [employer] 01-07-2021 06:00-0400 Body mass index (BMI) [Ratio] 41.63 kg/m2 Souleymane Lofton MD Work Phone: [employer] Work Phone: 01-07-2021 06:00-0400 Body temperature 98.4 [degF] Souleymane Lofton MD Work Phone: [employer] Work Phone: 01-07-2021 06:00-0400 Body weight 110 kg Souleymane Lofton MD Work Phone: [employer] Work Phone: 01-07-2021 06:00-0400 Diastolic blood pressure 88 mm[Hg] Souleymane Lofton MD Work Phone: [employer] Work Phone: 01-07-2021 06:00-0400 Heart rate 76 /min Souleymane Lofton MD Work Phone: [employer] Work Phone: 01-07-2021 06:00-0400 Respiratory rate 17 /min Souleymane Lofton MD Work Phone: [employer] Work Phone: 01-07-2021 06:00-0400 SaO2% (BldA) [Mass fraction] 92 % Souleymane Lofton MD Work Phone: [employer] Work Phone: 01-07-2021 06:00-0400 Systolic blood pressure 127 mm[Hg] Souleymane Lofton MD Work Phone: [employer] Work Phone: 01-06-2021 02:45-0400 Body height 162.6 cm Souleymane Lofton MD Work Phone: [employer] Work Phone: 01-05-2021 15:04-0400 Diastolic blood pressure 83 mm[Hg] Gaye Lopez MD Work Phone: [employer] Work Phone: 01-05-2021 15:04-0400 Heart rate 102 /min Gaye Lopez MD Work Phone: [employer] Work Phone: 01-05-2021 15:04-0400 Respiratory rate 21 /min Gaye Lopez MD Work Phone: [employer] Work Phone: 01-05-2021 15:04-0400 SaO2% (BldA) [Mass fraction] 94 % Gaye Lopez MD Work Phone: [employer] Work Phone: 01-05-2021 15:04-0400 Systolic blood pressure 129 mm[Hg] Gaye Lopez MD Work Phone: [employer] Work Phone: 01-05-2021 13:59-0400 Body height 162.6 cm Gaye Lopez MD Work Phone: [employer] Work Phone: 01-05-2021 13:59-0400 Body mass index (BMI) [Ratio] 41.71 kg/m2 Gaye Lopez MD Work Phone: [employer] Work Phone: 01-05-2021 13:59-0400 Body weight 110.22 kg Gaye Lopez MD Work Phone: [employer] Work Phone: 01-05-2021 11:44-0400 Body temperature 97.3 [degF] Gaye Lopez MD Work Phone: [employer] Work Phone: Encounters Encounter Date Encounter Type Care Provider Facility Start: 02-18-2024 ambulatory [facility] Start: 02-16-2024 End: 02-16-2024 ambulatory BARBI FINCHETT Not Available Start: 01-13-2024 End: 01-13-2024 ambulatory SADIQ AICHHOLZ Not Available Start: 12-20-2023 End: 12-20-2023 ambulatory SADIQ AICHHOLZ Not Available Start: 05-25-2023 End: 05-26-2023 ambulatory VISHAL ASHRAF Facility:[facility] Start: 05-25-2023 End: 05-25-2023 Lab Drop off VISHAL ASHRAF [facility] Start: 05-25-2023 End: 05-26-2023 ambulatory Florentin Clement Facility: [facility] Start: 05-25-2023 End: 05-25-2023 Patient encounter procedure Florentin Clement [facility] Start: 05-21-2023 End: 05-21-2023 ambulatory DENICE WHITEHEADBRITTNEY Start: 05-10-2023 End: 05-11-2023 ambulatory DENICE GRACE Facility:[facility] Start: 05-10-2023 End: 05-10-2023 Lab Drop off DENICE GRACE [facility] Start: 05-10-2023 End: 05-11-2023 ambulatory Florentin Clement Facility:[facility] Start: 05-10-2023 End: 05-10-2023 Patient encounter procedure Florentin Clement [facility] Start: 02-18-2023 End: 02-18-2023 Emergency department patient visit [facility] Start: 02-18-2023 End: 02-18-2023 Emergency department patient visit Laurie Cadena MD Work Phone: [facility] Comment on above: Streptococcal sore t hroat (Primary Dx); Tachycardia; Atypical chest pain Start: 11-10-2022 End: 11-11-2022 ambulatory Dayanara X Orzech Facility:[facility] Start: 11-10-2022 End: 11-10-2022 Lab Drop off [place] X Orzech [facility] Start: 10-02-2022 End: 10-02-2022 Emergency department patient visit [facility] Start: 10-02-2022 End: 10-02-2022 Emergency department patient visit Michael Yoder MD Work Phone: [facility] Comment on above: Chest pain, unspecif ied type (Primary Dx); History of non-ST elevation myocardial infarction (NSTEMI) Start: 08-28-2022 End: 08-29-2022 ambulatory Fozia BOOGIE Facility:[facility] Start: 08-28-2022 End: 08-28-2022 Patient encounter procedure Fozia BOOGIE [facility] Start: 02-16-2022 End: 02-16-2022 Subsequent hospital visit by physician Vishal Ashraf DO Work Phone: [facility] Comment on above: Post PTCA; Unstable angina pectoris (HCC); SOB (shortness of breath); Anemia, unspecified type; Vitamin D deficiency disease Start: 01-27-2022 End: 01-27-2022 Departed Referred JEFFERY Bermudez Work Phone: [facility] [address] Start: 10-20-2021 End: 10-20-2021 Subsequent hospital visit by physician [facility] Comment on above: Canceled (Discharged ) Start: 09-24-2021 End: 09-24-2021 Subsequent hospital visit by physician [facility] Start: 08-29-2021 End: 08-29-2021 Subsequent hospital visit by physician [facility] Comment on above: Arrived Start: 08-04-2021 End: 08-04-2021 Subsequent hospital visit by physician [facility] Comment on above: Arrived Start: 07-30-2021 End: 07-30-2021 Subsequent hospital visit by physician [facility] Comment on above: Arrived Start: 07-03-2021 End: 07-04-2021 Evaluation and management of inpatient Brian Han MD Work Phone: [facility] Start: 07-03-2021 End: 07-03-2021 ambulatory [facility] Start: 06-26-2021 End: 07-03-2021 Evaluation and management of inpatient Aadm Martinez MD Work Phone: [facility] Comment on above: Chest pain, unspecif ied type (Primary Dx) Start: 02-21-2021 End: 02-21-2021 ambulatory DELVIN MIRELES [facility] Start: 02-21-2021 End: 02-21-2021 Office consultation new/estab patient 40 min Delvin Mireles MD Work Phone: [facility] Comment on above: Chronic laryngitis ( Primary Dx); Snoring; Laryngopharyngeal reflux (LPR); Tobacco abuse disorder; Globus sensation Start: 01-21-2021 End: 01-21-2021 Transcribe Orders Ellie Lincoln MA [facility] Comment on above: Globus sensation (Pr imary Dx) Start: 01-17-2021 End: 01-17-2021 Subsequent hospital visit by physician Gerry Guerra [employer] Work Phone: [facility] Comment on above: Fatigue, unspecified type Start: 01-15-2021 End: 01-15-2021 Subsequent hospital visit by physician Gerry Guerra [employer] Work Phone: [facility] Comment on above: Heat intolerance Start: 01-05-2021 End: 01-07-2021 [facility] Start: 01-05-2021 End: 01-07-2021 Evaluation and management of inpatient Souleymane Lofton MD Work Phone: [facility] Comment on above: Uvular edema (Primar y Dx) Start: 01-05-2021 End: 01-05-2021 Emergency department patient visit Gaye Lopez MD Work Phone: [facility] Comment on above: Pharyngeal swelling (Primary Dx); Angioedema, initial encounter Start: 06-24-2020 End: 06-26-2020 Subsequent hospital visit by physician Pierre Additional Xray At [facility] Comment on above: Chronic midline thor acic back pain; Chronic midline low back pain without sciatica Start: 10-05-2019 End: 10-05-2019 Subsequent hospital visit by physician Gerry Guerra [facility] Comment on above: Sore throat Start: 03-09-2019 End: 03-11-2019 Subsequent hospital visit by physician Pierre Waddell [facility] Comment on above: Venous (peripheral) insufficiency; Lower extremity edema Start: 02-10-2019 End: 02-11-2019 Patient encounter procedure [facility] Procedures Date Procedure Procedure Detail Performing Clinician Start: 08-03-2023 Assay of troponin quantitative Laurie Ocampo MD Work Phone: Start: 02-18-2023 Radiologic exam chest single view Laurie Cadena MD Work Phone: Start: 02-18-2023 COVID-19, RAPID Laurie Cadena MD Work Phone: Start: 02-18-2023 Iaad ia streptococcus group a Laurie araujo MD Work Phone: Start: 02-18-2023 Ecg routine ecg w/least 12 lds w/i&r Laurie Cadena MD Work Phone: Start: 02-18-2023 Comprehensive metabolic panel Laurie araujo MD Work Phone: Start: 10-02-2022 Radiologic exam chest single view Niko Yoder MD Work Phone: Start: 10-02-2022 BASIC METABOLIC PANEL W/ REFLEX TO MG FOR LOW K Michael Yoder MD Work Phone: Start: 10-02-2022 End: 10-02-2022 Fibrin dgradj products d-dimer quantitative Michael Yoder MD Work Phone: Start: 10-02-2022 Ecg routine ecg w/least 12 lds w/i&r Michael Yoder MD Work Phone: Start: 02-16-2022 Comprehensive metabolic panel Jason bar MD Work Phone: Start: 02-16-2022 Lipid panel Jason Grace MD Work Phone: Start: 02-16-2022 PATIENT FASTING? Jason Grace MD Work Phone: Start: 02-16-2022 Ecg routine ecg w/least 12 lds w/i&r Jason Grace MD Work Phone: Start: 07-04-2021 Gluc bld gluc mntr dev cleared fda spec home use Brian Han MD Work Phone: Start: 07-04-2021 Ecg routine ecg w/least 12 lds w/i&r Brian Han MD Work Phone: Start: 07-04-2021 Blood count complete auto&auto difrntl wbc Brian Han MD Work Phone: Start: 07-03-2021 Rhythm ecg 1-3 leads w/interpretation & report Unknown Provider Result Start: 07-03-2021 Basic metabolic panel calcium total Kelvin Han MD Work Phone: Start: 07-03-2021 Rhythm ecg 1-3 leads w/interpretation & report Unknown Provider Result Start: 07-02-2021 Gluc bld gluc mntr dev cleared fda spec home use Brian Han MD Work Phone: Start: 07-02-2021 Rhythm ecg 1-3 leads w/interpretation & report Unknown Provider Result Start: 07-02-2021 End: 07-02-2021 Rhythm ecg 1-3 leads w/interpretation & report Unknown Provider Result Start: 07-02-2021 Gluc bld gluc mntr dev cleared fda spec home use Brian Han MD Work Phone: Start: 07-02-2021 Ecg routine ecg w/least 12 lds i&r only Jason Grace MD Work Phone: Start: 07-02-2021 Gluc bld gluc mntr dev cleared fda spec home use Brian Han MD Work Phone: Start: 07-02-2021 Comprehensive metabolic panel Jason bar MD Work Phone: Start: 07-02-2021 Ecg routine ecg w/least 12 lds i&r only Jason Grace MD Work Phone: Start: 07-02-2021 Radiologic exam chest single view Brian Han MD Work Phone: Start: 07-02-2021 Gluc bld gluc mntr dev cleared fda spec home use Brian Han MD Work Phone: Start: 07-02-2021 End: 07-02-2021 Thromboplastin time partial plasma/whole blood Brian Han MD Work Phone: Start: 07-02-2021 End: 07-02-2021 Rhythm ecg 1-3 leads w/interpretation & report Unknown Provider Result Start: 07-02-2021 Rhythm ecg 1-3 leads w/interpretation & report Unknown Provider Result Start: 07-01-2021 Rhythm ecg 1-3 leads w/interpretation & report Unknown Provider Result Start: 07-01-2021 Rhythm ecg 1-3 leads w/interpretation & report Unknown Provider Result Start: 07-01-2021 Rhythm ecg 1-3 leads w/interpretation & report Unknown Provider Result Start: 07-01-2021 End: 07-01-2021 Basic metabolic panel calcium total Kelvin Han MD Work Phone: Start: 07-01-2021 End: 07-01-2021 Rhythm ecg 1-3 leads w/interpretation & report Unknown Provider Result Start: 06-30-2021 End: 06-30-2021 Thromboplastin time partial plasma/whole blood Brian Han MD Work Phone: Start: 06-30-2021 Gluc bld gluc mntr dev cleared fda spec home use Brian Han MD Work Phone: Start: 06-30-2021 Thromboplastin time partial plasma/whole blood Brian Han MD Work Phone: Start: 06-30-2021 Gluc bld gluc mntr dev cleared fda spec home use Brian Han MD Work Phone: Start: 06-30-2021 Echo tthrc r-t 2d w/wom-mode compl spec&colr d Brian Han MD Work Phone: Start: 06-30-2021 End: 06-30-2021 Thromboplastin time partial plasma/whole blood Brian Han MD Work Phone: Start: 06-30-2021 End: 07-01-2021 Rhythm ecg 1-3 leads w/interpretation & report Unknown Provider Result Start: 06-30-2021 Basic metabolic panel calcium total Kelvin Han MD Work Phone: Start: 06-29-2021 End: 06-29-2021 Thromboplastin time partial plasma/whole blood Jason Grace MD Work Phone: Start: 06-29-2021 Thromboplastin time partial plasma/whole blood Brian Han MD Work Phone: Start: 06-29-2021 End: 06-29-2021 Ecg routine ecg w/least 12 lds i&r only Brian Han MD Work Phone: Start: 06-29-2021 End: 06-29-2021 Rhythm ecg 1-3 leads w/interpretation & report Unknown Provider Result Start: 06-29-2021 Gluc bld gluc mntr dev cleared fda spec home use Brian Han MD Work Phone: Start: 06-29-2021 Thromboplastin time partial plasma/whole blood Jason Grace MD Work Phone: Start: 06-29-2021 Gluc bld gluc mntr dev cleared fda spec home use Brian Han MD Work Phone: Start: 06-29-2021 Rhythm ecg 1-3 leads w/interpretation & report Unknown Provider Result Start: 06-29-2021 Rhythm ecg 1-3 leads w/interpretation & report Unknown Provider Result Start: 06-29-2021 Blood count complete automated Jason pineda MD Work Phone: Start: 06-28-2021 Thromboplastin time partial plasma/whole blood Jason Grace MD Work Phone: Start: 06-28-2021 Gluc bld gluc mntr dev cleared fda spec home use Brian Han MD Work Phone: Start: 06-28-2021 Rhythm ecg 1-3 leads w/interpretation & report Unknown Provider Result Start: 06-28-2021 Gluc bld gluc mntr dev cleared fda spec home use Brian aHn MD Work Phone: Start: 06-28-2021 Thromboplastin time partial plasma/whole blood Jason Grace MD Work Phone: Start: 06-28-2021 Rhythm ecg 1-3 leads w/interpretation & report Unknown Provider Result Start: 06-28-2021 Rhythm ecg 1-3 leads w/interpretation & report Unknown Provider Result Start: 06-28-2021 Gluc bld gluc mntr dev cleared fda spec home use Brian Han MD Work Phone: Start: 06-28-2021 Ecg routine ecg w/least 12 lds i&r only Jason Grace MD Work Phone: Start: 06-28-2021 End: 06-28-2021 Assay of ferritin Brian Han MD Work Phone: Start: 06-28-2021 Rhythm ecg 1-3 leads w/interpretation & report Unknown Provider Result Start: 06-28-2021 Rhythm ecg 1-3 leads w/interpretation & report Unknown Provider Result Start: 06-28-2021 End: 06-28-2021 Thromboplastin time partial plasma/whole blood Jason Grace MD Work Phone: Start: 06-28-2021 Rhythm ecg 1-3 leads w/interpretation & report Unknown Provider Result Start: 06-27-2021 Thromboplastin time partial plasma/whole blood Jason Grace MD Work Phone: Start: 06-27-2021 Gluc bld gluc mntr dev cleared fda spec home use Brian Han MD Work Phone: Start: 06-27-2021 Rhythm ecg 1-3 leads w/interpretation & report Unknown Provider Result Start: 06-27-2021 Gluc bld gluc mntr dev cleared fda spec home use Brian Han MD Work Phone: Start: 06-27-2021 Rhythm ecg 1-3 leads w/interpretation & report Unknown Provider Result Start: 06-27-2021 Thromboplastin time partial plasma/whole blood Jason Grace MD Work Phone: Start: 06-27-2021 Assay of troponin quantitative Brian crowley MD Work Phone: Start: 06-27-2021 Rhythm ecg 1-3 leads w/interpretation & report Unknown Provider Result Start: 06-27-2021 Urinalysis microscopic only Brian Crawford Work Phone: Start: 12-10-2021 Urnls dip stick/tablet rgnt auto w/o microscopy Brian Han MD Work Phone: Start: 06-27-2021 End: 06-27-2021 Hemoglobin glycosylated a1c Brian Crawford Work Phone: Start: 06-27-2021 Ecg routine ecg w/least 12 lds i&r only Jason Grace MD Work Phone: Start: 06-27-2021 BASIC METABOLIC PANEL W/ REFLEX TO MG FOR LOW K Brian Han MD Work Phone: Start: 06-27-2021 End: 06-27-2021 Fibrin dgradj products d-dimer quantitative Brian Han MD Work Phone: Start: 06-27-2021 COVID-19, RAPID Adam Martinez MD Work Phone: Start: 06-26-2021 Assay of troponin quantitative Adam crowley MD Work Phone: Start: 06-26-2021 Assay of troponin quantitative Adam crowley MD Work Phone: Start: 06-26-2021 Radiologic exam chest single view Adam Martinez MD Work Phone: Start: 06-26-2021 End: 06-26-2021 Comprehensive metabolic panel Adam Martinez MD Work Phone: Start: 06-26-2021 End: 06-26-2021 Ecg routine ecg w/least 12 lds i&r only Adam Martinez MD Work Phone: Start: 01-17-2021 Assay of ferritin Vishal Ashraf DO Work Phone: Start: 01-17-2021 VITAMIN B12 & FOLATE Vishal Crawford O Work Phone: Start: 01-15-2021 Blood count complete auto&auto difrntl wbc Vishal Ashraf DO Work Phone: Start: 01-07-2021 BASIC METABOLIC PANEL W/ REFLEX TO MG FOR LOW K Carol Bryan [employer] Work Phone: Start: 01-07-2021 Blood count complete automated Carol Bryan [employer] Work Phone: Start: 01-06-2021 Antibody herpes smplx non-specific type test [facility] [employer] Work Phone: Start: 01-06-2021 Procalcitonin (pct) Juanita Phipps [facility] [employer] Work Phone: Start: 01-06-2021 T. PALLIDUM AB Juanita Phipps [facility] [employer] Work Phone: Start: 01-05-2021 Ct soft tissue neck w/contrast material Christin Digioia DO Work Phone: Start: 01-05-2021 COVID-19, RAPID Christin Digioia DO Work Phone: Start: 01-05-2021 Gonadotropin chorionic qualitative Krist in Digioia DO Work Phone: Start: 01-05-2021 Radiologic exam chest single view Chao Lopez MD Work Phone: Start: 01-05-2021 Ct soft tissue neck w/o contrast material Gaye Lopez MD Work Phone: Start: 01-05-2021 Comprehensive metabolic panel Gaye Ahmadi MD Work Phone: Start: 06-24-2020 Radex spine thoracic 3 views Gerry castillo Work Phone: Start: 03-09-2019 Dup-scan xtr veins complete bilateral study Monika Rasheed Eleanor Work Phone: Start: 02-10-2019 Blood count complete auto&auto difrntl wbc GERRY CLINDEE Start: 02-10-2019 BRAIN NATRIURETIC PEPTIDE GERRY CLINGM AN Start: 02-10-2019 Comprehensive metabolic panel GERRY CAMACHO Start: 02-10-2019 Lipid panel GERRY GUERRA Appendectomy Fozia BOOGIE Colonoscopy Fozia BOOGIE Coronary stent patent (finding) Fozia BOOGIE Dilation and inserti on of tube into esophagus Fozia BOOGIE Esophagogastroduoden oscopy gastric outlet reduction Fozia BOOGIE Hysterectomy Fozia BOOGIE Plan of Treatment Date Care Activity Detail Author Start: 2026 Shingles Vaccine (1 of 2) Shingles Vaccine (1 of 2) [place] Start: 02-19-2024 GFR test (Diabetes, CKD 3-4, OR last GFR 15-59) GFR test (Diabetes, CKD 3-4, OR last GFR 15-59) [facility] Start: 02-11-2024 Lipid panel Lipid screen [place], [place] Start: 02-11-2024 Lipid screen Lipid screen [place] Start: 12-19-2023 Diabetic foot examination Diabetic foot exam [facility] Start: 12-19-2023 Hemoglobin A1c measurement A1C test (Diabetic or Prediabetic) [facility] Start: 12-18-2023 Depression Monitoring Depression Mon itoring [facility] Start: 10-03-2023 GFR test (Diabetes, CKD 3-4, OR last GFR 15-59) GFR test (Diabetes, CKD 3-4, OR last GFR 15-59) [facility] Start: 08-25-2023 DTaP/Tdap/Td vaccine (2 - Td or Tdap) DTaP/Tdap/Td vaccine (2 - Td or Tdap) [facility] Start: 08-25-2023 DTaP/Tdap/Td vaccine (2 - Td) DTaP/Tdap/Td vaccine (2 - Td) [place] Start: 08-25-2023 Tetanus vaccination Tetanus: Every 1 0yrs [facility] Start: 06-03-2023 Depression Monitoring Depression Mon itoring [facility] Start: 06-03-2023 Hemoglobin A1c measurement A1C test (Diabetic or Prediabetic) [facility] Start: 06-03-2023 Urine screening for protein Diabetic Alb to Cr ratio (uACR) test [facility] Start: 03-26-2023 End: 03-26-2023 Patient encounter procedure 03/26/2023 Office Visit Family Medicine Vishal Ashraf DO [address] [place] [address] [facility] Start: 02-16-2023 Influenza vaccination Flu vaccine (# 1) [facility] Start: 02-16-2023 Lipid panel [facility] Start: 02-11-2023 End: 02-11-2023 Patient encounter procedure 02/11/2023 Office Visit Cardiology Jason Grace MD [address] [facility] [place] [address] [facility] [employer] Start: 12-02-2022 End: 12-02-2022 Patient encounter procedure 12/02/2022 Office Visit Family Medicine Vishal Ashraf DO [address] [place] [address] [facility] Start: 10-10-2022 [facility] Start: 08-19-2022 Creatinine measurement Creatinine mo [facility] Start: 08-19-2022 Hemoglobin A1c measurement A1C test (Diabetic or Prediabetic) [facility] Start: 08-19-2022 Lipid panel Lipid screen [facility] Start: 08-19-2022 Potassium monitoring Potassium monit [facility] Start: 07-10-2022 Diabetic foot examination Diabetic foot exam [facility] Start: 07-04-2022 Creatinine measurement Creatinine mo [facility] Start: 07-04-[address]22 [address] Potassium monit [facility] Start: 07-03-2022 Creatinine measurement Creatinine mo [facility] Start: 07-03-2022 [address]assium monitoring Potassium monit [facility] Start: 06-27-2022 Hemoglobin A1c measurement A1C test (Diabetic or Prediabetic) [facility] Start: 04-16-2022 COVID-19 Vaccine (3 - Booster for Pfizer series) COVID-19 Vaccine (3 - Booster for Pfizer series) [facility] Start: 03-19-2022 Influenza vaccination [facility] Start: 02-19-2022 COVID-19 Vaccine (2 - Pfizer series) COVID-19 Vaccine (2 - Pfizer series) [facility] Start: 02-17-2022 End: 02-17-2022 Patient encounter procedure 02/17/2022 Office Visit Cardiology Jason Grace MD [address] [place] [address] [facility] [employer] Start: 11-21-2021 End: 11-21-2021 Patient encounter procedure 11/21/2021 Office Visit Family Medicine Vishal Ashraf DO [address] [place] [address] [facility] Start: 10-17-2021 End: 10-17-2021 Patient encounter procedure 10/17/2021 Appointment [facility] Start: 10-15-2021 End: 10-15-2021 Patient encounter procedure 10/15/2021 Appointment [facility] Start: 10-13-2021 End: 10-13-2021 Patient encounter procedure 10/13/2021 Appointment [facility] Start: 10-10-2021 End: 10-10-2021 Patient encounter procedure 10/10/2021 Appointment Cardiac Rehabilitation [facility] Start: 10-08-2021 End: 10-08-2021 Patient encounter procedure [facility] Start: 10-06-2021 End: 10-06-2021 Patient encounter procedure 10/06/2021 Appointment [facility] Start: 10-03-2021 End: 10-03-2021 Patient encounter procedure 10/03/2021 Appointment [facility] Start: 10-01-2021 End: 10-01-2021 Patient encounter procedure 10/01/2021 Appointment [facility] Start: 09-29-2021 End: 09-29-2021 Patient encounter procedure 09/29/2021 Appointment [facility] Start: 09-15-2021 End: 09-15-2021 Patient encounter procedure 09/15/2021 Appointment Cardiac Rehabilitation [facility] Start: 09-12-2021 End: 09-12-2021 Patient encounter procedure 09/12/2021 Appointment [facility] Start: 09-10-2021 End: 09-10-2021 Patient encounter procedure 09/10/2021 Appointment Cardiac Rehabilitation [facility] Start: 09-08-2021 End: 09-08-2021 Patient encounter procedure 09/08/2021 Appointment Cardiac Rehabilitation [facility] Start: 09-05-2021 End: 09-05-2021 Patient encounter procedure 09/05/2021 Appointment Cardiac Rehabilitation [facility] Start: 09-03-2021 End: 09-03-2021 Patient encounter procedure 09/03/2021 Appointment Cardiac Rehabilitation [facility] Start: 09-01-2021 End: 09-01-2021 Patient encounter procedure 09/01/2021 Appointment Cardiac Rehabilitation [facility] Start: 2021 Screening for malign ant neoplasm of colon [facility] Start: 08-19-2021 End: 08-19-2021 Patient encounter procedure 08/19/2021 Office Visit Cardiology Jason Grace MD [address] [place] [address] [facility] [employer] Start: 08-18-2021 End: 08-18-2021 Patient encounter procedure 08/18/2021 Appointment Cardiac Rehabilitation [facility] Start: 08-15-2021 End: 08-15-2021 Patient encounter procedure 08/15/2021 Appointment Cardiac Rehabilitation [facility] Start: 08-13-2021 End: 08-13-2021 Patient encounter procedure 08/13/2021 Appointment Cardiac Rehabilitation [facility] Start: 08-11-2021 End: 08-11-2021 Patient encounter procedure 08/11/2021 Appointment Cardiac Rehabilitation [facility] Start: 08-08-2021 End: 08-08-2021 Patient encounter procedure 08/08/2021 Appointment Cardiac Rehabilitation [facility] Start: 08-06-2021 End: 08-06-2021 Patient encounter procedure 08/06/2021 Appointment Cardiac Rehabilitation [facility] Start: 08-04-2021 End: 08-04-2021 Patient encounter procedure 08/04/2021 Appointment Cardiac Rehabilitation [facility] Start: 08-01-2021 End: 08-01-2021 Patient encounter procedure 08/01/2021 Appointment Cardiac Rehabilitation [facility] Start: 07-10-2021 End: 07-10-2021 Patient encounter procedure 07/10/2021 Office Visit Family Medicine Candice Rey MD [address] [place] [address] [facility] Start: 07-03-2021 Subsequent hospital visit by physician 07/03/2021 Hospital Encounter IP Unit [employer] Start: 03-19-2021 Influenza vaccination [facility] Start: 02-21-2021 End: 02-21-2021 Patient encounter procedure 02/21/2021 Office Visit Otolaryngology Delvin Mireles MD [address] [place] [id number] [phone] [facility] Start: 01-17-2021 End: 01-17-2021 Patient encounter procedure 01/17/2021 Office Visit Family Medicine Vishal Ashraf DO [address] [place] [address] [phone] [facility] Start: 03-19-2020 Influenza vaccination Flu vaccine (# 1) [place] Start: 02-11-2020 Creatinine measurement Creatinine mo [place]itoring [place] Start: 02-11-2020 Creatinine monitoring Creatinine mon [place]oring [place] Start: 02-11-2020 Lipid panel Lipid screen [facility] Start: 02-11-2020 Potassium monitoring Potassium monit [place]ing [place] Start: 03-19-2019 Influenza vaccination Flu vaccine (# 1) [place] Start: 2016 Diabetes screen Diabetes screen [place], [place] Start: 2016 Screening for malign ant neoplasm of breast Mammogram [facility] Start: 2016 Screening mammography [facility] Start: 04-06-2007 Cervical cancer screen Cervical canc er screen [place] Start: 04-06-2007 Screening for malign ant neoplasm of cervix Cervical cancer screen [place] Start: 1994 Diabetic retinal exam Diabetic retin al exam [facility] Start: 1994 Glaucoma screening Diabetic retinal exam [facility] Start: 1994 Hepatitis C screening Hepatitis C Sc reening [facility] Start: 1994 Urine screening for protein Diabetic microalbuminuria test [facility] Start: 1991 HIV screening HIV Screening [facility] Start: 1988 COVID-19 Vaccine (1) COVID-19 Vaccin e (1) [facility] Start: 1988 Depression Monitoring Depression [facility] Start: 1988 Depression screening using PHQ-9 (Patient Health Questionnaire 9) score Depression Screening (PHQ9) [facility] Start: 1986 Diabetic foot examination Diabetic foot exam [facility] Start: 1982 Pneumococcal 0-64 ye ars Vaccine (1 - PCV) Pneumococcal 0-64 years Vaccine (1 - PCV) [facility] Start: 1982 Pneumococcal 0-64 ye ars Vaccine (1 of 1 - PPSV23) Pneumococcal 0-64 years Vaccine (1 of 1 - PPSV23) [place] Start: 1982 Pneumococcal 0-64 ye ars Vaccine (1 of 2 - PPSV23) Pneumococcal 0-64 years Vaccine (1 of 2 - PPSV23) [facility] Start: 1982 Pneumococcal Vaccine : Ped or At-Risk (1 of 2 - PPSV23) Pneumococcal Vaccine: Ped or At-Risk (1 of 2 - PPSV23) [facility] Start: 1981 COVID-19 Vaccine (1) COVID-19 Vaccin e (1) [facility] Start: 1979 History and physical examination, annual for health maintenance Wellness Visit [facility] Start: 1976 Screening for malign ant neoplasm of cervix Pap Smear [facility] aPTT in Blood by Coagulation assay APTT Lab Routine Daily until discontinued starting 07/02/2021, 2 completed [employer] Phone: Comment on above: Daily until disconti nued starting 07/02/2021, 2 completed CBC panel - Blood by Automated count CBC Lab Routine Every Other Day until discontinued starting 06/29/2021, 3 completed [employer] Phone: Comment on above: Every Other Day unti l discontinued starting 06/29/2021, 3 completed Continuous pulse oximetry Pulse oximetry, continuous Respiratory Care Routine Every 4hr until discontinued starting 01/06/2021 [employer] Phone: Comment on above: Every 4hr until disc ontinued starting 01/06/2021 End: 01-17-2021 Cytomegalovirus Antibody, IgM Cytomegalovirus Antibody, IgM Lab Routine Fatigue, unspecified type 1 Occurrences starting 01/17/2021 until 01/17/2021 [employer] Phone: Comment on above: 1 Occurrences starti ng 01/17/2021 until 01/17/2021 Cytomegalovirus Antibody, IgM Cytomegalovirus Antibody, IgM Lab Routine Fatigue, unspecified type 01/17/2021 1:33 PM EDT [employer] Phone: EKG 12 Lead EKG 12 Lead ECG Routine 07/04/2021 4:59 AM EST [employer] Phone: EKG 12 Lead EKG 12 Lead ECG Routine Post PTCA Unstable angina pectoris (HCC) SOB (shortness of breath) Anemia, unspecified type Vitamin D deficiency disease 02/16/2022 12:00 PM EDT [employer] Phone: EKG 12 Lead EKG 12 Lead ECG STAT 10/02/2022 10:24 AM EDT [employer] Phone: EKG 12 Lead EKG 12 Lead ECG STAT 02/18/2023 11:10 AM EDT [employer] End: 01-06-2021 FRANCHESKA-HARGROVE VIRUS VCA, IGM FRANCHESKA-HARGROVE VIRUS VCA, IGM Lab Routine One Time for 1 Occurrences starting 01/06/2021 until 01/06/2021 [employer] Phone: Comment on above: One Time for 1 Occur rences starting 01/06/2021 until 01/06/2021 FRANCHESKA-HARGROVE VIRUS V CA, IGM FRANCHESKA-HARGROVE VIRUS VCA, IGM Lab Routine 01/06/2021 7:24 AM EDT [employer] Phone: End: 10-03-2023 Exercise stress test study CARDIAC STRESS TEST EXERCISE ONLY Cardiac Services Routine Chest pain, unspecified type History of non-ST elevation myocardial infarction (NSTEMI) 1 Occurrences starting 10/02/2022 until 10/03/2023 [employer] Phone: Comment on above: 1 Occurrences starti ng 10/02/2022 until 10/03/2023 Glucose [Mass/volume ] in Serum or Plasma [employer] Phone: Comment on above: 4X Daily (AC & HS) u ntil discontinued starting 06/27/2021 As Needed until disc ontinued starting 06/27/2021 Nasal Cannula Oxygen Nasal Cannu la Oxygen Respiratory Care Routine Daily until discontinued starting 01/06/2021 [employer] Phone: Comment on above: Daily until disconti nued starting 01/06/2021 Oxygen therapy [Mini mum Data Set] [employer] Phone: Comment on above: Daily until disconti nued starting 01/05/2021 Daily until disconti nued starting 01/06/2021 Oxygen therapy [Mini mum Data Set] Initiate Oxygen Therapy Protocol Respiratory Care Routine Daily until discontinued starting 06/27/2021 [employer] Phone: Comment on above: Daily until disconti nued starting 06/27/2021 Oxygen therapy [Mini mum Data Set] Initiate Oxygen Therapy Protocol Respiratory Care Routine As Needed until discontinued starting 10/02/2022 [employer] Phone: Comment on above: As Needed until disc ontinued starting 10/02/2022 End: 06-29-2021 POCT Blood Occult POCT Blood Occult Point of Care Testing Routine One Time for 1 Occurrences starting 06/29/2021 until 06/29/2021 [employer] Phone: Comment on above: One Time for 1 Occur rences starting 06/29/2021 until 06/29/2021 Spirometry panel Incentive shala metry Respiratory Care Routine Every 2hr while awake until discontinued starting 07/02/2021 [employer] Phone: Comment on above: Every 2hr while awak e until discontinued starting 07/02/2021 End: 10-05-2019 Strep A DNA probe, amplification Strep A DNA probe, amplification Lab Routine Sore throat 1 Occurrences starting 10/05/2019 until 10/05/2019 [place] Comment on above: 1 Occurrences starti ng 10/05/2019 until 10/05/2019 Strep A DNA probe, amplification Strep A DNA probe, amplification Lab Routine Sore throat 10/05/2019 12:05 PM EDT [place] End: 01-06-2021 Strep pneumoniae antibody serotypes Strep pneumoniae antibody serotypes Lab Routine One Time for 1 Occurrences starting 01/06/2021 until 01/06/2021 [employer] Phone: Comment on above: One Time for 1 Occur rences starting 01/06/2021 until 01/06/2021 Strep pneumoniae antibody serotypes Strep pneumoniae antibody serotypes Lab Routine 01/06/2021 7:24 AM EDT [employer] Work Phone: Immunizations Immunization Date Immunization Notes Care Provider Fa cility 02-19-2022 SARS-CoV-2 mRNA (qemcmxkhlje-zmpd-jkzzn se) vaccine Fozia BOOGIE [facility] 01-29-2022 SARS-CoV-2 mRNA (spncmgsrwyf-auak-hkncb se) vaccine Fozia BOOGIE [facility] 05-02-2016 Influenza Vaccine, unspecified formulation [facility] 08-25-2013 tetanus toxoid, redu leonard diphtheria toxoid, and acellular pertussis vaccine, adsorbed [place], [place] 08-05-2010 hepatitis B vaccine, adult dosage Aadm Martinez MD Work Phone: [employer] [employer] 08-05-2010 hepatitis B vaccine, unspecified formulation [facility] , [place] 03-04-2010 hepatitis B vaccine, adult dosage Adam Martinez MD Work Phone: [employer] Work Phone: 03-04-2010 hepatitis B vaccine, unspecified formulation [facility] [place] 01-28-2010 hepatitis B vaccine, adult dosage Adam Martinez MD Work Phone: [employer] Work Phone: 01-28-2010 hepatitis B vaccine, unspecified formulation [facility] [place] Payers Date Payer Category Payer Unknown [id number] 2023 Unknown 2022 Unknown [id number] 2019 Medicaid [employer] M [employer] [place] [id number] 2019-Present [id number] 2019 Medicaid [id number] 2019 Private Health Insurance [employer] A ETNA NAP CHOICE POS II xxxxxxxxxx 2019-Present [phone] [address] [place] [address] xxxxxxxxxx [id number] 2018 Private Health Insurance [id number] 2018 Private Health Insurance [facility] xxxxxxxxx 2018-Present [phone] [address] [place] [address] xxxxxxxxx [id number]. [id number] 1975 Unknown [id number] 2.16.840.1.874743.3.579.2. 173 1976 Unknown [id number] 2.16.840.1.941555.3.579.2. 903 1976 Unknown [id number] 2.16.840.1.479693.3.579.2. 175 1976 Unknown [id number] 2.16.840.1.535354.3.579.2. 175 1976 Unknown [id number] 2.16.840.1.512209.3.579.2. 174 1976 Unknown [id number] 2.16.840.1.545741.3.579.2. 174 1976 Unknown [id number] 2.16.840.1.631361.3.579.2. 903 1976 Unknown [id number] 2.16.840.1.685191.3.579.2. 727 1976 Unknown [id number] 2.16.840.1.476733.3.579.2. 727 1976 Unknown [id number] 2.16.840.1.791493.3.579.2. 727 1976 Unknown [id number] 2.16.840.1.732650.3.579.2. 727 1976 Unknown [id number] 2.16.840.1.661828.3.579.2. 727 1976 Unknown [id number] 2.16.840.1.827474.3.579.2. 727 1976 Unknown [id number] 2.16.840.1.661029.3.579.2. 1259 1976 Unknown [id number] 2.16.840.1.950891.3.579.2. 1259 1976 Unknown [id number] 2.16.840.1.300272.3.579.2. 1259 Private Health Insurance [employer] [id number] Social History Date Type Detail Facility Start: 10-05-2019 End: 02-17-2022 Tobacco smoking status NHIS Current every day smoker [place], [place] End: 10-17-2022 History of tobacco use Cigarette Smoker [place] Start: 10-05-2019 End: 12-18-2022 Cigarettes smoked current (pack per day) - Reported [place] Start: 10-05-2019 End: 02-18-2023 Alcohol intake Current non-drinker of alcohol (finding) [place] Start: 10-07-2012 Alcohol Comment once a year [place], [place] Start: 1975 Sex Assigned At Not on file M [place], [place] Start: 06-24-2020 End: 12-18-2022 Tobacco use and exposure Never used [place] Start: 09-22-2022 End: 10-02-2022 Exposure to SARS-CoV-2 (event) Not sure [place] Start: 02-09-2019 Alcohol intake No [facility] Start: 01-06-2021 End: 12-17-2022 History SDOH Alcohol Frequency 2 [facility] Y[facility] De Work Phone: Start: 01-06-2021 End: 12-17-2022 History SDOH Alcohol Std Drinks 1 [facility] Yi De Work Phone: Start: 01-15-2021 End: 06-03-2022 History SDOH Financial 5 [facility] Yi De Work Phone: Start: 02-21-2021 Alcohol intake Current drinke r of alcohol (finding) [facility] Start: 1975 Sex Assigned At Female F [facility] Tobacco Current vaping o r e-cigarette use Smokeless Tobacco Use:. Vaping, Yes [facility] Tobacco smoking status No Smokin g Status Entered [facility] Start: 12-18-2022 Tobacco smoking stat us [facility] End: 10-17-2022 History of tobacco use Current smoker [facility] Start: 12-17-2022 History SDOH Food Worry 3 [facility] Medical Equipment Procedure Code Equipment Code Equipment Origin al Text Equipment Identifier Dates Please Dispense the correct supplies that her insurance will cover sufficient amount for indicated testing frequency plus additional to accommodate PRN testing needs. Dispense all needed supplies to include: monitor, strips, lancing device, lancets, control solutions, alcohol swabs. DX E11.9 [id number] Start: 07-04-2021 Functional Status Date Assessment Result Facility 08-28-2022 Functional Status N/A [facility] Clinical Notes 01-05-2021 to 11-10-2022 Otf Middleton RN - 10/20/2021 11:00 AM Simone Middleton RN - 09/24/2021 11:00 AM Izabela Middleton RN - 07/30/2021 11:00 AM Izabela Middleton RN - 07/30/2021 11:00 AM ESTInstructions Note Date & Type Note Facility 11-10-2022 Evaluation + Plan note Diagnostic Tests PendingUrine Culture 11/10/22Chlam/GC/Trich,LACHELLE 11/10/22 [facility] 08-28-2022 Hospital Discharge instructions Patient Education 08/28/2022 15:18:57 Electronic Cigarette Information Electronic Cigarette Information Electronic cigarettes, or e-cigarettes, are battery-operated devices that deliver nicotine a very addictive drug to the body. They come in many shapes, including in the shape of a cigarette, pipe, pen, and even a USB memory stick. E-cigarettes have a cartridge that contains a liquid form of nicotine. When a person uses the device, the liquid heats up. It then becomes a vapor. Inhaling this vapor is called vaping. Nicotine is thought to increase your risk for certain types of cancer. In addition to nicotine, e-cigarettes may contain other harmful and cancer-causing chemicals, including: Formaldehyde. Acetaldehyde. Heavy metals. Ultra-fine particles that can get inhaled deep into the lungs. Chemical colorings and flavorings. It is not clear how much nicotine you get when vaping, and it is hard to know what chemicals are in the vaping liquids. The health effects of vaping are not completely known, but you should be aware of the possible dangers of using these products. Some people may use e-cigarettes in order to quit smoking tobacco. However, this has not been proven to work, and the Food and Drug Administration (FDA) has not approved e-cigarettes for this purpose. How can using electronic cigarettes affect me? You may be at risk for developing a dangerous lung disease. There are reports of an increasing number of cases involving serious lung problems, and even , associated with e-cigarette use. Your risk may be even higher if you: ?Buy e-cigarettes or vaping oils off the street. ?Add any substances to the e-cigarettes that are not intended by the body and frame technician. Vaping may make you crave nicotine. Nicotine does the following: ?Changes your blood sugar levels. ?Increases your heart rate, blood pressure, and breathing rate. ?Increases your risk of developing blood clots (hypercoagulable state) and diabetes. ?Increases your risk of gum disease that may lead to losing teeth. If you smoke e-cigarettes, you may be more likely to start smoking or to smoke more tobacco cigarettes. Becoming addicted to nicotine may make your brain more sensitive to other addictive drugs. You may move to other addictive substances. You may be in danger of overdosing on nicotine. Nicotine poisoning can cause nausea, vomiting, seizures, and trouble breathing. An e-cigarette may explode and cause fires and burn injuries. If you are , the nicotine in e-cigarettes may be harmful to your baby. Nicotine can cause: ?Brain or lung problems for your baby. ?Your baby to be born too early. ?Your baby to be born with a low weight. Vaping has also been linked to decreases in memory and attention span in children and teens. What actions can I take to stop vaping? If you can, stop vaping on your own before you become addicted to nicotine. If you need help quitting, ask your health care provider. There are three effective ways to fight nicotine addiction: Nicotine replacement therapy. Using nicotine gum or a nicotine patch blocks your craving for nicotine. Over time, you can reduce the amount of nicotine you use until you can stop using nicotine completely without having cravings. Prescription medicines approved to fight nicotine addiction. These stop nicotine cravings or block the effects of nicotine. Behavioral therapy. This may include: ?A self-help smoking cessation program. ?Individual or group therapy. ?A smoking cessation support group. There are several national programs to help you quit smoking or vaping. These include: Text message programs, such as [employer]oke[employer]ik NetworksT. Apps for mobile phones, including the free [employer] jose juan. Hotlines, such as 7-059-LNXF-NOW ( ). Where to find support You can get support at these sites: U.S. Department of Health and Human Services: https://smokefree.gov [place] [employer]: www.lung.org Where to find more information Learn more about e-cigarettes from: National [place] on Drug Abuse: www.drugabuse.gov Centers for Disease Control and Prevention: www.cdc.gov Summary E-cigarettes can cause nicotine addiction. E-cigarettes are not approved as a way to stop smoking. They are not a risk-free alternative to smoking tobacco. There are reports of an increasing number of cases involving serious lung problems, and even , associated with e-cigarette use. If you can stop vaping on your own, do it before you become addicted to nicotine. If you need help quitting, ask your health care provider. There are various methods and programs that can help you stop smoking or vaping. This information is not intended to replace advice given to you by your health care provider. Make sure you discuss any questions you have with your health care provider. Document Released: 10/26/2016 Document Revised: 10/31/2019 Document Reviewed: 09/15/2019 [employer] Patient Education 2020 [employer]. 08/28/2022 15:18:54 Strep Throat, Adult, Fuuk-jg-Truw Strep Throat, Adult Strep throat is an infection of the throat. It is caused by germs (bacteria). Strep throat is common during the cold months of the year. It mostly affects children who are 5 15 years old. However, people of all ages can get it at any time of the year. When strep throat affects the tonsils, it is called tonsillitis. When it affects the back of the throat, it is called pharyngitis. This infection spreads from person to person through coughing, sneezing, or having close contact. What are the causes? This condition is caused by the Streptococcus pyogenes germ. What increases the risk? You are more likely to develop this condition if: You care for young children. Children are more likely to get strep throat and may spread it to others. You go to crowded places. Germs can spread easily in such places. You kiss or touch someone who has strep throat. What are the signs or symptoms? Symptoms of this condition include: Fever or chills. Redness, swelling, or pain in the tonsils or throat. Pain or trouble when swallowing. White or yellow spots on the tonsils or throat. Tender glands in the neck and under the jaw. Bad breath. Red rash all over the body. This is rare. How is this treated? This condition may be treated with: Medicines that kill germs (antibiotics). Medicines that treat pain or fever. These include: ?Ibuprofen or acetaminophen. ?Aspirin, only for patients who are over the age of 18. ?Throat lozenges. ?Throat sprays. Follow these instructions at home: Medicines Take jhki-jpl-cbgydqc and prescription medicines only as told by your doctor. Take your antibiotic medicine as told by your doctor. Do not stop taking the antibiotic even if you start to feel better. Eating and drinking If you have trouble swallowing, eat soft foods until your throat feels better. Drink enough fluid to keep your pee (urine) pale yellow. To help with pain, you may have: ?Warm fluids, such as soup and tea. ?Cold fluids, such as frozen desserts or popsicles. General instructions Rinse your mouth (gargle) with a salt-water mixture 3 4 times a day or as needed. To make a salt-water mixture, dissolve 1 tsp (3 6 g) of salt in 1 cup (237 mL) of warm water. Rest as much as you can. Stay home from work or school until you have been taking antibiotics for 24 hours. Avoid smoking or being around people who smoke. Keep all follow-up visits as told by your doctor. This is important. How is this prevented? Do not share food, drinking cups, or personal items. They can cause the germs to spread. Wash your hands well with soap and water. Make sure that all people in your house wash their hands well. Have family members tested if they have a fever or a sore throat. They may need an antibiotic if they have strep throat. Contact a doctor if: You have swelling in your neck that keeps getting bigger. You get a rash, cough, or earache. You cough up a thick fluid that is green, yellow-brown, or bloody. You have pain that does not get better with medicine. Your symptoms get worse instead of getting better. You have a fever. Get help right away if: You vomit. You have a very bad headache. Your neck hurts or feels stiff. You have chest pain or are short of breath. You have drooling, very bad throat pain, or changes in your voice. Your neck is swollen, or the skin gets red and tender. Your mouth is dry, or you are peeing less than normal. You keep feeling more tired or have trouble waking up. Your joints are red or painful. Summary Strep throat is an infection of the throat. It is caused by germs (bacteria). This infection can spread from person to person through coughing, sneezing, or having close contact. Take your medicines, including antibiotics, as told by your doctor. Do not stop taking the antibiotic even if you start to feel better. To prevent the spread of germs, wash your hands well with soap and water. Have others do the same. Do not share food, drinking cups, or personal items. Get help right away if you have a bad headache, chest pain, shortness of breath, a stiff or painful neck, or you vomit. This information is not intended to replace advice given to you by your health care provider. Make sure you discuss any questions you have with your health care provider. Document Released: 12/21/2008 Document Revised: 09/22/2019 Document Reviewed: 09/22/2019 [employer] Patient Education 2020 [employer] 08/28/2022 15:18:33 BMI for Adults BMI for Adults Body mass index (BMI) is a number that is calculated from a person's weight and height. BMI may help to estimate how much of a person's weight is composed of fat. BMI can help identify those who may be at higher risk for certain medical problems. How is BMI used with adults? BMI is used as a screening tool to identify possible weight problems. It is used to check whether a person is obese, overweight, healthy weight, or underweight. How is BMI calculated? BMI measures your weight and compares it to your height. This can be done either in [place] ([place] or metric measurements. Note that charts are available to help you find your BMI quickly and easily without having to do these calculations yourself. To calculate your BMI in [place] measurements, your health care provider will: 1.Measure your weight in pounds (lb). 2.Multiply the number of pounds by 703. For example, for a person who weighs 180 lb, multiply that number by 703, which equals 126,540. 3.Measure your height in inches (in). Then multiply that number by itself to get a measurement called inches squared. For example, for a person who is 70 in tall, the inches squared measurement is 70 in x 70 in, which equals 4900 inches squared. 4.Divide the total from Step 2 (number of lb x 703) by the total from Step 3 (inches squared): 126,540 4900 = 25.8. This is your BMI. To calculate your BMI in metric measurements, your health care provider will: 1.Measure your weight in kilograms (kg). 2.Measure your height in meters (m). Then multiply that number by itself to get a measurement called meters squared. For example, for a person who is 1.75 m tall, the meters squared measurement is 1.75 m x 1.75 m, which is equal to 3.1 meters squared. 3.Divide the number of kilograms (your weight) by the meters squared number. In this example: 70 3.1 = 22.6. This is your BMI. How is BMI interpreted? To interpret your results, your health care provider will use BMI charts to identify whether you are underweight, normal weight, overweight, or obese. The following guidelines will be used: Underweight: BMI less than 18.5. Normal weight: BMI between 18.5 and 24.9. Overweight: BMI between 25 and 29.9. Obese: BMI of 30 and above. Please note: Weight includes both fat and muscle, so someone with a muscular build, such as an athlete, may have a BMI that is higher than 24.9. In cases like these, BMI is not an accurate measure of body fat. To determine if excess body fat is the cause of a BMI of 25 or higher, further assessments may need to be done by a health care provider. BMI is usually interpreted in the same way for men and women. Why is BMI a useful tool? BMI is useful in two ways: Identifying a weight problem that may be related to a medical condition, or that may increase the risk for medical problems. Promoting lifestyle and diet changes in order to reach a healthy weight. Summary Body mass index (BMI) is a number that is calculated from a person's weight and height. BMI may help to estimate how much of a person's weight is composed of fat. BMI can help identify those who may be at higher risk for certain medical problems. BMI can be measured using Fijian measurements or metric measurements. To interpret your results, your health care provider will use BMI charts to identify whether you are underweight, normal weight, overweight, or obese. This information is not intended to replace advice given to you by your health care provider. Make sure you discuss any questions you have with your health care provider. Document Released: 03/16/2005 Document Revised: 06/17/2018 Document Reviewed: 05/18/2018 [employer] Patient Education [employer]. [facility] 10-20-2021 History of Present illness Narrative Phase II Cardiac Rehab Individualized Treatment Plan-Discharge Patient Name: Jeremias Hernandez Date of Initial Assessment: 07/30/2021 Diagnosis: Percutaneous Coronary Intervention & Non-ST elevation myocardial infarction Onset Date: 06/26 AND 07/03/21 Referring Physician: DR. GRACE Risk Stratification: MODERATE Session Number: 12 EXERCISE Stages of Change: [] pre-contemplation [x] Action [] Contemplate [] Maintainence [] Prep [] Relapse Exercise Prescription: Mode: [x]?? TM [x]?? UBE [x]?? STP []?? EL [x]?? R Frequency: 3 DAYS PER WEEK Duration: 31-60 MINUTES Intensity: 4.8 - 5.6 AVG METS Plan/Goal: Increase 1-2 levels/week or 1-2 min/week to achieve target HR and RPE 12-16. Progression: INCREASE DURATION PER ABOVE F.I.T.T. Rx PARAMETERS ON AVG OF 5-10 MIN / 1-2 WEEKS FOR THE FIRST 4-6 WEEKS. AFTER 3-4 WEEKS ARE COMPLETED, CONTINUE TO GRADUALLY INCREASE F.I.T. PARAMETERS GRADUALLY UPWARD AT THE ESTABLISHED DURATION ON AVERAGE 0.5-1.0 METS PER 30 DAYS OVER THE COARSE OF REMAINING PROGRAM ESTABLISHED BY PT-CENTERED GOALS AND GUIDELINES. Target HR 114-126 BPM []?? Angina with Exertion [x]?? Resistance Training Progress 8-12 bilateral UE and LE progressive resistance exercises at 1-3 sets per lift, on 2-3 non-consecutive days using weights/ GREEN therabands AND WTS TO 8-24 # for 8-15 reps to progressive overload by increasing resistance once reps progressed to at least 15 reps on at least 2 occasions Hypertension: [x] Yes [] No Resting BP: 118/78 Peak Exercise BP: 148/70 [] Med Change? NO Intervention: Home Exercise: Type: WALKING Duration: 30-60 MINUTES Frequency: 2-3 DAYS PER WEEK [x]?? Resistance Training Progress 8-12 bilateral UE and LE progressive resistance exercises at 1-3 sets per lift, on 2-3 non-consecutive days using weights/ GREEN therabands AND WTS TO 8-24 # for 8-15 reps to progressive overload by increasing resistance once reps progressed to at least 15 reps on at least 2 occasions Depression Screening: PHQ-9 SCORE: NOT COMPLETED D/T PATIENT DID NOT RETURN TO COMPLETE PROGRAM Education: [] Education Goals met Target Goal: -Individual Exercise Plan -Bp< 130/80 -Aerobic active 30 + minutes 5-7 days per week Nutrition Stages of Change: [] pre-contemplation [x] Action [] Contemplate [] Maintainenc [] Prep [] Relapse Lipids: NO NEW VALUES [] Med Change? Diabetes / Prediabetes: [x] Yes [] No FBS: 80 HbA1c:6.6% [] Med Change? [x] BS in range Weight Management: Weight: 234 LB Height:(2,56 M2) / 63 IN BMI: 42 Waist Circumference: NOT COMPLETED D/T PATIENT DID NOT RETURN TO COMPLETE PROGRAM Wt Goal: 1-2 lbs/wk [x] Loss [] Gain [] Maintain Current Wt. Special Diet: Special Diet: 1,600 Kcal / day, 2 GM Na+, 30% total fat, <10% saturated fat, 25-35 GM fiber, cholesterol reduced, balanced nutrition plan to be promoted and taught in rehab Rate My Plate: NOT COMPLETED D/T PATIENT DID NOT RETURN TO COMPLETE PROGRAM Intervention: [] Dietitian Consult [x] Nurse/Patient Discussion [x] Diet Class [] Referred to Diabetes Education Education: [x] Education Goals met Target Goal: -LDL-C<100 if triglycerides are > 200 -LDL-C < 70 for high risk patients -HbA1c < 7% -BMI < 25 Education Stages of Change: [] pre-contemplation [x] Action [] Contemplate [] Maintainence [] Prep [] Relapse Knowledge test score: NOT COMPLETED D/T PATIENT DID NOT RETURN TO COMPLETE PROGRAM Family support: [x] Yes [] No Tobacco use: [x] Yes [x] No Intervention: [] Referred to smoking cessation counselor [x] Individual education and counseling [] Tobacco adjunct [x] Informed of education class schedule Education: [x] Education goals met Target Goal: -Complete cessation of tobacco use (if applicable) -Continued risk factor modifications -Recognizing signs/symptoms to report -Proper use of meds Psychosocial Stages of Change: [] pre-contemplation [x] Action [] Contemplate [] Maintainence [] Prep [] Relapse Psychosocial Test: Tool Used: [employer] Quality of Life Score: NOT COMPLETED D/T PATIENT DID NOT RETURN TO COMPLETE PROGRAM Depression screening score PHQ-9: NOT COMPLETED D/T PATIENT DID NOT RETURN TO COMPLETE PROGRAM []Medication change? NONE Education: [x] Education OBJECTIVES PARTIALLY Goals met Target Goal: -Assess presence or absence of depression using a valid screening tool. -Maximize coping skills. -Positive support system. Preventative Medication: [x] Aspirin [x] Beta Blockade [x] Statin or other lipid lowering agent [] Clopidogrel [x] DIPAK Inhibitor [] DIPAK Receptor Juan [] Antianginal [x] Calcium Channel Juan [x] Other anticoagulation medications Fall Risk assess: [x] Yes [] No / LOW FALL RISK Assistive Device: [] Cane [] Walker [] Wheel Chair [] Gait belt Disharge Patient/Program Goal Accomplishments: STOP BEING SHORT OF BREATH ALL THE TIME / ;PRESUMED NOT IMPROVED D/t POOR ATTENDANCE IN REHAB WITH LAST DAY 08/2321 DOCUMENTED Overall Program Goal: [x]??? Initial Goal []??? Progressing to Goal [x]??? Not,MET To increase stamina, strength, and flexibility by exercising 31-50 total minutes by engaging in aerobic, resistance, and flexibility workout modalities with the goal of progressively achieving at least 0.5 to 1.0 metabolic equivalant improvement in the next 30 days as evidenced by daily session reports / []??? Initial Goal [x]??? Progressing to Goal []??? Not Meeting--Needs Reinforcement / PEAK WL ON SUBMAX TM GXT INITIALLY IS 5.9 METS / AVG CARIDO FC INITIALLY IS 2.9 METS / AVG CARDIO FC INCREASED TO 5.1 METS / GOAL MET To achieve and progress prescribed exercise frequency, intensity, time, and type in the next 30 days based upon initial evaluation and submaximal graded exercise results as evidenced by the attaining and maintaining the prescribed target heart rate range, a Ankit rating of perceived exertion between 11 and 16, duration of >30 50 minutes using multiple exercise modes for at least 3 5 days per week to accumulate a minimum total of 2.5 hours per week of moderate aerobic intensity exercise, as tolerated, evidenced by daily session reports and home workout log / []??? Initial Goal []??? Progressing to Goal [x]??? Not MET ON To gradually and progressively lose 2 4 lb of body weight in the next 30 days through moderating nutrional intake and performing regular aerobic and strength training exercises as prescribed with improvement evidenced by daily session report comparison / []??? Initial Goal []??? Progressing to Goal [x]??? Not Meeting--Needs Reinforcement / NOT MET / WEIGHT UP FROM 232.4 TO 234.0 LB To decrease waist circumference by 5% by program completion if waist measurement is > or = 40 inches (male) / > or = 35 inches (female) as evidence by the Accomplishment Worksheet / []??? Initial Goal []??? Progressing to Goal [x]??? NOT COMPLETED D/T PATIENT DID NOT RETURN TO COMPLETE PROGRAM To introduce and progress 8-10 different bilateral UE and LE progressive resistance exercises focused on major muscle groups using 1-3 sets each per lift, on 2-3 non-consecutive days implementing free and machine weights and GREEN therabands, as appropriate, with a resistance of 40-60% 1-repetition maximum or 10 -15 repetitions to progressive overload and increasing resistance once repetitions have progressed to 15 reps and feel fairly light on 2 prior occasions in the next 30 days / []??? Initial Goal [x]??? Progressing to Goal [x]??? Not MET To achieve and maintain an optimal average resting blood pressure of <130 / 80 mmHg, or as indicated by this patient's referring provider, in the next 30 days / []??? Initial Goal [x]??? Progressing to Goal []??? GOAL MET To strive for blood lipid optimization with an LDL-C of <100 mg/dL or LDL 70 mg/dL, an HDL-C of > or = 40 mg/dL for men and > or = 50 mg/dL for women, and a triglyceride level of <150 mg/dL via lifestyle education, behavioral modification, and medication compliance / [x]??? Initial Goal [x]??? Progressing to Goal []??? Not Meeting--Needs Reinforcement / NO NEW LABS -To develop regular home aerobic exercise program for 20 60 minutes at least 2 non-rehab days per week, excluding 5 10 minutes warm-up and cool-down periods, within the next 30 days, being tracked on home workout log / []??? Initial Goal [x]??? Progressing to Goal []??? Not MET To strive for a lower daily fasting blood glucose measures to <131 and random after meal measures to <181, if diabetic, at home via lifestyle educaton, behavior modification, and medication compliance in the next 30 days as tracked per patient's self-report / [x]??? Initial Goal []??? Progressing to Goal []??? Not Meeting--Needs Reinforcement / GOAL MET, LAST BS WAS 80 To reduce self-reported psycho-social feelings of stress in the next 30 days as evidenced by pre- and post- surveys and by routine rounding with patient to ascertain subjective improvements / []??? Initial Goal [x]??? Progressing to Goal []??? Not Meeting--Needs Reinforcement / NO NEW SURVEYS In the next 30-days, to eat on average at least 2 servings of fruit per day and 4-5 servings of vegetables per day as evidenced by pre- and post-program nutriton survey and routine rounding with patient to ascertain progression toward goal per patient's self report, food diary, and Kzco-oeaz-Loqns screening survey / []??? Initial Goal [x]??? Progressing to Goal []??? Not Meeting--Needs Reinforcement / NO NEW SURVEYS To strive to eat < or = 30% of daily caloric intake of total fat and <10% of daily caloric saturated fat tracked by patient's self-report, food diary, and Kspt-poqq-Ozjib screening survey / []??? Initial Goal []??? Progressing to Goal []??? Not Meeting--Needs Reinforcement / NO NEW SURVEYS To have patient demonstrate knowledge about risk factor reduction, lifestyle modification, and heart health strategies with > / = 80% accuracy via pre- and post-program Test your Heart Health Knowledge screening tool / []??? Initial Goal []??? Progressing to Goal []??? Not Meeting--Needs Reinforcement / NO NEW SURVEYS Physician Changes/Comments: Cardiac Rehab Staff documented in this encounter [employer] Phone: 09-24-2021 History of Present illness Narrative Phase II Cardiac Rehab Individualized Treatment Plan-60 Day Patient Name: Jeremias Hernandez Date of Initial Assessment: 07/30/2021 Diagnosis: Percutaneous Coronary Intervention & Non-ST elevation myocardial infarction Onset Date: 06/26 AND 07/03/21 Referring Physician: DR. GRACE Risk Stratification: MODERATE Session Number: 12 EXERCISE Stages of Change: [] pre-contemplation [x] Action [] Contemplate [] Maintainence [] Prep [] Relapse Exercise Prescription: Mode: [x]? TM [x]? UBE [x]? STP []? EL [x]? R Frequency: 3 DAYS PER WEEK Duration: 31-60 MINUTES Intensity: 4.8 - 5.6 AVG METS Plan/Goal: Increase 1-2 levels/week or 1-2 min/week to achieve target HR and RPE 12-16. Progression: INCREASE DURATION PER ABOVE F.I.T.T. Rx PARAMETERS ON AVG OF 5-10 MIN / 1-2 WEEKS FOR THE FIRST 4-6 WEEKS. AFTER 3-4 WEEKS ARE COMPLETED, CONTINUE TO GRADUALLY INCREASE F.I.T. PARAMETERS GRADUALLY UPWARD AT THE ESTABLISHED DURATION ON AVERAGE 0.5-1.0 METS PER 30 DAYS OVER THE COARSE OF REMAINING PROGRAM ESTABLISHED BY PT-CENTERED GOALS AND GUIDELINES. Target HR 114-126 BPM []? Angina with Exertion [x]? Resistance Training Progress 8-12 bilateral UE and LE progressive resistance exercises at 1-3 sets per lift, on 2-3 non-consecutive days using weights/ GREEN therabands AND WTS TO 8-24 # for 8-15 reps to progressive overload by increasing resistance once reps progressed to at least 15 reps on at least 2 occasions Hypertension: [x] Yes [] No Resting BP: 118/78 Peak Exercise BP: 148/70 [] Med change? NO Intervention: Home Exercise: Type: WALKING Duration: 30-60 MINUTES Frequency: 2-3 DAYS PER WEEK [x]? Resistance Training Progress 8-12 bilateral UE and LE progressive resistance exercises at 1-3 sets per lift, on 2-3 non-consecutive days using weights/ GREEN therabands AND WTS TO 8-24 # for 8-15 reps to progressive overload by increasing resistance once reps progressed to at least 15 reps on at least 2 occasions Education: [x] Equipment Proctor [x] Self pulse [x] Proper use weights/therabands [x] S/S to report [x] Low Na Diet [x] Warm up/ Cool down [x] BP Medication [x] RPE Scale [x] Understand BP [x] Ex Safety [x] music specialist class-Home Exercise Target Goal: -Individual Exercise Plan -Bp<130/80 -Aerobic active 30 + minutes 5-7 days per week Nutrition Stages of Change: [] pre-contemplation [x] Action [] Contemplate [] Maintainence [] Prep [] Relapse Lipids: NO NEW VALUES [] Med Change? NO Diabetes / Prediabetes: [x] Yes [] No Random Bs: 80 HbA1c: NO NEW VALUE [] Med Change? NO Weight Management: Current Wt 234 Wt Goal: 1-2 lbs/wk [x] Loss [] Gain [] Maintain Current Wt. Intervention: [] Dietitian Consult [x] Nurse/Patient Discussion [x] Diet Class [] Referred to Diabetes Education Education: [] S&S hypo/hyperglycemia [x] Low fat/low cholesterol diet [x] Weight loss methods [] Relate Diabetes/CAD [x] Eating heart healthy handout Target Goal: -LDL-C<100 if triglycerides are > 200 -LDL-C < 70 for high risk patients -HbA1c < 7% -BMI < 25 Education Stages of Change: [] pre-contemplation [x] Action [] Contemplate [] Maintainence [] Prep [] Relapse Family support: [x] Yes [] No Tobacco use: [] Yes [x] No Intervention: [] Referred to smoking cessation counselor [] Individual education and counseling [] Tobacco adjunct [] Informed of education class schedule Education: [x] Risk Factors/Modifications [x] Psychological aspects [x] Angina [x] Medications [] CHF [x] Diabetes [x] Cardiac A&P [] Smoking Cessation [x] Stress Reduction and Relaxation [x] Weight Management Target Goal: -Complete cessation of tobacco use (if applicable) -Continued risk factor modifications -Recognizing signs/symptoms to report -Proper use of meds Psychosocial Stages of Change: [] pre-contemplation [x] Action [] Contemplate [] Maintainence [] Prep [] Relapse Intervention: [] Psych Consult/transition social worker [x] Uses stress management skills [] Physician Referral [x] Stress management class [] Med Change? Education: [x] Coping Techniques [x] Relaxation techniques [x] S/S of Depression Target Goal: -Assess presence or absence of depression using a valid screening tool. -Maximize coping skills. -Positive support system. Preventative Medication: [x] Aspirin [x] Beta Blockade [x] Statin or other lipid lowering agent [] Clopidogrel [x] DIPAK Inhibitor [] DIPAK Receptor Juan [] Antianginal [x] Calcium Channel Juan [x] Other anticoagulation medications Fall Risk assess: [x] Yes [] No / REMAINS LOW RISK Assistive Device: [] Cane [] Walker [] Wheel Chair [] Gait belt Patient/Program goal: STOP BEING SHORT OF BREATH ALL THE TIME Overall Program Goal: [x]?? Initial Goal []?? Progressing to Goal []?? Not Meeting--Needs Reinforcement To increase stamina, strength, and flexibility by exercising 31-50 total minutes by engaging in aerobic, resistance, and flexibility workout modalities with the goal of progressively achieving at least 0.5 to 1.0 metabolic equivalant improvement in the next 30 days as evidenced by daily session reports / []?? Initial Goal [x]?? Progressing to Goal []?? Not Meeting--Needs Reinforcement / PEAK WL ON SUBMAX TM GXT INITIALLY IS 5.9 METS / AVG CARIDO FC INITIALLY IS 2.9 METS / AVG CARDIO FC INCREASED TO 5.1 METS To achieve and progress prescribed exercise frequency, intensity, time, and type in the next 30 days based upon initial evaluation and submaximal graded exercise results as evidenced by the attaining and maintaining the prescribed target heart rate range, a Ankit rating of perceived exertion between 11 and 16, duration of >30 50 minutes using multiple exercise modes for at least 3 5 days per week to accumulate a minimum total of 2.5 hours per week of moderate aerobic intensity exercise, as tolerated, evidenced by daily session reports and home workout log / []?? Initial Goal [x]?? Progressing to Goal []?? Not Meeting--Needs Reinforcement To gradually and progressively lose 2 4 lb of body weight in the next 30 days through moderating nutrional intake and performing regular aerobic and strength training exercises as prescribed with improvement evidenced by daily session report comparison / []?? Initial Goal []?? Progressing to Goal [x]?? Not Meeting--Needs Reinforcement / NOT MEETING GOAL / WEIGHT UP FROM 232.4 TO 234.0 LB To decrease waist circumference by 5% by program completion if waist measurement is > or = 40 inches (male) / > or = 35 inches (female) as evidence by the Accomplishment Worksheet / []?? Initial Goal [x]?? Progressing to Goal []?? Not Meeting--Needs Reinforcement To introduce and progress 8-10 different bilateral UE and LE progressive resistance exercises focused on major muscle groups using 1-3 sets each per lift, on 2-3 non-consecutive days implementing free and machine weights and GREEN therabands, as appropriate, with a resistance of 40-60% 1-repetition maximum or 10 -15 repetitions to progressive overload and increasing resistance once repetitions have progressed to 15 reps and feel fairly light on 2 prior occasions in the next 30 days / []?? Initial Goal [x]?? Progressing to Goal []?? Not Meeting--Needs Reinforcement To achieve and maintain an optimal average resting blood pressure of <130 / 80 mmHg, or as indicated by this patient's referring provider, in the next 30 days / []?? Initial Goal [x]?? Progressing to Goal []?? Not Meeting--Needs Reinforcement / LAST BP WAS 1198/78 To strive for blood lipid optimization with an LDL-C of <100 mg/dL or LDL 70 mg/dL, an HDL-C of > or = 40 mg/dL for men and > or = 50 mg/dL for women, and a triglyceride level of <150 mg/dL via lifestyle education, behavioral modification, and medication compliance / [x]?? Initial Goal [x]?? Progressing to Goal []?? Not Meeting--Needs Reinforcement / NO NEW LABS -To develop regular home aerobic exercise program for 20 60 minutes at least 2 non-rehab days per week, excluding 5 10 minutes warm-up and cool-down periods, within the next 30 days, being tracked on home workout log / []?? Initial Goal [x]?? Progressing to Goal []?? Not Meeting--Needs Reinforcement To strive for a lower daily fasting blood glucose measures to <131 and random after meal measures to <181, if diabetic, at home via lifestyle educaton, behavior modification, and medication compliance in the next 30 days as tracked per patient's self-report / [x]?? Initial Goal []?? Progressing to Goal []?? Not Meeting--Needs Reinforcement / MEETING GOAL, LAST BS WAS 80 To reduce self-reported psycho-social feelings of stress in the next 30 days as evidenced by pre- and post- surveys and by routine rounding with patient to ascertain subjective improvements / []?? Initial Goal [x]?? Progressing to Goal []?? Not Meeting--Needs Reinforcement / NO NEW SURVEYS In the next 30-days, to eat on average at least 2 servings of fruit per day and 4-5 servings of vegetables per day as evidenced by pre- and post-program nutriton survey and routine rounding with patient to ascertain progression toward goal per patient's self report, food diary, and Jzja-kdjt-Ewsoc screening survey / []?? Initial Goal [x]?? Progressing to Goal []?? Not Meeting--Needs Reinforcement / NO NEW SURVEYS To strive to eat < or = 30% of daily caloric intake of total fat and <10% of daily caloric saturated fat tracked by patient's self-report, food diary, and Kwwt-qqtl-[id number] screening survey / []?? Initial Goal [x]?? Progressing to Goal []?? Not Meeting--Needs Reinforcement / NO NEW SURVEYS To have patient demonstrate knowledge about risk factor reduction, lifestyle modification, and heart health strategies with > / = 80% accuracy via pre- and post-program Test your Heart Health Knowledge screening tool / []?? Initial Goal [x]?? Progressing to Goal []?? Not Meeting--Needs Reinforcement / NO NEW SURVEYS Physician Changes/Comments: Cardiac Rehab Staff documented in this encounter [employer] Phone: 07-30-2021 History of Present illness Narrative Phase II Cardiac Rehab Individualized Treatment Plan-Initial Patient Name: Jeremias Hernandez Date of Initial Assessment: 07/30/2021 Diagnosis: Percutaneous Coronary Intervention & Non-ST elevation myocardial infarction Onset Date: 06/26 AND 07/03/21 Referring Physician: DR. GRACE Risk Stratification: MODERATE Session Number: 1 EXERCISE Stages of Change: [] pre-contemplation [x] Action [] Contemplate [] Maintainence [x] Prep [] Relapse Exercise Prescription: Mode: [x] TM [x] UBE [x] STP [] EL [x] RW [x] RC Frequency: 3 DAYS PER WEEK Duration: 31-60 MINUTES Intensity: 2.9 - 3.8 METS Target HR 114 - 126 / MSHR 132 Progression: INCREASE DURATION PER ABOVE F.I.T.T. Rx PARAMETERS ON AVG OF 5-10 MIN / 1-2 WEEKS FOR THE FIRST 4-6 WEEKS. AFTER 3-4 WEEKS ARE COMPLETED, CONTINUE TO GRADUALLY INCREASE F.I.T. PARAMETERS GRADUALLY UPWARD AT THE ESTABLISHED DURATION ON AVERAGE 0.5-1.0 METS PER 30 DAYS OVER THE COARSE OF REMAINING PROGRAM ESTABLISHED BY PT-CENTERED GOALS AND GUIDELINES. Plan/Goal: Increase 1-2 levels/week or 1-2 min/week to achieve target HR and RPE 12-16. [] Angina with Exertion THR: [x] Resistance Training Introduce and progress 8-12 bilateral UE and LE progressive resistance exercises at 1-3 sets per lift, on 2-3 non-consecutive days using weights/ GREEN therabands AND WTS TO 8-24 # for 8-15 reps to progressive overload by increasing resistance once reps progressed to at least 15 reps on at least 2 occasions Hypertension: [x] Yes [] No Resting BP: 112/74 Peak Exercise BP: 136 BP Meds: LISINOPRIL 5 MG, BID, METOPROLOL 25 MG, BID / AMLODIPINE 2.5 MG, BID Intervention: Home Exercise: Type: WALKING Duration: 20 - 60 MIN Frequency: AT LEAST 2 NO REHAB DAYS PER WEEK [x] Resistance Training Introduce and progress 8-12 bilateral UE and LE progressive resistance exercises at 1-3 sets per lift, on 2-3 non-consecutive days using weights/ ORANGE therabands AND WTS TO 8-24 # for 8-15 reps to progressive overload by increasing resistance once reps progressed to at least 15 reps on at least 2 occasions Education: [x] Equipment Proctor [x] Self pulse [x] Proper use weights/therabands [x] S/S to report [x] Low Na Diet [x] Warm up/ Cool down [x] BP Medication [x]RPE Scale [x] Understand BP [x] Ex Safety [x] music specialist class-Home Exercise Target Goal: -Individual Exercise Plan -BP<130/80 -Aerobic active 30 + minutes 5-7 days per week Nutrition Stages of Change: [] pre-contemplation [x] Action [] Contemplate [] Maintainence [x] Prep [] Relapse Lipids: 02/10/2019 Total Cholesterol: 184 Triglycerides: 123 HDL: 40 LDL: 113 Lipid Meds: ATORVASTATIN 80 MG, qHS Diabetes / Prediabetes: [x] Yes [] No How long: <1 MONTH Latest BS: 92 Frequency of Checks: 3X PER DAY Medication: METFORMIN 500 MG, BID: Weight Management: Weight:232 LB Height: 63 IN (2,56 M2) BMI: 41.2 Waist Circumference: IN-PROCESS Wt Goal: 1-2 lbs/wk [] Loss [] Gain [] Maintain Current Wt. Alcohol: Social History Substance and Sexual Activity Alcohol Use No Alcohol/week: 0.0 standard drinks Comment: once a year Diet Assessment Tool: RATE MY PLATE: IN-PROCESS Special Diet: Special Diet: 1,600 Kcal / day, 2 GM Na+, 30% total fat, <10% saturated fat, 25-35 GM fiber, cholesterol reduced, balanced nutrition plan to be promoted and taught in rehab Intervention: [] Dietitian Consult [x] Nurse/Patient Discussion [x] Diet Class [] Referred to Diabetes Education Education: [x] S&S hypo/hyperglycemia [x] Low fat/low cholesterol diet [x] Weight loss methods [] Relate Diabetes/CAD [x] Eating heart healthy handout Target Goal: -LDL-C<100 if triglycerides are > 200 -LDL-C < 70 for high risk patients -HbA1c < 7% -BMI < 25 Education Stages of Change: [] pre-contemplation [x] Action [] Contemplate [] Maintainence [x] Prep [] Relapse Learning Barriers: [] Speech [] Cognitive [] Literacy [] Visions [] Hearing [x] Ready Learn Knowledge test score: 80% Family support: [x] Yes [] No Tobacco use: Social History Tobacco Use Smoking Status Current Every Day Smoker Packs/day: 1.00 Years: 10.00 Pack years: 10.00 Types: Cigarettes Smokeless Tobacco Never Used Intervention: [] Referred to smoking cessation counselor [] Individual education and counseling [] Tobacco adjunct [] Informed of education class schedule Education: [x] Risk Factors/Modifications [x] Psychological aspects [x] Angina [x] Medications [] CHF [x] Diabetes [x] Cardiac A&P [x] Smoking Cessation [x] Stress Reduction and Relaxation [x] Weight Management Target Goal: -Complete cessation of tobacco use (if applicable) -Continued risk factor modifications -Recognizing signs/symptoms to report -Proper use of meds Psychosocial Stages of Change: [] pre-contemplation [x] Action [] Contemplate [] Maintainence [x] Prep [] Relapse Psychosocial Test: Tool Used: Libra Quality of Life Overall Score: SCORING IN-PROCRESS Depression screening score PHQ-9: 11 Interpretation of Total Score Depression Severity: 1-4 = Minimal depression, 5-9 = Mild depression, 10-14 = Moderate depression, 15-19 = Moderately severe depression, 20-27 = Severe depression Intervention: [] Psych Consult/transition social worker [x] Uses stress management skills [] Physician Referral [x] Stress management class Medications: VENLAFAXINE 150 MG, QD Education: [x] Coping Techniques [x] Relaxation techniques [x] S/S of Depression Target Goal: -Assess presence or absence of depression using a valid screening tool. -Maximize coping skills. -Positive support system. Preventative Medication: [x] Aspirin [x] Beta Blockade [x] Statin or other lipid lowering agent [] Clopidogrel [x] DIPAK Inhibitor [] DIPAK Receptor Juan [] Antianginal [x] Calcium Channel Juan [x] Other anticoagulation medications Fall Risk assess: [x] Yes [] No / LOW FALL RISK Assistive Device: [] Cane [] Walker [] Wheel Chair [] Gait belt Target Goal: -Assess presence or absence of depression using a valid screening tool. -Maximize coping skills. -Positive support system. Patient/Program goal: Goals: STOP BEING SHORT OF BREATH ALL THE TIME Overall Program Goal: [x] Initial Goal [] Progressing to Goal [] Not Meeting--Needs Reinforcement To increase stamina, strength, and flexibility by exercising 31-50 total minutes by engaging in aerobic, resistance, and flexibility workout modalities with the goal of progressively achieving at least 0.5 to 1.0 metabolic equivalant improvement in the next 30 days as evidenced by daily session reports / [x] Initial Goal [] Progressing to Goal [] Not Meeting--Needs Reinforcement / PEAK WL ON SUBMAX TM GXT INITIALLY IS 5.9 METS / AVG CARIDO FC INITIALLY IS 2.9 METS To achieve and progress prescribed exercise frequency, intensity, time, and type in the next 30 days based upon initial evaluation and submaximal graded exercise results as evidenced by the attaining and maintaining the prescribed target heart rate range, a Ankit rating of perceived exertion between 11 and 16, duration of >30 50 minutes using multiple exercise modes for at least 3 5 days per week to accumulate a minimum total of 2.5 hours per week of moderate aerobic intensity exercise, as tolerated, evidenced by daily session reports and home workout log / [x] Initial Goal [] Progressing to Goal [] Not Meeting--Needs Reinforcement To gradually and progressively lose 2 4 lb of body weight in the next 30 days through moderating nutrional intake and performing regular aerobic and strength training exercises as prescribed with improvement evidenced by daily session report comparison / [x] Initial Goal [] Progressing to Goal [] Not Meeting--Needs Reinforcement To decrease waist circumference by 5% by program completion if waist measurement is > or = 40 inches (male) / > or = 35 inches (female) as evidence by the Accomplishment Worksheet / [x] Initial Goal [] Progressing to Goal [] Not Meeting--Needs Reinforcement To introduce and progress 8-10 different bilateral UE and LE progressive resistance exercises focused on major muscle groups using 1-3 sets each per lift, on 2-3 non-consecutive days implementing free and machine weights and GREEN therabands, as appropriate, with a resistance of 40-60% 1-repetition maximum or 10 -15 repetitions to progressive overload and increasing resistance once repetitions have progressed to 15 reps and feel fairly light on 2 prior occasions in the next 30 days / [x] Initial Goal [] Progressing to Goal [] Not Meeting--Needs Reinforcement To achieve and maintain an optimal average resting blood pressure of <130 / 80 mmHg, or as indicated by this patient's referring provider, in the next 30 days / [x] Initial Goal [] Progressing to Goal [] Not Meeting--Needs Reinforcement To strive for blood lipid optimization with an LDL-C of <100 mg/dL or LDL 70 mg/dL, an HDL-C of > or = 40 mg/dL for men and > or = 50 mg/dL for women, and a triglyceride level of <150 mg/dL via lifestyle education, behavioral modification, and medication compliance / [] Initial Goal [] Progressing to Goal [] Not Meeting--Needs Reinforcement -To develop regular home aerobic exercise program for 20 60 minutes at least 2 non-rehab days per week, excluding 5 10 minutes warm-up and cool-down periods, within the next 30 days, being tracked on home workout log / [x] Initial Goal [] Progressing to Goal [] Not Meeting--Needs Reinforcement To strive for a lower daily fasting blood glucose measures to <131 and random after meal measures to <181, if diabetic, at home via lifestyle educaton, behavior modification, and medication compliance in the next 30 days as tracked per patient's self-report / [x] Initial Goal [] Progressing to Goal [] Not Meeting--Needs Reinforcement To reduce self-reported psycho-social feelings of stress in the next 30 days as evidenced by pre- and post- surveys and by routine rounding with patient to ascertain subjective improvements / [] Initial Goal [] Progressing to Goal [] Not Meeting--Needs Reinforcement In the next 30-days, to eat on average at least 2 servings of fruit per day and 4-5 servings of vegetables per day as evidenced by pre- and post-program nutriton survey and routine rounding with patient to ascertain progression toward goal per patient's self report, food diary, and Xssw-kajb-Idfzy screening survey / [x] Initial Goal [] Progressing to Goal [] Not Meeting--Needs Reinforcement To strive to eat < or = 30% of daily caloric intake of total fat and <10% of daily caloric saturated fat tracked by patient's self-report, food diary, and Yefj-qedj-Ovcuh screening survey / [x] Initial Goal [] Progressing to Goal [] Not Meeting--Needs Reinforcement To have patient demonstrate knowledge about risk factor reduction, lifestyle modification, and heart health strategies with > / = 80% accuracy via pre- and post-program Test your Heart Health Knowledge screening tool / [x] Initial Goal [] Progressing to Goal [] Not Meeting--Needs Reinforcement Physician Changes/Comments: Cardiopulmonary Rehab Staff Cardiac Rehabilitation Physician Order Form Jeremias Hernandez [id number] 07/30/2021 [x] Phase 2 ECG Monitored Cardiac Rehabilitation [x] [place] [x] Percutaneous Coronary Intervention [] Other: [] CABG [] Heart Valve Repair/Replaced [] Stable Angina [] Heart Failure: Onset Date: 06/26/21 & 07/03/21 Cardiac Education Goals: (see individualized treatment plan for specific goals, progression & compliance) [x] Hypertension [x] Physical Inactivity [x] Cardiac A&P [] Heart Failure [x] Medications [] Coping w/ Anxiety / Depression [x] Diabetes [x] Weight Management [x] Angina [x] Hyperlipidemia [x] Home Exercise [x] Stress Reduction and Relaxation [x] Medications [] Smoking Cessation Prescribed Exercise Plan: Target Hr: 114 - 126 Duration: 31 - 60 Minutes Frequency: 3 Days per week Initial Met Level: 2.8 METS Limitations: 5. Musculoskeletal [x]? FIBROMYALGIA / CHRONIC-INTERMITTENT GENERALIZED ACHE Modalities: [x]Treadmill [x] UBE [x] Seated Stepper [x] Rowing Machine [x] Weights/therabands [] Elliptical Aerobic exercise to total 31-60 minutes. Progressing by 1-2 minutes per week and/or 1-2 levels per week per patient tolerance using various modalities; according to Ankit Scale 12-16 and THR Introduce 8-12 bilateral UE and LE progressive resistance exercises at 1-3 sets per lift, on 2-3 non-consecutive days using weights/ GREEN therabands AND WTS TO 8-24 # for 8-15 reps to progressive overload by increasing resistance once reps progressed to at least 15 reps on at least 2 occasions Per patient symptoms use: Appropriate ACLS Algorhythm for Cardiac Events. Nitroglycerine 0.4mg SLq 5mins X 3 for angina pain. 12 lead EKG for c/o chest pain or change in rhythm. Nasal O2 for SaO2 <90% or symptoms warranted. Blood sugar monitoring for Hyper/Hypoglycemia symptoms. Cardiac Rehab Staff documented in this encounter [employer] Phone: 07-04-2021 History of Present illness Narrative Pt given discharge instructions with verbalized understanding. Discussion about follow up care, medications and resistrictions held with patient with verbalized understanding. Multiple attempts made to contact Dr Grace's office regarding f/u appt. No answer. physician contact info written on discharge AVS for pt to call the office for appointment. Cardiology She looks good today with no chest pain. Cath site looks good. Can be discharged this morning on current medication schedule. Give her the Brilinta card for 1 month Rx. She will call our office if Brilinta is not covered and we will change to Plavix. No heavy lifting for 5 days. Will have Otf from cardiac rehab see and make an appointment for rehab. Can start in 1 week. Will see her in office in 6 weeks. Jason Grace MD Accountant Supervisor ambulates pt entire leon length and back of /ICU. At rest before ambulation HR 95, spO2 93% on RA. Walking with vitals machine, spO2 remains between 93-95% RA. and HR 95-110 bpm. Pt tolerates well and denies any CP, SOB, dizziness or other complaints at this time. Pt left resting comfortably in bed with call light in reach. Accountant Supervisor assesses groin site and notes scant drainage on bandage as noted before. No swelling or firmness noted. Pt has no complaints. All questions answered at this time. Call light in reach. documented in this encounter [employer] Phone: 07-03-2021 Hospital Discharge instructions Brian aHn MD - 07/04/2021 Discharge Instructions Admission Date: 07/03/2021 Discharge Date: 07/04/21 Disposition: Home Activity: As tolerated Diet: Diabetic / Cardiac Discharge Medication: Medication List ASK your doctor about these medications amLODIPine 2.5 MG tablet Commonly known as: NORVASC Take 1 tablet by mouth 2 times daily aspirin 81 MG EC tablet Take 1 tablet by mouth daily atorvastatin 80 MG tablet Commonly known as: LIPITOR Take 1 tablet by mouth nightly cyclobenzaprine 10 MG tablet Commonly known as: FLEXERIL TAKE 1 TABLET TWICE A DAY NEEDED FOR MUSCLE SPASM ferrous sulfate 325 (65 Fe) MG tablet Commonly known as: IRON 325 Take 1 tablet by mouth 2 times daily (with meals) gabapentin 100 MG capsule Commonly known as: NEURONTIN Take 1 capsule by mouth 3 times daily for 90 days. Intended supply: 30 days lisinopril 5 MG tablet Commonly known as: PRINIVIL;ZESTRIL Take 1 tablet by mouth 2 times daily metoprolol tartrate 25 MG tablet Commonly known as: LOPRESSOR Take 1 tablet by mouth 2 times daily omeprazole 20 MG delayed release capsule Commonly known as: PRILOSEC Take 1 capsule by mouth 2 times daily rOPINIRole 4 MG tablet Commonly known as: REQUIP Take 1 tablet by mouth nightly TAKE 1 TABLET NIGHTLY. NEEDAPPOINTMENT BEFORE CAN GET ADDITIONAL REFILLS ticagrelor 90 MG Tabs tablet Commonly known as: BRILINTA Take 1 tablet by mouth 2 times daily venlafaxine 150 MG extended release capsule Commonly known as: EFFEXOR XR Take 1 capsule by mouth daily TAKE 1 CAPSULE DAILY Discharge Instructions: Resume previous home medication. Take Aspirin 81 mg daily. Take Lipitor 80 mg daily. Take Metformin 500 mg two times a day starting on 07/06/21. Take Brilinta 90 mg BID. Take Lopressor 25 mg two times a day. Take Lisinopril 5 mg two times a day. Take Amlodipine 5 mg : 1/2 tablet two times a day. Take iron sulfate 325 mg two times a day. No lifting > 10 lbs for 5 days. Can start Cardiac rehab in 1 week (Cardiac rehab will call patient). Follow up with Dr. Grace as directed by him at discharge. Follow Up: With your primary care physician (LEXIS Glaser CNP) in 1 week. documented in this encounter [employer] Phone: 07-03-2021 History of Present illness Narrative Hospitalist Progress Note 07/03/2021 2:47 AM Subjective: Admit Date: 06/26/2021 PCP: LEXIS Glaser CNP Interval History: Jeremias has no complaints this am. She had chest pain radiating down the left arm, yesterday, that was relieved on Nitro drip. No shortness of breath. Appetite was good yesterday with no nausea. To go to [facility] today for Cardiac cath. Diet: Diet NPO Medications: Scheduled Meds: ticagrelor 90 mg Oral BID nitroglycerin 1 inch Topical 4 times per day amLODIPine 2.5 mg Oral BID lisinopril 5 mg Oral BID ferrous sulfate 325 mg Oral BID WC gabapentin 100 mg Oral TID pantoprazole 40 mg Oral BID AC rOPINIRole 4 mg Oral Nightly venlafaxine 150 mg Oral Daily sodium chloride flush 5-40 mL IntraVENous 2 times per day aspirin 81 mg Oral Daily insulin lispro 0-6 Units SubCUTAneous TID WC insulin lispro 0-3 Units SubCUTAneous Nightly metoprolol tartrate 25 mg Oral BID atorvastatin 80 mg Oral Nightly Continuous Infusions: nitroGLYCERIN Stopped (07/02/21 4618) sodium chloride dextrose sodium chloride 20 mL/hr at 07/01/21 1535 heparin (PORCINE) Infusion 15.766 Units/kg/hr (07/02/21 1402) Patient's current medications documented, reviewed, and updated. CBC: Recent Labs 06/30/21 03106/30/21 0315 06/30/21 1453 07/01/21 0500 07/02/21 0932 WBC 11.2* -- -- 10.8 11.6* HGB 8.6* < > 8.9* 9.3* 9.6* PLT 330 -- -- 315 380 < > = values in this interval not displayed. BMP: Recent Labs 06/30/21 0315 07/01/21 0500 07/02/21 0932 NA 137 140 135 K 4.1 3.8 3.9 CL 103 103 100 CO2 26 25 23 BUN 11 11 15 CREATININE 0.76 0.81 0.80 GLUCOSE 128* 129* 152* Hepatic: Recent Labs 07/02/21 0932 AST 23 ALT 25 BILITOT 0.26* ALKPHOS 103 Troponin: No results for input(s): TROPONINI in the last 72 hours. BNP: No results for input(s): BNP in the last 72 hours. Lipids: No results for input(s): CHOL, HDL in the last 72 hours. Invalid input(s): LDLCALCU INR: No results for input(s): INR in the last 72 hours. Objective: Vitals: BP 120/72 Pulse 77 Temp 98.1 F (36.7 C) (Oral) Resp 19 Ht 5' 3 (1.6 m) Wt 249 lb 9.6 oz (113.2 kg) SpO2 94% BMI 44.21 kg/m General appearance: alert and cooperative with exam HEENT: Head: Normocephalic, no lesions, without obvious abnormality. Eye: Normal external eye, conjunctiva, lids cornea, ELLIE. Nose: Normal external nose, mucus membranes and septum. Nose: Nasal oxygen on. Neck: no adenopathy and supple, symmetrical, trachea midline Lungs: clear to auscultation bilaterally Heart: regular rate and rhythm and S1, S2 normal Abdomen: soft, non-tender; bowel sounds normal; no masses, no organomegaly and obese Extremities: extremities normal, atraumatic, no cyanosis or edema Neurologic: Mental status: Alert, oriented, thought content appropriate Assessment and Plan: 1. NSTEMI - placed in the ICU on heparin drip, Nitro drip changed to Imdur on 06/30 and changed to nitro paste on 07/01, Aspirin, Lipitor, and Lopressor. Restarted Nitro drip yesterday secondary to chest pain. Chest pain free this am. Troponin peaked at 134 with last troponin at 121. Lisinopril 5 mg BID added. To go to [facility] today for cath. 2. Leukocytosis - CXR normal, UA normal. 3. Microcytic hypochromic anemia - iron deficient. Has not had a stool heme occult. Hgb stable at 8.6. Part of this may be dilutional. On Protonix 40 mg BID. Started on Iron Sulfate 325 mg BID. 4. H/O GERD - on PPI. 5. H/O depression / anxiety - on Effexor XR. 6. Restless legs - on Requip. 7. H/O Fibromyalgia - on Gabapentin. 8. DM II - new diagnosis. 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 Placed on Humalog sliding scale. 9. Headache secondary to Nitro - on Tramadol PRN. 10. HTN - Lisinopril 5 mg BID added. Plan: 1. Labs this am before discharge. 2. DC this am for cath at [facility]. DVT prophylaxis: [] Lovenox [] SCDs [x] SQ Heparin [] Encourage ambulation, low risk for DVT, no chemical or mechanical prophylaxis necessary [] Already on Anticoagulation Patient Active Problem List: Restless leg syndrome Fibromyalgia Gastroesophageal reflux disease without esophagitis Anxiety Depression Insomnia Migraine headache Obesity, Class III, BMI 40-49.9 (morbid obesity) (HCC) Memory loss of unknown cause Back pain Irritable bowel syndrome Tobacco use Chest pain NSTEMI (non-ST elevated myocardial infarction) (HCC) Acute coronary syndrome (HCC) Brian Han MD, MD Rounding Hospitalist Transport called in to update. facesheet and medical neccessity forms to be faxed. Mentioned to caller that pt is to be transferred there for heart cath and to be transported back to [facility] after. Comprehensive Nutrition Assessment Type and Reason for Visit: Reassess Nutrition Recommendations/Plan: continue current diet Nutrition Assessment: Improving food and nutrition knowledge defecit aeb Pt provided diet education. Pt to go to [facility] for heart cath and return to [facility]. PO has been good. Weight has been stable. Glulcose 152, A1c 8.1. 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 Strength: Not Performed Estimated Daily Nutrient Needs: Energy (kcal): 3443-1407 (11-14/kg); Weight Used for Energy Requirements: Current Protein (g): 104-114g (2-2.2g/kg); Weight Used for Protein Requirements: [place] Fluid (ml/day): 2260 ml (20/kg); Method Used for Fluid Requirements: ml/Kg Nutrition Related Findings: obese Wounds: None Current Nutrition Therapies: ADULT DIET; Regular; 3 carb choices (45 gm/meal); Low Fat/Low Chol/High Fiber/GISEL Anthropometric Measures: Height: 5' 3 (160 cm) Current Body Weight: 249 lb 1.6 oz (113 kg) Admission Body Weight: 248 lb (112.5 kg) Usual Body Weight: 243 lb (110.2 kg) [place] Body Weight: 115 lbs; % [place] Body Weight 215.7 % BMI: 44.1 BMI Categories: Obese Class 3 (BMI 40.0 or greater) Nutrition Diagnosis: Food & Nutrition-related knowledge deficit related to cardiac dysfunction as evidenced by other (comment) (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) Nutrition Interventions: Food and/or Nutrient Delivery: Continue Current Diet Nutrition Education/Counseling: Education initiated, Education needed Coordination of Nutrition Care: Continue to monitor while inpatient Goals: PO >75% meals with pop avoidance and heart healthy choices Recent Labs 06/30/21 0315 06/30/21 0315 07/01/21 0500 07/02/21 0932 NA 137 -- 140 135 K 4.1 -- 3.8 3.9 CL 103 -- 103 100 CO2 26 -- 25 23 BUN 11 -- 11 15 CREATININE 0.76 -- 0.81 0.80 GLUCOSE 128* -- 129* 152* ALT -- -- -- 25 ALKPHOS -- -- -- 103 GFR NOT REPORTED < > NOT REPORTED NOT REPORTED < > = values in this interval not displayed. Lab Results Component Value Date LABALBU 3.8 07/02/2021 LABALBU 4.4 11/06/2011 Recent Labs 06/30/21 2105 07/01/21 0735 07/01/21 1128 07/01/21 1613 07/01/21 2006 07/02/21 0743 07/02/21 1109 07/02/21 1445 POCGLU 121* 122* 135* 149* 114* 123* 131* 117* Nutrition Monitoring and Evaluation: Behavioral-Environmental Outcomes: None Identified Food/Nutrient Intake Outcomes: Food and Nutrient Intake Physical Signs/Symptoms Outcomes: Biochemical Data, Weight Discharge Planning: Recommend pursue outpatient diabetes education (if diabetic) Contact: [phone] with [address] Elena at [facility] about transferring patient to [facility] for cath and transferring back here after cath. He talked with their photofinishing laboratory worker and they are willing to do so tomorrow morning. We will call [facility] and arrange transport to arrive in [facility] at 8 AM. She will be NPO after midnight tonight. She is having chest pain now, however, EKG is unchanged and Trop continues to decrease. Using morphine for pain as I don't think this is cardiac in etiology, however, will continue to watch closely. We will arrange transfer. Will need to keep her bed to be able to transfer back to our facility after cath. I'm deeply grateful for this arrangement and will tell Dr. Han and staff. Thank you, Jason Grace MD Dr. Grace called regarding c/o increasing pain in left chest that is radiating down her arm; states that pain has been constantly dull but she has intermittent episode of a lot of aching . New orders received and entered. Cardiology Doing well although having some left arm pain this morning. Will give SL Ntg to see if this helps. If so, will increase nitrates. Hemodynamically stable and resting comfortable. Started Norvasc last night for chest pain. She denies sob. Still waiting for a bed. Of note I did not start Brilinta for possibility of OHS, however, since she continues to have twinges which may or may not be angina, will start now. Continue to watch Hgb Thanks, Jason Grace MD Pt's PTT is 73.1. No bolus/No change in rate required for Heparin drip. Pt continues to deny chest pain/SOB. Hospitalist Progress Note 07/02/2021 4:31 AM Subjective: Admit Date: 06/26/2021 PCP: Gerry Guerra, GRINDER CHIPPER - [employer] STE[employer] FITTER HELPER Interval History: Jeremias states she had some twinges of chest pain yesterday but not like it was. She still feels more SOB with exertion than normal. Nasal oxygen on. Appetite is not very good but no nausea. Bowels are moving and she states she urinating a lot after receiving lasix yesterday. Weight is back down. Diet: ADULT DIET; Regular; 3 carb choices (45 gm/meal); Low Fat/Low Chol/High Fiber/GISEL Medications: Scheduled Meds: nitroglycerin 1 inch Topical 4 times per day amLODIPine 2.5 mg Oral BID lisinopril 5 mg Oral BID ferrous sulfate 325 mg Oral BID WC gabapentin 100 mg Oral TID pantoprazole 40 mg Oral BID AC rOPINIRole 4 mg Oral Nightly venlafaxine 150 mg Oral Daily sodium chloride flush 5-40 mL IntraVENous 2 times per day aspirin 81 mg Oral Daily insulin lispro 0-6 Units SubCUTAneous TID WC insulin lispro 0-3 Units SubCUTAneous Nightly metoprolol tartrate 25 mg Oral BID atorvastatin 80 mg Oral Nightly Continuous Infusions: sodium chloride dextrose sodium chloride 20 mL/hr at 07/01/21 1535 heparin (PORCINE) Infusion 15.766 Units/kg/hr (07/01/21 2158) Patient's current medications documented, reviewed, and updated. CBC: Recent Labs 06/30/21 0315 06/30/21 1453 07/01/21 0500 WBC 11.2* -- 10.8 HGB 8.6* 8.9* 9.3* PLT 330 -- 315 BMP: Recent Labs 06/30/21 0315 07/01/21 0500 NA 137 140 K 4.1 3.8 CL 103 103 CO2 26 25 BUN 11 11 CREATININE 0.76 0.81 GLUCOSE 128* 129* Hepatic: No results for input(s): AST, ALT, ALB, BILITOT, ALKPHOS in the last 72 hours. Troponin: No results for input(s): TROPONINI in the last 72 hours. BNP: No results for input(s): BNP in the last 72 hours. Lipids: No results for input(s): CHOL, HDL in the last 72 hours. Invalid input(s): LDLCALCU INR: No results for input(s): INR in the last 72 hours. Objective: Vitals: BP 104/67 Pulse 75 Temp 98 F (36.7 C) (Axillary) Resp 19 Ht 5' 3 (1.6 m) Wt 249 lb 1.6 oz (113 kg) SpO2 92% BMI 44.13 kg/m General appearance: alert and cooperative with exam HEENT: Head: Normocephalic, no lesions, without obvious abnormality. Eye: Normal external eye, conjunctiva, lids cornea, ELLIE. Nose: Normal external nose, mucus membranes and septum. Nasal oxygen on. Neck: no adenopathy and supple, symmetrical, trachea midline Lungs: clear to auscultation bilaterally, diminished in the bases Heart: regular rate and rhythm and S1, S2 normal Abdomen: soft, non-tender; bowel sounds normal; no masses, no organomegaly and obese Extremities: extremities normal, atraumatic, no cyanosis or edema Neurologic: Mental status: Alert, oriented, thought content appropriate Assessment and Plan: 1. NSTEMI - placed in the ICU on heparin drip, Nitro drip changed to Imdur on 06/30 and changed to nitro paste on 07/01, Aspirin, Lipitor, and Lopressor. Troponin peaked at 134 with last troponin at 121. Some chest twinges yesterday . Lisinopril 5 mg BID added. No bed availability at [facility] during this COVID Crisis. Access center is looking for any available option. 2. Leukocytosis - CXR normal, UA normal. 3. Microcytic hypochromic anemia - iron deficient. Has not had a stool heme occult. Hgb stable at 8.6. Part of this may be dilutional. On Protonix 40 mg BID. Started on Iron Sulfate 325 mg BID. 4. H/O GERD - on PPI. 5. H/O depression / anxiety - on Effexor XR. 6. Restless legs - on Requip. 7. H/O Fibromyalgia - on Gabapentin. 8. DM II - new diagnosis. 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 Placed on Humalog sliding scale. 9. Headache secondary to Nitro - on Tramadol PRN. 10. HTN - Lisinopril 5 mg BID added. Plan: 1. Add incentive spirometry to decrease atelectasis to improve oxygenation. 2. Continue to await an opening for transfer. Patient continues to require in patient admission secondary to needing a heparin drip and intensive cardiac monitoring. DVT prophylaxis: [] Lovenox [] SCDs [x] SQ Heparin [] Encourage ambulation, low risk for DVT, no chemical or mechanical prophylaxis necessary [] Already on Anticoagulation Patient Active Problem List: Restless leg syndrome Fibromyalgia Gastroesophageal reflux disease without esophagitis Anxiety Depression Insomnia Migraine headache Obesity, Class III, BMI 40-49.9 (morbid obesity) ([facility]) Memory loss of unknown cause Back pain Irritable bowel syndrome Tobacco use Chest pain NSTEMI (non-ST elevated myocardial infarction) ([facility]) Acute coronary syndrome ([facility]) Brian Han MD, MD Rounding Hospitalist Pt continues to deny chest pain & SOB at rest. Pt given Zofran for nausea, see MAR. Pt denies chest pain at this time. Pt c/o 4/10 occasional mid to L side chest pain. Dr. Grace notified & ordered oral Norvasc, see MAR. Cardiology Breathing better. Slight chest pain, although trop unchanged and ekg unchanged. Stopped NTG IV yesterday and started Imdur. VSS Exam unchanged Will stop Imdur and start NTP 1 every 6 hours. Thanks, Jason Grace MD Hospitalist Progress Note 07/01/2021 4:37 AM Subjective: Admit Date: 06/26/2021 PCP: Gerry Guerra, GRINDER CHIPPER - [employer] FITTER HELPER Interval History: Jeremias states she feel she is having a little chest pressure this am. No SOB at rest but she does feel a little SOB with ambulating to the restroom. She states she did urinate a lot after the lasix yesterday. Bowels are moving. Appetite is good. Diet: ADULT DIET; Regular; 3 carb choices (45 gm/meal); Low Fat/Low Chol/High Fiber/GISEL Medications: Scheduled Meds: isosorbide mononitrate 30 mg Oral BID lisinopril 5 mg Oral BID ferrous sulfate 325 mg Oral BID WC gabapentin 100 mg Oral TID pantoprazole 40 mg Oral BID AC rOPINIRole 4 mg Oral Nightly venlafaxine 150 mg Oral Daily sodium chloride flush 5-40 mL IntraVENous 2 times per day aspirin 81 mg Oral Daily insulin lispro 0-6 Units SubCUTAneous TID WC insulin lispro 0-3 Units SubCUTAneous Nightly metoprolol tartrate 25 mg Oral BID atorvastatin 80 mg Oral Nightly Continuous Infusions: sodium chloride dextrose sodium chloride 20 mL/hr at 06/30/21 1901 heparin (PORCINE) Infusion 15.766 Units/kg/hr (06/30/21 1737) Patient's current medications documented, reviewed, and updated. CBC: Recent Labs 06/29/21 0315 06/29/21 0315 06/29/21 0932 06/30/21 0315 06/30/21 1453 WBC 11.0 -- -- 11.2* -- HGB 8.5* < > 8.8* 8.6* 8.9* PLT 333 -- -- 330 -- < > = values in this interval not displayed. BMP: Recent Labs 06/30/21314 NA 137 K 4.1 CL 103 CO2 26 BUN 11 CREATININE 0.76 GLUCOSE 128* Hepatic: No results for input(s): AST, ALT, ALB, BILITOT, ALKPHOS in the last 72 hours. Troponin: No results for input(s): TROPONINI in the last 72 hours. BNP: No results for input(s): BNP in the last 72 hours. Lipids: No results for input(s): CHOL, HDL in the last 72 hours. Invalid input(s): LDLCALCU INR: No results for input(s): INR in the last 72 hours. Objective: Vitals: BP 134/81 Pulse 76 Temp 98.4 F (36.9 C) (Oral) Resp 19 Ht 5' 3 (1.6 m) Wt 260 lb (117.9 kg) SpO2 92% BMI 46.06 kg/m General appearance: alert and cooperative with exam HEENT: Head: Normocephalic, no lesions, without obvious abnormality. Eye: Normal external eye, conjunctiva, lids cornea, ELLIE. Nose: Normal external nose, mucus membranes and septum. Neck: no adenopathy and supple, symmetrical, trachea midline Lungs: clear to auscultation bilaterally and diminished in the bases. Heart: regular rate and rhythm and S1, S2 normal Abdomen: soft, non-tender; bowel sounds normal; no masses, no organomegaly and obese. Extremities: No calf tenderness. Neurologic: Mental status: Alert, oriented, thought content appropriate Assessment and Plan: 1. NSTEMI - placed in the ICU on heparin drip, Nitro drip changed to Imdur on 06/30, Aspirin, and Lopressor. Troponin peaked at 134 with last troponin at 121. Some chest pressure this am . Lisinopril 5 mg BID added. No bed availability at [facility] during this COVID Crisis. 2. Leukocytosis - CXR normal, UA normal. WBC 11,000 this am. 3. Microcytic hypochromic anemia - iron deficient. Has not had a stool heme occult. Hgb stable at 8.6. Part of this may be dilutional. On Protonix 40 mg BID. Started on Iron Sulfate 325 mg BID. 4. H/O GERD - on PPI. 5. H/O depression / anxiety - on Effexor XR. 6. Restless legs - on Requip. 7. H/O Fibromyalgia - on Gabapentin. 8. DM II - new diagnosis. 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 Placed on Humalog sliding scale. 9. Headache secondary to Nitro - on Tramadol PRN. 10. HTN - Lisinopril 5 mg BID added. Plan: 1. Add troponin to labs this am. 2. Continue the current treatment awaiting transfer for cardiac cath. Patient continues to require in patient admission secondary to the need for cardiac monitoring awaiting transfer for cardiac cath. DVT prophylaxis: [] Lovenox [] SCDs [x] SQ Heparin [] Encourage ambulation, low risk for DVT, no chemical or mechanical prophylaxis necessary [] Already on Anticoagulation Patient Active Problem List: Restless leg syndrome Fibromyalgia Gastroesophageal reflux disease without esophagitis Anxiety Depression Insomnia Migraine headache Obesity, Class III, BMI 40-49.9 (morbid obesity) ([facility]) Memory loss of unknown cause Back pain Irritable bowel syndrome Tobacco use Chest pain NSTEMI (non-ST elevated myocardial infarction) ([facility]) Acute coronary syndrome ([facility]) Brian Han MD, MD Rounding Hospitalist DIABETES EDUCATION Spoke with pt for 15-20 minutes for inpatient diabetes education. Multiple family members present. She was diagnosed with diabetes with an A1C of 8.1% during this admission. States her grandmother had diabetes but no one else in her family. Educated on what diabetes is, some of the symptoms of high blood sugar, and the importance of properly managing diabetes. She reports she has been thirsty and tired lately. Went over all SAFE handouts, including hyper/hypoglycemia symptoms and treatment. Denies questions. Contact number provided. Encouraged to call with questions or concerns. Labs: Lab Results Component Value Date LABA1C 8.1 (H) 06/27/2021 LABA1C 5.6 08/14/2015 Lab Results Component Value Date CREATININE 0.76 06/30/2021 Did Dietitian see patient? [x] Yes [] No Does patient have a monitor and strips? [] Yes [x] No Frequency of monitoring at home: Newly diagnosed. Discussed anderson times. Can patient afford medications? [x] Yes [] No Medication taking at home: [x] Oral medication - To begin taking metformin after procedure. [] Insulin [] Other [] None New to insulin? [x] Yes [] No Instructed on insulin use? [] Yes [x] No [] N/A SAFE HANDOUTS: [x] Where do I Begin? booklet [x] What is Diabetes? [x] What is Insulin? [x] Hypo- hyperglycemia [x] Diabetes pills [x] How to Check your sugar [x] Be safe with needles [x] Sick Days with Diabetes [x] When to Call the Doctor [] Other [] Type 2 DM and adding Insulin [x] Carbohydrate Counting for People with Diabetes Janki Fatima RN [facility] Diabetes clinic educator 06/30/2021 4:00 PM APTT 71.6 No change in dos of heparin drip from lab draw at 1453 Diabetic educated in room for education. Access center from [place] called for update. Pain re-assessment pt is in bed eyes closed. She does report yeah it's less when asked her pain level. She immediately closes eyes again and begins to snore. Patient's mother at bedside. Pt A&o, denies chest pain. She does still c/o headache 10/26 will give prn med Pt A&O x4. Pt sits up in bed -family members at bedside. She denies chest pain, only c/o is of slight headache per pt. New order to discontinue Nitro infusion. Per Dr Grace. Nitro infusing stopped. Cardiology Jeremias is asymptomatic with no chest pain or sob. Still waiting for a bed in tertiary center. Currently on NTG IV at 5 mcg/min. BP 127/95 HR 68 Exam unremarkable Hgb 8.6 (10.6 on admission) although has remained stable HgA1c 8.1 1. NSTEMI probably anterior 2. Pain free on NTG infusion 3. Anemia with Hb 8.6, which is iron deficient 4. Newly diagnosed DM 5. HTN Plan: Stop NTG IV Start Imdur 30 mg bid Increase Lisinopril to 5 mg bid Guiac stools when available If positive would need gi evaluation Very difficult situation as she is still waiting for a bed. Her anemia is worrisome with Hgb 8.6 although it has been stable. If she is guiac positive, she would need a gi evaluation. Since she has had NSTEMI, would need to do after cardiac cath to define anatomy. If she requires a stent and needs gi evaluation, might need BMS vs FREDERICK with short term dual therapy antiplatelets. Will stop NTG IV and start Imdur 30 mg bid, to lower acuity level. Will continue to watch closely. Jason Grace MD Hospitalist Progress Note 06/30/2021 4:52 AM Subjective: Admit Date: 06/26/2021 PCP: Gerry Guerra, [employer] - [employer] HELPER Interval History: Jeremias reports no chest pain this am. She states she does notice more SOB with exertion (ambulating to the restroom). Continues on Heparin and Nitro drips awaiting transfer. Diet: ADULT DIET; Regular; 3 carb choices (45 gm/meal); Low Fat/Low Chol/High Fiber/GISEL Medications: Scheduled Meds: ferrous sulfate 325 mg Oral BID WC gabapentin 100 mg Oral TID pantoprazole 40 mg Oral BID AC rOPINIRole 4 mg Oral Nightly venlafaxine 150 mg Oral Daily sodium chloride flush 5-40 mL IntraVENous 2 times per day aspirin 81 mg Oral Daily insulin lispro 0-6 Units SubCUTAneous TID WC insulin lispro 0-3 Units SubCUTAneous Nightly metoprolol tartrate 25 mg Oral BID lisinopril 5 mg Oral Daily atorvastatin 80 mg Oral Nightly Continuous Infusions: sodium chloride dextrose sodium chloride 50 mL/hr at 06/30/21 0112 heparin (PORCINE) Infusion 15.7662 Units/kg/hr (06/30/21 0427) nitroGLYCERIN 5 mcg/min (06/30/21 0112) Patient's current medications documented, reviewed, and updated. CBC: Recent Labs 06/27/2162906/27/2162906/29/2131406/29/21 0932 06/30/21314 WBC 14.5* -- 11.0 -- 11.2* HGB 10.6* < > 8.5* 8.8* 8.6* PLT 430 -- 333 -- 330 < > = values in this interval not displayed. BMP: Recent Labs 06/27/21 0606/30/21314 NA 138 137 K 3.9 4.1 CL 101 103 CO2 23 26 BUN 17 11 CREATININE 0.71 0.76 GLUCOSE 253* 128* Hepatic: No results for input(s): AST, ALT, ALB, BILITOT, ALKPHOS in the last 72 hours. Troponin: No results for input(s): TROPONINI in the last 72 hours. BNP: No results for input(s): BNP in the last 72 hours. Lipids: No results for input(s): CHOL, HDL in the last 72 hours. Invalid input(s): LDLCALCU INR: No results for input(s): INR in the last 72 hours. Objective: Vitals: BP (!) 129/92 Pulse 70 Temp 98.5 F (36.9 C) (Oral) Resp 19 Ht 5' 3 (1.6 m) Wt 255 lb (115.7 kg) SpO2 94% BMI 45.17 kg/m General appearance: alert and cooperative with exam HEENT: Head: Normocephalic, no lesions, without obvious abnormality. Eye: Normal external eye, conjunctiva, lids cornea, ELLIE. Nose: Normal external nose, mucus membranes and septum. Nose: Nasal oxygen on. Neck: no adenopathy and supple, symmetrical, trachea midline Lungs: Lungs are clear but diminished in the bases. Heart: regular rate and rhythm, S1, S2 normal, no murmur, click, rub or gallop Abdomen: soft, non-tender; bowel sounds normal; no masses, no organomegaly and obese. Extremities: extremities normal, atraumatic, no cyanosis or edema Neurologic: Mental status: Alert, oriented, thought content appropriate Assessment and Plan: 1. NSTEMI - placed in the ICU on heparin drip, Nitro drip, Aspirin, and Lopressor. Troponin peaked at 134 with last troponin at 121. Chest pain free at this time, vital signs stable. No bed availability at [facility] during this COVID Crisis. 2. Leukocytosis - CXR normal, UA normal. WBC 11,000 this am. 3. Microcytic hypochromic anemia - iron deficient. Has not had a stool to heme occult. Hgb stable at 8.6. Part of this may be dilutional. On Protonix 40 mg BID. Started on Iron Sulfate 325 mg BID. 4. H/O GERD - on PPI. 5. H/O depression / anxiety - on Effexor XR. 6. Restless legs - on Requip. 7. H/O Fibromyalgia - on Gabapentin. 8. DM II - new diagnosis. 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 Placed on Humalog sliding scale. 9. Headache secondary to Nitro - on Tramadol PRN. Plan: 1. Decrease IV rate to 20 ml/hr - to continue on IV Nitro / heparin. 2. Continue to monitor H&H. 3. Await transfer. 4. Lasix 20 mg PO today with 6 lb wt gain. Patient continues to require in patient admission secondary to awaiting bed at a photofinishing laboratory worker center. On IV Heparin / Nitro. DVT prophylaxis: [] Lovenox [] SCDs [x] IV Heparin [] Encourage ambulation, low risk for DVT, no chemical or mechanical prophylaxis necessary [] Already on Anticoagulation Patient Active Problem List: Restless leg syndrome Fibromyalgia Gastroesophageal reflux disease without esophagitis Anxiety Depression Insomnia Migraine headache Obesity, Class III, BMI 40-49.9 (morbid obesity) (HCC) Memory loss of unknown cause Back pain Irritable bowel syndrome Tobacco use Chest pain NSTEMI (non-ST elevated myocardial infarction) ([facility]) Acute coronary syndrome ([facility]) Brian Han MD, MD Rounding Hospitalist Pt has remained chest pain free throughout shift. Nitro titrated, currently at 10mcg/min. Up to BR with SBA, tolerated well. Pt complained of headache, rated 8/10. Tramadol given at 2029. Pt reported pain med did not help but is now resting with eyes closed. PTT resulted at 2033 was 69.3. No bolus or rate change per protocol. Troponin increased to 124, provider notified. Denies any needs at this time. Call light in reach. Pt states that her pain/pressure has subsided in her chest, that she only has a headache now. NTG decreased to 40mcg's. Dr. Han was contacted after Dr. Grace to update him on patient. Dr. Grace called concerning chest tightness, arm radiation, vital signs, EKG and troponin, and rate of NTG. Informed that there ar not beds available at this time and we can titrate the NTG drip. Ntg increased to 25 mcgs, Pain remains at at #5 with some severe twinges Stat EKG and troponin completed. Pt states that tightness is down to a #5. Family at bedside. EKG triggers Vtach. Mpother was washing patients back at that time. Lead II detected RSR other lead detected vtach. Pt relates of left chest heaviness and tightness that radiates down left arm. Rates pain as a number 7. nitorglycerine increased to 20 mcg's. O2 remains on at 2l nc. Pt has stool it was tested and it was negative for hemoccult Hospitalist Progress Note 06/29/2021 4:19 AM Subjective: Admit Date: 06/26/2021 PCP: Gerry Guerra, [employer] - [employer] HELPER Interval History: Jeremias denies having any chest pain throughout the day yesterday or last night. She complains of a Headache secondary to the IV Nitro. One episode of SOB when she was up to the restroom yesterday but none since. Appetite is good, no nausea. No BM since admission but she doesn't feel bloated. No trouble urinating. Continue to wait for acceptance to a hospital with a photofinishing laboratory worker. Diet: ADULT DIET; Regular; 3 carb choices (45 gm/meal); Low Fat/Low Chol/High Fiber/GISEL Medications: Scheduled Meds: gabapentin 100 mg Oral TID pantoprazole 40 mg Oral BID AC rOPINIRole 4 mg Oral Nightly venlafaxine 150 mg Oral Daily sodium chloride flush 5-40 mL IntraVENous 2 times per day aspirin 81 mg Oral Daily insulin lispro 0-6 Units SubCUTAneous TID WC insulin lispro 0-3 Units SubCUTAneous Nightly metoprolol tartrate 25 mg Oral BID lisinopril 5 mg Oral Daily atorvastatin 80 mg Oral Nightly Continuous Infusions: sodium chloride dextrose sodium chloride 50 mL/hr at 06/28/212035 heparin (PORCINE) Infusion 14.61 Units/kg/hr (06/29/21 0118) nitroGLYCERIN 10 mcg/min (06/28/21 1600) Patient's current medications documented, reviewed, and updated. CBC: Recent Labs 06/26/21212306/27/2130 06/29/21 0315 WBC 18.4* 14.5* 11.0 HGB 11.4* 10.6* 8.5* PLT 495* 430 333 BMP: Recent Labs 06/26/21212306/27/21629 NA 134* 138 K 3.6* 3.9 CL 99 101 CO2 21 23 BUN 16 17 CREATININE 0.83 0.71 GLUCOSE 244* 253* Hepatic: Recent Labs 06/26/212123 AST 13 ALT 15 BILITOT 0.12* ALKPHOS 112* Troponin: No results for input(s): TROPONINI in the last 72 hours. BNP: No results for input(s): BNP in the last 72 hours. Lipids: No results for input(s): CHOL, HDL in the last 72 hours. Invalid input(s): LDLCALCU INR: Recent Labs 06/26/21 2146 INR 1.0 Objective: Vitals: BP 102/83 Pulse 70 Temp 98.1 F (36.7 C) (Oral) Resp 16 Ht 5' 3 (1.6 m) Wt 250 lb (113.4 kg) SpO2 93% BMI 44.29 kg/m General appearance: alert and cooperative with exam HEENT: Head: Normocephalic, no lesions, without obvious abnormality. Eye: Normal external eye, conjunctiva, lids cornea, ELLIE. Nose: Normal external nose, mucus membranes and septum. Nasal oxygen on. Neck: no adenopathy, no carotid bruit and supple, symmetrical, trachea midline Lungs: clear to auscultation bilaterally Heart: regular rate and rhythm, S1, S2 normal, no murmur, click, rub or gallop Abdomen: soft, non-tender; bowel sounds normal; no masses, no organomegaly and obese. Extremities: extremities normal, atraumatic, no cyanosis, 1 + edema in the feet. Neurologic: Mental status: Alert, oriented, thought content appropriate Assessment and Plan: 1. NSTEMI - placed in the ICU on heparin drip, Nitro drip, Aspirin, and Lopressor. Troponin peaked at 134 with last troponin at 121. Chest pain free at this time, vital signs stable. No bed availability at [facility] during this COVID Crisis. 2. Leukocytosis - CXR normal, UA normal. WBC 11,000 this am. 3. Microcytic hypochromic anemia - iron deficient. Has not had a stool to heme occult. Hgb dropped to 8.5 this am. Part of this may be dilutional. On Protonix 40 mg BID. Started on Iron Sulfate 325 mg BID. 4. H/O GERD - on PPI. 5. H/O depression / anxiety - on Effexor XR. 6. Restless legs - on Requip. 7. H/O Fibromyalgia - on Gabapentin. 8. DM II - new diagnosis. 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 Placed on Humalog sliding scale. Plan: 1. Repeat H&H at 10 am. Heme occult stool. 2. Add iron sulfate 325 mg BID. 3. Continue to await accepting facility for cardiac cath. Patient continues to require in patient admission secondary to the need for IV heparin, IV Nitro, and close monitoring of condition. DVT prophylaxis: [] Lovenox [] SCDs [x] IV Heparin [] Encourage ambulation, low risk for DVT, no chemical or mechanical prophylaxis necessary [] Already on Anticoagulation Patient Active Problem List: Restless leg syndrome Fibromyalgia Gastroesophageal reflux disease without esophagitis Anxiety Depression Insomnia Migraine headache Obesity, Class III, BMI 40-49.9 (morbid obesity) ([facility]) Memory loss of unknown cause Back pain Irritable bowel syndrome Tobacco use Chest pain NSTEMI (non-ST elevated myocardial infarction) ([facility]) Acute coronary syndrome ([facility]) Brian Han MD, MD Rounding Hospitalist Pt relates of feeling tired and wants to take a nap. Denies any complaints of pain. Pt resting in bed, family at bedside. Pt denies any complaints of chest, jaw or arm pain. IV's infusing without difficulty at this time. Pt is asleep with deep and even respirations. Cardiology Denies chest pain. Resting comfortably. Trop decreasing. Stable, waiting for bed. Thanks, Jason Grace MD Pt states that pressure is gone in her chest at this time. Pt sitting up in bed eating breakfast. Pt relates of left chest pressure that is minimal, NTG drip increased to 10 mcg's. Pt is slightly diaphoretic, states that she feels hot. Hospitalist Progress Note 06/28/2021 4:04 AM Subjective: Admit Date: 06/26/2021 PCP: Gerry Guerra, [employer] - [employer] HELPER Interval History: Jeremias has no complaints this am. She remains pain free on Nitro at 5 mcg. Jeremias denies feeling SOB. She was able to eat yesterday afternoon with no nausea. No BM yesterday. No trouble urinating. Diet: Diet NPO Medications: Scheduled Meds: gabapentin 100 mg Oral TID pantoprazole 40 mg Oral BID AC rOPINIRole 4 mg Oral Nightly venlafaxine 150 mg Oral Daily sodium chloride flush 5-40 mL IntraVENous 2 times per day aspirin 81 mg Oral Daily insulin lispro 0-6 Units SubCUTAneous TID WC insulin lispro 0-3 Units SubCUTAneous Nightly metFORMIN 500 mg Oral BID WC metoprolol tartrate 25 mg Oral BID lisinopril 5 mg Oral Daily atorvastatin 80 mg Oral Nightly Continuous Infusions: sodium chloride dextrose sodium chloride 100 mL/hr at 06/27/21 2341 heparin (PORCINE) Infusion 12.86 Units/kg/hr (06/27/21 2254) nitroGLYCERIN 5 mcg/min (06/28/21 0250) Patient's current medications documented, reviewed, and updated. CBC: Recent Labs 06/26/21212306/27/21629 WBC 18.4* 14.5* HGB 11.4* 10.6* PLT 495* 430 BMP: Recent Labs 06/26/21212306/27/21629 NA 134* 138 K 3.6* 3.9 CL 99 101 CO2 21 23 BUN 16 17 CREATININE 0.83 0.71 GLUCOSE 244* 253* Hepatic: Recent Labs 06/26/212123 AST 13 ALT 15 BILITOT 0.12* ALKPHOS 112* Troponin: No results for input(s): TROPONINI in the last 72 hours. BNP: No results for input(s): BNP in the last 72 hours. Lipids: No results for input(s): CHOL, HDL in the last 72 hours. Invalid input(s): LDLCALCU INR: Recent Labs 06/26/21 2146 INR 1.0 Objective: Vitals: BP 103/64 Pulse 96 Temp 96.7 F (35.9 C) (Temporal) Resp 22 Ht 5' 3 (1.6 m) Wt 248 lb 14.4 oz (112.9 kg) SpO2 95% BMI 44.09 kg/m General appearance: alert and cooperative with exam HEENT: Head: Normocephalic, no lesions, without obvious abnormality. Eye: Normal external eye, conjunctiva, lids cornea, ELLIE. Nose: Normal external nose, mucus membranes and septum. Neck: no adenopathy, no carotid bruit and supple, symmetrical, trachea midline Lungs: clear to auscultation bilaterally Heart: regular rate and rhythm, S1, S2 normal, no murmur, click, rub or gallop Abdomen: soft, non-tender; bowel sounds normal; no masses, no organomegaly and obese Extremities: extremities normal, atraumatic, no cyanosis or edema Neurologic: Mental status: Alert, oriented, thought content appropriate Assessment and Plan: 1. NSTEMI - placed in the ICU on heparin drip, Nitro drip, Aspirin, and Lopressor. Troponin peaked at 134 with last troponin at 125. Chest pain free at this time, vital signs stable. No bed availability at [facility] during this COVID Crisis. 2. Leukocytosis - CXR normal, UA normal. WBC elevated on labs since December. May need to see a Manager Functional as an out patient. 3. Microcytic hypochromic anemia - iron studies ordered. 4. H/O GERD - on PPI. 5. H/O depression / anxiety - on Effexor XR. 6. Restless legs - on Requip. 7. H/O Fibromyalgia - on Gabapentin. 8. DM II - new diagnosis. 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 Placed on Humalog sliding scale. Plan: 1. Continue the current treatment. 2. Ferritin, iron, and TIBC to evaluate for iron deficiency. Patient continues to require in patient admission secondary to acute NSTEMI. DVT prophylaxis: [] Lovenox [] SCDs [x] IV Heparin [] Encourage ambulation, low risk for DVT, no chemical or mechanical prophylaxis necessary [] Already on Anticoagulation Patient Active Problem List: Restless leg syndrome Fibromyalgia Gastroesophageal reflux disease without esophagitis Anxiety Depression Insomnia Migraine headache Obesity, Class III, BMI 40-49.9 (morbid obesity) ([facility]) Memory loss of unknown cause Back pain Irritable bowel syndrome Tobacco use Chest pain NSTEMI (non-ST elevated myocardial infarction) ([facility]) Acute coronary syndrome ([facility]) Brian Han MD, MD Rounding Hospitalist Access center called as there was 2 different things from the bedboard listed, one as cancelled and one as waiting for a bed. They stated that she is still listed as needing a bed. States that transport is unavailable as there is no bed assignment. NTG drip started at 5 mcg/min Pt states that epigastric pain in gone and left breast pain is down to a #4. Pt received to ICU from med/surg. Pt relates of epigastric pain that is a #4 with no radiation. Pt has left breast pain with radiation to arm and bilat jaw. Pt states that she does not have jaw pain at this time. Arm and left breast are a #7 sharp in nature with no aggravating/ alleviating factors. Pt denies any dyspnea. Pt and family updated on plan of care and plan to transfer and that it is difficult to get a bed at this time. Informed that I will update them as I get information. Call light in reach. Pt educated to call nurse for any changes in pain. Transferred to ICU. Nitro paste increased to [address] Grace. Cardiology 1. Chest pain since Wednesday, worse yesterday. 2. NSTEMI which appears to be anterior 3. Normal LV function by bedside echo 4. Smoking hx 5. Family hx of CAD (father) EKG; T wave inversion anterior laterally No cardiac history. On Wednesday, developed sharp chest pain, followed by tightness. This subsided, however, on returned, more severe. Initial enzymes detectable, however, did not change. She had more chest pain today, and repeat enzymes showed Trop increased to 103. Her EKG also changed with t wave inversion V2-V6. Will give NTP and start heparin infusion. Will need to transfer for cardiac cath. Again, LV function appears to be preserved. Thanks, Jason Grace MD Critical troponin level called to Dr. Grace. Met with Patient this a.m. to discuss discharge plans. Patient is a 45 year old single, white female, admitted with a diagnosis of Chest Pain. Patient also noted to have Anxiety and Depression. She is alert and oriented, responding to questions being asked of her, polite and cooperative at this time. Patient states that she wishes to return home with family when deemed medically stable for discharge. Patient resides with her son in [place]. She uses no DME and has no outside services currently in place. Patient drives herself and is independent with her ADL's. PCP is Tam Guerra CNP. Patient has Medicaid and denies needing further financial assistance with the cost of her medications. Discharge plan is home when stable. Patient is a 'Full Code' status and voices no interest in pursuing medical directives at this point. No anticipated needs identified by Patient at present. MANUFACTURING TECHNOLOGY PROFESSOR to monitor/assist with further discharge planning needs as appropriate. RENAN Noe 06/27/2021 Dr. Han made aware of increased blood sugar readings. Orders received for humalog per sliding scale. Attempting to contact Dr. Grace for diet orders. 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 Obesity r/t excess energy intakes relative to expenditure, AEB BMI >40. Altered nutrition related labs r/t endocrine dysfunction, AEB hyperglycemia, without DM previously diagnosed. Accepting of heart healthy education. Recommend A1C and further testing to r/t DM. 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) Altered nutrition-related lab values related to endocrine dysfuntion as evidenced by lab values Overweight/Obese related to excessive energy intake as evidenced by BMI Lab Results Component Value Date NA 138 06/27/2021 K 3.9 06/27/2021 CL 101 06/27/2021 CO2 23 06/27/2021 BUN 17 06/27/2021 CREATININE 0.71 06/27/2021 GLUCOSE 253 (H) 06/27/2021 CALCIUM 8.9 06/27/2021 PROT 7.5 06/26/2021 LABALBU 4.0 06/26/2021 BILITOT 0.12 (L) 06/26/2021 ALKPHOS 112 (H) 06/26/2021 AST 13 06/26/2021 ALT 15 06/26/2021 LABGLOM >60 06/27/2021 GFRAA >60 06/27/2021 Lab Results Component Value Date LABA1C 5.6 08/14/2015 Lab Results Component Value Date EAG 114 08/14/2015 Lab Results Component Value Date VITD25 12.3 (L) 01/17/2021 Recent Labs 06/27/21 1112 POCGLU 323* Nutrition Interventions: Food and/or Nutrient Delivery: Start Oral Diet Nutrition Education/Counseling: Education initiated, Education needed Coordination of Nutrition Care: Continue to monitor while inpatient Goals: PO >75% meals with pop avoidance and heart healthy choices Nutrition Monitoring and Evaluation: Behavioral-Environmental Outcomes: None Identified Food/Nutrient Intake Outcomes: Food and Nutrient Intake, Diet Advancement/Tolerance Physical Signs/Symptoms Outcomes: Biochemical Data, Weight Discharge Planning: Recommend pursue outpatient diabetes education (if diabetic) Contact: [phone] Quality flow rounds held on 06/27/21 Jeremais Hernandez is admitted for Chest pain Length of stay 0. Education: Needed Education: disease process, meds, follow up,diet Do you have any questions regarding your plan of care while at the hospital? denies Planned Disposition: [x] Home when able [] Swing Bed [] ECF/SNF [] Other/TBD Barriers to Discharge: Can you afford your medications? yes Do you have transportation to follow up appointments? Drives self Do you need any new equipment at home? none Current equipment includes none Do you have a living will or durable power of employment law attorney for healthcare? denies If yes do we have a copy on file? n/a Do you or your family have any questions or concerns we haven't already discussed? Denies Lives with son. Denies needs at discharge. PCP is Dr Ashraf or Tam Guerra, states has no preference of which one she has f/u appt with. María Elena URRUTIA and board writer present for rounding. Dr. Grace called regarding continuing chest pain, to give prn sublingual nitro, stat EKG. documented in this encounter [employer] Phone: 02-21-2021 History of Present illness Narrative [facility] [address] [place] [address] FAX [phone] Jeremias Hernandez 1975 female Delvin Mireles MD Provider Not in System [phone] Chief Complaint Patient presents with Sore Throat Consultation requested by Dr. Vishal Ashraf. HPI: 45-year-old female patient who comes to have her throat checked. She has been complaining of tightness and swelling of her throat for the last month or so. She noticed also significant swelling of the uvula. She had to go to the emergency room for this. She has some problems swallowing. There is occasional soreness. Symptoms are worse in the morning and sometimes in the evening. She snores at night and she wakes up at night because she is having problems breathing. She is a chronic smoker. She is trying to reduce smoking and she is down to half a pack of cigarettes a day. She takes Prilosec. She takes it in the morning and at bedtime. Her biggest meal of the day is supper. She hardly has anything for breakfast. Allergies: Lyrica [pregabalin] Current Outpatient Medications: artificial tears,hypromellose, 0.3 % Gel, Apply to eye ., Disp: , Rfl: cyclobenzaprine (FLEXERIL) 10 MG tablet, Take 10 mg by mouth 3 (three) times a day as needed for muscle spasms ., Disp: , Rfl: gabapentin (NEURONTIN) 300 MG capsule, Take 300 mg by mouth every 8 (eight) hours ., Disp: , Rfl: rOPINIRole (REQUIP) 0.25 MG tablet, Take 0.25 mg by mouth nightly ., Disp: , Rfl: venlafaxine (EFFEXOR-XR) 150 MG 24 hr capsule, Take 150 mg by mouth daily ., Disp: , Rfl: famotidine (PEPCID) 40 MG tablet, One po qhs ., Disp: 30 tablet, Rfl: 11 No current facility-administered medications for this visit. Past Medical History: Diagnosis Date Fibromyalgia Past Surgical History: Procedure Laterality Date APPENDECTOMY HYSTERECTOMY Social History Socioeconomic History Marital status: Single Spouse name: Not on file Number of children: Not on file Years of education: Not on file Highest education level: Not on file Occupational History Not on file Tobacco Use Smoking status: Current Every Day Smoker Smokeless tobacco: Never Used Vaping Use Vaping Use: Never used Substance and Sexual Activity Alcohol use: Yes Drug use: Never Sexual activity: Not on file Other Topics Concern Not on file Social History Narrative Not on file Social Determinants of Health Financial Resource Strain: Difficulty of Paying Living Expenses: Food Insecurity: Worried About Running Out of Food in the Last Year: Ran Out of Food in the Last Year: Transportation Needs: Lack of Transportation (Medical): Lack of Transportation (Non-Medical): Physical Activity: Days of Exercise per Week: Minutes of Exercise per Session: Stress: Feeling of Stress : Social Connections: Frequency of Communication with Friends and Family: Frequency of Social Gatherings with Friends and Family: Attends [employer] Services: Active Member of Clubs or Organizations: Attends Club or Organization Meetings: Marital Status: Family History Problem Relation Age of Onset Hypertension Mother Heart disease Father ROS: Review of Systems Constitutional: Negative for fever. HENT: Positive for sore throat and trouble swallowing. Negative for ear discharge and ear pain. Respiratory: Snoring Cardiovascular: Negative. Gastrointestinal: Negative. Musculoskeletal: Negative. Neurological: Negative. Psychiatric/Behavioral: Positive for sleep disturbance. Physical Exam: Physical Exam Constitutional: Appearance: Normal appearance. She is well-developed and overweight. HENT: Head: Normocephalic and atraumatic. Jaw: No trismus. Right Ear: Hearing, tympanic membrane, ear canal and external ear normal. Left Ear: Hearing, tympanic membrane, ear canal and external ear normal. Nose: No nasal deformity, septal deviation or mucosal edema. Mouth/Throat: Lips: [place]. No lesions. Mouth: Mucous membranes are moist. No oral lesions. Dentition: Normal dentition. Tongue: No lesions. Palate: No lesions. Pharynx: Oropharynx is clear. Uvula midline. No uvula swelling. Comments: Relationship between the base of the tongue and the soft palate is a Schultz type IV. Flexible fiberoptic laryngoscopy shows moderate erythema and edema of the hypopharyngeal mucosa and laryngeal mucosa. No suspicious lesions noticed. Neck: Thyroid: No thyroid mass. Trachea: Trachea and phonation normal. Musculoskeletal: Cervical back: Neck supple. No muscular tenderness. Lymphadenopathy: Cervical: No cervical adenopathy. Neurological: Mental Status: She is alert. Comments: No facial nerve deficit. Psychiatric: Behavior: Behavior is cooperative. Procedure: Flexible Fiberoptic Laryngoscopy Pre op Dx: Patient with problems swallowing and history of smoking. Mirror examination of the larynx was incomplete so flexible fiberoptic laryngoscopy was performed. Post op Dx: Chronic laryngitis with no suspicious lesions Findings: Nasal cavity: Normal Nasopharynx: Normal Base of Tongue: Moderately hypertrophic Vallecula: Mild erythema Epiglottis: Mild erythema Aryepiglottic folds: Moderate edema and erythema Arythenoid cartilage: Moderate edema and erythema Vocal cords: Mild edema mild erythema Posterior laryngeal mucosa: Moderate erythema and edema with mild to moderate hyperplasia posteriorly Pyriform sinus: Normal Lateral pharyngeal wall: Normal Procedure: After obtaining consent and nasal cavity treated topically with neosynephrine 1% and cetacaine a 4mm flexible scope was passed through left nostril and taken to nasopharynx and hypopharynx and larynx for evaluation with above findings. Patient tolerated procedure well with no complications. Impression/Plan: Problem List Items Addressed This Visit None Visit Diagnoses Chronic laryngitis - Primary Snoring Relevant Orders Ambulatory referral to Pulmonology Laryngopharyngeal reflux (LPR) Tobacco abuse disorder Globus sensation I explained to her that there were probably several contributing factors to her symptoms. I think that the swelling of the uvula is secondary to significant snoring. There is significant swelling of the throat and hypopharyngeal areas which are very likely secondary to laryngopharyngeal reflux and very likely she is suffering from obstructive sleep apnea syndrome. I am suggesting her to use the Prilosec 40 mg before supper and we will start her on Pepcid 40 mg to use at bedtime. We will send a referral for pulmonology evaluation for possible sleep study. I gave her information about laryngopharyngeal reflux. She needs to stop smoking because otherwise this may not get better. We will see her back in 3 months. Follow up: Return in about 3 months (around 05/24/2021) for Recheck. Delvin Mireles MD documented in this encounter [facility] 01-07-2021 History of Present illness Narrative CLINICAL PHARMACY NOTE: MEDS TO BEDS Total # of Prescriptions Filled: 2 The following medications were delivered to the patient: augmentin prednisone Additional Documentation: Pt discharged off unit with all belongings and medication. RN went over discharge paperwork and medications with pt. Pt had no questions or concerns. Pt instructed to f/u with PCP and ENT outpatient. Otolaryngology Attending Progress Note SUBJECTIVE: Feeling much better this morning OBJECTIVE Physical VITALS: BP 127/88 Pulse 76 Temp 98.4 F (36.9 C) (Oral) Resp 17 Ht 5' 4 (1.626 m) Wt 242 lb 8.1 oz (110 kg) SpO2 92% BMI 41.63 kg/m 24HR INTAKE/OUTPUT: Intake/Output Summary (Last 24 hours) at 01/07/2021 0915 Last data filed at 01/07/2021 0638 Gross per 24 hour Intake 2986 ml Output Net 2986 ml Alert, NAD OC/OP: uvular edema improved, no erythema today Voice-normal No stridor Current Inpatient Medications Current Facility-Administered Medications: ampicillin-sulbactam (UNASYN) 1500 mg IVPB minibag, 1,500 mg, Intravenous, Q6H gabapentin (NEURONTIN) capsule 100 mg, 100 mg, Oral, TID hydrOXYzine (ATARAX) tablet 50 mg, 50 mg, Oral, TID PRN pantoprazole (PROTONIX) tablet 40 mg, 40 mg, Oral, BID AC rOPINIRole (REQUIP) tablet 4 mg, 4 mg, Oral, Nightly venlafaxine (EFFEXOR XR) extended release capsule 150 mg, 150 mg, Oral, Daily 0.9 % sodium chloride infusion, , Intravenous, Continuous sodium chloride flush 0.9 % injection 5-40 mL, 5-40 mL, Intravenous, 2 times per day sodium chloride flush 0.9 % injection 10 mL, 10 mL, Intravenous, PRN 0.9 % sodium chloride infusion, 25 mL, Intravenous, PRN potassium chloride (KLOR-CON M) extended release tablet 40 mEq, 40 mEq, Oral, PRN OR potassium bicarb-citric acid (EFFER-K) effervescent tablet 40 mEq, 40 mEq, Oral, PRN OR potassium chloride 10 mEq/100 mL IVPB (Peripheral Line), 10 mEq, Intravenous, PRN magnesium sulfate 1000 mg in dextrose 5% 100 mL IVPB, 1,000 mg, Intravenous, PRN ondansetron (ZOFRAN-ODT) disintegrating tablet 4 mg, 4 mg, Oral, Q8H PRN OR ondansetron (ZOFRAN) injection 4 mg, 4 mg, Intravenous, Q6H PRN polyethylene glycol (GLYCOLAX) packet 17 g, 17 g, Oral, Daily PRN acetaminophen (TYLENOL) tablet 650 mg, 650 mg, Oral, Q6H PRN OR acetaminophen (TYLENOL) suppository 650 mg, 650 mg, Rectal, Q6H PRN dexamethasone (DECADRON) injection 4 mg, 4 mg, Intravenous, Q6H famotidine (PEPCID) injection 20 mg, 20 mg, Intravenous, BID enoxaparin (LOVENOX) injection 30 mg, 30 mg, Subcutaneous, BID ASSESSMENT AND PLAN Uvular edema and throat pain of uncertain etiology, however, it has objectively responded to IV ABX and steroids overnight, she is feeling much better. Can advance diet today. Recommend PO steroid course x 5 days and PO Augmentin x 7 days after discharge, follow-up with PCP in 7-10 days. I directly discussed my impression and suggestions with primary team attending. documented in this encounter [employer] Phone: 01-07-2021 Hospital course Narrative Images from the original note were not included. [facility] Office: [phone] Low Ballard DO, Elieser Black DO, Marin Black DO, Remington Doshi DO, Jaci Rayo MD, Beatrice Graham MD, Piedad Baig MD, Anne Brantley MD, Gustavo Arreola MD, Na Santos MD, Zia Vides MD, Joseph Helm MD, Michael Beckwith DO, Amaya Sandra MD, James Lo DO, Selene Zuniga MD, Bhavya Brown DO, Huy Gibbs MD, Steffen Stewart MD, Roxy Beckham MD, Aristeo Hanson MD, Carol Bryan, MARINE STEAM FITTER HELPER, Tran Avila, MARINE STEAM FITTER HELPER, Lilia Felton, MARINE STEAM FITTER HELPER, Genevieve Cummings, PRECISION LENS GENERATOR, Florentin Barr, MARINE STEAM FITTER HELPER, Anahi Mercado, MARINE STEAM FITTER HELPER, Azul Amos, MARINE STEAM FITTER HELPER, Colleen Corcoran, MARINE STEAM FITTER HELPER, Esteban Huffman, MARINE STEAM FITTER HELPER, CHEYENNE Carr-Benja, Julisa Gifford, ANGELICA, Morena Ruvalcaba, MARINE STEAM FITTER HELPER, Juanita Aguilar, MARINE STEAM FITTER HELPER, Maritza Duval, MARINE STEAM FITTER HELPER, Mindy Paula, MARINE STEAM FITTER HELPER, Natalie Murphy, MARINE STEAM FITTER HELPER, Latasha Joseph, MARINE STEAM FITTER HELPER [facility] IN-PATIENT SERVICE [facility] Discharge Summary Patient ID: Jeremias Hernandez : 1975 ACCOUNT: [id number] Patient's PCP: LEXIS Glaser CNP Admit Date: 01/05/2021 Discharge Date: 01/07/2021 Length of Stay: 1 Code Status: Full Code Admitting Physician: Elieser Black DO Discharge Physician: Steffen Stewart MD Active Discharge Diagnoses: Hospital Problem Lists: Principal Problem (Resolved): Uvulitis Active Problems: Gastroesophageal reflux disease without esophagitis Obesity, Class III, BMI 40-49.9 (morbid obesity) ([facility]) Tobacco use Resolved Problems: Uvular edema Admission Condition: poor Discharged Condition: good Hospital Stay: Hospital Course: 45-year-old female who came in with concerns of swelling in the posterior throat. Patient was noted to have uvular edema and throat pain of uncertain etiology. Patient responded well to antibiotics and steroids overnight and is feeling much better. She has been cleared for discharge from ENT. She will be discharged home on steroids and antibiotics. Patient will need to follow-up with her PCP within 7 days. Significant therapeutic interventions: Steroids Significant Diagnostic Studies: Labs / Micro: CBC: Lab Results Component Value Date WBC 15.3 01/07/2021 RBC 4.66 01/07/2021 RBC 4.57 11/06/2011 HGB 10.8 01/07/2021 HCT 37.0 01/07/2021 MCV 79.4 01/07/2021 MCH 23.2 01/07/2021 MCHC 29.2 01/07/2021 RDW 17.8 01/07/2021 PLT 411 01/07/2021 PLT 300 11/06/2011 BMP: Lab Results Component Value Date GLUCOSE 134 01/07/2021 GLUCOSE 87 11/06/2011 NA 142 01/07/2021 K 4.2 01/07/2021 CL 106 01/07/2021 CO2 22 01/07/2021 ANIONGAP 14 01/07/2021 BUN 14 01/07/2021 CREATININE 0.62 01/07/2021 BUNCRER NOT REPORTED 01/07/2021 CALCIUM 8.9 01/07/2021 LABGLOM >60 01/07/2021 GFRAA >60 01/07/2021 GFR 01/07/2021 GFR NOT REPORTED 01/07/2021 HFP: Lab Results Component Value Date PROT 7.3 01/05/2021 CMP: Lab Results Component Value Date GLUCOSE 134 01/07/2021 GLUCOSE 87 11/06/2011 NA 142 01/07/2021 K 4.2 01/07/2021 CL 106 01/07/2021 CO2 22 01/07/2021 BUN 14 01/07/2021 CREATININE 0.62 01/07/2021 ANIONGAP 14 01/07/2021 ALKPHOS 102 01/05/2021 ALT 16 01/05/2021 AST 18 01/05/2021 BILITOT <0.10 01/05/2021 LABALBU 4.0 01/05/2021 LABALBU 4.4 11/06/2011 ALBUMIN NOT REPORTED 01/05/2021 LABGLOM >60 01/07/2021 GFRAA >60 01/07/2021 GFR 01/07/2021 GFR NOT REPORTED 01/07/2021 PROT 7.3 01/05/2021 CALCIUM 8.9 01/07/2021 PT/INR: No results found for: PTINR, PROTIME, INR PTT: No results found for: APTT FLP: Lab Results Component Value Date CHOL 184 02/10/2019 TRIG 123 02/10/2019 HDL 46 02/10/2019 U/A: Lab Results Component Value Date COLORU YELLOW 02/19/2016 TURBIDITY HAZY 02/19/2016 SPECGRAV 1.020 02/19/2016 HGBUR TRACE 02/19/2016 PHUR 5.0 02/19/2016 PROTEINU NEGATIVE 02/19/2016 GLUCOSEU NEGATIVE 02/19/2016 GLUCOSEU NEGATIVE 08/06/2011 KETUA TRACE 02/19/2016 BILIRUBINUR NEGATIVE 02/19/2016 BILIRUBINUR neg 12/13/2013 BILIRUBINUR NEGATIVE 08/06/2011 UROBILINOGEN Normal 02/19/2016 NITRU NEGATIVE 02/19/2016 LEUKOCYTESUR NEGATIVE 02/19/2016 TSH: Lab Results Component Value Date TSH 0.79 02/19/2016 Radiology: CT SOFT TISSUE NECK WO CONTRAST Result Date: 01/05/2021 1. Limited evaluation due to lack of intravenous contrast. No acute soft tissue changes or discrete extranodal soft tissue mass. 2. Few nonspecific slight prominent left-sided cervical lymph nodes are likely reactive. CT SOFT TISSUE NECK W CONTRAST Result Date: 01/05/2021 The soft palate is mildly prominent compatible with the provided history. There is no suggestion of abscess or phlegmonous change. The exam appears otherwise normal. XR CHEST PORTABLE Result Date: 01/05/2021 Impression: 1. Cardiac enlargement. 2. No focal infiltrates. Consultations: Consults: Final Specialist Recommendations/Findings: IP CONSULT TO INTERNAL MEDICINE IP CONSULT TO OTOLARYNGOLOGY The patient was seen and examined on day of discharge and this discharge summary is in conjunction with any daily progress note from day of discharge. Discharge plan: Disposition: Home Physician Follow Up: Follow-up with PCP within 1 week after discharge No follow-up provider specified. Requiring Further Evaluation/Follow Up POST HOSPITALIZATION/Incidental Findings: Continue antibiotics and steroids Diet: cardiac diet Activity: As tolerated Instructions to Patient: Be compliant with the diet, medications, follow-up Discharge Medications: Medication List START taking these medications amoxicillin-clavulanate 875-125 MG per tablet Commonly known as: AUGMENTIN Take 1 tablet by mouth 2 times daily for 7 days predniSONE 20 MG tablet Commonly known as: DELTASONE Take 2 tablets by mouth daily for 5 days CONTINUE taking these medications cyclobenzaprine 10 MG tablet Commonly known as: FLEXERIL TAKE 1 TABLET TWICE A DAY NEEDED FOR MUSCLE SPASM gabapentin 100 MG capsule Commonly known as: NEURONTIN Take 1 capsule by mouth 3 times daily for 90 days. Intended supply: 30 days hydrOXYzine 50 MG capsule Commonly known as: Vistaril Take 1 capsule by mouth 3 times daily as needed for Anxiety omeprazole 20 MG delayed release capsule Commonly known as: PRILOSEC Take 1 capsule by mouth 2 times daily rOPINIRole 4 MG tablet Commonly known as: REQUIP Take 1 tablet by mouth nightly TAKE 1 TABLET NIGHTLY. NEEDAPPOINTMENT BEFORE CAN GET ADDITIONAL REFILLS venlafaxine 150 MG extended release capsule Commonly known as: EFFEXOR XR Take 1 capsule by mouth daily TAKE 1 CAPSULE DAILY Where to Get Your Medications These medications were sent to [address] - [phone] - F [phone] [place] [id number] amoxicillin-clavulanate 875-125 MG per tablet predniSONE 20 MG tablet No discharge procedures on file. Time Spent on discharge is 40 mins in patient examination, evaluation, counseling as well as medication reconciliation, prescriptions for required medications, discharge plan and follow up. Electronically signed by Steffen Stewart MD 01/07/2021 11:[address] Gerry Guerra, GRINDER CHIPPER - MARINE STEAM FITTER HELPER for the opportunity to be involved in this patient's care. documented in this encounter [employer] Phone: 01-05-2021 Note 1. Limited evaluatio n due to lack of intravenous contrast. No acute soft tissue changes or discrete extranodal soft tissue mass. 2. Few nonspecific slight prominent left-sided cervical lymph nodes are likely reactive. [employer] Phone: Evaluation + Plan note No data available for this section [facility] Evaluation note Diagnosis Pharyngeal swelling- Primary Angioedema, initial encounter documented in this encounter [employer] Phone: evaluation note* Diagnosis Uvulitis- Primary Cellulitis and abscess of oral soft tissues Uvular edema Other and unspecified diseases of the oral soft tissues Gastroesophageal reflux disease without esophagitis Esophageal reflux Obesity, Class III, BMI 40-49.9 (morbid obesity) ([facility]) Morbid obesity Tobacco use Tobacco use disorder documented in this encounter [employer] Phone: [email or web address] note* Diagnosis Heat intolerance Unspecified effects of heat and light documented in this encounter [employer] Phone: [email or web address] note* Diagnosis Fatigue, unspecified type documented in this encounter [employer] Phone: [email or web address] note* Diagnosis Globus sensation- Primary Gastrointestinal malfunction arising from mental factors [facility] Diagnosis Chronic laryngitis- Primary Snoring Other dyspnea and respiratory abnormality Laryngopharyngeal reflux (LPR) Tobacco abuse disorder Globus sensation Gastrointestinal malfunction arising from mental factors [facility]* Diagnosis Chest pain, unspecified type- Primary NSTEMI (non-ST elevated myocardial infarction) ([facility]) Acute myocardial infarction, subendocardial infarction, episode of care unspecified documented in this encounter [employer] Phone: [email or web address] note* Diagnosis S/P cardiac cath Other postprocedural status documented in this encounter [employer] Phone: [email or web address] noteNo assessment information available [facility] Work Phone: Evaluation note* Diagnosis Post PTCA Postsurgical percutaneous transluminal coronary angioplasty status Unstable angina pectoris (HCC) Intermediate coronary syndrome SOB (shortness of breath) Shortness of breath Anemia, unspecified type Vitamin D deficiency disease Unspecified vitamin D deficiency documented in this encounter [facility] [employer] Work Phone: [email or web address] note* Diagnosis Post PTCA Postsurgical percutaneous transluminal coronary angioplasty status Unstable angina pectoris (HCC) Intermediate coronary syndrome SOB (shortness of breath) Shortness of breath Anemia, unspecified type Vitamin D deficiency disease Unspecified vitamin D deficiency documented in this encounter [employer] Phone: evaluation note* Diagnosis Chest pain, unspecified type- Primary History of non-ST elevation myocardial infarction (NSTEMI) Old myocardial infarction documented in this encounter [employer] Phone: [email or web address] note* Diagnosis Streptococcal sore throat- Primary Tachycardia Tachycardia, unspecified Atypical chest pain Other chest pain documented in this encounter [facility] [email or web address] Discharge instructions* Attachments The following attachments cannot be sent through Care Everywhere. * Chest [facility] (Fijian) [facility] [employer] Phone: Hospital Discharge instructions No data available for this section [facility]* Attachments The following attachments cannot be sent through Care Everywhere. * Sore Throat (Fijian) [facility] [email or web address] [facility] No data available for this section [facility] Care Reason for referral (narrative)* Consultation (Routine) Status Reason Specialty Diagnoses / Procedures Referred By Contact Referred To Contact Pending Review Specialty Services Required/Patie nt's Best Interest Otolaryngology Diagnoses Globus sensation Vishal Ashraf DO [address] [place] [address] Delvin Mireles MD [address] [place] [id number] Electronically signed by Vishal Ashraf DO at [facility] for visit Narrative* Auth/Cert Specialty Diagnoses / Procedures Referred By Contac t Referred To Contact Diagnoses Non-STEMI (non-ST elevated myocardial infarction) (HCC) S/P cardiac cath Brian Han MD [address] [place] [phone] [employer] [id number] [place] [address] Referral ID Status Reason Start Date Expiration Date Visits Re quested Visits Authorized [id number] 1 1 [employer] Work Phone: Summary Purpose Family History No Family History Records FoundNo Family History Records FoundNo Family History Records FoundNo Family History Records FoundNo Family History Records Found No data available for this section No data available for this section No Family History Records Found No data available for this section No data available for this section No Family History Records FoundNo Family History Records FoundNo Family History Records FoundNo Family History Records Found Advance Directives No Advanced Directives Records FoundDocuments on File Type Date Recorded Patient Review Rn Expl anation Advance Directives and Living Will Power of Website Project Manager Latest Code Status on File Code Status Date Activated Date Inactivated Comments Full Code 08/08/2013 4:50 PM 08/09/2013 3:29 PM Full Code 10/12/2012 9:43 AM 10/12/2012 12:21 PM Documents on File Type Date Recorded Patient Review Rn Expl anation ACP-Advance Directive ACP-Power of Website Project Manager Documents on File Type Date Recorded Patient Review Rn Expl anation Advance Directives and Living Will Power of Website Project Manager Latest Code Status on File Code Status Date Activated Date Inactivated Comments Full Code 08/08/2013 4:50 PM 08/09/2013 3:29 PM Full Code 10/12/2012 9:43 AM 10/12/2012 12:21 PM Latest Code Status on File Code Status Date Activated Date Inactivated Comments Full Code 01/06/2021 2:16 AM Full Code 08/08/2013 4:50 PM 08/09/2013 3:29 PM Healthcare Agents on File Name Relationship Healthcare Agent Relationshi p Communication Rodo Kim Domestic Partner Secondary Decision Maker Latest Code Status on File Code Status Date Activated Date Inactivated Comments Full Code 01/06/2021 2:16 AM 01/07/2021 2:56 PM Healthcare Agents on File Name Relationship Healthcare Agent Relationshi p Communication Rodo Kim Domestic Partner Secondary Decision Maker Healthcare Agents on File Name Relationship Healthcare Agent Relationshi p Communication Rodo Kim Domestic Partner Secondary Decision Maker Documents on File Type Date Recorded Patient Review Rn Expl anation Advance Directives and Livin g Will 01/21/2021 12:00 AM Documents on File Type Date Recorded Patient Review Rn Expl anation Advance Directives and Livin g Will 02/20/2021 3:29 PM Latest Code Status on File Code Status Date Activated Date Inactivated Comments Full Code 06/27/2021 6:28 AM Full Code 01/06/2021 2:16 AM 01/07/2021 2:56 PM Healthcare Agents on File Name Relationship Healthcare Agent Relationshi p Communication Shanna Mary Parent Primary Decision Maker Rodo Kim Domestic Partner Secondary Decision Maker Documents on File Type Date Recorded Patient Review Rn Expl anation ACP-Advance Directive ACP-Power of Website Project Manager Latest Code Status on File Code Status Date Activated Date Inactivated Comments Full Code 07/03/2021 9:59 PM Full Code 07/03/2021 10:06 AM 07/03/2021 7:49 PM Full Code 07/03/2021 8:16 AM 07/03/2021 10:06 AM Full Code 06/27/2021 6:28 AM 07/03/2021 7:26 AM Full Code 01/06/2021 2:16 AM 01/07/2021 2:56 PM Healthcare Agents on File Name Relationship Healthcare Agent Relationshi p Communication Shanna Mary Parent Primary Decision Maker Latest Code Status on File Code Status Date Activated Date Inactivated Comments Full Code 07/03/2021 9:59 PM 07/04/2021 2:31 PM Full Code 07/03/2021 10:06 AM 07/03/2021 7:49 PM Full Code 07/03/2021 8:16 AM 07/03/2021 10:06 AM Full Code 06/27/2021 6:28 AM 07/03/2021 7:26 AM Healthcare Agents on File Name Relationship Healthcare Agent Relationshi p Communication Shanna Mary Parent Primary Decision Maker Healthcare Agents on File Name Relationship Healthcare Agent Relationshi p Communication Shanna Mary Parent Primary Decision Maker Healthcare Agents on File Name Relationship Healthcare Agent Relationshi p Communication Shanna Mary Parent Primary Decision Maker Healthcare Agents on File Name Relationship Healthcare Agent Relationshi p Communication Shanna Mary Parent Primary Decision Maker Healthcare Agents on File Name Relationship Healthcare Agent Relationshi p Communication Shanna Mary Parent Primary Decision Maker Latest Code Status on File Code Status Date Activated Date Inactivated Comments Full Code 07/03/2021 9:59 PM 07/04/2021 2:31 PM Healthcare Agents on File Name Relationship Healthcare Agent Relationshi p Communication Shanna Mary Parent Primary Decision Maker Healthcare Agents on File Name Relationship Healthcare Agent Relationshi p Communication Shanna Mary Parent Primary Decision Maker Healthcare Agents on File Name Relationship Healthcare Agent Relationshi p Communication Shanna Mary Parent Primary Decision Maker Latest Code Status on File Code Status Date Activated Date Inactivated Comments Full Code 07/03/2021 9:59 PM 07/04/2021 2:31 PM Code Status History Code Status Date Activated Date Inactivated Comments Full Code 07/03/2021 10:06 AM 07/03/2021 7:49 PM Full Code 07/03/2021 8:16 AM 07/03/2021 10:06 AM Full Code 06/27/2021 6:28 AM 07/03/2021 7:26 AM Full Code 01/06/2021 2:16 AM 01/07/2021 2:56 PM Healthcare Agents on File Name Relationship Healthcare Agent Relationshi p Communication Shanna Mary Parent Primary Decision Maker Assessments Diagnosis Sore throat Acute pharyngitis Diagnosis Chronic midline thoracic back pain Chronic midline low back pain without sciatica Diagnosis Venous (peripheral) insufficiency Unspecified venous (peripheral) insufficiency Lower extremity edema Edema Reason for Referral Status Reason Specialty Diagnoses / Procedures Referred By Contact Referred To Contact Pending Review Radiology Diagnoses Venous (peripheral) insufficiency Lower extremity edema Procedures VL DUP LOWER EXTREMITY VENOUS BILATERAL HC VL LOWER EXTREMITY BILATERAL VENOUS DUPLEX Monika Webster, L[employer] - [employer] HEL[employer] [address] [place] [address] Status Reason Specialty Diagnoses / Procedures Referred By Contact Referred To Contact Authorized Pulmonology Diagnoses Snoring Delvin Mireles MD [address] [address] Specialty Diagnoses / Procedures Referred By Contac t Referred To Contact Cardiology Diagnoses Post PTCA Unstable angina pectoris (HCC) SOB (shortness of breath) Anemia, unspecified type Vitamin D deficiency disease Procedures EKG 12 Lead Jason Grace MD [address] [place] [address] Referral ID Status Reason Start Date Expiration Date Visits Re quested Visits Authorized [id number] Open 02/16/2022 02/16/2023 1 1 Specialty Diagnoses / Procedures Referred By Contac t Referred To Contact Cardiology Diagnoses Chest pain, unspecified type History of non-ST elevation myocardial infarction (NSTEMI) Procedures CARDIAC STRESS TEST EXERCISE ONLY Michael Yoder MD [address] [place] [address] [place] [address] Referral ID Status Reason Start Date Expiration Date Visits Re quested Visits Authorized [id number] Open 10/02/2022 10/02/2023 1 1 Chief Complaint and Reason for Visit Chief Complaint new Employee labs Additional Source Comments INFORMATION SOURCE (unrecogn ized section and content) DATE CREATED AUTHOR [facility] DATE CREATED AUTHOR AUTHOR'S ORGANIZ ATION 02/23/2021 [facility] DATE CREATED AUTHOR AUTHOR'S ORGANIZ ATION 07/04/2021 [facility] DATE CREATED AUTHOR AUTHOR'S ORGANIZ ATION 02/03/2022 [facility] DATE CREATED AUTHOR AUTHOR'S ORGANIZ ATION [facility] DATE CREATED AUTHOR AUTHOR'S ORGANIZ ATION 05/22/2023 [facility] DATE CREATED AUTHOR AUTHOR'S ORGANIZ ATION 05/26/2023 Garcia Speedy [facility] DATE CREATED AUTHOR AUTHOR'S ORGANIZ ATION 06/06/2023 Mittie Speedy [facility] DATE CREATED AUTHOR AUTHOR'S ORGANIZ ATION 02/18/2024 [facility] DATE CREATED AUTHOR AUTHOR'S ORGANADELAIDE ATION 02/20/2024 [facility] Reason for Visit (unrecogniz ed section and content) Status Reason Specialty Diagnoses / Procedures Referred By Contact Referred To Contact Pending Review Radiology Diagnoses Venous (peripheral) insufficiency Lower extremity edema Procedures VL DUP LOWER EXTREMITY VENOUS BILATERAL HC VL LOWER EXTREMITY BILATERAL VENOUS DUPLEX Monika Webster, GRINDER CHIPPER - [employer] FITTER HELPER [address] [place] [address] Reason Comments Oral Swelling Pt arrives with c/o swollen uvula since she woke up this morning causing her to be short of breath and having a hard time talking. Reason Comments Oral Swelling uvula Status Reason Specialty Diagnoses / Procedures Referre d By Contact Referred To Contact Diagnoses Elieser Sr, [facility] [place] [address] [facility] Reason Comments Sore Throat Reason Comments Chest Pain Patient arrives to [facility] today with complaints of chest pain that has been worsening over the last 2 days. Pt denies heart history. Specialty Diagnoses / Procedures Referred By Kenn licona Referred To Contact Diagnoses Chest pain Chest pain, unspecified type [place], [place] [address] [facility] [address] [place] [address] Referral ID Status Reason Start Date Expiration Date Visits Re quested Visits Authorized [id number] 1 1 Reason Comments Chest Pain Chest pain started t hardeep and felt her heart fluttering yesterday Reason Comments Pharyngitis C/O sore throat that started 2 days ago Chest Pain C/O left sided chest pain that started last night and has been on and off all day Scheduled Active and Recently Administ ered Medications (unrecognized section and content) Medication Order 01/03/2021 01/04/2021 01/05/2021 dexamethasone (PF) (DECADRON) injection 6 mg (COMPLETED) 6 mg, Intravenous, ONCE, On 01/05/21 at 1215, For 1 dose 1210 (Given - Provid er: Kimber Obrien RN) diphenhydrAMINE (BENADRYL) injection 50 mg (COMPLETED) 50 mg, Intravenous, ONCE, On Wed01/05/21 at 1245, For 1 dose 1250 (Given - Provid er: Souleymane Nair RN) EPINEPHrine 1 MG/ML injection 0.3 mg (COMPLETED) 0.3 mg, Intramuscular, ONCE, On Wed01/05/21 at 1315, For 1 dose 1313 (Given - Provid er: Souleymane Nair RN) lidocaine viscous hcl (XYLOCAINE) 2 % solution 15 mL (COMPLETED) 15 mL, Mouth/Throat, ONCE, On Wed01/05/21 at 1200, For 1 dose 1200 (Given - Provid er: Shirlene Lucero RN) racepinephrine HCl (VAPONEFPRIN) 2.25 % nebulizer solution NEBU 11.25 mg (COMPLETED) 11.25 mg, Nebulization, ONCE, On Wed01/05/21 at 1215, For 1 dose, 11.25 mg = 0.5 mL 1215 (Given - Provid er: Rosina Baron RCP) PRN Medication Order 01/03/2021 01/04/2021 01/05/2021 sodium chloride nebulizer 0.9 % solution 3 mL 3 mL, Nebulization, EVERY 4 HOURS PRN, Wheezing, Starting on Wed01/05/21 at 1207 Scheduled Medication Order 01/05/2021 01/06/2021 01/07/2021 ampicillin-sulbactam (UNASYN) 1500 mg IVPB minibag 1,500 mg, Intravenous, EVERY 6 HOURS, First dose on Wed01/06/21 at 0245, Until Discontinued 0619 (New Bag - Provider: Sammie Rockwell RN)0700 (Stopped - Provider: Margarito Dumont RN)1420 (New Bag - Provider: Margarito Dumont RN)1455 (Stopped - Provider: Margarito Dumont RN)1813 (New Bag - Provider: Margarito Dumont RN)1845 (Stopped - Provider: Margarito Dumont RN) 0125 (New Bag - Provider: Janneth Horvath RN)0200 (Stopped - Provider: Janneth Horvath RN)0557 (New Bag - Provider: Janneth Horvath RN)0641 (Stopped - Provider: Janneth Horvath RN)1215 (Not Given - Provider: Sammie Garcia RN - Reason: Other - Comment: pt discharged, receiving PO)1800 (Due - Provider: Tootie Camargo [facility]) ampicillin-sulbactam (UNASYN) 3000 mg ivpb minibag (COMPLETED) 3,000 mg, Intravenous, ONCE, 1 dose, On Wed01/05/21 at 1915 2011 (New Bag - Provider: Amber Michael, SHANTE)2118 (Stopped - Provider: Amber Michael RN) dexamethasone (DECADRON) injection 4 mg (COMPLETED) 4 mg, Intravenous, ONCE, On Wed01/05/21 at 1930, For 1 dose 192 (Given - Provider: Amber Michael RN) dexamethasone (DECADRON) injection 4 mg 4 mg, Intravenous, EVERY 6 HOURS, First dose on Wed01/06/21 at 0245 0620 (Given - Provider: Sammie Rockwell RN)1323 (Given - Provider: Margarito Dumont RN)1814 (Given - Provider: Margarito Dumont RN) 0126 (Given - Provider: Janneth Horvath RN)0557 (Given - Provider: Janneth Horvath RN)1216 (Not Given - Provider: Sammie Garcia RN - Reason: Other - Comment: Pt discharged, PO given)1800 (Due - Provider: Tootie Camargo [facility]) enoxaparin (LOVENOX) injection 30 mg 30 mg, Subcutaneous, 2 TIMES DAILY, First dose (after last modification) on Wed01/06/21 at 0900 0905 (Given - Provider: Margarito Dumont RN)2005 (Given - Provider: Janneth Horvath RN) 0805 (Given - Provider: Sammie Garcia RN)2100 (Due) famotidine (PEPCID) injection 20 mg (COMPLETED) 20 mg, Intravenous, ONCE, On Wed01/05/21 at 1730, For 1 dose, Administer over 2 minutes. 1728 (Given - Provider: Mya Camarillo RN) famotidine (PEPCID) injection 20 mg 20 mg, Intravenous, 2 TIMES DAILY, First dose on Wed01/06/21 at 0245, Administer over 2 minutes. 0449 (Not Given - Provider: Jim Servin RN - Reason: Other - Comment: too close to 9am administration)09 (Given - Provider: Margarito Dumont RN)2005 (Given - Provider: Janneth Horvath RN) 08 (Given - Provider: Sammie Garcia RN)2100 (Due) gabapentin (NEURONTIN) capsule 100 mg 100 mg, Oral, 3 TIMES DAILY, First dose on Wed01/06/21 at 0900 09 (Given - Provider: Margarito Dumont RN)1424 (Given - Provider: Margarito Dumont RN)2002 (Given - Provider: Janneth Horvath RN) 08 (Given - Provider: Sammie Garcia RN)1400 (Due)2100 (Due) pantoprazole (PROTONIX) tablet 40 mg 40 mg, Oral, 2 TIMES DAILY BEFORE MEALS, First dose on Wed01/06/21 at 0700, Do not crush or break. Substituted for Omeprazole (PRILOSEC). 0621 (Given - Provider: Sammie Rockwell RN)1726 (Given - Provider: Margarito Dumont RN) 0805 (Given - Provider: Sammie Garcia RN)1600 (Due) rOPINIRole (REQUIP) tablet 4 mg 4 mg, Oral, NIGHTLY, First dose on Wed01/06/21 at 2100 2003 (Given - Provider: Janneth Horvath RN) 2100 (Due) sodium chloride flush 0.9 % injection 5-40 mL 5-40 mL, Intravenous, EVERY 12 HOURS SCHEDULED (2 times per day), First dose on Wed01/06/21 at 0900, For Line Patency: Peripheral IV = 5 mL; Midline or Central Line = 10 mL/lumen. If following IV push medication, administer flush at same rate as the IV push. Flush volume is determined by type of infusion therapy being given. For non-viscous solutions use: Peripheral IV = 5 mL Midline or Central Line = 10 mL/lumen For viscous solutions (i.e. blood components, parenteral nutrition, contrast media, or after obtaining blood sample) use: Peripheral IV = 10 mL Midline or Central Line = 20 mL/lumen 0906 (Given - Provider: Margarito Dumont RN)2005 (Not Given - Provider: Janneth Horvath RN - Reason: IV Fluid Infusing) 08 (Given - Provider: Sammie Garcia, RN)2100 (Due) venlafaxine (EFFEXOR XR) extended release capsule 150 mg 150 mg, Oral, DAILY, First dose on Wed01/06/21 at 0900, Do not crush or break. 09 (Given - Provider: Margarito Dumont RN) 08 (Given - Provider: Sammie Garcia, RN) Continuous Medication Order 01/05/2021 01/06/2021 01/07/2021 0.9 % sodium chloride infusion Intravenous, at 75 mL/hr, CONTINUOUS, Starting on Wed01/06/21 at 0245 0223 (New Bag - Provider: Tanner Mason RN)0700 (Rate/Dose Verify - Provider: Margarito Dumont RN) 0557 (New Bag - Provider: Janneth Horvath RN) PRN Medication Order 01/05/2021 01/06/2021 01/07/2021 0.9 % sodium chloride infusion 25 mL, Intravenous, at 100 mL/hr, PRN, If patient receiving piggyback infusions without ordered maintenance IV fluids or with frequent/long duration piggyback infusions, Starting on Wed01/06/21 at 0216, Administer at the same rate as the piggyback being infused. acetaminophen (TYLENOL) suppository 650 mg(Linked Group 1) 650 mg, Rectal, EVERY 6 HOURS PRN, Pain Mild (1-3), Fever, For temp greater than 100.4 F (38 C), Starting on Wed01/06/21 at 0216, Administer if oral route cannot be used. 1947 (See Alternative - Provider: Janneth Horvath RN) acetaminophen (TYLENOL) tablet 650 mg(Linked Group 1) 650 mg, Oral, EVERY 6 HOURS PRN, Pain Mild (1-3), Fever, For temp greater than 100.4 F (38 C), Starting on Wed01/06/21 at 0216, Maximum dose of acetaminophen is 4000 mg from all sources in 24 hours. 1947 (Given - Provider: Janneth Horvath RN - Comment: headache) hydrOXYzine (ATARAX) tablet 50 mg 50 mg, Oral, 3 TIMES DAILY PRN, Anxiety, Starting on Wed01/06/21 at 0216 iopamidol (ISOVUE-370) 76 % injection 75 mL (COMPLETED) 75 mL, Intravenous, IMG ONCE PRN, Other, Starting on Wed01/05/21 at 2240, For 1 dose 2241 (Given - Provider: Myriam Perez) magnesium sulfate 1000 mg in dextrose 5% 100 mL IVPB 1,000 mg, Intravenous, at 100 mL/hr, Administer over 1 Hours, PRN, Other, Per IV Magnesium Replacement Protocol, Starting on Wed01/06/21 at 0216, Mg Lab Replacement Action 1.4-1.6 1 gram IVPB x 2 doses (2 gram Total) 1.0-1.3 1 gram IVPB x 4 doses (4 gram Total) <1.0 CALL PHYSICIAN and 1 gram IVPB x 4 doses (4 gram Total) Infuse at 1 gram/hr Repeat Mag level next AM Protocol not for use in Patients with CrCl<30ml/min ondansetron (ZOFRAN) injection 4 mg(Linked Group 2) 4 mg, Intravenous, EVERY 6 HOURS PRN, Nausea, Vomiting, Starting on Wed01/06/21 at 0216, Administer if oral route cannot be used. ondansetron (ZOFRAN-ODT) disintegrating tablet 4 mg(Linked Group 2) 4 mg, Oral, EVERY 8 HOURS PRN, Nausea, Vomiting, Starting on Wed01/06/21 at 0216 polyethylene glycol (GLYCOLAX) packet 17 g 17 g, Oral, DAILY PRN, Constipation, Starting on Wed01/06/21 at 021, First line therapy for constipation potassium bicarb-citric acid (EFFER-K) effervescent tablet 40 mEq(Linked Group 3) 40 mEq, Oral, PRN, Per Potassium Replacement Protocol, Starting on Wed01/06/21 at 0216, Administer as alternative if patient unable to tolerate oral tablet. K Lab Replacement Action 3.1 to 3.5 40 mEq ORAL x 1 Under 3.1 Refer to IV replacement protocol Recheck K level in AM. Protocol not for use in patients with CrCl less than 30 mL/min. Do not chew or crush. Dissolve flavored tablets completely in 3 to 4 ounces of cold water; unflavored tablets may be dissolved in 3 to 4 ounces of cold juice. Patient to sip slowly over a 5 to 10 minute period. May further dilute if GI adverse effects occur. potassium chloride (KLOR-CON M) extended release tablet 40 mEq(Linked Group 3) 40 mEq, Oral, PRN, Potassium Replacement, Starting on Wed01/06/21 at 0216, May give oral solution if patient unable to tolerate tablet. K Lab Replacement Action 3.1-3.5 40 mEq ORAL x 1 2.7-3.0 Refer to IV replacement orders < 2.7 Refer to IV replacement orders Recheck K level in AM. Not for use in patients with CrCl less than 30 mL/min. potassium chloride 10 mEq/100 mL IVPB (Peripheral Line)(Linked Group 3) 10 mEq, Intravenous, at 100 mL/hr, PRN, Potassium Replacement, Starting on Wed01/06/21 at 0216, K Lab Replacement Action 2.7-3.0 10 mEq IVPB x 6 doses (60 mEq Total) < 2.7 CALL PHYSICIAN and 10 mEq IVPB x 6 doses (60 mEq Total) Infuse at 10 mEq/hr Repeat Potassium lab 1 hour after final administration. Not for use in patients with CrCl less than 30 mL/min. sodium chloride flush 0.9 % injection 10 mL 10 mL, Intravenous, PRN, Line Care, After every IV line use, Starting on Wed01/06/21 at 0216 Linked Groups Order Group 1: acetaminophen (TYLENOL) tablet 650 mgJump to med 650 mg, Oral, EVERY 6 HOURS PRN, Pain Mild (1-3), Fever, For temp greater than 100.4 F (38 C), Starting on Wed01/06/21 at 0216
Maximum dose of acetaminophen is 4000 mg from all sources in 24 hours.
Or acetaminophen (TYLENOL) suppository 650 mgJump to med 650 mg, Rectal, EVERY 6 HOURS PRN, Pain Mild (1-3), Fever, For temp greater than 100.4 F (38 C), Starting on Wed01/06/21 at 0216
Administer if oral route cannot be used.
Group 2: ondansetron (ZOFRAN-ODT) disintegrating tablet 4 mgJump to med 4 mg, Oral, EVERY 8 HOURS PRN, Nausea, Vomiting, Starting on Wed01/06/21 at 0216 Or ondansetron (ZOFRAN) injection 4 mgJump to med 4 mg, Intravenous, EVERY 6 HOURS PRN, Nausea, Vomiting, Starting on Wed01/06/21 at 0216
Administer if oral route cannot be used.
Group 3: potassium chloride (KLOR-CON M) extended release tablet 40 mEqJump to med 40 mEq, Oral, PRN, Potassium Replacement, Starting on Wed01/06/21 at 0216
May give oral solution if patient unable to tolerate tablet. K Lab Replacement Action 3.1-3.5 40 mEq ORAL x 1 & nbsp; 2.7-3.0 Refer to IV replacement orders < 2.7 Refer to IV replacement orders Recheck K level in AM. Not for use in patients with CrCl less than 30 mL/min.
Or potassium bicarb-citric acid (EFFER-K) effervescent tablet 40 mEqJump to med 40 mEq, Oral, PRN, Per Potassium Replacement Protocol, Starting on Wed01/06/21 at 0216
Administer as alternative if patient unable to tolerate oral tablet. K Lab R epwyc ement Action 3.1 to 3.5 40 mEq ORAL x 1 Under 3.1 Refer to IV replacement protocol Recheck K level in AM. Protocol not for use in patients with CrCl less than 30 mL/min. Do not chew or crush. Dissolve flavored tablets completely in 3 to 4 ounces of cold water; unflavored tablets may be dissolved in 3 to 4 ounces of cold juice. Patient to sip slowly over a 5 to 10 minute period. May further dilute if GI adverse effects occur.
Or potassium chloride 10 mEq/100 mL IVPB (Peripheral Line)Jump to med 10 mEq, Intravenous, at 100 mL/hr, PRN, Potassium Replacement, Starting on Wed01/06/21 at 0216
K Lab Replacement Action 2.7-3.0 10 mEq IVPB x 6 doses (60 mEq Total) < 2.7 CALL PHYSICIAN and 10 mEq IVPB x 6 doses (60 mEq Total) Infuse at 10 mEq/hr Repeat Potassium lab 1 hour after final administration. Not for use in patients with CrCl less than 30 mL/min.
Scheduled Medication Order 07/01/2021 07/02/2021 07/03/2021 amLODIPine (NORVASC) tablet 2.5 mg 2.5 mg, Oral, 2 TIMES DAILY, First dose on Wed07/01/21 at 2200 2152 (Given - Provider: Chioma Kauffman RN) 0744 (Given - Provider: Yadira Hester RN)2105 (Given - Provider: Lina Bloom RN) 899 (Due)2099 (Due) aspirin EC tablet 81 mg 81 mg, Oral, DAILY, First dose on 06/28/21 at 0900, Do not crush or break. 0830 (Given - Provider: Edelmira Mustafa RN) 0744 (Given - Provider: Yadira Hester RN) 09 (Due) atorvastatin (LIPITOR) tablet 80 mg 80 mg, Oral, NIGHTLY, First dose on Wed06/27/21 at 2100 2040 (Given - Provider: Chioma Kauffman RN) 2104 (Given - Provider: Lina Bloom RN) 2100 (Due) ferrous sulfate (IRON 325) tablet 325 mg 325 mg, Oral, 2 TIMES DAILY WITH MEALS, First dose on Wed06/29/21 at 0800 0831 (Given - Provider: Edelmira Mustafa RN)1640 (Given - Provider: Yadira Hester RN) 0745 (Given - Provider: Yadira Hester RN)1706 (Given - Provider: Yadira Hester RN) 0800 (Due)1700 (Due) gabapentin (NEURONTIN) capsule 100 mg 100 mg, Oral, 3 TIMES DAILY, First dose on Wed06/27/21 at 0900 0831 (Given - Provider: Edelmira Mustafa RN)1352 (Given - Provider: Edelmira Mustafa RN)203 (Given - Provider: Chioma Kauffman RN) 0745 (Given - Provider: Yadira Hester RN)1406 (Given - Provider: Yadira Hester RN)210 (Given - Provider: Lina Bloom RN) 0900 (Due)1400 (Due)2099 (Due) insulin lispro (HUMALOG) injection vial 0-3 Units 0-3 Units, SubCUTAneous, NIGHTLY, First dose on Wed06/27/21 at 2100, If continuous tube feedings/TPN/NPO, give correction dose based on result, no reduction in dose. If eating or bolus tube feeding: Low Dose Bedtime Correction Algorithm Glucose: Dose: 70-139 No Insulin 140-249 1 Unit 250-349 2 Units 350 and above 3 Units 2039 (Not Given - Provider: Chioma Kauffman RN - Reason: Order parameters not met) 2105 (Not Given - Provider: Lina Bloom RN - Reason: Pt NPO) 2099 (Due) insulin lispro (HUMALOG) injection vial 0-6 Units 0-6 Units, SubCUTAneous, 3 TIMES DAILY WITH MEALS, First dose on Wed06/27/21 at 1200, Low Dose Correction Algorithm Glucose: Dose: 70-139 No Insulin 140-199 1 Unit 200-249 2 Units 250-299 3 Units 300-349 4 Units 350-399 5 Units 400 and above 6 Units 0844 (Not Given - Provider: Yadira Hester RN - Reason: Order parameters not met)1124 (Not Given - Provider: Yadira Hester RN - Reason: Pt NPO)1641 (Given - Provider: Yadira Hester RN) 0750 (Not Given - Provider: Yadira Hester RN - Reason: Order parameters not met)1159 (Not Given - Provider: Yadira Hester RN - Reason: Other)1700 (Canceled Entry - Provider: Yadira Hester RN) 0800 (Due)1200 (Due)1700 (Due) lisinopril (PRINIVIL;ZESTRIL) tablet 5 mg 5 mg, Oral, 2 TIMES DAILY, First dose (after last modification) on Wed06/30/21 at 0900, Hold for SBP < 110. 0831 (Given - Provider: Edelmira Mustafa RN)1640 (Given - Provider: Yadira Hester RN) 0744 (Given - Provider: Yadira Hester RN)1406 (Given - Provider: Yadira Hester RN) 0900 (Due)1600 (Due) metoprolol tartrate (LOPRESSOR) tablet 25 mg 25 mg, Oral, 2 TIMES DAILY, First dose on Wed06/27/21 at 2100 0831 (Given - Provider: Edelmira Mustafa RN)2040 (Given - Provider: Chioma Kauffman RN) 0744 (Given - Provider: Yadira Hester RN)210 (Given - Provider: Lina Bloom RN) 0900 (Due)2100 (Due) nitroglycerin (NITRO-BID) 2 % ointment 1 inch 1 inch, Topical, EVERY 6 HOURS SCHEDULED (4 times per day), First dose on Wed07/01/21 at 0745 0831 (Given - Provider: Edelmira Mustafa RN)1352 (Given - Provider: Edelmira Mustafa RN)2037 (Given - Provider: Chioma Kauffman RN) 0300 (Given - Provider: Chela Farrar RN)0744 (Given - Provider: Yadira Hester RN)1351 (Not Given - Provider: Yadira Hester RN - Reason: Other)1999 (Due - Provider: Valentino Peterson [facility])2003 (Held by provider - Provider: Brian Han MD - Reason: Other - Comment: IV nitro) 0014 (Unheld by provider - Provider: Jason Grace MD)0102 (Given - Provider: Cecilia Oquendo RN)0800 (Due - Provider: Jason Grace MD)1400 (Due - Provider: Jason Grace MD)1999 (Due - Provider: Jason Grace MD) pantoprazole (PROTONIX) tablet 40 mg 40 mg, Oral, 2 TIMES DAILY BEFORE MEALS, First dose on Wed06/27/21 at 0700, Do not crush or break. Substituted for Omeprazole (PRILOSEC). 0632 (Given - Provider: Lina Bloom RN)1639 (Given - Provider: Yadira Hester, SHANTE) 0530 (Given - Provider: Chela Farrar RN)1406 (Given - Provider: Yadira Hester RN) 0700 (Due)1600 (Due) rOPINIRole (REQUIP) tablet 4 mg 4 mg, Oral, NIGHTLY, First dose on Wed06/27/21 at 2100 2038 (Given - Provider: Chioma Kauffman RN) 2103 (Given - Provider: Lina Bloom RN) 2099 (Due) sodium chloride flush 0.9 % injection 5-40 mL 5-40 mL, IntraVENous, EVERY 12 HOURS SCHEDULED (2 times per day), First dose on Wed06/27/21 at 0900, For Line Patency: Peripheral IV = 5 mL; Midline or Central Line = 10 mL/lumen. If following IV push medication, administer flush at same rate as the IV push. Flush volume is determined by type of infusion therapy being given. For non-viscous solutions use: Peripheral IV = 5 mL Midline or Central Line = 10 mL/lumen For viscous solutions (i.e. blood components, parenteral nutrition, contrast media, or after obtaining blood sample) use: Peripheral IV = 10 mL Midline or Central Line = 20 mL/lumen 0832 (Given - Provider: Edelmira Mustafa RN)2111 (Not Given - Provider: Chela Farrar RN - Reason: IV Fluid Infusing) 08 (Not Given - Provider: Yadira Hester RN - Reason: IV Fluid Infusing)2106 (Given - Provider: Lina Bloom RN) 0900 (Due)2099 (Due) ticagrelor (BRILINTA) tablet 90 mg 90 mg, Oral, 2 TIMES DAILY, First dose on Wed07/02/21 at 0900, ANTIPLATELET! 0744 (Given - Provider: Yadira Hester, RN)2105 (Given - Provider: Lina Bloom RN) 0900 (Due)2100 (Due) venlafaxine (EFFEXOR XR) extended release capsule 150 mg 150 mg, Oral, DAILY, First dose on Wed06/27/21 at 0900, Do not crush or break. 0832 (Given - Provider: Edelmira Mustafa RN) 0744 (Given - Provider: Yadira Hester, RN) 0900 (Due) Continuous Medication Order 07/01/2021 07/02/2021 07/03/2021 0.9 % sodium chloride infusion IntraVENous, at 20 mL/hr, CONTINUOUS, Starting on Wed06/27/21 at 1400 0600 (Rate/Dose Verify - Provider: Lina Bloom RN)1535 (Rate/Dose Verify - Provider: Edelmira Mustafa RN) heparin 25,000 units in dextrose 5% 250 mL (premix) infusion 5-30 Units/kg/hr 112.9 kg (5.645-33.87 mL/hr, rounded to 5.6-33.9 mL/hr), IntraVENous, CONTINUOUS, Starting on Wed06/27/21 at 1545, Initial dose 8.86 units/kg/hr (Provides max dose of 1000 units/hr) LOW DOSE HEPARIN PROTOCOL Heparin Weight-Based Infusion: CAD,AFIB,STEMI,NSTEMI,UA (aPTT Monitoring) Initial dose is 8.86 units/kg/hr. WARNING Patient weight EXCEEDS max initial dose of 1000 units/hr. Please recalculate patient weight based initial dose. Recorded patient weight: 112.9 kg. , Start at: Bolus = 60 units/kg IV x 1 (max 4,000 units), then 12 units/kg/hr (max initial rate 1,000 units/hr) = 8.86 units/kg/hr. Adjust infusion rate based on aPTT results (target range 62-94). For titration purposes, continue to use the initial weight of 112.9 for adjustments. aPTT < 46 Heparin 60 units/kg (max 4,000 units) bolus, then increase infusion by 4 units/kg/hr aPTT 46-61 Heparin 30 units/kg (max 2,000 units) bolus, then increase infusion by 2 units/kg/hr aPTT 62-94 No bolus No change in rate aPTT 95-102 No bolus Decrease infusion by 1 units/kg/hr aPTT 103-109 No bolus Decrease infusion by 2 units/kg/hr aPTT 110 or greater Hold heparin for 60 min , then decrease infusion by 3 units/kg/hr from previous rate (no bolus for restart) Check aPTT 6 hours after initiation and 6 hours after every dose change. When aPTT is within target range for two consecutive times, check aPTT once daily. *60 units/kg bolus max= 4,000 units *30 units/kg bolus max= 2,000 units (for bolus doses, use patient's current weight) 0600 (Rate/Dose Verify - Provider: Lina Bloom RN)0741 (Rate/Dose Verify - Provider: Edelmira Mustafa RN)0743 (Rate/Dose Verify - Provider: Edelmira Mustafa RN)0751 (New Bag - Provider: Edelmira Mustafa RN)1535 (Rate/Dose Verify - Provider: Edelmira Mustafa RN)2154 (Rate/Dose Verify - Provider: Chioma Kauffman RN)2155 (Rate/Dose Verify - Provider: Chioma Kauffman RN)2158 (Rate/Dose Verify - Provider: Chioma Kauffman RN) 1402 (New Bag - Provider: Yadira Hester, SHANTE) 0424 (New Bag - Provider: Cecilia Oquendo RN) nitroGLYCERIN 50 mg in dextrose 5% 250 mL infusion 5-200 mcg/min (1.5-60 mL/hr), IntraVENous, CONTINUOUS, Starting on Wed07/02/21 at 1015, Titrate to chest pain free Dose Range: 5 to 200 mcg/min Initial dose: 5 mcg/min Max dose: 200 mcg/min Contact physician if max dose does not achieve desired response If rate LESS than 20 mcg/min titrate by 5 mcg/min every 5 minutes to goal If rate GREATER than or equal to 20 mcg/min titrate by 10 mcg/min every 5 minutes to goal Use of nitroglycerin is not recommended if SBP less than 90 mmHg; notify physician if indicated 1008 (New Bag - Provider: Yadira Hester RN)2348 (Stopped - Provider: Lina Bloom RN) PRN Medication Order 07/01/2021 07/02/2021 07/03/2021 0.9 % sodium chloride infusion 25 mL, IntraVENous, at 100 mL/hr, PRN, If patient receiving piggyback infusions without ordered maintenance IV fluids or with frequent/long duration piggyback infusions, Starting on Wed06/27/21 at 0628, Administer at the same rate as the piggyback being infused. acetaminophen (TYLENOL) suppository 650 mg(Linked Group 1) 650 mg, Rectal, EVERY 6 HOURS PRN, Pain Mild (1-3), Fever, For temp greater than 100.4 F (38 C), Starting on Wed06/27/21 at 0628, Administer if oral route cannot be used. 1643 (See Alternative - Provider: Yadira Hester RN) 1511 (See Alternative - Provider: Yadira Hester RN) acetaminophen (TYLENOL) tablet 650 mg(Linked Group 1) 650 mg, Oral, EVERY 6 HOURS PRN, Pain Mild (1-3), Fever, For temp greater than 100.4 F (38 C), Starting on Wed06/27/21 at 0628, Maximum dose of acetaminophen is 4000 mg from all sources in 24 hours. 1643 (Given - Provider: Yadira Hester RN) 1511 (Given - Provider: Yadira Hester RN) cyclobenzaprine (FLEXERIL) tablet 10 mg 10 mg, Oral, 3 TIMES DAILY PRN, Muscle spasms, Starting on Wed06/27/21 at 0628 dextrose 5 % solution 100 mL/hr, IntraVENous, PRN, Low blood sugar, Starting on Wed06/27/21 at 1125, Start infusion following administration of dextrose 50% or glucagon. dextrose 50 % IV solution 12.5 g, IntraVENous, PRN, Low blood sugar, Blood glucose less than 70 mg/dL and patient NOT ALERT or NPO., Starting on Wed06/27/21 at 1125, If patient does not respond within 5 minutes, repeat dose x1. Start D5W at 100 mL/hour until ordering provider can be reached. Repeat blood glucose in 15 minutes. If blood glucose is less than 70 mg/dL, repeat treatment and recheck blood glucose in 15 minutes x2. If using Glucostabilizer, dose as instructed per system. glucagon (rDNA) injection 1 mg 1 mg, IntraMUSCular, PRN, Low blood sugar, Blood glucose less than 70 mg/dL and patient NOT ALERT or NPO and does not have IV access., Starting on Wed06/27/21 at 1125, After administration, attempt intravenous access and start D5W at 100 mL/hr. Repeat blood glucose in 15 minutes x2 and notify provider. glucose (GLUTOSE) 40 % oral gel 15 g 15 g, Oral, PRN, Low blood sugar, Starting on Wed06/27/21 at 1125, If blood glucose less than 50 mg/dL and patient ALERT and TOLERATING PO, give 2 tubes glucose gel. If blood glucose less than 70 mg/dL and patient ALERT and TOLERATING PO, give 1 tube glucose gel. Repeat blood glucose in 15 minutes. If blood glucose is less than 70 mg/dL, repeat treatment and recheck blood glucose in 15 minutes x2 and notify provider. heparin (porcine) injection 2,000 Units 2,000 Units, IntraVENous, PRN, Other, heparin dosing algorithm, Starting on Wed06/27/21 at 1512, Half dose re-bolus based on pharmacy algorithm heparin (porcine) injection 4,000 Units 4,000 Units, IntraVENous, PRN, Other, heparin dosing algorithm, Starting on Wed06/27/21 at 1512, Full dose re-bolus based on pharmacy algorithm hydrOXYzine (VISTARIL) capsule 25 mg 25 mg, Oral, 3 TIMES DAILY PRN, Anxiety, Starting on Wed06/29/21 at 1715 morphine (PF) injection 2 mg 2 mg, IntraVENous, EVERY 1 HOUR PRN, Pain Moderate (4-6), Pain Severe (7-10), Starting on Wed07/02/21 at 0945, If oral and IV narcotics ordered, use oral first and only use IV if oral is ineffective or cannot take oral. Do Not give oral and IV within 1 hour of each other unless specifically ordered. 1004 (Given - Provider: Yadira Hester RN) nitroGLYCERIN (NITROSTAT) SL tablet 0.4 mg 0.4 mg, SubLINGual, EVERY 5 MIN PRN, Chest pain, Starting on Petra 06/26/21 at 2145, Place 1 tablet under tongue upon chest pain, wait 5 minutes and may repeat up to 3 doses in 15 minutes. Do not crush or break. 0928 (Given - Provider: Yadira Hester, SHANTE)0933 (Given - Provider: Yadira Hester, SHANTE)0938 (Given - Provider: Yadira Hester, SHANTE) ondansetron (ZOFRAN) injection 4 mg(Linked Group 2) 4 mg, IntraVENous, EVERY 6 HOURS PRN, Nausea, Vomiting, Starting on Wed06/27/21 at 0628, Administer if oral route cannot be used. 2321 (See Alternative - Provider: Chela Farrar RN) 1004 (Given - Provider: Yadira Hester RN) ondansetron (ZOFRAN-ODT) disintegrating tablet 4 mg(Linked Group 2) 4 mg, Oral, EVERY 8 HOURS PRN, Nausea, Vomiting, Starting on Wed06/27/21 at 0628 2321 (Given - Provider: Chela Farrar RN) 1004 (See Alternative - Provider: Yadira Hester RN) polyethylene glycol (GLYCOLAX) packet 17 g 17 g, Oral, DAILY PRN, Constipation, Starting on Wed06/27/21 at 0628, First line therapy for constipation sodium chloride flush 0.9 % injection 5-40 mL 5-40 mL, IntraVENous, PRN, Line Care, After every IV line use, Starting on Wed06/27/21 at 0628, For Line Patency: Peripheral IV = 5 mL; Midline or Central Line = 10 mL/lumen. If following IV push medication, administer flush at same rate as the IV push. Flush volume is determined by type of infusion therapy being given. For non-viscous solutions use: Peripheral IV = 5 mL Midline or Central Line = 10 mL/lumen For viscous solutions (i.e. blood components, parenteral nutrition, contrast media, or after obtaining blood sample) use: Peripheral IV = 10 mL Midline or Central Line = 20 mL/lumen traMADol (ULTRAM) tablet 50 mg 50 mg, Oral, EVERY 4 HOURS PRN, Pain Mild (1-3), Pain Moderate (4-6), Pain Severe (7-10), Starting on Wed06/29/21 at 1033 Linked Groups Order Group 1: acetaminophen (TYLENOL) tablet 650 mgJump to med 650 mg, Oral, EVERY 6 HOURS PRN, Pain Mild (1-3), Fever, For temp greater than 100.4 F (38 C), Starting on Wed06/27/21 at 0628
Maximum dose of acetaminophen is 4000 mg from all sources in 24 hours.
Or acetaminophen (TYLENOL) suppository 650 mgJump to med 650 mg, Rectal, EVERY 6 HOURS PRN, Pain Mild (1-3), Fever, For temp greater than 100.4 F (38 C), Starting on Wed06/27/21 at 0628
Administer if oral route cannot be used.
Group 2: ondansetron (ZOFRAN-ODT) disintegrating tablet 4 mgJump to med 4 mg, Oral, EVERY 8 HOURS PRN, Nausea, Vomiting, Starting on Wed06/27/21 at 0628 Or ondansetron (ZOFRAN) injection 4 mgJump to med 4 mg, IntraVENous, EVERY 6 HOURS PRN, Nausea, Vomiting, Starting on Wed06/27/21 at 0628
Administer if oral route cannot be used.
Scheduled Medication Order 07/02/2021 07/03/2021 07/04/2021 aspirin EC tablet 81 mg 81 mg, Oral, DAILY, First dose on Wed07/04/21 at 0900, Do not crush or break. 0941 (Given - Provid er: Joanna Medina RN) atorvastatin (LIPITOR) tablet 80 mg 80 mg, Oral, NIGHTLY, First dose on Wed07/03/21 at 2215 2245 (Given - Provider: Cecilia Oquendo RN) 2100 (Due) ferrous sulfate (IRON 325) tablet 325 mg 325 mg, Oral, 2 TIMES DAILY WITH MEALS, First dose on Wed07/04/21 at 0800 0800 (Due)1700 (Due) gabapentin (NEURONTIN) capsule 100 mg 100 mg, Oral, 3 TIMES DAILY, First dose on Wed07/03/21 at 2215 2245 (Given - Provider: Cecilia Oquendo RN) 0941 (Given - Provider: Joanna Medina RN)1400 (Due)2100 (Due) lisinopril (PRINIVIL;ZESTRIL) tablet 5 mg 5 mg, Oral, 2 TIMES DAILY, First dose on Wed07/03/21 at 2215 2245 (Given - Provider: Cecilia Oquendo RN) 0941 (Given - Provider: Joanna Medina RN)2100 (Due) metoprolol tartrate (LOPRESSOR) tablet 25 mg 25 mg, Oral, 2 TIMES DAILY, First dose on Wed07/03/21 at 2215 2245 (Given - Provider: Cecilia Oquendo RN) 0941 (Given - Provider: Joanna Medina RN)2100 (Due) pantoprazole (PROTONIX) tablet 40 mg 40 mg, Oral, 2 TIMES DAILY BEFORE MEALS, First dose on Wed07/04/21 at 0700, Do not crush or break. 0522 (Given - Provid er: Cecilia Oquendo RN)1600 (Due) rOPINIRole (REQUIP) tablet 4 mg 4 mg, Oral, NIGHTLY, First dose on Wed07/03/21 at 2215 2244 (Given - Provider: Cecilia Oquendo RN) 2100 (Due) sodium chloride flush 0.9 % injection 5-40 mL 5-40 mL, IntraVENous, 2 TIMES DAILY, First dose on Wed07/03/21 at 2230, For Line Patency: Peripheral IV = 5 mL; Midline or Central Line = 10 mL/lumen. If following IV push medication, administer flush at same rate as the IV push. Flush volume is determined by type of infusion therapy being given. For non-viscous solutions use: Peripheral IV = 5 mL Midline or Central Line = 10 mL/lumen For viscous solutions (i.e. blood components, parenteral nutrition, contrast media, or after obtaining blood sample) use: Peripheral IV = 10 mL Midline or Central Line = 20 mL/lumen 2246 (Given - Provider: Cecilia Oquendo RN) 0900 (Due)2100 (Due) ticagrelor (BRILINTA) tablet 90 mg 90 mg, Oral, 2 TIMES DAILY, First dose on Wed07/03/21 at 2230, ANTIPLATELET! 2245 (Given - Provider: Cecilia Oquendo RN) 0944 (Given - Provider: Joanna Medina RN)2100 (Due) venlafaxine (EFFEXOR XR) extended release capsule 150 mg 150 mg, Oral, DAILY, First dose on Wed07/04/21 at 0900, Do not crush or break. 0941 (Given - Provid er: Joanna Medina, SHANTE) PRN Medication Order 07/02/2021 07/03/2021 07/04/2021 cyclobenzaprine (FLEXERIL) tablet 10 mg 10 mg, Oral, 3 TIMES DAILY PRN, Muscle spasms, Starting on Petra 07/03/21 at 2134 hydrOXYzine (VISTARIL) injection 25 mg 25 mg, IntraMUSCular, 3 TIMES DAILY PRN, Itching, Anxiety, Starting on Petra 07/03/21 at 2136 nitroGLYCERIN (NITROSTAT) SL tablet 0.4 mg 0.4 mg, SubLINGual, EVERY 5 MIN PRN, Chest pain, Starting on Petra 07/03/21 at 2138, Place 1 tablet under tongue upon chest pain, wait 5 minutes and may repeat up to 3 doses in 15 minutes. Do not crush or break. traMADol (ULTRAM) tablet 50 mg 50 mg, Oral, EVERY 4 HOURS PRN, Pain Moderate (4-6), Pain Severe (7-10), Starting on Petra 07/03/21 at 2140 Scheduled Medication Order 09/30/2022 10/01/2022 10/02/2022 aspirin chewable tablet 324 mg (COMPLETED) 324 mg, Oral, ONCE, 1 dose, On Wed10/02/22 at 1030 1034 (Given - Provid er: Say Nina RN) Scheduled Medication Order 02/16/2023 02/17/2023 02/18/2023 ampicillin-sulbactam (UNASYN) 3,000 mg in sodium chloride 0.9 % 100 mL IVPB (mini-bag) (COMPLETED) 3,000 mg, IntraVENous, ONCE, 1 dose, On Petra 02/18/23 at 1215, Antimicrobial Indications: Other, Other Abx Indication: strep 1224 (New Bag - Prov ider: Morena Radford RN)1254 (Stopped - Provider: Morena Radford RN) famotidine (PEPCID) 20 mg in sodium chloride (PF) 0.9 % 10 mL injection (COMPLETED) 20 mg, IntraVENous, ONCE, 1 dose, On Petra 02/18/23 at 1145, IV Push over minimum of 2 minutes - Dilute with 10 mL NS 1216 (Given - Provid er: Morena Radford RN) ketorolac (TORADOL) injection 15 mg (COMPLETED) 15 mg, IntraVENous, ONCE, 1 dose, On Petra 02/18/23 at 1145 1215 (Given - Provid er: Morena Radford RN) sodium chloride 0.9 % bolus 1,000 mL (COMPLETED) 1,000 mL (9.55 mL/kg), IntraVENous, at 983.6 mL/hr, Administer over 61 Minutes, ONCE, On Petra 02/18/23 at 1215, For 1 dose 1223 (New Bag - Prov ider: Morena Radford RN)1330 (Stopped - Provider: Morena Radford RN) Ordered Prescriptions (unrec ognized section and content) Prescription Sig Dispensed Refills Start Date End Da te predniSONE (DELTASONE) 20 MG tablet Take 2 tablets by mouth daily for 5 days 10 tablet 0 01/07/2021 01/12/2021 amoxicillin-clavulanate (AUGMENTIN) 875-125 MG per tablet Take 1 tablet by mouth 2 times daily for 7 days 14 tablet 0 01/07/2021 01/14/2021 Prescription Sig Dispensed Refills Start Date End Da te aspirin 81 MG EC tablet Take 1 tablet by mouth daily 30 tablet 3 07/03/2021 atorvastatin (LIPITOR) 80 MG tablet Take 1 tablet by mouth nightly 30 tablet 3 07/03/2021 lisinopril (PRINIVIL;ZESTRIL) 5 MG tablet Take 1 tablet by mouth 2 times daily 30 tablet 3 07/03/2021 metoprolol tartrate (LOPRESSOR) 25 MG tablet Take 1 tablet by mouth 2 times daily 60 tablet 3 07/03/2021 amLODIPine (NORVASC) 2.5 MG tablet Take 1 tablet by mouth 2 times daily 30 tablet 3 07/03/2021 ferrous sulfate (IRON 325) 325 (65 Fe) MG tablet Take 1 tablet by mouth 2 times daily (with meals) 30 tablet 3 07/03/2021 ticagrelor (BRILINTA) 90 MG TABS tablet Take 1 tablet by mouth 2 times daily 60 tablet 0 07/03/2021 Prescription Sig Dispensed Refills Start Date End Da te metFORMIN (GLUCOPHAGE) 500 MG tablet Take 1 tablet by mouth 2 times daily (with meals) 60 tablet 5 07/04/2021 nitroGLYCERIN (NITROSTAT) 0.4 MG SL tablet up to max of 3 total doses. If no relief after 1 dose, call 911. 25 tablet 3 07/04/2021 ticagrelor (BRILINTA) 90 MG TABS tablet Take 1 tablet by mouth 2 times daily 60 tablet 2 07/04/2021 ferrous sulfate (IRON 325) 325 (65 Fe) MG tablet Take 1 tablet by mouth 2 times daily (with meals) 60 tablet 3 07/04/2021 amLODIPine (NORVASC) 2.5 MG tablet Take 1 tablet by mouth 2 times daily 30 tablet 3 07/04/2021 metoprolol tartrate (LOPRESSOR) 25 MG tablet Take 1 tablet by mouth 2 times daily 60 tablet 3 07/04/2021 atorvastatin (LIPITOR) 80 MG tablet Take 1 tablet by mouth nightly 30 tablet 3 07/04/2021 lisinopril (PRINIVIL;ZESTRIL) 5 MG tablet Take 1 tablet by mouth 2 times daily 60 tablet 3 07/04/2021 Prescription Sig Dispensed Refills Start Date End Da te amoxicillin-clavulanate (AUGMENTIN) 875-125 MG per tablet Take 1 tablet by mouth 2 times daily for 7 days 14 tablet 0 02/18/2023 02/25/2023 Care Teams (unrecognized sec tion and content) 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 Relationship Specialty Start Date End Date Gerry Guerra, [employer] [address] [place] [id number] PCP - General Family 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 Relationship Specialty Start Date End Date Vishal Ashraf DO [address] [place] [address] PCP - General Family Medicine 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 Relationship Specialty Start Date End Date Vishal Ashraf DO [address] [place] [address] PCP - General Family Medicine 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 Relationship Specialty Start Date End Date Vishal Ashraf DO [address] [facility] [place] [address] PCP - General Family Medicine 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 Relationship Specialty Start Date End Date Vishal Ashraf DO [address] [place] [address] PCP - General Family Medicine 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 Relationship Specialty Start Date End Date Vishal Ashraf DO [address] [place] [address] PCP - General Family Medicine 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 Relationship Specialty Start Date End Date Vishal Ashraf DO [address] [place] [id number] PCP - General Family Medicine 07/04/21 Team Status: Inactive Member Role Status Dates Jim Bermudez PA-C Primary Care Provider Active Bc Otero DO [facility] Attending Provider Active Team Status: Active Member Role Status Dates Jim Bermudez PA-C Primary Care Provider Active 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 Relationship Specialty Start Date End Date Vishal Ashraf DO [address] [place] [place] [address] PCP - General Family Medicine 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 Relationship Specialty Start Date End Date Vishal Ashraf DO [address] [place] [place] [address] PCP - General Family Medicine 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 Relationship Specialty Start Date End Date Vishal Ashraf DO [address] [place] [address] PCP - General Family Medicine 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 This clinical summary was aggregated from multiple sources. Caution should be exercised in using it in the provision of clinical care. This summary normalizes information from multiple sources, and as a consequence, information in this document may materially change the coding, format and clinical context of patient data. In addition, data may be omitted in some cases. CLINICAL DECISIONS SHOULD BE BASED ON THE PRIMARY CLINICAL RECORDS. [facility]. provides no warranty or guarantee of the accuracy or completeness of information in this document.
[2024-02-22 08:39] LABS: Glucometer 105 mg/dL (74-106)
[2024-02-22] MEDS: LACTATED RINGER'S SOLUTION 1,000 ML 125 ML IV (10:37)
[2024-02-22 10:44] VITALS: BP 80/46; PULSE 73; TEMP 36.4; O2SAT 94
[2024-02-22 10:59] VITALS: BP 103/61; PULSE 77; O2SAT 97
[2024-02-22 11:14] VITALS: BP 104/66; PULSE 75; O2SAT 95
--- NOTE | 2024-02-22 12:48 | W.PM.PROCNOT ---
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 The patient's SPO2 remained above 90% throughout the procedure. The colonoscope was inserted per rectum and advanced under direct vision to the cecum without* difficulty.? The prep was good*.? Findings: Terminal ileum os: normal Cecum/Ascending colon: large cecal (submucosal) mass (140cm approx)- biopsied and tattooed at 138cm, subcentimeter cecal polyp at 120cm complete polypectomy Transverse colon: normal Descending/Sigmoid colon: normal Rectum/Anus: examined in normal and retroflexed positions and was normal Withdrawal Time was (minutes): 20 The colon was decompressed and the scope was removed.? The patient tolerated the procedure well. Recommendations/Plan: 1.? Lifestyle and dietary modifications as discussed 2.? F/U Biopsies 3.? F/U in office to discuss next colonoscopy timing versus need for surgical intervention 4.? Discussed with the family Anesthesia: MAC Surgeon: Yang Valencia Estimated blood loss (mL): 3 Pathology: other (large cecal mass (140cm)- biopsied and tattooed, subcentimeter cecal polyp at 120cm complete polypectomy ) Condition: stable Disposition: PACU
== END 2024-02-22 11:17 | disposition home or self-care (01) ==
PROVIDERS: PCP Nurse Practitioner; Visit Provider Surgery
PROC: (CPT 811; principal; 2024-02-22 09:20)
DX: R10.84 Generalized abdominal pain (principal); K63.9 Disease of intestine, unspecified; D12.0 Benign neoplasm of cecum; I25.10 Atherosclerotic heart disease of native coronary artery without angina pectoris; Z90.710 Acquired absence of both cervix and uterus; F17.290 Nicotine dependence, other tobacco product, uncomplicated; E78.5 Hyperlipidemia, unspecified; I10 Essential (primary) hypertension; M79.7 Fibromyalgia; E11.9 Type 2 diabetes mellitus without complications; Z79.84 Long term (current) use of oral hypoglycemic drugs; E66.01 Morbid (severe) obesity due to excess calories; Z68.36 Body mass index [BMI] 36.0-36.9, adult
CPT/HCPCS: 45380; 45381; 45385; 36415; 82948; 88305; 88342; J2704

== ENCOUNTER 2024-03-02 07:53 | Outpatient (OUT) | payer BC, SELFPAY | END 2024-03-02 07:54 | disposition home or self-care (01) | LOC: LAB 07:54 | PROVIDERS: PCP Nurse Practitioner; Visit Provider Surgery | DX: K63.89 Other specified diseases of intestine (principal) | CPT/HCPCS: 36415; 86316 ==

== ENCOUNTER 2024-03-07 14:55 | Outpatient (RCR) | payer BC, SELFPAY | END 2024-03-18 23:59 | disposition home or self-care (01) | LOC: HEMC 14:55 | PROVIDERS: PCP Nurse Practitioner; Visit Provider Internal Medicine Hematology & Oncology | DX: D64.9 Anemia, unspecified (principal); K63.89 Other specified diseases of intestine; K59.09 Other constipation; R14.0 Abdominal distension (gaseous) | CPT/HCPCS: G0463 ==

== ENCOUNTER 2024-03-23 08:29 | Outpatient (OUT) | payer BC, SELFPAY ==
[2024-03-23 08:58] LABS: Basophils Absolute Auto 0.1 10^3/uL (0.0-0.1); Basophils Percent Auto 0.8 % (0.2-2.0); Eosinophils Absolute Auto 0.2 10^3/uL (0.0-0.7); Eosinophils Percent Auto 3.3 % (0.9-7.0); Hematocrit 39.9 % (36.0-48.0); Hemoglobin 12.7 g/dL (12.0-16.0); Immature Granulocytes Abs Auto 0.03 10^3/uL (0.00-0.03); Immature Granulocytes Pct Auto 0.4 % (0.0-0.5); Lymphocytes Absolute Auto 2.5 10^3/uL (1.2-3.8); Mean Corpuscular HGB Conc 31.8 g/dL (29.9-35.2); Mean Corpuscular Hemoglobin 28.1 pg (26.7-34.0); Mean Corpuscular Volume 88.3 fL (81.0-99.0); Mean Platelet Volume 10.4 fL (9.5-13.5); Monocytes Absolute Auto 0.4 10^3/uL (0.3-0.8); Monocytes Percent Auto 5.4 % (1.7-12.0); Neutrophils Percent Auto 55.1 % (43.0-75.0); Platelet Count 302 10^3/uL (150-450); Red Blood Count 4.52 10^6/uL (4.20-5.40); Red Cell Distribution Width 14.2 % (11.0-15.0); Reticulocyte Pct Auto 1.51 % (0.60-3.10); White Blood Count 7.2 10^3/uL (4.0-11.0)
[2024-03-23 09:02] LABS: Erythrocyte Sedimentation Rate 42 mm/hr (<=20)
[2024-03-23 09:48] LABS: C Reactive Protein <0.50 mg/dL (<=0.50); Lactate Dehydrogenase 143 U/L (81-234); Percent Iron Saturation 27.8 %
[2024-03-24 11:10] LABS: Vitamin B12 457 pg/mL (232-1245)
== END 2024-03-23 08:30 | disposition home or self-care (01) ==
PROVIDERS: PCP Nurse Practitioner; Visit Provider Internal Medicine Hematology & Oncology
DX: D64.9 Anemia, unspecified (principal)
CPT/HCPCS: 36415; 82607; 82728; 82746; 83540; 83550; 83615; 85025; 85045; 85652; 86140; 86316

== ENCOUNTER 2024-03-30 07:41 | Outpatient (RCR) | payer BC, SELFPAY | END 2024-04-17 23:59 | disposition home or self-care (01) | LOC: HEMC 07:41 | PROVIDERS: PCP Nurse Practitioner; Visit Provider Internal Medicine Hematology & Oncology | DX: D64.9 Anemia, unspecified (principal); K59.09 Other constipation; R14.0 Abdominal distension (gaseous); I25.10 Atherosclerotic heart disease of native coronary artery without angina pectoris; I25.2 Old myocardial infarction; R53.83 Other fatigue | CPT/HCPCS: G0463 ==